=== PATIENT | male | born 1950 | race Caucasian/White ===

== ENCOUNTER 2023-11-13 18:34 | Inpatient (IN) | payer MEDICARE, SELFPAY ==
[2023-11-13] VITALS: BP 121/74; PULSE 81; RESP 18; O2SAT 95
[2023-11-13 18:37] VITALS: BP 137/81; PULSE 75; RESP 18; TEMP 36.8; O2SAT 97; BMI 31.8
--- NOTE | 2023-11-13 18:46 | ECG_ITS ---
APPROVED REPORT Exam: Resting ECG HR:73 bpm ECG Measurements Heart Rate 73 AXES TX 165 P 104 QRSd 106 QRS -47 QT 378 T 102 QTc 404 Conclusion SINUS RHYTHM INCOMPLETE RIGHT BUNDLE BRANCH BLOCK [90+ ms QRS DURATION, TERMINAL R IN V1/V2, 40+ ms S IN I/aVL/V4/V5/V6] LEFT ANTERIOR FASCICULAR BLOCK [QRS AXIS <= -45, QR IN I, RS IN II] NONSPECIFIC T-WAVE ABNORMALITY ABNORMAL ECG UNCONFIRMED REPORT Electronically signed by : Cheo Pena MD 11/14/2023 15:25:12
[2023-11-13] MEDS: PHENYLEPHRINE HCL 10 MG in 0.9 % SODIUM CHLORIDE 250 ML 60.24 MG IV (18:47)
--- NOTE | 2023-11-13 18:59 | PC.NURSE ---
spoke with Dr. Lucio regarding pt arriving to our facility. Pt currently c/o band like pain in epigastric area. Dr. Lucio gave verbal order for Heparin drip and Nitroglycerin drip. Dr. Butt notified.
--- NOTE | 2023-11-13 19:00 | PC.NURSE ---
YUMIKO GTT WAS MIXED AND VERIFIED WITH Bjorn MANJARREZ RN
--- NOTE | 2023-11-13 19:21 | PC.NURSE ---
spoke with who spoke with Dr. Lucio and to hold Nitro drip at this time,
[2023-11-13 19:31] LABS: PTT Heparin (inpatient only) 23.9 Seconds (50-75)
[2023-11-13] MEDS: HEPARIN DRIP CONSULT 1 EACH NOTAPPLIC (19:41)
--- NOTE | 2023-11-13 19:43 | XR_ITS ---
PROCEDURE INFORMATION: Exam: XR Chest Exam date and time: 11/13/2023 8:17 PM Age: 73 years old Clinical indication: Dyspnea; Additional info: SOB TECHNIQUE: Imaging protocol: Radiologic exam of the chest. Views: 1 view. COMPARISON: No relevant prior studies available. FINDINGS: Lungs: Opacification of the right lower lung. Left lung is clear. Pleural spaces: No pneumothorax. Heart/Mediastinum: Cardiomediastinal silhouette is normal. Aortic calcifications. Bones/joints: No acute abnormality. Median sternotomy wires. IMPRESSION: Opacification of the right lower lung which may be due to combination of pleural fluid, atelectasis, and/or infectious/inflammatory process. Recommend follow-up evaluation to assess for resolution following treatment.
[2023-11-13 20:00] VITALS: BP 108/60; PULSE 83; PULSE 90; RESP 22; TEMP 36.7; O2SAT 96
[2023-11-13 20:02] LABS: Troponin I 0.02 ng/ml (0.00-0.034)
[2023-11-13] MEDS: HEPARIN SODIUM 5,000 UNIT/ML VIAL 4000 UNIT IV (20:21)
[2023-11-13] MEDS: HEPARIN SODIUM,PORCINE/D5W 500 ML 20 UNIT IV (20:24)
[2023-11-13 20:37] LABS: POC Glucose,Bedside 191 (70-110)
[2023-11-13 21:01] LABS: Albumin Level 4.4 g/dl (3.5-5.0); Chloride 99 mmol/L (98-107); Potassium 4.7 mmoL/L (3.5-5.1)
[2023-11-13 21:03] LABS: Blood Urea Nitrogen 21 mg/dl (9-20); Creatinine Clearance Estimated 51 mL/min (50-200); Estimated Glomerular Filt Rate 42 ml/min (>60); GFR (African American) 51 ML/MIN (>60)
[2023-11-13 21:04] LABS: Alanine Aminotransferase 29 U/L (12-78); Alkaline Phosphatase 94 U/L (38-126); Aspartate Amino Transferase 27 U/L (17-59); Bilirubin,Total 0.7 mg/dl (0.2-1.3); Calcium 9.5 mg/dl (8.4-10.2); Carbon Dioxide 28 mmol/L (22.0-30.0); Glucose 209 mg/dl (74-100)
[2023-11-13 21:13] LABS: NT Pro Brain Natriuretic Pep. 1060 pg/mL (0-125)
[2023-11-13 21:23] LABS: Basophils % 0.2 % (0.1-2.0); Eosinophils % 0.1 % (0.1-12.0); Hematocrit 47.1 % (42.0-52.0); Lymphocytes # 0.9 K/mm3 (0.7-4.5); Lymphocytes % 4.4 % (10-50); Mean Corpuscular HGB Conc 31.9 g/dL (31.8-35.4); Mean Platelet Volume 6.8 fl (7.4-10.4); Monocytes % 5.2 % (1.7-9.3); Neutrophils # 17.6 K/mm3 (1.8-7.8); Platelet Count 243 K/mm3 (142-424); Red Blood Count 5.01 M/mm3 (4.60-6.20); Red Cell Distribution Width 13.6 % (11.5-17.5); White Blood Count 19.5 K/mm3 (4.8-10.8)
[2023-11-13 21:25] LABS: MANUAL DIFFERENTIAL MANUAL DIFFERENTIAL (MANUAL DIFF)
[2023-11-13 21:56] LABS: Anion Gap 13.7 mEq/L (5-15); Sodium 136 mmol/L (136-145)
[2023-11-13 21:57] LABS: Albumin/Globulin Ratio 1.5 (1.1-1.8); Total Protein,Serum 7.4 g/dl (6.3-8.2)
[2023-11-13 22:00] VITALS: BP 124/71; PULSE 76; RESP 20; O2SAT 93
[2023-11-13 22:01] LABS: Lymphocytes % 7 % (10-50); Monocytes % 7 % (2-9); Neutrophils % 86 % (42-76); Platelet Estimate Normal; RBC Morphology Normal; Total Cells Counted 100
--- NOTE | 2023-11-13 22:57 | EXP.HP ---
History of Present Illness *Admission Date: 11/13/23 *Reason for visit:: abdominal pain *History of present illness: Patient is a 73-year-old male with past medical history of diabetes mellitus CAD hypertension who presents to the hospital as a transfer from [facility]. According to patient he presented there because he had abdominal pain on the right side, he mention he thought it was like kidney pain, he also had epigastric pain. Per patient his abdominal pain was sharp, 10/10 intensity that made him go to the hospital. Patient denies any active abdominal pain at time of my evaluation. Denies nausea vomiting diarrhea constipation dysuria denies shortness of breath. Denies active chest pain fevers chills. [facility] Disclaimer: The information contained in this section may have been updated after the patient was seen, as this information can be updated by other users. Social History Smoking Status: Unknown if ever smoked alcohol intake: former current occupational status: previously employed Travel in the last 8 weeks: Inside the [place] Other Medical History Have you received the Flu Vaccine for this season: No Have you received the Pneumonia Vaccine: No Review of Systems Review of Systems Review of systems:: pertinent systems reviewed and negative unless documented below Meds Home Medications and Allergies Home Medications ?Medication ?Instructions ?Recorded ?Confirmed ?Type amlodipine 10 mg tablet 10 mg PO DAILY 11/13/23 11/13/23 History clopidogrel 75 mg tablet 75 mg PO DAILY 11/13/23 11/13/23 History furosemide 40 mg tablet 40 mg PO DAILY 11/13/23 11/13/23 History glyburide 5 mg tablet 5 mg PO BID 11/13/23 11/13/23 History ipratropium 0.5 mg-albuterol 3 mg 3 ml inhalation QID PRN SOA 11/13/23 11/13/23 History (2.5 mg base)/3 mL nebulization soln metformin 500 mg tablet 500 mg PO BID 11/13/23 11/13/23 History metoprolol tartrate 100 mg tablet 100 mg PO BID 11/13/23 11/13/23 History New Prescriptions to Start Prescriptions: Allergies Allergy/AdvReac Type Severity Reaction Status Date / Time lisinopril Allergy Headache Verified 11/13/23 18:59 Exam Data for Last 24 hours Vital signs and Labs for Last 24 Hours: Temp Pulse Resp BP Pulse Ox O2 Del Method O2 Flow Rate 98.2 F 90 18 137/81 97 Nasal Cannula 2 11/13/23 18:37 11/13/23 20:00 11/13/23 18:37 11/13/23 18:37 11/13/23 18:37 11/13/23 21:00 11/13/23 21:00 Laboratory Results - last 24 hr 11/13/23 19:05: APTT 23.9 L, Troponin I 0.02 11/13/23 20:28: POC Glucose 191 H 11/13/23 20:47: WBC 19.5 H, RBC 5.01, Hgb 15.0, Hct 47.1, MCV 94.0, MCH 30.0, MCHC 31.9, RDW 13.6, Plt Count 243, MPV 6.8 L, Neut % (Auto) 90.0 H, Lymph % (Auto) 4.4 L, [place] % (Auto) 5.2, Eos % (Auto) 0.1, Baso % (Auto) 0.2, Neut # (Auto) 17.6 H, Lymph # (Auto) 0.9, [place] # (Auto) 1.0, Eos # (Auto) 0.0, Baso # (Auto) 0.0, Total Counted 100, Neutrophils % (Manual) 86 H, Lymphocytes % (Manual) 7 L, Monocytes % (Manual) 7, Platelet Estimate Normal, RBC Morphology Normal, Sodium 136, Potassium 4.7, Chloride 99, Carbon Dioxide 28, Anion Gap 13.7, BUN 21 H, Creatinine 1.60 H, Estimated Creat Clear 51, Estimated GFR 42 L, Est GFR ( Amer) 51 L, Glucose 209 H, Calcium 9.5, Total Bilirubin 0.7, AST 27, ALT 29, Alkaline Phosphatase 94, NT-Pro-B Natriuret Pep 1060 H, Total Protein 7.4, Albumin 4.4, Globulin 3.0, Albumin/Globulin Ratio 1.5 I & O for Last 24 hours: Intake & Output 11/10/23 11/11/23 11/12/23 11/13/23 23:59 23:59 23:59 23:59 Intake Total 16.064 / 16.064 Balance 16.064 / 16.064 Weight 89.358 kg Constitutional Constitutional: no acute distress *Routine HEENT Exam Head: Present normocephalic Eye: Present EOMI and PERRL ENT: Present mucous membranes moist *Routine Neck Exam Neck: Present supple; Absent lymphadenopathy *Routine Respiratory Exam Respiratory: Present CTA bilaterally *Routine Cardiovascular Exam Cardiovascular: Present RRR *Routine Abdominal Exam Abdominal: Present soft and normoactive bowel sounds; Absent tenderness *Routine Rectal Exam Rectal:: deferred *Routine Genitalia Exam Genitalia:: deferred *Routine Extremities Exam Extremities: Absent cyanosis, clubbing or edema *Routine Skin Exam Skin: Present warm; Absent rash *Routine Neurological Exam Neurological: Present alert and oriented X3 Assessment and Plan *Assessment and plan (1) Elevated troponin: Status: Acute Category: Medical Code(s): R79.89 - Other specified abnormal findings of blood chemistry (2) Abdominal pain: Status: Acute Category: Medical Code(s): R10.9 - Unspecified abdominal pain (3) Diabetes mellitus: Status: Acute Category: Medical Code(s): E11.9 - Type 2 diabetes mellitus without complications (4) CAD (coronary artery disease): Status: Acute Category: Medical Code(s): I25.10 - Atherosclerotic heart disease of [place] coronary artery without angina pectoris (5) Hx of CABG: Status: Acute Category: Surgical Code(s): Z95.1 - Presence of aortocoronary bypass graft Plan Patient is a 73-year-old male with past medical history of diabetes mellitus CAD hypertension who presents to the hospital as a transfer from [facility]. According to patient he presented there because he had abdominal pain on the right side, he mention he thought it was like kidney pain, he also had epigastric pain. Per patient his abdominal pain was sharp, 10/10 intensity that made him go to the hospital. Patient denies any active abdominal pain at time of my evaluation. Denies nausea vomiting diarrhea constipation dysuria denies shortness of breath. Denies active chest pain fevers chills. Assessment and plan Elevated troponin, epigastric pain concern for NSTEMI Patient started on IV heparin Consult cardiology Monitor on cardiac resident surgeon troponin Order echocardiogram Abdominal pain, negative etiology Order CT abdomen pelvis without contrast Leukocytosis likely reactive -Monitor check blood cultures Elevated creatinine, unknown baseline Suspect BELEM on CKD Monitor Gentle IV fluids with normal saline Diabetes mellitus Insulin sliding scale DVT prophylaxis-on IV heparin
[2023-11-13 23:47] LABS: Troponin I 0.02 ng/ml (0.00-0.034)
[2023-11-14] VITALS (26 sets, daily range): BP systolic 112–150; BP diastolic 61–89; PULSE 74–104; RESP 16–24; TEMP 36.7–38.1; O2SAT 91–98; BMI 32.1
--- NOTE | 2023-11-14 02:05 | PC.NURSE ---
Patient used call light and requested nurse to bedside. Patient requested home dose of breathing treatment at this time. TRN auscultated lungs and noted inspiratory and expiratory wheezes and patient slightly tachypneic at 27 bpm. Assessed increased work of breathing, with accessory muscle use but patient is also sitting on the side of the bed using urinal independently at this time. Dr. Harry called for restarting patient home medication of duoneb. new orders. see APR. Respiratory notified and reports that they are headed to patient bedside.
[2023-11-14] MEDS: IPRATROPIUM/ALBUTEROL 3 ML NEB IH ×2 (02:14→09:29)
[2023-11-14 02:20] LABS: PTT Heparin (inpatient only) 36.5 Seconds (50-75)
[2023-11-14 02:28] LABS: Troponin I 0.01 ng/ml (0.00-0.034)
[2023-11-14] MEDS: HEPARIN SODIUM 5,000 UNIT/ML VIAL 4000 UNIT IV (02:44)
[2023-11-14] MEDS: HEPARIN SODIUM,PORCINE/D5W 500 ML 27 UNIT IV (02:45)
--- NOTE | 2023-11-14 05:19 | CT_ITS ---
PROCEDURE INFORMATION: Exam: CT Chest Without Contrast; Diagnostic Exam date and time: 11/14/2023 5:48 AM Age: 73 years old Clinical indication: Abdominal pain; Acute TECHNIQUE: Imaging protocol: Diagnostic computed tomography of the chest without contrast. Radiation optimization: All CT scans at this facility use at least one of these dose optimization techniques: automated exposure control; mA and/or kV adjustment per patient size (includes targeted exams where dose is matched to clinical indication); or iterative reconstruction. COMPARISON: CR XR CHEST PORTABLE 11/13/2023 8:17 PM FINDINGS: Lungs: Volume loss in the right hemithorax. No acute infiltrate or other process is noted. Pleural spaces: Some pleural and parenchymal scarring is present bilaterally. Heart: Unremarkable. No cardiomegaly. No pericardial effusion. Coronary arteries: Coronary atherosclerosis. Lymph nodes: Unremarkable. No enlarged lymph nodes. Vasculature: Unremarkable. No aortic aneurysm. Bones/joints: Status post median sternotomy and CABG. Soft tissues: Unremarkable. IMPRESSION: 1. No acute intrathoracic process identified. 2. Coronary atherosclerosis, status post CABG. PROCEDURE INFORMATION: Exam: CT Abdomen And Pelvis Without Contrast Exam date and time: 11/14/2023 5:48 AM Age: 73 years old Clinical indication: Abdominal pain; Acute TECHNIQUE: Imaging protocol: Computed tomography of the abdomen and pelvis without contrast. Radiation optimization: All CT scans at this facility use at least one of these dose optimization techniques: automated exposure control; mA and/or kV adjustment per patient size (includes targeted exams where dose is matched to clinical indication); or iterative reconstruction. COMPARISON: CR XR CHEST PORTABLE 11/13/2023 8:17 PM FINDINGS: Liver: Normal. No mass. Gallbladder and biliary ducts: Mildly hydropic. No calcified stones. No ductal dilation. Pancreas: Normal. No ductal dilation. Spleen: Normal. No splenomegaly. Adrenal glands: Normal. No mass. Kidneys and ureters: Normal. No hydronephrosis. Stomach and bowel: Unremarkable. No obstruction. No mucosal thickening. Appendix: No evidence of appendicitis. Intraperitoneal space: Increased opacity to the mesenteric fat is also seen. Vasculature: Unremarkable. No abdominal aortic aneurysm. Lymph nodes: There is mesenteric lymphadenopathy present. Urinary bladder: Unremarkable as visualized. Reproductive: Unremarkable as visualized. Bones/joints: Unremarkable. No acute fracture. Soft tissues: Unremarkable. IMPRESSION: 1. No acute findings. 2. Prominent mesenteric lymph nodes and increased opacity to the mesenteric fat consistent with mesenteric panniculitis. 3. Hydropic gallbladder but no wall thickening or stones are identified and no biliary obstruction is present.
--- NOTE | 2023-11-14 05:37 | CA_ITS ---
APPROVED REPORT EXAM: Comprehensive 2D, Doppler, and color-flow Echocardiogram Credit Report Checker: Magy Schulz RDCS Ht: 5 ft 6 in Wt: 199lbs BSA: 2.00 BP: 137/81 mmHg Indications: NSTEMI,CAD,H/O CABG TDS PSAX M-Mode Dimensions RVDd 1.83 cm (0.9-2.6) LA Diam 4.85 cm (1.9-4.0) LVDd 6.21 cm (3.5-5.7) LVDs 5.32 cm (3.5-5.7) IVSd 1.02 cm (0.6-1.1) PWd 0.94 cm (0.6-1.1) EF (Teich) 29.90% FS 14.30% EDV (Teich) 194.70 mL TAPSE 2.98 (<1.7) ESV (Teich) 136.50 mL LV Diastology E Decel Time 307 (160-240 msec) E/A Ratio 1.1 Mitral Valve MV E Max Stone. 74.0 (40-130 cm/s) MV A Velocity 69.0 (40-130 cm/s) E/A Ratio 1.07 MV PHT 90.0 ms Left Ventricle The left ventricle is normal size. The left ventricular systolic function is mildly reduced. There is increased LV wall thickness. The septum is asynchronous. The left ventricular diastolic function is normal. LVEF is 45%. Right Ventricle Right ventricle is moderately dilated. Right ventricle is mildly hypokinetic. Atria The left atrium size is normal. The right atrium size is normal. There is no Doppler evidence of interatrial shunt. Aortic Valve The aortic valve is mildly thickened. There is no aortic valvular stenosis. No aortic regurgitation. Mitral Valve The mitral valve is normal in structure. No evidence of mitral valve stenosis. Trace mitral regurgitation. Tricuspid Valve Tricuspid valve is grossly normal in structure and function. Trace tricuspid regurgitation. There is insufficient TR jet to estimate RVSP. Pulmonic Valve The pulmonary valve is normal in structure. Trace pulmonic regurgitation. Great Vessels The aortic root is normal in size. The ascending aorta is not well visualized. IVC is normal in size and collapses >50% with inspiration. Pericardium There is no pericardial effusion. Conclusion Mildly reduced LV systolic function (LVEF 45%). Asynchronous septum. Moderate RV dilation with mild reduction in RV function. No significant valvular stenosis or regurgitation. Electronically signed by : More Ring MD 11/14/2023 17:09:09
--- NOTE | 2023-11-14 05:42 | PC.NURSE ---
Patient left floor with Radiology at 05:40.
--- NOTE | 2023-11-14 06:00 | PC.NURSE ---
Patient back from Radiology at 06:00.
[2023-11-14 06:20] LABS: Basophils % 0.2 % (0.1-2.0); Eosinophils % 0.1 % (0.1-12.0); Hematocrit 40.8 % (42.0-52.0); Hemoglobin 13.5 g/dL (14.1-18.0); Lymphocytes # 0.6 K/mm3 (0.7-4.5); Lymphocytes % 5.3 % (10-50); Mean Corpuscular Hemoglobin 30.8 pg (27.0-31.2); Mean Corpuscular Volume 93.3 fl (80-94); Mean Platelet Volume 6.9 fl (7.4-10.4); Monocytes # 0.7 K/mm3 (0.1-1.0); Monocytes % 5.7 % (1.7-9.3); Neutrophils # 10.2 K/mm3 (1.8-7.8); Neutrophils % 88.7 % (37.0-80.0); Platelet Count 195 K/mm3 (142-424); Red Blood Count 4.37 M/mm3 (4.60-6.20); Red Cell Distribution Width 13.6 % (11.5-17.5); White Blood Count 11.5 K/mm3 (4.8-10.8)
[2023-11-14 06:23] LABS: Chloride 99 mmol/L (98-107); Potassium 4.3 mmoL/L (3.5-5.1); Sodium 134 mmol/L (136-145)
[2023-11-14 06:26] LABS: Anion Gap 13.3 mEq/L (5-15); Blood Urea Nitrogen 26 mg/dl (9-20); Calcium 9.4 mg/dl (8.4-10.2); Carbon Dioxide 26 mmol/L (22.0-30.0); Creatinine Clearance Estimated 64 mL/min (50-200); Estimated Glomerular Filt Rate 54 ml/min (>60); GFR (African American) 65 ML/MIN (>60); Glucose 191 mg/dl (74-100)
[2023-11-14 06:38] LABS: MANUAL DIFFERENTIAL MANUAL DIFFERENTIAL (MANUAL DIFF)
[2023-11-14] MEDS: 0.9 % SODIUM CHLORIDE 1000ML 1,000 ML 75 ML IV (07:05)
[2023-11-14 07:13] LABS: POC Glucose,Bedside 168 (70-110)
--- NOTE | 2023-11-14 07:39 | HMH.PHAHEP ---
[facility] Pharm[facility] Heparin Dosing Demographic Data Admission date:: 11/13/23 Date: 11/14/23 Time: 07:40 Allergies Allergy/AdvReac Type Severity Reaction Status Date / Time lisinopril Allergy Headache Verified 11/13/23 18:59 Height: 1.68 m Weight: 90.492 kg Indication Medication therapy:: Heparin Current Indications:: ACUTE CORONARY SYNDROME/NSTEMI - LOW DOSE PROTOCOL Current Active Problems (Updated 11/14/23 @ 09:23 by ALLIE Skinner) NSTEMI (non-ST elevated myocardial infarction) (Acute) Hx of CABG (Acute) CAD (coronary artery disease) (Acute) Diabetes mellitus (Acute) Abdominal pain (Acute) Elevated troponin (Acute) CVA?: No Bleeding problem?: No Kidney disease?: No [place]?: Yes Additional History:: CABG, CORONARY ARTERY DISEASE, DIABETES Desired PTT range:: 50-75 seconds Comments:: BASELINE PTT: 23.9 SECONDS Labs Anticoagulation Lab Results:: 11/13/23 11/14/23 20:47 05:57 Hgb 15.0 13.5 L Hct 47.1 40.8 L Plt Count 243 195 Monitoring Dose Monitor 1: Date: 11/13/23 Time: 19:00 PTT Result:: 23.9 SECONDS (BASELINE) Infusion Rate:: RECOMMEND BOLUSING 4000 UNITS HEPARIN IV ONCE, THEN START HEPARIN DRIP AT 1000 UNITS/HOUR = 20 ML/HOUR. Comment:: PLATELET COUNT: 243,000 Dose Monitor 2: Date: 11/14/23 Time: 02:00 PTT Result:: 36.5 SECONDS Infusion Rate:: RECOMMEND BOLUSING 4000 UNITS HEPARIN IV ONCE, THEN INCREASE HEPARIN DRIP TO 1350 UNITS/HOUR = 27 ML/HOUR. Dose Monitor 3: Date: 11/14/23 Time: 08:00 PTT Result:: 43.8 SECONDS Infusion Rate:: RECOMMENDED 3000 UNIT HEPARIN IV BOLUS ONCE, AND INCREASE HEPARIN DRIP TO 1,550 UNITS/HOUR = 31 ML/HOUR. Comment:: PLATELET COUNT: 195,000 Core Measures Is INR > or = 2 at discharge?: No Most Recent Labs:: Laboratory Results - last 24 hr 11/13/23 19:05: APTT 23.9 L, Troponin I 0.02 11/13/23 20:28: POC Glucose 191 H 11/13/23 20:47: WBC 19.5 H, RBC 5.01, Hgb 15.0, Hct 47.1, MCV 94.0, MCH 30.0, MCHC 31.9, RDW 13.6, Plt Count 243, MPV 6.8 L, Neut % (Auto) 90.0 H, Lymph % (Auto) 4.4 L, [place] % (Auto) 5.2, Eos % (Auto) 0.1, Baso % (Auto) 0.2, Neut # (Auto) 17.6 H, Lymph # (Auto) 0.9, [place] # (Auto) 1.0, Eos # (Auto) 0.0, Baso # (Auto) 0.0, Total Counted 100, Neutrophils % (Manual) 86 H, Lymphocytes % (Manual) 7 L, Monocytes % (Manual) 7, Platelet Estimate Normal, RBC Morphology Normal, Sodium 136, Potassium 4.7, Chloride 99, Carbon Dioxide 28, Anion Gap 13.7, BUN 21 H, Creatinine 1.60 H, Estimated Creat Clear 51, Estimated GFR 42 L, Est GFR ( Amer) 51 L, Glucose 209 H, Calcium 9.5, Total Bilirubin 0.7, AST 27, ALT 29, Alkaline Phosphatase 94, NT-Pro-B Natriuret Pep 1060 H, Total Protein 7.4, Albumin 4.4, Globulin 3.0, Albumin/Globulin Ratio 1.5 11/13/23 23:00: Troponin I 0.02 11/14/23 01:50: APTT 36.5 L, Troponin I 0.01 11/14/23 05:57: WBC 11.5 H D, RBC 4.37 L, Hgb 13.5 L, Hct 40.8 L, MCV 93.3, MCH 30.8, MCHC 33.0, RDW 13.6, Plt Count 195, MPV 6.9 L, Neut % (Auto) 88.7 H, Lymph % (Auto) 5.3 L, [place] % (Auto) 5.7, Eos % (Auto) 0.1, Baso % (Auto) 0.2, Neut # (Auto) 10.2 H, Lymph # (Auto) 0.6 L, [place] # (Auto) 0.7, Eos # (Auto) 0.0, Baso # (Auto) 0.0, Sodium 134 L, Potassium 4.3, Chloride 99, Carbon Dioxide 26, Anion Gap 13.3, BUN 26 H, Creatinine 1.30 H, Estimated Creat Clear 64, Estimated GFR 54 L, Est GFR ( Amer) 65 D, Glucose 191 H, Calcium 9.4 11/14/23 07:03: POC Glucose 168 H If INR was < than 2.0 why was therapy stopped?: PATIENT TAKEN TO [employer]AGES PROFESSOR Were Heparin and Warfarin started on the same day?: No If not, why?: PATIENT TAKEN TO BIB[employer] LANGUAGES PROFESSOR
--- NOTE | 2023-11-14 08:08 | HMH.PHAINT1 ---
Pharmacy Intervention Comments: HOME MEDICATION LIST VERIFIED USING LIST FROM OUTPATIENT PHARMACY
[2023-11-14 08:25] LABS: Lymphocytes % 8 % (10-50); Monocytes % 4 % (2-9); Neutrophils % 88 % (42-76); Platelet Estimate Normal; RBC Morphology Normal; Total Cells Counted 100
[2023-11-14 09:16] LABS: PTT Heparin (inpatient only) 43.8 Seconds (50-75)
[2023-11-14] MEDS: ONDANSETRON 4MG/2ML VIAL 4 MG IV (09:19)
[2023-11-14] MEDS: METOPROLOL TARTRATE 50MG TABLET 100 MG PO ×2 (09:19→20:25)
--- NOTE | 2023-11-14 09:19 | IR_ITS ---
APPROVED REPORT Patient Location: Inpatient Education Administrative Assistant: MARIANNE Galindo RT (R) PROCEDURES Left heart catheterization Left ventriculogram Selective coronary angiogram Selective engagement of left internal mammary artery to the first diagonal artery and LAD Selective engagement of the saphenous vein graft to the circumflex artery Drug-eluting stent deployment to the second obtuse marginal artery Drug-eluting stent deployment to the first obtuse marginal artery Drug-eluting stent deployment to the left main artery extending the proximal circumflex artery Drug-eluting stent deployment to the proximal mid dominant right coronary INDICATION Acute non-ST elevation myocardial infarction, Coronary artery disease, History of coronary bypass surgery Informed consent was obtained prior to the procedure. COMPLICATIONS None Estimated Blood Loss: Less than 10 mls TECHNIQUE One percent lidocaine used to anesthetize the right groin. The right femoral artery was accessed via the Seldinger technique and a 5 Russian sheath was placed in the right femoral artery. A JL 4, JR4 catheter were used to perform left heart catheterization, left ventriculogram selective coronary angiography as well as selective engagement of the 1 saphenous vein graft and the left internal mammary artery. At the end of the diagnostic angiogram the 5 Russian sheath was exchanged for a 6 Russian sheath and therapeutic Was administered. An EBU 3.75 guide catheter was placed in the left main artery followed by Choice PT extra-support wire placed down the second obtuse marginal artery. Predilatation with a 2.5 mm millimeter balloon was made in the ostial circumflex artery extending into the second obtuse marginal artery. A 2.5 x 38 mm Dickinson frontier stent was placed in the distal left main artery extending into the circumflex artery and into the second obtuse marginal artery and deployed at 20 willis. An additional 2.5 x 18 mm Sebastián frontier stent was placed distal to the for stent yet still overlapping the for stent and deployed at 16 willis. The balloon was brought back and deployed at 24 willis throughout the mid and proximal portion of the stent. This jailed the first obtuse marginal artery and the obtuse marginal artery shutdown. There was a skip graft going from the second obtuse marginal artery retrograde to the first obtuse marginal artery. After unable to penetrate the first obtuse marginal artery in an antegrade manner from the true circumflex artery the wire in the second obtuse marginal artery was used to traverse the skip graft going back into the first obtuse marginal artery and the wire was then passed in a retrograde manner back of the first obtuse marginal artery and then the wire was able to be pushed back into the circumflex artery and left main artery. With this a 2 mm x 12 mm compliant balloon was then advanced and felt balloon was passed down the second obtuse marginal artery through the skip graft in a retrograde manner and then retrograde up the first obtuse marginal artery and back into the proximal circumflex artery and left main artery. This was balloon to 20 willis to open the struts jailing the first obtuse marginal artery. A wire was then passed in an antegrade manner into the first obtuse marginal artery and predilatation with a 2 mm balloon was then used. Following this a 2.25 x 38 mm Dickinson frontier stent was placed in the circumflex artery extending into the proximal and mid first obtuse marginal artery and deployed at 20 willis. An additional 2.5 x 27 mm balloon was then advanced into the left main artery going into the circumflex and then the proximal and mid first obtuse marginal artery and then deployed at 20 willis. A 3 mm x 12 mm noncompliant balloon was then deployed into the second obtuse marginal artery extending back into the circumflex artery which crossed the first obtuse marginal artery and then deployed at 20 willis. A 3.5 x 15 mm Sebastián frontier stent was placed in the left main artery extending into the proximal circumflex artery and deployed at 20 willis. This balloon was then advanced and deployed at 10 willis. An additional 3 mm x 12 mm noncompliant balloon was deployed in the proximal circumflex artery crossing the first obtuse marginal artery extending to the proximal second obtuse marginal artery and then deployed at 24 willis. An additional wire was placed back into the first obtuse marginal artery and a 2.5 x 12 mm balloon was deployed at 24 willis to open the struts going into the first obtuse marginal artery. Excellent angiographic results were obtained with ADRIANA-3 flow being present down the left main artery first obtuse marginal artery second obtuse marginal artery and circumflex artery before and after the procedure. Following this the apparatus was removed and placed into the right coronary artery where a wire was then used to traverse the right coronary artery. A 3.5 x 26 mm Sebastián frontier stent was deployed at 20 willis in the proximal to mid right coronary artery. There was a residual calcified stenosis proximally therefore a 4 mm x 12 mm Dickinson frontier stent was deployed proximal to the for stent yet still overlapping it at 20 willis. The balloon was advanced and deployed at 20 willis in the proximal portion of the 3.5 mm stent in order to mesh the 2 stents and further post dilate the proximal portion. ADRIANA-3 flow was present before and after the procedure. After achieving excellent angiograph results the apparatus was removed the groin is reprepped closure change sheath was removed and hemostasis was achieved using Perclose device patient was transferred to the postop putting in stable condition ANGIOGRAPHIC RESULTS The left main artery Has a distal 30% stenosis The left anterior descending artery Is proximally patent with 50% calcified stenoses followed by mid vessel 80% stenoses. There is competitive flow into the first diagonal artery and LAD from the ALCARAZ skip graft. The circumflex artery Is a large codominant system giving rise to 2 large obtuse marginal arteries. The ostium of the circumflex artery has a 90% stenosis with a 90% calcified concentric stenosis extending into the first obtuse marginal artery as well as into the second obtuse marginal artery. There is additional 60 and 70% stenoses in the second obtuse marginal artery. There is angiographic evidence of a skip graft from the first and second obtuse marginal artery however there is no filling from the aorta into the first obtuse marginal artery in an antegrade manner The right coronary artery Is a dominant vessel and has proximal to mid vessel concentric calcified 70% stenosis The NIETO ventriculogram reveals Reduced at 45% The left ventricular end-diastolic pressure 20 mmHg ALCARAZ to diagonal 1 and then LAD is patent Saphenous vein graft to first and second obtuse marginal artery is ostially thrombosed and occluded IMPRESSION Coronary disease as described above Successful stenting of the distal left main artery extending into the proximal circumflex artery moderate and then severe disease reduced to 0% with 1 drug-eluting stent Successful stenting of a critically diseased first obtuse marginal artery high-grade calcified stenoses reduced to 0% with 1 drug-eluting stent Successful stenting of a critically diseased large second obtuse marginal artery high-grade calcified stenosis reduced to 0% with 2 contiguous drug-eluting stents Successful stenting of the proximal and mid dominant right coronary artery moderate to severe disease distally 0% with 2 drug-eluting stents PLAN 1. Plavix and aspirin 2. Standard therapy for ischemic heart disease 3. LDL less than 55 achieved high intensity statin 4. Avoidance of tobacco products 5. Risk factor modification 6. Cardiac rehabilitation Electronically signed by : Hector Lucio MD 11/14/2023 14:57:12
--- NOTE | 2023-11-14 09:19 | EXP.CARD.CON ---
History of Present Illness History of Present Illness Consult date: 11/14/23 Requesting physician: Sue Harry Consult reason: chest pain Chief complaint: Abdominal pain History of present illness: 73-year-old white male with history of CAD status post CABG approximately 2005. States he had stenting a few years after that but has not followed up with cardiology since that time. He does however state that he is remained on DAPT and statin at home. States he had worsening dyspnea on exertion for several months yesterday developed severe epigastric discomfort which radiated to his chest described as a sharp discomfort associated with shortness of breath and weakness. He presented to the emergency room. The details there are not completely clear but apparently had very low blood pressure was diaphoretic and had rapid response called. He was temporarily on neosynephrine. First troponin there was elevated, high-sensitivity troponin 354. Subsequent troponin had trended down. EKG was sinus rhythm with nonspecific T wave abnormalities anterolateral leads. He was transferred to this facility on heparin drip. He no longer requires felton and is sitting upright in bed this morning with no complaints. Serial troponins here are normal. proBNP is 1060. Of note he does have white blood cell count of 19,000 and low-grade temp of 100.5. Patient denies nausea vomiting diarrhea and any prior GI conditions. His abdomen is soft and nontender with normal bowel movements, amylase is normal. [facility] Disclaimer: The information contained in this section may have been updated after the patient was seen, as this information can be updated by other users. Social History Smoking Status: Unknown if ever smoked alcohol intake: former current occupational status: previously employed Travel in the last 8 weeks: Inside the [place] Review of Systems Constitutional Constitutional: Denies fatigue and Reports weakness Comments: Diaphoresis Eyes Eyes: Denies loss of vision ENT Ears, Nose, Mouth, and Throat: Denies hearing loss and Denies vertigo *Cardiovascular Cardiovascular: Reports chest pain, Reports dyspnea and Denies syncope *Respiratory Respiratory: Denies cough and Reports dyspnea *Gastrointestinal Gastrointestinal: Reports abdominal pain, Denies change in stool character, Denies nausea and Denies vomiting *Genitourinary Genitourinary: Denies difficulty urinating *Musculoskeletal Musculoskeletal: Denies muscle weakness Integumentary/Breasts Skin/Breast: Denies changing lesions *Neurologic Neurologic: Denies loss of vision, Denies syncope, Denies vertigo and Reports weakness Endocrine Endocrine: Denies fatigue Exam Data for Last 24 hours Vital signs and Labs for Last 24 Hours: Temp Pulse Resp BP Pulse Ox O2 Del Method O2 Flow Rate 100.5 F H 83 22 120/68 96 Nasal Cannula 2 11/14/23 07:54 11/14/23 07:54 11/14/23 07:54 11/14/23 07:54 11/14/23 07:54 11/14/23 07:56 11/14/23 07:56 FiO2 2 11/13/23 00:00 Laboratory Results - last 24 hr 11/13/23 19:05: APTT 23.9 L, Troponin I 0.02 11/13/23 20:28: POC Glucose 191 H 11/13/23 20:47: WBC 19.5 H, RBC 5.01, Hgb 15.0, Hct 47.1, MCV 94.0, MCH 30.0, MCHC 31.9, RDW 13.6, Plt Count 243, MPV 6.8 L, Neut % (Auto) 90.0 H, Lymph % (Auto) 4.4 L, [place] % (Auto) 5.2, Eos % (Auto) 0.1, Baso % (Auto) 0.2, Neut # (Auto) 17.6 H, Lymph # (Auto) 0.9, [place] # (Auto) 1.0, Eos # (Auto) 0.0, Baso # (Auto) 0.0, Total Counted 100, Neutrophils % (Manual) 86 H, Lymphocytes % (Manual) 7 L, Monocytes % (Manual) 7, Platelet Estimate Normal, RBC Morphology Normal, Sodium 136, Potassium 4.7, Chloride 99, Carbon Dioxide 28, Anion Gap 13.7, BUN 21 H, Creatinine 1.60 H, Estimated Creat Clear 51, Estimated GFR 42 L, Est GFR ( Amer) 51 L, Glucose 209 H, Calcium 9.5, Total Bilirubin 0.7, AST 27, ALT 29, Alkaline Phosphatase 94, NT-Pro-B Natriuret Pep 1060 H, Total Protein 7.4, Albumin 4.4, Globulin 3.0, Albumin/Globulin Ratio 1.5 11/13/23 23:00: Troponin I 0.02 11/14/23 01:50: APTT 36.5 L, Troponin I 0.01 11/14/23 05:57: WBC 11.5 H D, RBC 4.37 L, Hgb 13.5 L, Hct 40.8 L, MCV 93.3, MCH 30.8, MCHC 33.0, RDW 13.6, Plt Count 195, MPV 6.9 L, Neut % (Auto) 88.7 H, Lymph % (Auto) 5.3 L, [place] % (Auto) 5.7, Eos % (Auto) 0.1, Baso % (Auto) 0.2, Neut # (Auto) 10.2 H, Lymph # (Auto) 0.6 L, [place] # (Auto) 0.7, Eos # (Auto) 0.0, Baso # (Auto) 0.0, Total Counted 100, Neutrophils % (Manual) 88 H, Lymphocytes % (Manual) 8 L, Monocytes % (Manual) 4, Platelet Estimate Normal, RBC Morphology Normal, Sodium 134 L, Potassium 4.3, Chloride 99, Carbon Dioxide 26, Anion Gap 13.3, BUN 26 H, Creatinine 1.30 H, Estimated Creat Clear 64, Estimated GFR 54 L, Est GFR ( Amer) 65 D, Glucose 191 H, Calcium 9.4 11/14/23 07:03: POC Glucose 168 H 11/14/23 08:48: APTT 43.8 L I & O for Last 24 hours: Intake & Output 11/11/23 11/12/23 11/13/23 11/14/23 23:59 23:59 23:59 23:59 Intake Total 16.064 / 105.064 89 / 89 Output Total 200 / 200 Balance 16.064 / 105.064 -111 / -111 Weight 197 lb 199 lb 8.011 oz Constitutional Constitutional: no acute distress and cooperative *Routine HEENT Exam Eye: Present PERRL *Routine Respiratory Exam Respiratory: Present CTA bilaterally; Absent accessory muscle use, wheezes or crackles *Routine Cardiovascular Exam Cardiovascular: Present RRR, Normal S1 and Normal S2; Absent murmur, gallop or rubs *Routine Abdominal Exam Abdominal: Present soft; Absent tenderness *Routine Extremities Exam Extremities: Present pulses intact; Absent cyanosis or edema *Routine Skin Exam Skin: Present intact; Absent erythema or wounds *Routine Neurological Exam Neurological: Present alert and oriented X3 Routine Psychiatric Exam Psychiatric: Present cooperative Meds Home Medications and Allergies Home Medications ?Medication ?Instructions ?Recorded ?Confirmed ?Type amlodipine 10 mg tablet 10 mg PO DAILY 11/13/23 11/13/23 History clopidogrel 75 mg tablet 75 mg PO DAILY 11/13/23 11/13/23 History furosemide 40 mg tablet 40 mg PO DAILY 11/13/23 11/13/23 History glyburide 5 mg tablet 5 mg PO BID 11/13/23 11/13/23 History ipratropium 0.5 mg-albuterol 3 mg 3 ml inhalation QIDP PRN Shortness 11/13/23 11/14/23 History (2.5 mg base)/3 mL nebulization Of Breath soln metformin 500 mg tablet 1,000 mg PO BID 11/13/23 11/14/23 History metoprolol tartrate 100 mg tablet 100 mg PO BID 11/13/23 11/13/23 History New Prescriptions to Start Prescriptions: Allergies Allergy/AdvReac Type Severity Reaction Status Date / Time lisinopril Allergy Headache Verified 11/13/23 18:59 Assessment and Plan *Assessment and plan (1) NSTEMI (non-ST elevated myocardial infarction): Status: Acute Category: Medical Code(s): I21.4 - Non-ST elevation (NSTEMI) myocardial infarction (2) Hx of CABG: Status: Acute Category: Surgical Code(s): Z95.1 - Presence of aortocoronary bypass graft (3) CAD (coronary artery disease): Status: Acute Category: Medical Code(s): I25.10 - Atherosclerotic heart disease of [place] coronary artery without angina pectoris (4) Abdominal pain: Status: Acute Category: Medical Code(s): R10.9 - Unspecified abdominal pain Plan NSTEMI 11/12 -Known CAD status post CABG approximately 2005, subsequent stenting several years later per patient -Patient presented with severe epigastric and substernal chest pain with elevated troponin diaphoresis and shortness of breath worsening x2 months -Continue DAPT, heparin drip, statin, beta-[place] -Echo is pending -Patient agreeable to left heart cath today Hypotension -Acute hypotension on arrival to outside facility, questionable vasovagal? -Was temporarily on felton-, normotensive here -Continue to monitor closely Fever with leukocytosis -WBC 19K, temp 100.5 -Defer workup to hospitalist, no obvious signs of infection COPD, former smoker -Lungs are clear here -Resume home inhalers
[2023-11-14] MEDS: AMLODIPINE 10MG TABLET 10 MG PO (09:20)
--- NOTE | 2023-11-14 09:23 | ECG_ITS ---
APPROVED REPORT Exam: Resting ECG HR:84 bpm ECG Measurements Heart Rate 84 AXES FL 156 P 114 QRSd 114 QRS -32 QT 369 T 211 QTc 410 Conclusion SINUS RHYTHM WITH OCCASIONAL VENTRICULAR PREMATURE COMPLEXES LEFT AXIS DEVIATION [QRS AXIS < -30] MODERATE INTRAVENTRICULAR CONDUCTION DELAY [110+ ms QRS DURATION] NONSPECIFIC T-WAVE ABNORMALITY ABNORMAL ECG UNCONFIRMED REPORT Electronically signed by : Cheo Pena MD 11/14/2023 15:25:00
[2023-11-14] MEDS: ASPIRIN EC 81MG TABLET 81 MG PO (09:49)
[2023-11-14] MEDS: CLOPIDOGREL 75MG TAB 75 MG PO (09:49)
[2023-11-14] MEDS: HEPARIN SODIUM 5,000 UNIT/ML VIAL 3000 UNIT IV (09:50)
[2023-11-14] MEDS: HEPARIN 1,000 UNITS/ML 10ML VIAL (CATH LAB) 10000 UNIT IV ×2 (12:00→12:10)
[2023-11-14] MEDS: LIDOCAINE 1% 10ML MDV 20 ML IJ (12:00)
[2023-11-14] MEDS: HEPARIN 1,000 UNITS/500ML NS (CATH LAB) 3000 UNIT IV (12:01)
[2023-11-14] MEDS: 0.9 % SODIUM CHLORIDE 500 ML 25 ML IV (12:01)
[2023-11-14] MEDS: diphenhydrAMINE 50MG/ML VIAL 50 MG IV (12:01)
[2023-11-14] MEDS: MIDAZOLAM 2MG/2ML VIAL 1 MG IV (12:06)
[2023-11-14] MEDS: FENTANYL 100MCG/2ML VIAL 50 MCG IV (12:06)
[2023-11-14] MEDS: MIDAZOLAM HCL 1MG/1ML 5ML VIAL 1 MG IV (12:24)
[2023-11-14] MEDS: PROPOFOL 10MG/ML 20ML VIAL 40 MG IV ×3 (12:37→13:04)
--- NOTE | 2023-11-14 14:52 | PC.NURSE ---
notified of pt c/o discomfort to upper abdomen. Pt states it feels like it's burning. He is post cath. VSS. New orders received. Family at bedside. Call light within reach.
[2023-11-14] MEDS: FAMOTIDINE 20MG TABLET 40 MG PO (15:03)
[2023-11-14] MEDS: BELLADONNA ALKALOIDS 60 ML ML PO (15:03)
[2023-11-14] MEDS: IOPAMIDOL-370 (76%);100ML BOTTLE 180 ML IV (15:20)
[2023-11-14 15:23] LABS: CATHL Activated Clotting Time 244 SEC (74-125)
[2023-11-14 15:24] LABS: CATHL Activated Clotting Time 213 SEC (74-125)
--- NOTE | 2023-11-14 17:43 | P.PN_ITS ---
Subjective *Date: 11/14/23 *Time: 18:52 Interval history: Patient states he feels well today, but continues to have intermittent burning upper abdominal pain. Exam Data for Last 24 hours Vital signs and Labs for Last 24 Hours: Temp Pulse Resp BP Pulse Ox O2 Del Method O2 Flow Rate 98.3 F 90 20 114/68 98 Nasal Cannula 2.5 11/14/23 16:00 11/14/23 17:25 11/14/23 17:25 11/14/23 17:25 11/14/23 17:25 11/14/23 17:25 11/14/23 17:25 FiO2 2 11/13/23 00:00 Laboratory Results - last 24 hr 11/13/23 19:05: APTT 23.9 L, Troponin I 0.02 11/13/23 20:28: POC Glucose 191 H 11/13/23 20:47: WBC 19.5 H, RBC 5.01, Hgb 15.0, Hct 47.1, MCV 94.0, MCH 30.0, MCHC 31.9, RDW 13.6, Plt Count 243, MPV 6.8 L, Neut % (Auto) 90.0 H, Lymph % (Auto) 4.4 L, [place] % (Auto) 5.2, Eos % (Auto) 0.1, Baso % (Auto) 0.2, Neut # (Auto) 17.6 H, Lymph # (Auto) 0.9, [place] # (Auto) 1.0, Eos # (Auto) 0.0, Baso # (Auto) 0.0, Total Counted 100, Neutrophils % (Manual) 86 H, Lymphocytes % (Manual) 7 L, Monocytes % (Manual) 7, Platelet Estimate Normal, RBC Morphology Normal, Sodium 136, Potassium 4.7, Chloride 99, Carbon Dioxide 28, Anion Gap 13.7, BUN 21 H, Creatinine 1.60 H, Estimated Creat Clear 51, Estimated GFR 42 L, Est GFR ( Amer) 51 L, Glucose 209 H, Calcium 9.5, Total Bilirubin 0.7, AST 27, ALT 29, Alkaline Phosphatase 94, NT-Pro-B Natriuret Pep 1060 H, Total Protein 7.4, Albumin 4.4, Globulin 3.0, Albumin/Globulin Ratio 1.5 11/13/23 23:00: Troponin I 0.02 11/14/23 01:50: APTT 36.5 L, Troponin I 0.01 11/14/23 05:57: WBC 11.5 H D, RBC 4.37 L, Hgb 13.5 L, Hct 40.8 L, MCV 93.3, MCH 30.8, MCHC 33.0, RDW 13.6, Plt Count 195, MPV 6.9 L, Neut % (Auto) 88.7 H, Lymph % (Auto) 5.3 L, [place] % (Auto) 5.7, Eos % (Auto) 0.1, Baso % (Auto) 0.2, Neut # (Auto) 10.2 H, Lymph # (Auto) 0.6 L, [place] # (Auto) 0.7, Eos # (Auto) 0.0, Baso # (Auto) 0.0, Total Counted 100, Neutrophils % (Manual) 88 H, Lymphocytes % (Manual) 8 L, Monocytes % (Manual) 4, Platelet Estimate Normal, RBC Morphology Normal, Sodium 134 L, Potassium 4.3, Chloride 99, Carbon Dioxide 26, Anion Gap 13.3, BUN 26 H, Creatinine 1.30 H, Estimated Creat Clear 64, Estimated GFR 54 L, Est GFR ( Amer) 65 D, Glucose 191 H, Calcium 9.4 11/14/23 07:03: POC Glucose 168 H 11/14/23 08:48: APTT 43.8 L 11/14/23 12:38: Activated Clotting Time 213 H* 11/14/23 12:47: Activated Clotting Time 244 H* I & O for Last 24 hours: Intake & Output 11/11/23 11/12/23 11/13/23 11/14/23 23:59 23:59 23:59 23:59 Intake Total 16.064 / 105.064 89 / 89 Output Total 750 / 750 Balance 16.064 / 105.064 -661 / -661 Weight 89.358 kg 90.5 kg Constitutional Constitutional: no acute distress *Routine HEENT Exam Head: Present normocephalic Eye: Present EOMI and PERRL ENT: Present mucous membranes moist *Routine Neck Exam Neck: Present supple; Absent lymphadenopathy *Routine Respiratory Exam Respiratory: Present CTA bilaterally *Routine Cardiovascular Exam Cardiovascular: Present RRR *Routine Abdominal Exam Abdominal: Present soft and normoactive bowel sounds; Absent tenderness *Routine Extremities Exam Extremities: Absent cyanosis, clubbing or edema *Routine Skin Exam Skin: Present warm; Absent rash *Routine Neurological Exam Neurological: Present alert and oriented X3 Assessment and Plan *Assessment and plan (1) Elevated troponin: Status: Acute Category: Medical Code(s): R79.89 - Other specified abnormal findings of blood chemistry (2) Abdominal pain: Status: Acute Category: Medical Code(s): R10.9 - Unspecified abdominal pain (3) Diabetes mellitus: Status: Acute Category: Medical Code(s): E11.9 - Type 2 diabetes mellitus without complications (4) CAD (coronary artery disease): Status: Acute Category: Medical Code(s): I25.10 - Atherosclerotic heart disease of [place] coronary artery without angina pectoris (5) Hx of CABG: Status: Acute Category: Surgical Code(s): Z95.1 - Presence of aortocoronary bypass graft Plan Patient is a 73-year-old male with past medical history of diabetes mellitus CAD hypertension who presents to the hospital as a transfer from [facility]. According to patient he presented there because he had abdominal pain on the right side, he mention he thought it was like kidney pain, he also had epigastric pain. Per patient his abdominal pain was sharp, 10/10 intensity that made him go to the hospital. Patient denies any active abdominal pain at time of my evaluation. Denies nausea vomiting diarrhea constipation dysuria denies shortness of breath. Denies active chest pain fevers chills. Assessment and plan #NSTEMI #CAD s/p 6 stents 11/14/2023 ? Transferred from [facility] for NSTEMI. Had troponinemia there. ? Endorsed upper abdominal burning pain on arrival, but tropes negative. EKG unremarkable for acute findings. ? S/p [facility] PCI 07/20. ? Aspirin 81 mg, Plavix 75 mg. ? Follow-up ECHO ? Cardiology following, appreciate recommendations. Abdominal pain, negative etiology CT abdomen/pelvis unremarkable for acute findings ? Suspect GERD. Protonix, GI cocktail. Leukocytosis likely reactive -Improving without antibiotic. Monitor check blood cultures BELEM Creatinine improved to 1.3 from 1.6 today. Monitor Encouraging p.o. intake Diabetes mellitus Insulin sliding scale DVT prophylaxis-on IV heparin
[2023-11-14 18:27] LABS: POC Glucose,Bedside 216 (70-110)
[2023-11-14] MEDS: humaLOG 100 UNITS/ML 10ML VIAL (SSI) SQ (18:30)
[2023-11-14] MEDS: NITROGLYCERIN 0.4MG SL TABLET 0.4 MG SL (20:05)
[2023-11-14] MEDS: MORPHINE 4MG/ML SYRINGE 4 MG IV (20:09)
[2023-11-14] MEDS: ATORVASTATIN 40MG TABLET 40 MG PO (20:11)
[2023-11-14] MEDS: PANTOPRAZOLE 40MG TABLET 40 MG PO (20:12)
[2023-11-14 20:29] LABS: POC Glucose,Bedside 150 (70-110)
--- NOTE | 2023-11-14 23:58 | PC.NURSE ---
Patient requesting breathing treatment at this time due to chest feeling tight . Auscultating lungs patient has expiratory wheeze, and increased work of breathing. Respiratory notified and at bedside promptly. PRN breathing treatment administered. 0015 Breathing treatment complete and patient resting in bed at this time, denies further complaints. Respirations even and unlabored.
[2023-11-15] VITALS (14 sets, daily range): BP systolic 125–162; BP diastolic 72–90; PULSE 72–100; RESP 16–24; TEMP 36.9–37.2; O2SAT 90–98; BMI 25.1
[2023-11-15] MEDS: IPRATROPIUM/ALBUTEROL 3 ML NEB IH ×3 (00:10→18:20)
[2023-11-15] MEDS: 0.9 % SODIUM CHLORIDE 1000ML 1,000 ML 75 ML IV (01:02)
[2023-11-15] MEDS: NITROGLYCERIN 0.4MG SL TABLET 0.4 MG SL ×2 (04:25→04:30)
[2023-11-15] MEDS: MORPHINE 2MG/ML SYRINGE 2 MG IV (04:47)
[2023-11-15 07:06] LABS: Basophils % 0.3 % (0.1-2.0); Eosinophils % 0.5 % (0.1-12.0); Hematocrit 40.8 % (42.0-52.0); Hemoglobin 13.6 g/dL (14.1-18.0); Lymphocytes # 0.9 K/mm3 (0.7-4.5); Lymphocytes % 10.8 % (10-50); Mean Corpuscular HGB Conc 33.3 g/dL (31.8-35.4); Mean Corpuscular Hemoglobin 30.4 pg (27.0-31.2); Mean Corpuscular Volume 91.4 fl (80-94); Monocytes # 0.7 K/mm3 (0.1-1.0); Monocytes % 8.2 % (1.7-9.3); Neutrophils # 6.9 K/mm3 (1.8-7.8); Neutrophils % 80.2 % (37.0-80.0); Platelet Count 172 K/mm3 (142-424); Red Blood Count 4.46 M/mm3 (4.60-6.20); Red Cell Distribution Width 13.6 % (11.5-17.5); White Blood Count 8.6 K/mm3 (4.8-10.8)
[2023-11-15 07:10] LABS: Chloride 98 mmol/L (98-107)
[2023-11-15 07:11] LABS: Potassium 4.1 mmoL/L (3.5-5.1); Sodium 134 mmol/L (136-145)
[2023-11-15 07:13] LABS: Blood Urea Nitrogen 21 mg/dl (9-20); Creatinine Clearance Estimated 65 mL/min (50-200); Estimated Glomerular Filt Rate 73 ml/min (>60); GFR (African American) 88 ML/MIN (>60)
[2023-11-15 07:14] LABS: Anion Gap 10.1 mEq/L (5-15); Carbon Dioxide 30 mmol/L (22.0-30.0); Glucose 163 mg/dl (74-100)
[2023-11-15 08:10] LABS: POC Glucose,Bedside 151 (70-110)
[2023-11-15] MEDS: CEFTRIAXONE 1 GM 1 GM in 0.9 % SODIUM CHLORIDE 50 ML IV (08:45)
[2023-11-15] MEDS: ASPIRIN EC 81MG TABLET 81 MG PO (08:47)
[2023-11-15] MEDS: METOPROLOL TARTRATE 50MG TABLET 100 MG PO (08:47)
[2023-11-15] MEDS: CLOPIDOGREL 75MG TAB 75 MG PO (08:47)
[2023-11-15] MEDS: AMLODIPINE 10MG TABLET 10 MG PO (08:47)
[2023-11-15] MEDS: AZITHROMYCIN 500 MG in 0.9 % SODIUM CHLORIDE 250 ML 250 MG IV (09:40)
[2023-11-15] MEDS: humaLOG 100 UNITS/ML 10ML VIAL (SSI) SQ ×2 (11:00→16:50)
[2023-11-15 11:11] LABS: POC Glucose,Bedside 161 (70-110)
--- NOTE | 2023-11-15 15:39 | EXP.PN ---
Subjective *Date: 11/15/23 *Time: 15:39 Interval history: Patient is doing well today, but is having intermittent chest pains responsive to nitro. However, this afternoon he is doing well without chest pains. Exam Data for Last 24 hours Vital signs and Labs for Last 24 Hours: Temp Pulse Resp BP Pulse Ox O2 Del Method O2 Flow Rate 98.4 F 82 24 129/76 97 Nasal Cannula 2 11/15/23 11:27 11/15/23 12:00 11/15/23 12:00 11/15/23 12:00 11/15/23 12:00 11/15/23 15:00 11/15/23 15:00 FiO2 2 11/15/23 04:00 Laboratory Results - last 24 hr 11/14/23 18:20: POC Glucose 216 H 11/14/23 20:15: POC Glucose 150 H 11/15/23 06:14: WBC 8.6 D, RBC 4.46 L, Hgb 13.6 L, Hct 40.8 L, MCV 91.4, MCH 30.4, MCHC 33.3, RDW 13.6, Plt Count 172, MPV 7.0 L, Neut % (Auto) 80.2 H, Lymph % (Auto) 10.8, [place] % (Auto) 8.2, Eos % (Auto) 0.5, Baso % (Auto) 0.3, Neut # (Auto) 6.9, Lymph # (Auto) 0.9, [place] # (Auto) 0.7, Eos # (Auto) 0.0, Baso # (Auto) 0.0, Sodium 134 L, Potassium 4.1, Chloride 98, Carbon Dioxide 30, Anion Gap 10.1, BUN 21 H, Creatinine 1.00 D, Estimated Creat Clear 65, Estimated GFR 73, Est GFR ( Amer) 88 D, Glucose 163 H, Calcium 9.0 11/15/23 07:51: POC Glucose 151 H 11/15/23 10:57: POC Glucose 161 H I & O for Last 24 hours: Intake & Output 11/12/23 11/13/23 11/14/23 11/15/23 23:59 23:59 23:59 23:59 Intake Total 16.064 / 105.064 469 / 985 1006 / 1006 Output Total 850 / 850 1100 / 1100 Balance 16.064 / 105.064 -381 / 135 -94 / -94 Weight 89.358 kg 90.5 kg 70.874 kg Constitutional Constitutional: no acute distress *Routine HEENT Exam Head: Present normocephalic Eye: Present EOMI and PERRL ENT: Present mucous membranes moist *Routine Neck Exam Neck: Present supple; Absent lymphadenopathy *Routine Respiratory Exam Respiratory: Present CTA bilaterally *Routine Cardiovascular Exam Cardiovascular: Present RRR *Routine Abdominal Exam Abdominal: Present soft and normoactive bowel sounds; Absent tenderness *Routine Extremities Exam Extremities: Absent cyanosis, clubbing or edema *Routine Skin Exam Skin: Present warm; Absent rash *Routine Neurological Exam Neurological: Present alert and oriented X3 Assessment and Plan *Assessment and plan (1) Elevated troponin: Status: Acute Category: Medical Code(s): R79.89 - Other specified abnormal findings of blood chemistry (2) Abdominal pain: Status: Acute Category: Medical Code(s): R10.9 - Unspecified abdominal pain (3) Diabetes mellitus: Status: Acute Category: Medical Code(s): E11.9 - Type 2 diabetes mellitus without complications (4) CAD (coronary artery disease): Status: Acute Category: Medical Code(s): I25.10 - Atherosclerotic heart disease of [place] coronary artery without angina pectoris (5) Hx of CABG: Status: Acute Category: Surgical Code(s): Z95.1 - Presence of aortocoronary bypass graft Plan Patient is a 73-year-old male with past medical history of diabetes mellitus CAD hypertension who presents to the hospital as a transfer from [facility]. According to patient he presented there because he had abdominal pain on the right side, he mention he thought it was like kidney pain, he also had epigastric pain. Per patient his abdominal pain was sharp, 10/10 intensity that made him go to the hospital. Patient denies any active abdominal pain at time of my evaluation. Denies nausea vomiting diarrhea constipation dysuria denies shortness of breath. Denies active chest pain fevers chills. Assessment and plan #NSTEMI #CAD s/p 6 stents 11/14/2023 ? Transferred from [facility] for NSTEMI. Had troponinemia there. ? Endorsed upper abdominal burning pain on arrival, but tropes negative. EKG unremarkable for acute findings. ? S/p LHC PCI with 6 stents on 11/14/2023. ? Doing well today, he is having intermittent chest pains improving with sublingual nitro. Currently stable and better. ? Consider ranolazine tomorrow if patient continues to have chest pains. ? Aspirin 81 mg, Plavix 75 mg. ? Cardiology following, appreciate efforts and recommendations. HFmrEF ? ECHO 11/14/2023 reveals LVEF 45%, moderate RV dilation and mild reduction in RV function. ? Started Jardiance 10 mg, Entresto 24/26 mg, metoprolol succinate 50 mg. Discontinued metoprolol tartrate. ? Currently euvolemic. #Community-acquired pneumonia ? CXR suggestive of right lower lobe consolidation, with leukocytosis and fevers. ? Started ceftriaxone, azithromycin for total of 5 days. Abdominal pain, negative etiology CT abdomen/pelvis unremarkable for acute findings ? Suspect GERD. Protonix, GI cocktail. BELEM Resolved, creatinine 1.0. Diabetes mellitus Insulin sliding scale DVT prophylaxis-on IV heparin
[2023-11-15] MEDS: EMPAGLIFLOZIN 10MG TABLET 10 MG PO (16:39)
[2023-11-15] MEDS: METOPROLOL SUCCINATE XL 25MG TABLET 50 MG PO (16:39)
[2023-11-15 17:11] LABS: POC Glucose,Bedside 174 (70-110)
[2023-11-15] MEDS: SACUBITRIL/VALSARTAN 24-26MG TABLET 1 EACH PO (20:11)
[2023-11-15] MEDS: ATORVASTATIN 40MG TABLET 40 MG PO (20:11)
[2023-11-15] MEDS: PANTOPRAZOLE 40MG TABLET 40 MG PO (20:11)
[2023-11-15 20:12] LABS: POC Glucose,Bedside 139 (70-110)
[2023-11-16] VITALS: BP 144/83; PULSE 84; PULSE 90; RESP 20; TEMP 37.2; O2SAT 95
[2023-11-16 04:00] VITALS: BP 150/86; PULSE 80; PULSE 88; RESP 16; TEMP 37; O2SAT 97; BMI 31.8
--- NOTE | 2023-11-16 04:11 | EXP.DC.SUM ---
General Admission date:: 11/13/23 Discharge date: 11/16/23 HPI HPI HPI: Patient is a 73-year-old male with past medical history of diabetes mellitus CAD hypertension who presents to the hospital as a transfer from [facility]. According to patient he presented there because he had abdominal pain on the right side, he mention he thought it was like kidney pain, he also had epigastric pain. Per patient his abdominal pain was sharp, 10/10 intensity that made him go to the hospital. Patient denies any active abdominal pain at time of my evaluation. Denies nausea vomiting diarrhea constipation dysuria denies shortness of breath. Denies active chest pain fevers chills. Hospital Course Hospital Course Hospital Course: Patient is a 73-year-old male with past medical history of diabetes mellitus CAD hypertension who presents to the hospital as a transfer from [facility]. According to patient he presented there because he had abdominal pain on the right side, he mention he thought it was like kidney pain, he also had epigastric pain. Per patient his abdominal pain was sharp, 10/10 intensity that made him go to the hospital. Patient denies any active abdominal pain at time of my evaluation. Denies nausea vomiting diarrhea constipation dysuria denies shortness of breath. Denies active chest pain fevers chills. Presented with NSTEMI. Status post left heart cath with placement of 6 stents. Asymptomatic since procedure. Overall doing well. Adjustments made to medication regimen. Stable discharge home with continued goal-directed therapy. Problems addressed as follows: #NSTEMI #CAD s/p 6 stents 11/14/2023 ? Transferred from [facility] for NSTEMI. Had troponinemia there. Endorsed upper abdominal burning pain on arrival, but tropes negative. EKG unremarkable for acute findings. Cardiology was consulted, taken for left heart cath on 11/13. 6 stents placed. See cath report for full details. Has done well since procedure. Some minimal intermittent chest pain that improved with sublingual nitro. Chest pain-free for over 24 hours prior to discharge home. Continue aspirin 81 mg daily, Plavix 75 mg daily. Follow-up with cardiology as an outpatient. HFmrEF ? ECHO 11/14/2023 reveals LVEF 45%, moderate RV dilation and mild reduction in RV function. Started Jardiance 10 mg, Entresto 24/26 mg, metoprolol succinate 50 mg. Discontinued metoprolol tartrate. #Community-acquired pneumonia ? CXR suggestive of right lower lobe consolidation, with leukocytosis and fevers. Started on ceftriaxone and azithromycin. Will transition to oral cefdinir and azithromycin to complete 5-day course total. Patient on his baseline oxygen. 2 L at night Abdominal pain, negative etiology CT abdomen/pelvis unremarkable for acute findings. Suspect GERD. Protonix and GI cocktail during admission with improvement. No discomfort on day of discharge. BELEM: resolved, creatinine 1.0. Diabetes mellitus: On sliding scale insulin during admission. Resume glyburide and metformin at discharge. Total time spent on discharge 32 minutes in counseling, documentation, chart review, and direct care with patient. Exam Data for Last 24 hours Vital signs and Labs for Last 24 Hours: Temp Pulse Resp BP Pulse Ox O2 Del Method O2 Flow Rate 99.0 F 84 20 144/83 H 95 Nasal Cannula 2 11/16/23 00:00 11/16/23 00:00 11/16/23 00:00 11/16/23 00:00 11/16/23 00:00 11/16/23 03:00 11/16/23 03:00 FiO2 2 11/15/23 04:00 Laboratory Results - last 24 hr 11/15/23 06:14: WBC 8.6 D, RBC 4.46 L, Hgb 13.6 L, Hct 40.8 L, MCV 91.4, MCH 30.4, MCHC 33.3, RDW 13.6, Plt Count 172, MPV 7.0 L, Neut % (Auto) 80.2 H, Lymph % (Auto) 10.8, [place] % (Auto) 8.2, Eos % (Auto) 0.5, Baso % (Auto) 0.3, Neut # (Auto) 6.9, Lymph # (Auto) 0.9, [place] # (Auto) 0.7, Eos # (Auto) 0.0, Baso # (Auto) 0.0, Sodium 134 L, Potassium 4.1, Chloride 98, Carbon Dioxide 30, Anion Gap 10.1, BUN 21 H, Creatinine 1.00 D, Estimated Creat Clear 65, Estimated GFR 73, Est GFR ( Amer) 88 D, Glucose 163 H, Calcium 9.0 11/15/23 07:51: POC Glucose 151 H 11/15/23 10:57: POC Glucose 161 H 11/15/23 16:43: POC Glucose 174 H 11/15/23 20:05: POC Glucose 139 H I & O for Last 24 hours: Intake & Output 11/13/23 11/14/23 11/15/23 11/16/23 23:59 23:59 23:59 23:59 Intake Total 16.064 / 105.064 469 / 985 1296 / 1296 Output Total 850 / 850 3000 / 3750 750 / 750 Balance 16.064 / 105.064 -381 / 135 -1704 / -2454 -750 / -750 Weight 89.358 kg 90.5 kg 70.874 kg Constitutional Constitutional: no acute distress, obese, chronically ill appearing and cooperative *Routine HEENT Exam Head: Present normocephalic Eye: Present EOMI and PERRL ENT: Present mucous membranes moist *Routine Neck Exam Neck: Present supple; Absent lymphadenopathy *Routine Respiratory Exam Respiratory: Present CTA bilaterally; Absent respiratory distress, rhonchi, wheezes or crackles *Routine Cardiovascular Exam Cardiovascular: Present RRR *Routine Abdominal Exam Abdominal: Present soft and normoactive bowel sounds; Absent tenderness *Routine Rectal Exam Patient deferred: visual exam *Routine Exam Patient deferred: penile exam *Routine Extremities Exam Extremities: Absent cyanosis, clubbing or edema *Routine Skin Exam Skin: Present intact and warm; Absent rash *Routine Neurological Exam Neurological: Present alert, oriented X3 and moving all extremities; Absent altered mental status Results Data Completed and Pending Labs on day of discharge: Labs from last 24 hours 11/15/23 11/15/23 11/15/23 20:05 16:43 10:57 WBC RBC Hgb Hct MCV MCH MCHC RDW Plt Count MPV Neut % (Auto) Lymph % (Auto) [place] % (Auto) Eos % (Auto) Baso % (Auto) Neut # (Auto) Lymph # (Auto) [place] # (Auto) Eos # (Auto) Baso # (Auto) Sodium Potassium Chloride Carbon Dioxide Anion Gap BUN Creatinine Estimated Creat Clear Estimated GFR Est GFR ( Amer) Glucose POC Glucose 139 H 174 H 161 H Calcium 11/15/23 11/15/23 07:51 06:14 WBC 8.6 D RBC 4.46 L Hgb 13.6 L Hct 40.8 L MCV 91.4 MCH 30.4 MCHC 33.3 RDW 13.6 Plt Count 172 MPV 7.0 L Neut % (Auto) 80.2 H Lymph % (Auto) 10.8 [place] % (Auto) 8.2 Eos % (Auto) 0.5 Baso % (Auto) 0.3 Neut # (Auto) 6.9 Lymph # (Auto) 0.9 [place] # (Auto) 0.7 Eos # (Auto) 0.0 Baso # (Auto) 0.0 Sodium 134 L Potassium 4.1 Chloride 98 Carbon Dioxide 30 Anion Gap 10.1 BUN 21 H Creatinine 1.00 D Estimated Creat Clear 65 Estimated GFR 73 Est GFR ( Amer) 88 D Glucose 163 H POC Glucose 151 H Calcium 9.0 DS: Diagnosis Discharge Diagnosis (1) Elevated troponin: Status: Acute Code(s): R79.89 - Other specified abnormal findings of blood chemistry (2) Abdominal pain: Status: Acute Code(s): R10.9 - Unspecified abdominal pain (3) Diabetes mellitus: Status: Acute Code(s): E11.9 - Type 2 diabetes mellitus without complications (4) CAD (coronary artery disease): Status: Acute Code(s): I25.10 - Atherosclerotic heart disease of [place] coronary artery without angina pectoris (5) Hx of CABG: Status: Acute Code(s): Z95.1 - Presence of aortocoronary bypass graft Meds Home Medications and Allergies Home Medications ?Medication ?Instructions ?Recorded ?Confirmed ?Type amlodipine 10 mg tablet 10 mg PO DAILY 11/13/23 11/13/23 History clopidogrel 75 mg tablet 75 mg PO DAILY 11/13/23 11/13/23 History furosemide 40 mg tablet 40 mg PO DAILY 11/13/23 11/13/23 History glyburide 5 mg tablet 5 mg PO BID 11/13/23 11/13/23 History ipratropium 0.5 mg-albuterol 3 mg 3 ml inhalation QIDP PRN Shortness 11/13/23 11/14/23 History (2.5 mg base)/3 mL nebulization Of Breath soln metformin 500 mg tablet 1,000 mg PO BID 11/13/23 11/14/23 History aspirin 81 mg tablet,delayed 81 mg PO DAILY 30 days #30 tabs 11/16/23 Rx release atorvastatin 40 mg tablet 40 mg PO HS 30 days #30 tabs 11/16/23 Rx azithromycin 500 mg tablet 500 mg PO DAILY 3 days #3 tabs 11/16/23 Rx cefdinir 300 mg capsule 300 mg PO BID 3 days #6 caps 11/16/23 Rx empagliflozin 10 mg tablet 10 mg PO DAILY 30 days #30 tabs 11/16/23 Rx (Jardiance) metoprolol succinate 50 mg 50 mg PO DAILY 30 days #30 tabs 11/16/23 Rx tablet,extended release 24 hr (Toprol XL) pantoprazole 40 mg tablet,delayed 40 mg PO HS 30 days #30 tabs 11/16/23 Rx release sacubitril 24 mg-valsartan 26 mg 1 tab PO BID 30 days #60 tabs 11/16/23 Rx tablet (Entresto) New Prescriptions to Start Prescriptions: fanny Milan,Declan atorvastatin Bjorn,Declan azithromycin Bjorn,Declan cefdinir Bjorn,Declan empagliflozin [Jardiance] Bjorn,Declan metoprolol succinate [Toprol XL] Bjorn,Declan pantoprazole Bjorn,Declan sacubitril-valsartan [Entresto] Declan Milan Allergies Allergy/AdvReac Type Severity Reaction Status Date / Time lisinopril Allergy Headache Verified 11/13/23 18:59 Discharge Plan Disposition Patient Disposition: Home, Self-Care Condition: Fair Discharge Order Discharge Orders: Discharge Order (Routine); Ordered 11/16/23 Ordered By: Declan Milan Follow up Plan Follow up with: Dominga Felipe APRN [Primary Care Provider] - Enter time for follow up Hector Lucio MD [Staff Physician] - 11/24/23 8:45 am Prescriptions/Medication Reconciliation: New atorvastatin 40 mg Tablet 40 mg PO HS 30 Days Qty: 30 0RF aspirin 81 mg Tablet,Delayed Release (Dr/Ec) 81 mg PO DAILY 30 Days Qty: 30 0RF cefdinir 300 mg Capsule 300 mg PO BID 3 Days Qty: 6 0RF Jardiance 10 mg Tablet 10 mg PO DAILY 30 Days Qty: 30 0RF Entresto 24-26 mg Tablet 1 tab PO BID 30 Days Qty: 60 0RF metoprolol succinate [Toprol XL] 50 mg Tablet Extended Release 24 Hr 50 mg PO DAILY 30 Days Qty: 30 0RF pantoprazole 40 mg Tablet,Delayed Release (Dr/Ec) 40 mg PO HS 30 Days Qty: 30 0RF azithromycin 500 mg tablet 500 mg PO DAILY 3 Days Qty: 3 0RF Continued furosemide 40 mg tablet 40 mg PO DAILY metformin 500 mg tablet 1,000 mg PO BID ipratropium-albuterol 0.5 mg-3 mg(2.5 mg base)/3 mL solution for nebulization 3 ml INHALATION QIDP PRN (Reason: Shortness Of Breath) glyburide 5 mg tablet 5 mg PO BID clopidogrel 75 mg tablet 75 mg PO DAILY amlodipine 10 mg tablet 10 mg PO DAILY Discontinued metoprolol tartrate 100 mg tablet 100 mg PO BID Problem Reconciliation Problems Reviewed?: Yes Patient Discharge Instructions ACTIVITY: Continue current activity DIET: continue same diet Patient Instructions: Getting to the Heart of a Healthful Diet, The DASH Diet Print Language: Sinhala Providers Primary Care Provider: Dominga Felipe Admit Provider: Sean Butt Attending Provider: Sean Butt
--- NOTE | 2023-11-16 05:21 | PC.NURSE ---
Patient has had a good night tonight. Has slept on and off. has used the urinal through the night and been independent with that. remained on his home 2L NC no other issues
[2023-11-16 05:36] LABS: POC Glucose,Bedside 108 (70-110)
[2023-11-16] MEDS: IPRATROPIUM/ALBUTEROL 3 ML NEB IH (06:17)
[2023-11-16 06:18] VITALS: PULSE 84; PULSE 87; O2SAT 92
[2023-11-16] MEDS: CEFTRIAXONE 1 GM 1 GM in 0.9 % SODIUM CHLORIDE 50 ML IV (06:20)
[2023-11-16] MEDS: AZITHROMYCIN 500 MG in 0.9 % SODIUM CHLORIDE 250 ML 250 MG IV (07:00)
[2023-11-16 07:43] LABS: Basophils # 0.1 K/mm3 (0-0.2); Basophils % 0.5 % (0.1-2.0); Eosinophils # 0.1 K/mm3 (0.0-0.4); Eosinophils % 0.9 % (0.1-12.0); Hematocrit 43.9 % (42.0-52.0); Lymphocytes # 1.6 K/mm3 (0.7-4.5); Lymphocytes % 16.8 % (10-50); Mean Corpuscular HGB Conc 34.1 g/dL (31.8-35.4); Mean Platelet Volume 7.2 fl (7.4-10.4); Monocytes # 0.7 K/mm3 (0.1-1.0); Monocytes % 7.5 % (1.7-9.3); Neutrophils # 7.2 K/mm3 (1.8-7.8); Neutrophils % 74.3 % (37.0-80.0); Platelet Count 202 K/mm3 (142-424); Red Blood Count 4.99 M/mm3 (4.60-6.20); Red Cell Distribution Width 13.5 % (11.5-17.5); White Blood Count 9.6 K/mm3 (4.8-10.8)
[2023-11-16 08:00] VITALS: BP 120/68; PULSE 100; PULSE 96; RESP 18; TEMP 36.9; O2SAT 94
[2023-11-16 08:10] LABS: Chloride 100 mmol/L (98-107); Sodium 139 mmol/L (136-145)
[2023-11-16 08:13] LABS: Carbon Dioxide 28 mmol/L (22.0-30.0)
[2023-11-16 08:14] LABS: Calcium 9.5 mg/dl (8.4-10.2); Glucose 107 mg/dl (74-100)
[2023-11-16 08:19] LABS: Blood Urea Nitrogen 15 mg/dl (9-20); Creatinine Clearance Estimated 82 mL/min (50-200); Estimated Glomerular Filt Rate 94 ml/min (>60); GFR (African American) 114 ML/MIN (>60)
--- NOTE | 2023-11-16 08:45 | PC.NURSE ---
was contacted this morning about IV going bad. ABX switched to PO.
[2023-11-16] MEDS: AMLODIPINE 5MG TABLET 5 MG PO (08:47)
[2023-11-16] MEDS: AZITHROMYCIN 250MG TABLET 500 MG PO (08:47)
[2023-11-16] MEDS: CEFDINIR 300MG CAPSULE 300 MG PO (08:48)
[2023-11-16] MEDS: ASPIRIN EC 81MG TABLET 81 MG PO (08:48)
[2023-11-16] MEDS: CLOPIDOGREL 75MG TAB 75 MG PO (08:48)
[2023-11-16] MEDS: METOPROLOL SUCCINATE XL 50MG TABLET 50 MG PO (08:49)
[2023-11-16] MEDS: SACUBITRIL/VALSARTAN 24-26MG TABLET 1 EACH PO (10:03)
[2023-11-16] MEDS: EMPAGLIFLOZIN 10MG TABLET 10 MG PO (10:03)
--- NOTE | 2023-11-18 14:25 | CARE MANAGER ---
Contacted patient related to hospital discharge. He is aware of medication changes and has new medications. He is aware of follow up appointments. Denies any questions or concerns. BELINDA Geronimo
== END 2023-11-16 10:53 | disposition home or self-care (01) | DRG 321 ==
PROVIDERS: Internal Medicine; Admitting Provider Student in an Organized Health Care Education/Training Program; PCP Nurse Practitioner; Visit Provider Student in an Organized Health Care Education/Training Program
PROC: 027337Z Dilation of Coronary Artery, Four or More Arteries with Four or More Drug-eluting Intraluminal Devices, Percutaneous Approach (ICD-10-PCS; principal; 2023-11-14 13:30)
DX: J18.9 Pneumonia, unspecified organism; I50.22 Chronic systolic (congestive) heart failure; Z87.891 Personal history of nicotine dependence; I21.4 Non-ST elevation (NSTEMI) myocardial infarction; Z95.1 Presence of aortocoronary bypass graft; Z79.84 Long term (current) use of oral hypoglycemic drugs; N17.9 Acute kidney failure, unspecified; E11.9 Type 2 diabetes mellitus without complications; I11.0 Hypertensive heart disease with heart failure; I25.10 Atherosclerotic heart disease of native coronary artery without angina pectoris; Z79.899 Other long term (current) drug therapy
CPT/HCPCS: 36415; 71045; 74176; 80048; 80053; 82962; 83880; 84484; 85007; 85025; 85027; 85347; 85730; 92928; 92929; 93005; 93306; 93459; 94640; 94761; 99152; 99153; C1725; C1760; C1769; C1874; C1894; C9600; C9601; J0456; J0696; J1200; J1644; J2250; J2270; J2405; J3010; J7030; J7050; J7620; Q9967

== ENCOUNTER 2023-11-26 12:42 | Outpatient (CLI) | payer MEDICARE, SELFPAY ==
[2023-11-26 12:57] LABS: MANUAL DIFFERENTIAL MANUAL DIFFERENTIAL (MANUAL DIFF)
[2023-11-26 13:18] LABS: Basophils % 0.4 % (0.1-2.0); Eosinophils # 0.1 K/mm3 (0.0-0.4); Eosinophils % 0.9 % (0.1-12.0); Hemoglobin 14.8 g/dL (14.1-18.0); Lymphocytes # 1.8 K/mm3 (0.7-4.5); Lymphocytes % 21.2 % (10-50); Mean Corpuscular HGB Conc 32.1 g/dL (31.8-35.4); Mean Corpuscular Volume 93.3 fl (80-94); Mean Platelet Volume 6.4 fl (7.4-10.4); Monocytes # 0.5 K/mm3 (0.1-1.0); Monocytes % 5.3 % (1.7-9.3); Neutrophils # 6.1 K/mm3 (1.8-7.8); Neutrophils % 72.2 % (37.0-80.0); Platelet Count 300 K/mm3 (142-424); Red Blood Count 4.92 M/mm3 (4.60-6.20); Red Cell Distribution Width 13.6 % (11.5-17.5); White Blood Count 8.5 K/mm3 (4.8-10.8)
[2023-11-26 14:19] LABS: Blood Urea Nitrogen 11 mg/dl (9-20); Calcium 9.5 mg/dl (8.4-10.2); Carbon Dioxide 29 mmol/L (22.0-30.0); Chloride 105 mmol/L (98-107); Estimated Glomerular Filt Rate 94 ml/min (>60); GFR (African American) 114 ML/MIN (>60); Glucose 187 mg/dl (74-100); Sodium 136 mmol/L (136-145)
[2023-11-26 14:52] LABS: Lymphocytes % 24 % (10-50); Monocytes % 3 % (2-9); Neutrophils % 72 % (42-76); Platelet Estimate Normal; RBC Morphology Normal; Total Cells Counted 100
== END 2023-11-26 23:59 | disposition home or self-care (01) ==
LOC: LAB 12:45
PROVIDERS: PCP Nurse Practitioner; Visit Provider Internal Medicine
DX: I21.4 Non-ST elevation (NSTEMI) myocardial infarction (principal); J44.9 Chronic obstructive pulmonary disease, unspecified; I25.10 Atherosclerotic heart disease of native coronary artery without angina pectoris; E11.9 Type 2 diabetes mellitus without complications
CPT/HCPCS: 80048; 85007; 85014; 85018; 85048; 85049

== ENCOUNTER 2024-09-29 16:46 | Emergency (ER) | payer MEDICARE, SELFPAY ==
[2024-09-29] VITALS (11 sets, daily range): BP systolic 140–160; BP diastolic 69–117; PULSE 55–76; RESP 10–23; TEMP 36.7–37.2; O2SAT 93–97; BMI 31.9
--- NOTE | 2024-09-29 16:47 | ECG_ITS ---
APPROVED REPORT Exam: Resting ECG HR:77 bpm ECG Measurements Heart Rate 77 AXES DE 174 P 98 QRSd 126 QRS 267 QT 404 T -3 QTc 435 Conclusion Normal sinus rhythm 77 bpm right bundle milka block new from prior EKG on November [address] or T wave changes concerning for ischemia Electronically signed by : Sheila Ardon, 09/30/2024 00:15:00
--- NOTE | 2024-09-29 16:49 | XR_ITS ---
PROCEDURE INFORMATION: Exam: XR Chest Exam date and time: 09/29/2024 5:05 PM Age: 74 years old Clinical indication: Shortness of breath; Additional info: SOA and cp TECHNIQUE: Imaging protocol: Radiologic exam of the chest. Views: 1 view. COMPARISON: CT ABDOMEN PELVIS WO CON 11/14/2023 5:48 AM FINDINGS: Tubes, catheters and devices: None. Lungs: Right lung volume appears decreased. Pleural and lung parenchymal linear scarring identified within the right lower chest. Linear density identified within bilateral lungs. Pleural spaces: See Lungs finding. Heart/Mediastinum: The cardiac silhouette appears borderline prominent. Coronary arterial calcifications are demonstrated. Vasculature: Severe atherosclerotic calcification and plaque demonstrated within the aorta. Diaphragm: Elevation of the right hemidiaphragm is demonstrated. Bones/joints: Sternotomy wires, hardware is demonstrated. Diffusely decreased bone density. Moderate to severe generalized bony degenerative changes. IMPRESSION: 1. Borderline prominence of the cardiac silhouette. 2. Linear bilateral chest pulmonary atelectasis, or scarring. Pleuroparenchymal scarring within right lower chest. Right lung volume loss. 3. Degenerative and postsurgical changes are demonstrated, as described above.
--- NOTE | 2024-09-29 16:50 | HMH.EDGENADL ---
Discharge Plan Prescriptions Prescriptions: No Action furosemide 40 mg tablet 40 mg PO DAILY metformin 500 mg tablet 1,000 mg PO BID ipratropium-albuterol 0.5 mg-3 mg(2.5 mg base)/3 mL solution for nebulization 3 ml INHALATION QIDP PRN (Reason: Shortness Of Breath) glyburide 5 mg tablet 5 mg PO BID clopidogrel 75 mg tablet 75 mg PO DAILY amlodipine 10 mg tablet 10 mg PO DAILY atorvastatin 40 mg Tablet 40 mg PO HS 30 Days Qty: 30 0RF aspirin 81 mg Tablet,Delayed Release (Dr/Ec) 81 mg PO DAILY 30 Days Qty: 30 0RF Jardiance 10 mg Tablet 10 mg PO DAILY 30 Days Qty: 30 0RF Entresto 24-26 mg Tablet 1 tab PO BID 30 Days Qty: 60 0RF metoprolol succinate [Toprol XL] 50 mg Tablet Extended Release 24 Hr 50 mg PO DAILY 30 Days Qty: 30 0RF pantoprazole 40 mg Tablet,Delayed Release (Dr/Ec) 40 mg PO HS 30 Days Qty: 30 0RF Print Language Print Language: Hebrew Discharge ED Provider: Sheila Ardon Adult [facility] General Stated complaint: Chest Pain Time Seen by Provider: 09/29/24 16:48 Related Data Home Medications ?Medication ?Instructions ?Recorded ?Confirmed amlodipine 10 mg tablet 10 mg PO DAILY 11/13/23 11/13/23 clopidogrel 75 mg tablet 75 mg PO DAILY 11/13/23 11/13/23 furosemide 40 mg tablet 40 mg PO DAILY 11/13/23 11/13/23 glyburide 5 mg tablet 5 mg PO BID 11/13/23 11/13/23 ipratropium 0.5 mg-albuterol 3 mg 3 ml inhalation QIDP PRN Shortness 11/13/23 11/14/23 (2.5 mg base)/3 mL nebulization Of Breath soln metformin 500 mg tablet 1,000 mg PO BID 11/13/23 11/14/23 Previous Rx's ?Medication ?Instructions ?Recorded aspirin 81 mg tablet,delayed 81 mg PO DAILY 30 days #30 tabs 11/16/23 release atorvastatin 40 mg tablet 40 mg PO HS 30 days #30 tabs 11/16/23 empagliflozin 10 mg tablet 10 mg PO DAILY 30 days #30 tabs 11/16/23 (Jardiance) metoprolol succinate 50 mg 50 mg PO DAILY 30 days #30 tabs 11/16/23 tablet,extended release 24 hr (Toprol XL) pantoprazole 40 mg tablet,delayed 40 mg PO HS 30 days #30 tabs 11/16/23 release sacubitril 24 mg-valsartan 26 mg 1 tab PO BID 30 days #60 tabs 11/16/23 tablet (Entresto) Allergies Allergy/AdvReac Type Severity Reaction Status Date / Time lisinopril Allergy Headache Verified 11/26/23 13:34 [facility] Disclaimer: The information contained in this section may have been updated after the patient was seen, as this information can be updated by other users. Surgical History (Updated 11/20/23 @ 00:00 by Rama Turcios) Hx of CABG Social History Smoking Status: Unknown if ever smoked alcohol intake: former current occupational status: previously employed Travel in the last 8 weeks?: Inside the [place] Other Medical History Have you received the Flu Vaccine for this season: No Have you received the Pneumonia Vaccine: No Medical Decision Making Medical Records Medical records reviewed: Yes I reviewed the patient's medical records. Screening: Per USPSTF and CDC recommendations, given the prevalence of disease in our region, it is our hospital?s policy to screen for HIV and viral Hepatitis for all patients aged 18 and over and those with ongoing risk factors. Orders (Tests/Meds): ORDERS Category Date Time Status XR chest portable Stat Exams 09/29/24 16:49 Ordered Complete Blood Count Auto Diff Stat Lab 09/29/24 16:49 Ordered Comprehensive Metabolic Panel Stat Lab 09/29/24 16:49 Ordered D-Dimer Stat Lab 09/29/24 16:49 Ordered Magnesium Stat Lab 09/29/24 16:49 Ordered NT Pro Brain Natriuretic Pep. Stat Lab 09/29/24 16:49 Ordered PT INR [Prothrombin Time INR] Stat Lab 09/29/24 16:49 Ordered Troponin I Q3H Lab 09/29/24 20:00 Ordered Troponin I Q3H Lab 09/29/24 23:00 Ordered Troponin I Stat Lab 09/29/24 16:49 Ordered Medical Decision Narrative: Will obtain basic laboratory studies, troponin, proBNP, EKG, CXR, coags, proBNP, D-dimer.
--- OUTSIDE RECORDS SUMMARY | 2024-09-29 17:00 | XMS_ITS | Encounter Summary ---
[facility] Organization [facility] Address [address] [place] [address] Care Team Providers Care Chick Sexer Name Role Phone Dominga Felipe BUS ASSISTANT Primary Care Provider [phone] Reason for Visit * Reason Onset Date Comments Med Refill 09/20/2024 Encounter Details Date Type Department Care Team (Late st Contact Info) Description 09/20/2024 Refill [facility] [address] [place] [phone] Dominga Felipe, BUS ASSISTANT [address] [place] [address] Social History Tobacco Use Types Packs/Day Years Used Date Smoking Tobacco: Former Cigarettes 1 40 0 03/22/1965 - 03/22/2005 Smokeless Tobacco: Never Alcohol Use Standard Drinks/Week Comments No 0 (1 standard drink = 0.6 oz pur e alcohol) OASIS D0700: Social Isolation Answer Da te Recorded Frequency of experiencing loneliness or isolatio n Never 03/28/2022 OASIS A1250: Transportation Answer Date Recorded Lack of Transportation (Medical) No 03/28/2022 Lack of Transportation (Non-Medical) No 03/28/2022 Patient Unable or Declines to Respond No 03/28/2022 OASIS B1300: Health Literacy Answer Naeem e Recorded Frequency of needing help to read materials from doctor or pharmacy Never 03/28/2022 AUDIT-C Answer Date Recorded Q1: How often do you have a drink containing alcohol? Never 05/18/2022 Q2: How many drinks containi ng alcohol do you have on a typical day when you are drinking? Patient does not drink Q3: How often do you have si x or more drinks on one occasion? Never 05/18/2022 Overall Financial Resource Strain (CARDIA) Answe r Date Recorded How hard is it for you to pa y for the very basics like food, housing, medical care, and heating? Somewhat hard 03/11/2022 PHQ-2 Answer Date Recorded Retired PHQ-9: Brief Depression Severity Measure Score 0 11/18/2022 Exercise Vital Sign Answer Date Recorde d On average, how many days pe r week do you engage in moderate to strenuous exercise (like a brisk walk)? 0 days 03/11/2022 On average, how many minutes do you engage in exercise at this level? 0 min 03/11/2022 Hunger Vital Sign Answer Date Recorded Within the past 12 months, y ou worried that your food would run out before you got the money to buy more. Sometimes true Within the past 12 months, t he food you bought just didn't last and you didn't have money to get more. Sometimes true PRAPARE - Transportation Answer Date Re corded In the past 12 months, has l ack of transportation kept you from medical appointments or from getting medications? No 02/12 In the past 12 months, has l ack of transportation kept you from meetings, work, or from getting things needed for daily living? No 03/11/2022 Abuse Screen Answer Date Recorded Feels Unsafe at Home or Work/School no 02/05/2023 Feels Threatened by Someone no 01/11 Does Anyone Try to Keep You From Having Contact with Others or Doing Things Outside Your Home? no 02/05/2023 Physical Signs of Abuse Present no 02/05/2023 Housing Stability Answer Date Recorded Current Living Arrangements home 05/11 Potentially Unsafe Housing Conditions Not on nguyen e 05/20/2022 Family and Community Support Answer Naeem e Recorded If for any reason you need h elp with day-to-day activities such as bathing, preparing meals, shopping, managing finances, etc., do you get the help you need? I don't need any help 03/11/2022 How often do you feel lonely or isolated from those around you? Rarely 03/11/2022 Employment Answer Date Recorded Do you want help finding or keeping work or a job? I do not need or want help 03/11/2022 Disabilities Answer Date Recorded Difficulty Concentrating, Remembering or Making Decisions no 05/18/2022 Difficulty Managing Errands Independently no 05/18/2022 Education Answer Date Recorded Help with school or training? Not on file Preferred Language Ugandan 05/20/2022 PHQ-2 Answer Date Recorded Patient Health Questionnaire-2 Score 0 03/19/2024 Sex and Gender Information Value Date Recorded Sex Assigned at Not on file Legal Sex Male 1:07 PM EDT Gender Identity Not on file Sexual Orientation Not on file documented as of this encounter Miscellaneous Notes * Telephone Encounter - Claudia Coronado MA - 09/20/2024 3:33 PM EDT 2 samples of trelegy 200 given to pt. Per Dominga thomas to give 200 as he was on 100 before. documented in this encounter Plan of Treatment Not on file documented as of this encounter Visit Diagnoses Not on filedocumented in this encounter Additional Health Concerns Infection Onset Date Last Indicated Resolved Time MRSA 03/13/2022 05/18/2022 documented as of this encounter Care Teams Chick Sexer Relationship Specialty Start Date End Date Dominga Felipe, BUS ASSISTANT [address] [place], [place] [id number] PCP - General Family Medicine 02/26/22 documented as of this encounter
--- OUTSIDE RECORDS SUMMARY | 2024-09-29 17:00 | XMS_ITS | Clinical Summary ---
Author Organization [employer] ([place], [place], [place], [place]) Address [address] [place] [address] Care Team Providers Care It Solutions Architect Name Role Phone Unavailable Primary Care Provider Unavailabl e Social History Tobacco Use Types Packs/Day Years Used Date Smoking Tobacco: Never Assessed Sex and Gender Information Value Date Recorded Sex Assigned at Not on file Legal Sex Male 4:24 PM CDT Gender Identity Not on file Sexual Orientation Not on file Plan of Treatment Not on file
--- OUTSIDE RECORDS SUMMARY | 2024-09-29 17:00 | XMS_ITS | Referral Summary ---
Author Organization [employer] ([place], [place], [place], [place]) Address [address] [place] [address] Care Team Providers Care National Accounts Sales Name Role Phone Unavailable Primary Care Provider [...]
--- OUTSIDE RECORDS SUMMARY | 2024-09-29 17:00 | XMS_ITS | Encounter Summary ---
Author Organization [facility] Address [address] [place] [address] Care Team Providers Care Lithoplate Maker Name Role Phone Dominga Felipe AIRPORT OPERATIONS DUTY MANAGER Primary Care Provider Encounter Details Date Type Department Care Team (Late st Contact Info) Description 08/16/[address] [facility] [address] [place] [phone] Dominga Felipe, AIRPORT OPERATIONS DUTY MANAGER [address] [place] [address] Social History Tobacco Use Types [...] or training? Not on file Preferred Language Togolese 05/20/2022 PHQ-2 Answer Date Recorded Patient Health Questionnaire-2 Score 0 03/19/2024 Sex and Gender Information Value Date Recorded Sex Assigned at Not on file Legal Sex Male 1:07 PM EDT Gender Identity Not on file Sexual Orientation Not on file documented as of this encounter Miscellaneous Notes * Telephone Encounter - Michelle Oconnor MA - 08/16/2024 12:08 PM EDT Refill medicine sample given documented in this encounter Plan of Treatment Not on file documented as of this encounter Visit Diagnoses Not on filedocumented in this encounter Additional Health Concerns Infection Onset Date Last Indicated Resolved Time MRSA 03/13/2022 05/18/2022 documented as of this encounter Care Teams Lithoplate Maker Relationship Specialty Start Date End Date Dominga Felipe APRN [address] [place], [place] [phone] PCP - General Family Medicine 02/26/22 documented as of this encounter
--- OUTSIDE RECORDS SUMMARY | 2024-09-29 17:00 | XMS_ITS | Encounter Summary ---
Author Organization [facility] Address [address] [place] [address] Care Team Providers Care Special Warfare Combatant Crewman Name Role Phone Dominga Felipe MONOGRAM AND LETTER PASTER Primary Care Provider [phone] Reason for Visit * Reason Comments Med Refill Encounter Details Date Type Department Care Team (Late st Contact Info) Description 08/09/2024 Refill [facility] [address] [place] [phone] Dominga Felipe, MONOGRAM AND LETTER PASTER [address] [place], [place] [id number] Social History Tobacco Use Types Packs/Day Years [...] or training? Not on file Preferred Language Djiboutian 05/20/2022 PHQ-2 Answer Date Recorded Patient Health Questionnaire-2 Score 0 03/19/2024 Sex and Gender Information Value Date Recorded Sex Assigned at Not on file Legal Sex Male 1:07 PM EDT Gender Identity Not on file Sexual Orientation Not on file documented as of this encounter Plan of Treatment Not on file documented as of this encounter Visit Diagnoses Not on filedocumented in this encounter Additional Health Concerns Infection Onset Date Last Indicated Resolved Time MRSA 03/13/2022 05/18/2022 documented as of this encounter Care Teams Special Warfare Combatant Crewman Relationship Specialty Start Date End Date Dominga Felipe, MONOGRAM AND LETTER PASTER [address] [place] [phone] PCP - General Family Medicine 02/26/22 documented as of this encounter
--- OUTSIDE RECORDS SUMMARY | 2024-09-29 17:00 | XMS_ITS | Clinical Summary ---
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 90 tablet 3 08/25/19 21 Active albuterol sulfate HFA 108 (90 Base) MCG/ACT inhalerIndicatio ns:Asthma Inhale 2 puffs Every 4 (Four) Hours As Needed for Wheezing or Shortness of Air. 12/27/19 22 Active O2 (OXYGEN)Indicati ons:RG Inhale 2 L/min Every Night. via CPAP Indications: RG 03/14/19 23 Active EPINEPHrine (EPIPEN) 0.3 MG/0.3ML solution auto-injector injection 03/14/19 23 Active rosuvastatin (CRESTOR) 40 MG tablet Take 1 tablet by mouth Daily. 90 tablet 3 03/19/19 25 Active amLODIPine (NORVASC) 10 MG tabletIndication s:Primary hypertension Take 1 tablet by mouth Daily. 90 tablet 3 03/19/19 25 Active glyburide (DIAbeta) 5 MG tabletIndication s:Type 2 diabetes mellitus with hyperglycemia, without long-term current use of insulin Take 1 tablet by mouth 2 (Two) Times a Day With Meals for 90 days. 180 tablet 3 03/19/19 25 Active metFORMIN (GLUCOPHAGE) 500 MG tabletIndication s:Type 2 diabetes mellitus with hyperglycemia, without long-term current use of insulin Take 2 tablets by mouth 2 (Two) Times a Day for 90 days. 360 tablet 3 03/19/19 25 Active metoprolol tartrate (LOPRESSOR) 100 MG tabletIndication s:Hypertension Take 1 tablet by mouth 2 (Two) Times a Day for 90 days. Indications: High Blood Pressure 180 tablet 3 03/19/19 25 Active furosemide (LASIX) 40 MG tablet Take 1 tablet by mouth Daily for 90 days. 90 tablet 3 03/19/19 25 Active montelukast (Singulair) 10 MG tabletIndication s:Chronic obstructive pulmonary disease, unspecified COPD type Take 1 tablet by mouth Every Night. 90 tablet 3 03/19/19 25 Active loratadine (Claritin) 10 MG tabletIndication s:Chronic obstructive pulmonary disease, unspecified COPD type Take 1 tablet by mouth Daily. 30 tablet 2 03/19/19 25 Active traMADol (ULTRAM) 50 MG tabletIndication s:Lumbar spondylosis Take 1 tablet by mouth Every 6 (Six) Hours As Needed for Moderate Pain. 15 tablet 06/15/19 25 Active Fluticasone-Umec lidin-Vilant (Trelegy Ellipta) 100-62.5-25 MCG/ACT inhaler Inhale 1 puff Daily. 28 each 3 08/17/19 25 Active Fluticasone-Umec lidin-Vilant (Trelegy Ellipta) 100-62.5-25 MCG/ACT inhaler Inhale 1 puff Daily. 14 each 08/17/19 25 Active ipratropium-albu terol (DUO-NEB) 0.5-2.5 mg/3 ml nebulizer INHALE CONTENTS OF 1 VIAL VIA NEBULIZER FOUR TIMES DAILY 360 mL 09/21/19 25 Active Fluticasone-Umec lidin-Vilant (TRELEGY ELLIPTA) 200-62.5-25 MCG/ACT inhaler Inhale 1 puff Daily. 2 each 09/21/19 25 Active ipratropium-albu terol (DUO-NEB) 0.5-2.5 mg/3 ml nebulizer INHALE CONTENTS OF 1 VIAL VIA NEBULIZER FOUR TIMES DAILY 360 mL 08/10/19 25 025 Discontinued Active Problems Problem Noted Date Diagnosed Date Cellulitis of left lower extremity 06/14/2024 Assessment & Plan (06/14/2024 1:36 PM EDT): On presentation today patient also noted to have a wound on his left berg. States this happened approximately 1 month ago while working on the engine of a car. He has been keeping the area clean and dry as well as providing antibiotic ointment. Patient has frequent bouts of cellulitis, while the area is red and mildly swollen today he states it is much improved from onset. denies any fever or purulent drainage. Advised to continue cleaning site with warm water and antibacterial soap as well as applying topical antibiotic ointment. Also treat with oral cephalexin as directed. Overweight (BMI 25.0-29.9) 02/17/2023 Assessment & Plan (12/20/2023 9:03 AM EST): Patient's (Body mass index is 31.48 kg/m .) indicates that they are overweight with health conditions that include obstructive sleep apnea, hypertension, coronary heart disease, diabetes mellitus, dyslipidemias, and osteoarthritis . Weight is unchanged. BMI is above average; BMI management plan is completed. We discussed portion control and increasing exercise. Assessment & Plan (02/18/2023 4:55 PM EST): Patient's (Body mass index is 29.44 kg/m .) indicates that they are overweight with health conditions that include hypertension, coronary heart disease, diabetes mellitus, and dyslipidemias . Weight is worsening. BMI is is above average; BMI management plan is completed. We discussed portion control and increasing exercise. Cervical lymphadenopathy 02/17/2023 Assessment & Plan (02/18/2023 4:53 PM EST): presents today for concerns in regard to a knot he has felt on the left side of his neck. Patient reports he first noticed the spot 2 days ago. He states it has gotten smaller since first feeling it. He does note he has had a tooth abscess on the same side before, has upcoming dental work for tooth decay and broken teeth on the same side. Confirmed enlarged submental tubular lymph nodes on physical exam. Patient has been fully evaluated for mediastinal adenopathy with benign origins as well. He has had recent antibiotic course for pneumonia. -Obtain ultrasound of neck Lumbar spondylosis 02/17/2023 Assessment & Plan (06/14/2024 1:35 PM EDT): Patient has longstanding issues with low back pain. He has had xray imaging that showed multilevel degenerative changes as well as levocurvature, retrolisthesis of L2-L3 and L3-L4, mild L5-S1 disc space narrowing, significant facet arthropathy, predominantly at the lower lumbar levels. Patient has failed multiple conservative measures for his pain, putting off pain management referral due to caring for his with advanced Alzheimer's. Today presents stating that his pain is now preventing him from sleeping at night. Does have numbness of the right lower extremity at baseline due to an accident many years ago in which he suffered a severed nerve. - Agreeable to pain management referral, placed to Dr. Romero -Given patient's pain is now so unbearable he is unable to sleep will give short course of tramadol to do him until he is seen by pain management, patient somewhat skeptical as he does not want to form any type of addiction. Jose report reviewed and satisfactory. Assessment & Plan (03/25/2024 5:32 PM EST): He has longstanding issues with low back pain. Images showed multilevel degenerative changes. There was levocurvature noted. There was retrolisthesis of L2 on L3 and L3 on L4. There was mild L5-S1 disc space narrowing noted. There was significant facet arthropathy, predominantly at the lower lumbar levels. MRI was suggested if pain persisted. Patient has declined pursuing further measures at this time Assessment & Plan (12/20/2023 9:02 AM EST): He has longstanding issues with low back pain. Images showed multilevel degenerative changes. There was levocurvature noted. There was retrolisthesis of L2 on L3 and L3 on L4. There was mild L5-S1 disc space narrowing noted. There was significant facet arthropathy, predominantly at the lower lumbar levels. MRI was suggested if pain persisted. Patient has declined pursuing further measures at this time Assessment & Plan (02/18/2023 3:51 PM EST): He has longstanding issues with low back pain. Images showed multilevel degenerative changes. There was levocurvature noted. There was retrolisthesis of L2 on L3 and L3 on L4. There was mild L5-S1 disc space narrowing noted. There was significant facet arthropathy, predominantly at the lower lumbar levels. MRI was suggested if pain persisted. Patient declined pursuing further measures at that time, but states his pain is gone so significant it is beginning to cause issues in his daily activities. He has utilized prednisone therapy as well as other anti-inflammatories without significant benefit. -Provided referral to orthopedics for further evaluation Medicare annual wellness visit, subsequent 11/18 Assessment & Plan (11/19/2022 8:39 AM EDT): Patient presents today for annual Medicare wellness visit. He is up-to-date on colonoscopy for another 2 years. No lower urinary tract symptoms or concerns for prostate issues at this time. He declines prostate exam today. PSA has always been within normal limits. We discussed need for updated eye exam, diabetic foot exam performed and satisfactory today. His current issue is compliance with medication and diet in regards to both antihypertensive agents and glycemic agents. He also needs follow-up with cardiology and neurology. He has had multiple hospitalizations this year for bilateral lower extremity cellulitis, now on daily antibiotic prophylaxis through infectious disease. Chronic fatigue 11/18/2022 Assessment & Plan (11/19/2022 8:36 AM EDT): Patient reports issues with increased fatigue, he also notes he has lost the hair on his legs and is inquiring about issues with testosterone perhaps. -Checking testosterone and thyroid panels today Cellulitis of right leg 05/17/2022 RG (obstructive sleep apnea) 03/11/2022 Assessment & Plan (06/14/2024 1:34 PM EDT): Patient endorses excellent compliance with nightly PAP Assessment & Plan (03/25/2024 5:33 PM EST): Patient reports good compliance with nightly PAP use Assessment & Plan (12/20/2023 9:02 AM EST): Patient reports good compliance with CPAP utilization Assessment & Plan (11/19/2022 8:32 AM EDT): Patient reports good compliance with CPAP utilization Assessment & Plan (03/18/2022 11:16 AM EST): Reports good complaints with CPAP wear Right foot drop 03/11/2022 Assessment & Plan (11/19/2022 8:32 AM EDT): Patient wearing brace daily Sepsis due to cellulitis 01/15/2022 COPD (chronic obstructive pulmonary disease) 06/2021 Assessment & Plan (06/14/2024 1:40 PM EDT): Patient has longstanding pattern of COPD. He does have issues with shortness of breath and wheezing, not cardiac related. He has been prescribed Advair in the past which was beneficial, however he states he has unable to obtain the medication due to financial burden. He has had benefit from Trelegy samples which she was given during his last visit we will attempt to get prescription Assessment & Plan (03/25/2024 5:31 PM EST): Patient has longstanding pattern of COPD. He does have issues with shortness of breath and wheezing, not cardiac related. He has been prescribed Advair in the past which was beneficial, however he states he has unable to obtain the medication due to financial burden. He has had benefit from Trelegy samples which she was given during his last visit we will attempt to get prescription Assessment & Plan (12/20/2023 9:10 AM EST): Patient has longstanding pattern of COPD. He does have issues with shortness of breath and wheezing, not cardiac related. He has been prescribed Advair in the past which was beneficial, however he states he has unable to obtain the medication due to financial burden. Will give sample of Trelegy to be trialed today. If provides relief in his symptoms we will send prescription Assessment & Plan (11/19/2022 8:35 AM EDT): Patient with longstanding diagnosis of COPD, no recent exacerbations. Currently only using as needed albuterol inhaler and nebulizer. He notes he has experienced some increased shortness of breath daily and with activities. In the past he had utilized prophylactic medication Advair but has not utilize that medication quite some time. In discussion he feels he did get benefits from the medication. -Restart Advair daily COPD with acute exacerbation 12/25/2021 Assessment & Plan (02/18/2023 4:55 PM EST): Patient treated at [facility] emergency department on February 05 for viral syndrome, followed by evaluation at [facility] where he was diagnosed with COPD exacerbation. Currently utilizing regimen of azithromycin Z-Thaddeus, Ceftin and prednisone. Also continues to take daily medications Advair and DuoNeb. Patient states he continues to wear his oxygen at night but has not yet required chronic O2 during the day. On arrival oxygen saturation noted to be 88% but quickly rebounded after resting momentarily. We discussed med adjustments for maintenance which he is declining at this time. Type 2 diabetes mellitus, [facility] long-term current use of insulin 12/03/2021 Assessment & Plan (06/14/2024 1:34 PM EDT): Patient has not been checking his glucose at home, last A1c checked 2 months ago was 7.8%. At that time he had actually been out of his metformin for 1 month. He endorses current compliance with metformin 1000 mg twice daily and glyburide 5 mg twice daily. Assessment & Plan (03/25/2024 5:33 PM EST): He has not been checking his glucose at home. A1c in office today is 7.8%. Patient has been out of his metformin for over one month. -Continue metformin 1000mg BID -Continue glyburide 5mg BID -Had long discussion with patient in regards to the need for tight glucose control with A1C less than 7% particularly with pre-existing CAD. This will require compliance with home glucose monitoring, diet compliance and medication compliance. -Follow up in three months Assessment & Plan (12/20/2023 9:06 AM EST): He has not been checking his glucose at home. A1c in office today is 7.8%. Patient has been out of his metformin for over one month. -Continue metformin 1000mg BID -Continue glyburide 5mg BID -Had long discussion with patient in regards to the need for tight glucose control with A1C less than 7% particularly with pre-existing CAD. This will require compliance with home glucose monitoring, diet compliance and medication compliance. -Follow up in three months Assessment & Plan (02/18/2023 4:57 PM EST): She continues to report noncompliance with diabetic diet and medication regimen. He is unsure how frequently he is taking his glyburide or metformin as directed. Not sticking to a low carb diet, less viscous injection. We discussed importance of maintaining glucose management to decrease risk of stroke, heart attack and kidney disease. Again reports requested he maintain home glucose log for review, checking twice daily most days of the week.. Assessment & Plan (11/19/2022 8:32 AM EDT): Patient presents for about noncompliance with diet, medication regimen or checking glucose at home. He endorses not taking glyburide or metformin as directed. Not sticking to low carb intake, loves biscuits and jam. Diabetic foot exam performed and satisfactory today. He is in need of updated diabetic eye exam. We discussed the importance of maintaining tight glucose control in order to decrease risk of coronary artery disease, stroke and kidney disease. Reviewed goal A1c is less than 7. He verbalizes understanding and states he will try to do better -Continue metformin 1000 mg twice daily -Continue glyburide 5 mg twice daily Assessment & Plan (03/18/2022 11:14 AM EST): Highest fasting 120 prior to being in the hospital. Required insulin during hospital stay Assessment & Plan (12/03/2021 5:23 PM EDT): Poorly controlled. A1C today 10.8%. last A1C on record was 6.3% three years ago. He reports he has not been eating healthy as he knows he should. He has been out of glyburide for just a couple of days as well. 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 November 12 at which time he suffered an TN, requiring cardiac cath and subsequent stenting of 4 of his vessels with 6 stents total. He is now being followed by Dr. Lucio. He states he presented to the ER after experiencing significant epigastric pain and shortness of breath. In retrospect he had not been taking his statin therapy for quite some time but never realized it. He denies any recurrence of chest pain or shortness of breath since his admission . Continues to utilize daily Plavix and aspirin. Assessment & Plan (12/20/2023 9:11 AM EST): admitted at [facility] November 12 at which time he suffered an TN, requiring cardiac cath and subsequent stenting of 4 of his vessels with 6 stents total. He is now being followed by Dr. Lucio. He states he presented to the ER after experiencing significant epigastric pain and shortness of breath. In retrospect he had not been taking his statin therapy for quite some time but never realized it. He denies any recurrence of chest pain or shortness of breath since his admission -Patient now utilizing daily Plavix and aspirin -Requesting notes from admission at [facility] as well as Dr. Lucio's notes. Assessment & Plan (11/19/2022 8:36 AM EDT): Patient due for cardiology follow-up Chronic dyspnea 12/03/2021 Assessment & Plan (12/03/2021 5:26 PM EDT): COPD followed by pulmonology. Associated with previous cigarette abuse (discontinued 2004). Plan: 1. DuoNeb up to 4 times a day when necessary 2. Symbicort 160/4.5, 2 puffs twice a day regularly. 3. Low-dose lung CT scanning due on 05/15/2023 4. Montelukast 10 mg daily HLD (hyperlipidemia) 12/03/2021 Assessment & Plan (03/25/2024 5:32 PM EST): Patient has been prescribed rosuvastatin 40 mg daily for quite some time, however he has been noncompliant for what he guesses over 1 year. He is going to return fasting for recheck on lipid panel. He is advised to resume his statin therapy immediately. Assessment & Plan (12/20/2023 9:09 AM EST): Patient has been prescribed rosuvastatin 40 mg daily for quite some time, however he has been noncompliant for what he guesses over 1 year. He is going to return fasting for recheck on lipid panel. He is advised to resume his statin therapy immediately. Assessment & Plan (11/19/2022 8:34 AM EDT): Continue nightly rosuvastatin 40 mg. Rechecking lipid panel today. Assessment & Plan (12/03/2021 5:26 PM EDT): Continue rosuvastatin. He is to return in three months for annual physical, will recheck lipid panel at that time HTN (hypertension) 12/03/2021 Assessment & Plan (06/14/2024 1:36 PM EDT): Pressure borderline in office today, 138/84. He has not been checking his blood pressure at home. He will forget his medications at times. Prescribed metoprolol 100 mg twice daily as well as amlodipine 10 mg daily. Patient encouraged to check blood pressure regularly with goal less than 130/80. Assessment & Plan (03/25/2024 5:32 PM EST): His blood pressure is elevated in office today, 162/88, patient states he has been out of his medication. Refill sent for metoprolol 100 mg twice daily as well as amlodipine 10 mg daily. Patient advised to check his blood pressure several times weekly with goal of less than 140/80. Assessment & Plan (12/20/2023 9:08 AM EST): BP within acceptable range in office today, 136/74 -Continue metoprolol 100mg BID -Continue amlodipine 10mg daily Assessment & Plan (02/18/2023 4:55 PM EST): Blood pressure well-controlled on current medications, 110/68 in office today. Assessment & Plan (11/19/2022 8:34 AM EDT): Blood pressure extremely elevated in office today, 176/90. Patient denies any chest pain, shortness of breath, headache or dizziness. He reports he has not taken his blood pressure medications, lacking compliance regularly. We discussed elevated blood pressures increasing risk of stroke and heart attack which he verbalizes understanding. -Continue metoprolol 100 mg twice daily -Continue amlodipine 10 mg once daily Assessment & Plan (12/03/2021 5:27 PM EDT): Well controlled on current meds Losartan 50mg daily Metoprolol 100mg BID Amlodipine 10mg daily Late effects of CVA (cerebrovascular accident) 0 08/10/2019 Overview (08/10/2019): Ataxia chronic, unchanged Assessment & Plan (12/20/2023 9:07 AM EST): Patient has been lost to neurology follow-up, Amberly Hill APRN. He has ongoing issues with ataxia Assessment & Plan (11/19/2022 8:33 AM EDT): Patient with ongoing issues with ataxia, he feels that it has progressively worsened over the last several months. He is due for follow-up with neurology, Amberly Hill APRN. 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 Concluded to have a definite component of vertebral basilar insufficiency. He continues to take daily aspirin 81 mg, Plavix 75 mg. Neurosurgery has felt there is not indication for surgical intervention at this time Assessment & Plan (12/03/2021 5:24 PM EDT): Evaluated by neurology, neurosurgery, and cardiology. Concluded to have a definite component of vertebrobasilar insufficiency. He is to continue on aspirin 81 mg, Plavix [address] Rivers, neurosurgeon, at the time of evaluation felt there was not an indication for surgical intervention. Resolved Problems Problem Noted Date Diagnosed Date Resolved Date Cellulitis of right lower extremity 03/11/2022 03/14/2022 Cellulitis 12/25/2021 03/14/2022 Sepsis 12/22/2021 03/14/2022 Epigastric pain 12/22/2021 12/25/2021 Encounters Date Type Department Care Team Description 09/20/2024 Refill [facility] [address] [place] [address] DR MARQUZE, ARLETTE [phone] Dominga Felipe, ASSEMBLER CONVERTIBLE TOP 09/20/2024 Refill [facility] [address] [place] [address] [place] TYLER [phone] Dominga Felipe, ASSEMBLER [employer] TOP 08/16/2024 Telephone [facility] [address] [place] [address] [place] [id number] Dominga Felipe, ASSEMBLER CONVERTIBLE TOP 08/09/2024 Refill [facility] [address] [place] [address] DR MARQUEZ, ARLETTE [phone] Dominga Felipe, ASSEMBLER CONVERT[employer] TOP from Last 3 Months Immunizations Immunization Administration Dates Next Due COVID-19 (MODERNA) 1st,2nd,3 rd Dose Monovalent 06/23/2020,05/24/2020,05/12/2020,04/11 Fluzone High-Dose 65+YRS 10/24/2016 Influenza, Unspecified 10/30/2018 Pneumococcal Conjugate 13-Va lent (PCV13) 10/24/2016 Pneumococcal Polysaccharide (PPSV23) 10/30/2018 Family History Medical History Relation Name Comments Cancer Brother Colon cancer Heart disease Brother Diabetes Father Heart disease Father Cancer Sister Colon Cancer Relation Name Status Comments Brother Father Mother Sister Social History Tobacco Use Types Packs/Day Years Used Date Smoking Tobacco: Former Cigarettes 1 40 0 03/22/1965 - 03/22/2005 Smokeless Tobacco: Never Tobacco Cessation:Counseling Given: Not Answered Alcohol Use Standard Drinks/Week Comments No 0 [...] or training? Not on file Preferred Language Samoan 05/20/2022 PHQ-2 Answer Date Recorded Patient Health Questionnaire-2 Score 0 03/19/2024 Sex and Gender Information Value Date Recorded Sex Assigned at Not on file Legal Sex Male 1:07 PM EDT Gender Identity Not on file Sexual Orientation Not on file Last Filed Vital Signs Vital Sign Reading Time Taken Comments Blood Pressure 138/84 06/14/2024 1:07 PM EDT Pulse 76 06/14/2024 1:07 PM EDT Temperature 37 C (98.6 F) 06/14/2024 1:07 PM EDT Respiratory Rate 18 06/14/2024 1:07 PM EDT Oxygen Saturation 98% 06/14/2024 1:07 PM EDT Inhaled Oxygen Concentration - - Weight 93.4 kg (206 lb) 06/14/2024 1:07 PM EDT Height 170.2 cm (5' 7 ) 06/14/2024 1:07 PM EDT Body Mass Index 32.26 06/14/2024 1:07 PM EDT Plan of Treatment Health Maintenance Due Date Last Done Comments URINE MICROALBUMIN-CREATININ E RATIO (uACR) 07/31/1959 TDAP/TD VACCINES (1 - Tdap) 1968 COLOGUARD 1994 COLON CANCER SCREENING 5 YEA R SIGMOIDOSCOPY 1994 CT COLONOGRAPHY 1994 FECAL OCCULT BLOOD TEST 1994 FIT Testing (1 year) 1994 ZOSTER VACCINE (1 of 2) 07/31/1999 DIABETIC EYE EXAM 09/26/2023 09/25/2022 COVID-19 Vaccine (5 - 2023-2 5 season) 2023 06/23/2020, 05/24/2020, 05/12/2020, Additional history exists ANNUAL WELLNESS VISIT 11/19/2023 11/18/2022, 023 DIABETIC FOOT EXAM 11/19/2023 11/18/2022, 1 , 11/18/2022, Additional history exists LIPID PANEL 11/20/2023 11/19/2022, 11/11, 11/11/2017, Additional history exists COLONOSCOPY 04/27/2024 04/27/2014 COLORECTAL CANCER SCREENING 04/27/2024 RSV Vaccine - Adults (1 - 1- dose 75+ series) 2024 HEMOGLOBIN A1C 09/16/2024 03/19/2024, 11/0 08/2023, 11/18/2022, Additional history exists INFLUENZA VACCINE 11/10/2024 10/30/2018, 10/24/2016 Pneumococcal Vaccine 50+ Completed 10/30/2018, 10/11 HEPATITIS C SCREENING Completed 12/04/2018 AAA SCREEN ONCE Completed 12/22/2021 Procedures Procedure Name Priority Date/Time Associated Diagnosis Comments SCANNED - IMAGING 08/24/2024 POCT GLYCOSYLATED HEMOGLOBIN (HGB A1C) Routine 03/19/2024 3:07 PM EST Type 2 diabetes mellitus with hyperglycemia, without long-term current use of insulin LIPID PANEL Routine 11/19/2022 9:29 AM EDT Mixed hyperlipidemia CT ABDOMEN PELVIS WO CONTRAST STAT 12/22/2021 5:35 PM EST HEPATITIS PANEL, ACUTE Routine 12/04/2018 11:31 AM EDT ASHD (arteriosclerotic heart disease) Fatigue, unspecified type Neuropathy COLONOSCOPY Routine 04/27/2014 from Last 3 Months or Most Recently Relevant to Health Maintenance Results * IMAGING SCANNED (08/24/2024) Anatomical Region Laterality Modality Radiographic Almaz ging us Dominga Felipe APRN IMG DIAGNOSTIC IMAGING ORDE RABLES Final Result * (ABNORMAL) POC Glycosylated Hemoglobin (Hb A1C) (03/19/2024 3:07 PM EST) Hemoglobin A1C 7.8(A) 4.5 - 5.7 % [facility] Lot Number [id number] [facility] Expiration Date [facility] Blood 03/19/2024 3:07 PM EST Dominga Felipe APRN POINT OF CARE TEST ORDERABL ES Final Result [facility]
[address] [place] [address], * Lipid Panel (11/19/2022 9:29 AM EDT) Total Cholesterol 159 100 - 199 mg/dL [facility] Triglycerides 96 0 - 149 mg/dL [facility] HDL Cholesterol 53 >39 mg/dL [facility] VLDL Cholesterol Seferino 18 5 - 40 mg/dL [facility] LDL Chol Calc (NIH) 88 0 - 99 mg/dL [facility] Blood Structure of left upper limb / Unknown 11/19/2022 9:29 AM EDT 11/19/2022 Comment:Blood Release to pat i Narrative [facility] - 11/20/2022 8:09 AM EDT Performed at: 01 - [facility] [address] [place], [place] [id number] Plating Technician: Joao Vergara PhD, Phone: [phone] us Dominga Felipe ASSEMBLER CONVERTIBLE TOP LAB BLOOD ORDERABLES Final Result [facility] (AMBULATORY) [address] [place] [address], [facility] [address] [place] [address], * CT Abdomen Pelvis Without Contrast (12/22/2021 5:35 PM EST) Anatomical Region Laterality Modality Abdomen, Pelvis N/A Computed Tomogra phy 12/22/2021 5:53 PM EST Impressions 12/22/2021 6:01 PM EST 1. No acute abnormality in the chest, abdomen, and pelvis 2. Mesenteric adenopathy with hazy infiltration of the mesentery. Possibilities include mesenteric panniculitis and malignancy such as lymphoma, although there is no adenopathy demonstrated elsewhere in the chest, abdomen, and pelvis This report was finalized on 12/22/2021 6:01 PM by Cheo Demarco. Narrative 12/22/2021 6:01 PM EST DATE OF EXAM: 12/22/2021 5:33 PM PROCEDURE: CT CHEST WO CONTRAST DIAGNOSTIC-, CT ABDOMEN PELVIS WO CONTRAST- INDICATIONS: Fever unknown source, cough COMPARISON: No comparisons available. TECHNIQUE: Routine transaxial slices were obtained through the chest without the administration of intravenous contrast. Reconstructed coronal and sagittal images were also obtained. Automated exposure control and iterative construction methods were used. The radiation dose reduction device was turned on for each scan per the ALARA (As Low as Reasonably Achievable) protocol. FINDINGS: Chest- Breonna/mediastinum: Thoracic aorta normal in caliber. Coronary calcification, status post coronary bypass. No pericardial effusion. No adenopathy Lungs/pleura: Status post right upper lobectomy. No acute pulmonary abnormality. Calcific pleural thickening on the right with subpleural atelectasis. Bones/soft tissues: No acute bony abnormality. No axillary adenopathy Abdomen/pelvis- Liver, spleen, pancreas, kidneys, adrenals have an unremarkable noncontrast appearance. No hydronephrosis. Normal sized gallbladder with no pericholecystic stranding GI tract: No gastrointestinal abnormality demonstrated. Normal appendix. Hazy infiltration of the mesentery with enlarged mesenteric lymph nodes up to 3.2 cm Pelvis: No adenopathy or abnormal fluid collection. Urinary bladder grossly unremarkable. Enlarged prostate Peritoneum/retroperitoneum: No retroperitoneal adenopathy. No ascites. Normal caliber atherosclerotic aorta Bones/soft tissues: No acute bony abnormality. No groin adenopathy Procedure Note Cheo Demarco MD - 12/22/2021 DATE OF EXAM: 12/22/2021 5:33 PM PROCEDURE: CT CHEST WO CONTRAST DIAGNOSTIC-, CT ABDOMEN PELVIS WO CONTRAST- INDICATIONS: Fever unknown source, cough COMPARISON: No comparisons available. TECHNIQUE: Routine transaxial slices were obtained through the chest without the administration of intravenous contrast. Reconstructed coronal and sagittal images were also obtained. Automated exposure control and iterative construction methods were used. The radiation dose reduction device was turned on for each scan per the ALARA (As Low as Reasonably Achievable) protocol. FINDINGS: Chest- Breonna/mediastinum: Thoracic aorta normal in caliber. Coronary calcification, status post coronary bypass. No pericardial effusion. No adenopathy Lungs/pleura: Status post right upper lobectomy. No acute pulmonary abnormality. Calcific pleural thickening on the right with subpleural atelectasis. Bones/soft tissues: No acute bony abnormality. No axillary adenopathy Abdomen/pelvis- Liver, spleen, pancreas, kidneys, adrenals have an unremarkable noncontrast appearance. No hydronephrosis. Normal sized gallbladder with no pericholecystic stranding GI tract: No gastrointestinal abnormality demonstrated. Normal appendix. Hazy infiltration of the mesentery with enlarged mesenteric lymph nodes up to 3.2 cm Pelvis: No adenopathy or abnormal fluid collection. Urinary bladder grossly unremarkable. Enlarged prostate Peritoneum/retroperitoneum: No retroperitoneal adenopathy. No ascites. Normal caliber atherosclerotic aorta Bones/soft tissues: No acute bony abnormality. No groin adenopathy IMPRESSION: 1. No acute abnormality in the chest, abdomen, and pelvis 2. Mesenteric adenopathy with hazy infiltration of the mesentery. Possibilities include mesenteric panniculitis and malignancy such as lymphoma, although there is no adenopathy demonstrated elsewhere in the chest, abdomen, and pelvis This report was finalized on 12/22/2021 6:01 PM by Cheo Demarco. Omer Oh MD IMG CT ORDERABLES Final Result * Hepatitis Panel, Acute (12/04/2018 11:31 AM EDT) Hepatitis B Surface Ag Non-Reacti ve Non-Reacti ve 12/05/2018 2:40 AM EDT [facility] Hep A IgM Non-Reacti ve Non-Reacti ve 12/05/2018 2:40 AM EDT [facility] Hep B C IgM Non-Reacti ve Non-Reacti ve 12/05/2018 2:40 AM EDT [facility] Hepatitis C Ab Non-Reacti ve Non-Reacti ve 12/05/2018 2:40 AM EDT [facility] Blood Venipuncture / Unknown 12/04/2018 11:31 AM EDT 12/04/2018 11:31 AM EDT Bernardino Ron MD LAB BLOOD ORDERABLES Final Res ult [facility]
[address] [place] [address], * Colonoscopy (04/27/2014) [facility] SURGICAL HISTORY PROCEDURES F inal Result from Last 3 Months or Most Recently Relevant to Health Maintenance Additional Health Concerns Infection Onset Date Last Indicated MRSA 03/13/2022 05/18/2022 Insurance [facility] MEDICARE ADVANTAGE HMO Advance Directives * CPR (Attempt to Resuscitate) (Latest Code Status on File) Date Activated Date Inactivated Comments 05/18/2022 12:37 AM 05/22/2022 2:41 PM Question Answer Comments Code Status (Patient has no pulse and is not breathing): CPR (Attempt to Resuscitate) Medical Interventions (Patie nt has pulse or is breathing): Full Support Level Of Support Discussed With: Patient * CPR (Attempt to Resuscitate) Date Activated Date Inactivated Comments 05/17/2022 11:10 PM 05/18/2022 12:37 AM Question Answer Comments Code Status (Patient has no pulse and is not breathing): CPR (Attempt to Resuscitate) Medical Interventions (Patie nt has pulse or is breathing): Full Support * CPR (Attempt to Resuscitate) Date Activated Date Inactivated Comments 03/15/2022 6:35 PM 05/17/2022 9:24 PM No physician s ignature needed for this code status. Omer as Signed. * CPR (Attempt to Resuscitate) Date Activated Date Inactivated Comments 03/11/2022 9:20 PM 03/14/2022 8:19 PM Question Answer Comments Code Status (Patient has no pulse and is not breathing): CPR (Attempt to Resuscitate) Medical Interventions (Patie nt has pulse or is breathing): Full Support * CPR (Attempt to Resuscitate) Date Activated Date Inactivated Comments 01/14/2022 1:06 PM 01/19/2022 8:21 PM Question Answer Comments Code Status (Patient has no pulse and is not breathing): CPR (Attempt to Resuscitate) Medical Interventions (Patie nt has pulse or is breathing): Full Support Care Teams Frame Gate Mortiser Operator Relationship Specialty Start Date End Date Dominga Felipe APRN [address] [place], [place] [id number] PCP - General Family Medicine 02/26/22
--- OUTSIDE RECORDS SUMMARY | 2024-09-29 17:00 | XMS_ITS | Clinical Summary ---
Author Organization [facility] Address [address] [place] [address] Phone Care Team Providers Care Personnel Research Psychologist Name Role Phone Ally LÓPEZ, Omer Serrano [ ] Conditions or Problems Problem Name Problem Code Onset Date Status Entry Date Provider Comment Standard Description Annotate Long-term (current) use of antiplatelet /antithrombo tic (Plavix) 281655955 (SNOMED CT) 05/22 Active 05/22 Aamda Caldera Long-term drug therapy Hx of DVT 659936820 (SNOMED CT) 05/22 Active 05/22 Amada Werner History of deep vein thrombosis Acute exacerbation of COPD 725138951 (SNOMED CT) 05/22 Active 05/22 Amada Sagarelen Acute exacerbation of chronic obstructive pulmonary disease 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 621) L97.512 (ICD-10-CM ) 03/24 Resolved 03/24 Nilam Wing Non-pressure chronic ulcer of other part of right foot with fat layer exposed DM non-pressure chronic ulcer of right hallux limited to breakdown of skin (E11.621) L97.511 (ICD-10-CM ) 03/24 Resolved 03/24 Nilam Wing Non-pressure chronic ulcer of other part of right foot limited to breakdown of skin Cellulitis, toe, right 06277751 (SNOMED CT) 03/24 Resolved 03/24 Nilam Wing Cellulitis of toe DM non-pressure chronic ulcer of right hallux limited to breakdown of skin (E11.621) L97.511 (ICD-10-CM ) 03/24 Removed 03/24 Nilam Wing Non-pressure chronic ulcer of other part of right foot limited to breakdown of skin 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 (ICD-10-CM ) 03/24 Active 03/24 Nilam Wing Leukemoid reaction Lymphedema, chronic I89.0 (ICD-10-CM ) 03/24 Active 03/24 Nilam Wing Lymphedema, not elsewhere classified Coronary artery disease, S/P CABG 108297626 (SNOMED CT) 06/20 Active 06/20 Nilam Wing 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 Right leg ischemia 569156141 (SNOMED CT) 06/21 Resolved 06/21 Nilam Wing Lower limb ischemia Thigh pain, right 01773271 (SNOMED CT) 07/05 Resolved 07/05 Nilam Wing Thigh pain Thigh pain, right 89314075 (SNOMED CT) 07/05 Removed 07/05 Jennifer Ugarte MD Thigh pain Other obesity due to excess calories 140773564 (SNOMED CT) 07/04 Active 07/04 Renan Wright Simple obesity Right leg ischemia 805677241 (SNOMED CT) 06/21 Removed 06/21 Jennifer Ugarte MD Lower limb ischemia Cellulitis of RLE 071018702 (SNOMED CT) 06/20 Active 06/20 Nilam Dimas Cellulitis of lower limb COPD 44303204 (SNOMED CT) 06/20 Active 06/20 Nilam Dimas Chronic obstructive pulmonary disease Coronary artery disease (CAD) 15377374 (SNOMED CT) 06/20 Inactive 06/20 Nilam Dimas 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 464064096 (SNOMED CT) 06/20 Active 06/20 Nilam Dimas Peripheral vascular disease Benign Essential Hypertension 6239779 (SNOMED CT) 06/20 Active 06/20 Nilam Dimas Benign essential hypertension Medications Medication Instructions Start Date Stop Date Generic Name NDC Provider PENICILLIN V POTASSIUM 500 MG TABS Take 1 tablet by mouth twice a day penicillin v potassium 46646919217 Omer Canales MD ceftriaxone recon soln 2gm IV Q 24hrs INPAT ceftriaxone recon soln Charmaine Apodaca RN AMOXICILLIN 875 MG TABS Take 1 tablet by mouth twice a day amoxicillin 28606202220 Omer Canales MD ceftriaxone recon soln 2gm IV Q 24hrs INPAT ceftriaxone recon soln Phuong Sahu RN HYDROCODONE-ACET AMINOPHEN 5-325 MG TABS 1 tablet, Oral, Every 6 Hours PRN hydrocodone-acet aminophen 04754472140 Hortencia Farmer OMEPRAZOLE 20 MG CPDR 40 mg, Oral, Daily omeprazole 95583204626 Hortencia Farmer ALBUTEROL SULFATE HFA 108 (90 Base) MCG/ACT AERS 2 puffs every 4 hrs as needed for wheezing albuterol sulfate 22828300855 Hortencia Farmer EPINEPHRINE 0.3 MG/0.3ML SOAJ epinephrine 64454884623 Hortencia Farmer CEFTRIAXONE SODIUM 1 GM SOLR 2gm q 24hrs BHI/BHHH ceftriaxone 24733368511 [facility] CEPHALEXIN 500 MG CAPS Take 1 capsule by mouth twice a day Start on 03/28 after you have finished the ceftriaxone cephalexin 99981722910 Jennifer Ugarte MD GLYBURIDE 5 MG TABS Take tablet by mouth twice a day glyburide 88200711355 Lyly Cunha CRESTOR 40 MG TABS 40 mg, Oral, Daily rosuvastatin 34591364619 Lyly Cunha Proventil HFA 90 mcg/actuation HFA aerosol inhaler 2 puffs, Inhalation, Every 4 Hours PRN albuterol sulfate 61442628844 Lyly Cunha HYDROCODONE-ACET AMINOPHEN 5-325 MG TABS 1 tablet, Oral, Every 6 Hours PRN hydrocodone-acet aminophen 41425078877 Lyly Cunha FOLIC ACID 1 MG TABS 1 mg, Oral, Daily folic acid 48202076265 Lyly Cunha GLYBURIDE 5 MG TABS 5 mg, Oral, 2 Times Daily With Meals glyburide 28382269167 Lyly Cunha IPRATROPIUM-ALBU TEROL 0.5-2.5 (3) MG/3ML SOLN 3 mL, Nebulization, 4 Times Daily - RT ipratropium-albu terol 33917273992 Lyly Cunha Lactobacillus acidophilus unspecified unspecified 1 capsule, Oral, Daily lactobacillus acidophilus Lyly Cunha OMEPRAZOLE 20 MG CPDR 40 mg, Oral, Daily omeprazole 17119316789 Lyly Cunha CEFTRIAXONE SODIUM 1 GM SOLR 2gm q 24hrs BHI/BHHH ceftriaxone 52931541328 [facility] CEPHALEXIN 500 MG CAPS Take 2 capsule by mouth twice a day cephalexin 92790178310 Jennifer Ugarte MD ALBUTEROL SULFATE HFA 108 (90 Base) MCG/ACT AERS 2 puff every four hours as needed albuterol sulfate 57838663068 Akosua Kwan FOLIC ACID 1 MG TABS Take 1 by mouth once a day folic acid 22766038748 Akosua Kwan IPRATROPIUM-ALBU TEROL 0.5-2.5 (3) MG/3ML SOLN 3 ml using nebulizer four times a day ipratropium-albu terol 40602354085 Akosua Kwan ROSUVASTATIN CALCIUM 40 MG TABS Take 1 by mouth once a day rosuvastatin 93501533312 Akosua Kwan CEFTRIAXONE SODIUM 2 GM SOLR rocephin 2GM IV QD/INPAT ceftriaxone 29224473980 Keisha Mcmillan RN Cubicin unspecified unspecified cubicin 250mg IV QD/ INPAT daptomycin 51197437293 Keisha Mcmillan RN AMOXICILLIN 500 MG CAPS 1 three times a day amoxicillin 20546942136 [facility] FUROSEMIDE 40 MG TABS Take 1 by mouth once a day furosemide 42485932113 [facility] Adult Aspirin Regimen 81 mg tablet,delayed release (DR/EC) Take 1 by mouth once a day aspirin 41154021411 [facility] CLOPIDOGREL BISULFATE 75 MG TABS Take 1 by mouth once a day clopidogrel 72326740776 [facility] FOLIC ACID 1 MG TABS Take 1 by mouth once a day folic acid 86436123292 [facility] LOSARTAN POTASSIUM 50 MG TABS Take 1 by mouth once a day losartan 65650963589 [facility] METOPROLOL TARTRATE 100 MG TABS Take tablet by mouth twice a day metoprolol tartrate 36128500500 [facility] GLYBURIDE 5 MG TABS Take tablet by mouth twice a day glyburide 55846066319 Morenita Chairez AMOXICILLIN 500 MG TABS Take 1 tablet by mouth three times a day amoxicillin 50782133102 Morenita Chairez ROSUVASTATIN CALCIUM 40 MG TABS Take 1 by mouth once a day rosuvastatin 62582947822 Morenita Chairez AMLODIPINE BESYLATE 10 MG TABS Take 1 by mouth once a day amlodipine 12218780980 Morenita Chairez METFORMIN HCL 1000 MG TABS Take tablet by mouth twice a day metformin 26298571770 Morenita Chairez ATROPINE SULFATE 0.01 % SOLN 1 drop into left eye four times a day atropine 35229010302 Morenita Chairez ALBUTEROL SULFATE HFA 108 (90 Base) MCG/ACT AERS 2 puff every four hours as needed albuterol sulfate 35804425193 Morenita Chairez IPRATROPIUM-ALBU TEROL 0.5-2.5 (3) MG/3ML SOLN 3 ml using nebulizer four times a day ipratropium-albu terol 58526362025 Morenita Chairez JARDIANCE 10 MG TABS 1 tab daily empagliflozin 73283243437 Morenita Middleton vi AMOXICILLIN 500 MG CAPS 1 tid AMOXICILLIN 03914626883 Jennifer Ugarte MD ROSUVASTATIN CALCIUM 40 MG TABS Take one by mouth daily ROSUVASTATIN CALCIUM 40719997810 Rahel Anglinx CLOPIDOGREL BISULFATE 75 MG TABS Take one by mouth daily CLOPIDOGREL BISULFATE 77670180285 Rahel Murillodox METOPROLOL TARTRATE 100 MG TABS Take by mouth twice a day METOPROLOL TARTRATE 41486216197 Rahel Murillodox METFORMIN HCL 1000 MG TABS Take by mouth twice a day METFORMIN HCL 59881639070 Rahel Anglinx LOSARTAN POTASSIUM 50 MG TABS Take one by mouth daily LOSARTAN POTASSIUM 19537122899 Rahel Vila GLYBURIDE 5 MG TABS Take by mouth twice a day GLYBURIDE 43567177069 Rahel Vila FUROSEMIDE 40 MG TABS Take one by mouth daily FUROSEMIDE 73609419923 Rahel Vila FOLIC ACID 1 MG TABS Take one by mouth daily FOLIC ACID 94038610632 Rahel Vila ATROPINE SULFATE 0.01 % SOLN 1 Drop, Eye Left, QID ATROPINE SULFATE 81358724384 Rahel Vila ADULT ASPIRIN REGIMEN 81 MG ORAL TABLET DELAYED RELEASE Take one by mouth daily ASPIRIN 89246580092 Rahel Vila AMOXICILLIN 500 MG TABS Take one by mouth 3 times daily, morning, afternoon and evening. AMOXICILLIN 38273132547 Rahel Vila AMLODIPINE BESYLATE 10 MG TABS Take one by mouth daily AMLODIPINE BESYLATE 98480217037 Rahel Vila Medications Administered No information available. Allergies, Adverse Reactions, Alerts Allergy Name Reaction Description Start Date Severity Statu s Provider ISOSORBIDE DINITRATE headache Moderate Active Krima Contreras CHRISTOS INHIBITORS cough Moderate Active Krim a Contreras Results Date Name Value Unit Range Flag Description Clinical Lists Update: HGBA1C 6.70 % Hemoglobin A1c/Hemoglobin, total in Blood - % Office Visit: room 11 U DIET PUBLIC TRANSPORTATION INSPECTOR Yes - Overweight Dietary management education, guidance, and counseling (procedure) Clinical Lists Update: VAPE_USE Never Tobacco smok ing status Chart Maintenance: Updated H H labs 03/26/22 CRP <0.2 mg/dL C reactive pr otein [Mass/volume] in Serum or Plasma CPK 134 U/L Creatine charlene se [Enzymatic activity/volume] in Serum or Plasma BILI TOTAL 0.30 mg/dL Bilirubin. total [Mass/volume] in Serum or Plasma ALK PHOS 100 U/L Alkaline sami sphatase [Enzymatic activity/volume] in Blood SGPT (ALT) 19 U/L Alanine aminotransferase [Enzymatic activity/volume] in Serum or Plasma SGOT (AST) 19 U/L Aspartate aminotransferase [Enzymatic activity/volume] in Serum or Plasma CALCIUM 9.3 mg/dL Calcium [Mole s/volume] in Serum or Plasma POTASSIUM 4.8 mmol/L Potassium [Moles/volume] in Serum or Plasma SODIUM 142 mmol/L Sodium [Moles /volume] in Serum or Plasma CREATININE 1.3 mg/dL Creatinine [Mass/volume] in Serum or Plasma BUN 13 mg/dL Urea nitrogen [Mass/volume] in Serum or Plasma GLUCOSE SER 137 mg/dL Glucose [ Mass/volume] in Serum or Plasma LYMPHS % 18.6 % Lymphocytes/ 100 leukocytes in Blood by Automated count PMN % 73.0 % Neutrophils/1 00 leukocytes in Blood by Automated count PLATELETS 323 10*3/mm3 Platelets [#/volume] in Blood by Automated count HCT 43.7 % Hematocrit [V olume Fraction] of Blood by Automated count HGB 13.6 g/dL Hemoglobin [Mass/volume] in Blood RBC 5.0 10*6/mm3 Erythrocytes [#/volume] in Blood by Automated count WBC 9.0 10*3/mm3 Leukocytes [ #/volume] in Blood by Automated count Lab Report: ECG 12-LEAD [id number] 05/17/22 2307 ZoomSafer e only - for LinkLogic import when terms are not otherwise specified Office Visit: 4 MEDS REVIEW Done Documenta tion of current medications (procedure) ORALTOBACUSE Never Tobacco smoking status SMOK STATUS Former smoker Tob acco smoking status Plan of Care Type Date Detail Referral US Venous Dopple r Lower Ext PT / INR FAX # Pending order STAT Labs Pending order STAT Labs Pending order Weekly labs Pending order New IV antibioti c Pending order PICC Removal Pending order Ceftriaxone Pending order Daptomycin Patient education WEIGHT%20MANAG EMENT Procedures Code Procedure Name Date Entry Date CPT-PICREM PICC Removal CPT-J0696 Ceftriaxone CPT-J0878 Daptomycin CPT-91204 US Venous Doppler Lower Ext Vital Signs Date Name Value Unit Description BMI (Body Mass Index) 28.82 kg/m2 Bod y Mass Index (Ratio) Body Temperature 97.8 [degF] temperat ure E&M BP Diastolic 60 mm[Hg] blood pressu re, diastolic BP Systolic 115 mm[Hg] blood pressur e, systolic Heart Rate 60 /min pulse rate Respiratory Rate 16 /min respirat ory rate E&M Weight Measured 184 [lb_av] weight E& M Weight Measured 184 [lb_av] weight E& M Height 67 [in_us] height E&M Immunizations No information available. Advance Directives Directive Description Start Date NO DIRECTIVES AT THIS TIME
--- OUTSIDE RECORDS SUMMARY | 2024-09-29 17:00 | XMS_ITS | Encounter Summary ---
Author Organization [facility] Address [address] [place] [address] Care Team Providers Care Outdoor Recreation Specialist Name Role Phone Dominga Felipe DIRECTOR SALES AND MARKETING Primary Care Provider [phone] Reason for Visit * Reason Comments Med Refill Encounter Details Date Type Department Care Team (Late st Contact Info) Description 09/20/2024 Refill [facility] [address] [place] [phone] Dominga Felipe, DIRECTOR SALES AND MARKETING [address] [place], [place] [id number] Social History Tobacco Use Types Packs/Day Years [...] or training? Not on file Preferred Language [place] 05/20/2022 PHQ-2 Answer Date Recorded Patient Health [...] documented as of this encounter Care Teams Outdoor Recreation Specialist Relationship Specialty Start Date End Date Dominga Felipe, DIRECTOR SALES AND MARKETING [address] [place] [id number] PCP - General Family Medicine 02/26/22 documented as of this encounter
--- NOTE | 2024-09-29 17:05 | [facility].EDCP ---
Discharge Plan Disposition Patient Disposition: Home, Self-Care Condition: Good Prescriptions Prescriptions: New famotidine [Pepcid] 20 mg tablet 20 mg PO DAILY Qty: 30 0RF No Action furosemide 40 mg tablet 40 mg PO DAILY metformin 500 mg tablet 1,000 mg PO BID ipratropium-albuterol 0.5 mg-3 mg(2.5 mg base)/3 mL solution for nebulization 3 ml INHALATION QIDP PRN (Reason: Shortness Of Breath) glyburide 5 mg tablet 5 mg PO BID clopidogrel 75 mg tablet 75 mg PO DAILY amlodipine 10 mg tablet 10 mg PO DAILY atorvastatin 40 mg Tablet 40 mg PO HS 30 Days Qty: 30 0RF aspirin 81 mg Tablet,Delayed Release (Dr/Ec) 81 mg PO DAILY 30 Days Qty: 30 0RF Jardiance 10 mg Tablet 10 mg PO DAILY 30 Days Qty: 30 0RF Entresto 24-26 mg Tablet 1 tab PO BID 30 Days Qty: 60 0RF metoprolol succinate [Toprol XL] 50 mg Tablet Extended Release 24 Hr 50 mg PO DAILY 30 Days Qty: 30 0RF pantoprazole 40 mg Tablet,Delayed Release (Dr/Ec) 40 mg PO HS 30 Days Qty: 30 0RF Referrals Follow up/Referrals: Hector Lucio MD [Staff Physician, Cardiology] - See instructions Provider,MD Alisson [Primary Care Provider, Medical] - See instructions Activity Restrictions/Add. Instructions Additional Instructions/Restrictions: Return to the ER for acute or worsening symptoms. Call Dr. Lucio tomorrow to get a clinic appointment. Take your plavix and ASA as prescribed. You can take the pepcid as needed for reflux. Clinical Impressions Clinical Impression: Chest pain Print Language Print Language: Irish Discharge ED Provider: Sheila Ardon HPI General Chief Complaint: Chest Pain Stated Complaint: Chest Pain Time Seen by Provider: 09/29/24 16:48 Mode of Arrival: Ambulatory Source of Information: Patient Description of Symptoms (Recalled from ER Triage Doc. by RN): Patient complaining of tightness in left side of chest and heartburn that started yesterday, has gotten worse today. History of Present Illness HPI narrative: Patient is a 74-year-old gentleman with a past medical history of coronary artery disease with 6 stents, previous right sided lobectomy who presented to the emergency department with chest tightness and shortness of breath. Patient states that over the last couple days he had what felt like GERD type symptoms but last night he started having chest pressure and tightness on the left side of his chest that is nonradiating. Patient states that his symptoms persisted today which is what brought him here to the emergency department. Patient has a chronic cough at baseline this has been unchanged, patient has not had a productive cough. Patient has not had any recent fevers. Patient has not had any leg swelling. Patient has not had any abdominal pain nausea vomiting or diarrhea. Patient denies any other upper respiratory symptoms. Patient denies any surgeries in the last 6 weeks. Patient denies any history of blood clots. Patient takes daily Plavix, is supposed to take daily aspirin but has not been. Patient does not take any other daily medications. Related Data Home Medications ?Medication ?Instructions ?Recorded ?Confirmed amlodipine 10 mg tablet 10 mg PO DAILY 11/13/23 11/13/23 clopidogrel 75 mg tablet 75 mg PO DAILY 11/13/23 11/13/23 furosemide 40 mg tablet 40 mg PO DAILY 11/13/23 11/13/23 glyburide 5 mg tablet 5 mg PO BID 11/13/23 11/13/23 ipratropium 0.5 mg-albuterol 3 mg 3 ml inhalation QIDP PRN Shortness 11/13/23 11/14/23 (2.5 mg base)/3 mL nebulization Of Breath soln metformin 500 mg tablet 1,000 mg PO BID 11/13/23 11/14/23 Previous Rx's ?Medication ?Instructions ?Recorded aspirin 81 mg tablet,delayed 81 mg PO DAILY 30 days #30 tabs 11/16/23 release atorvastatin 40 mg tablet 40 mg PO HS 30 days #30 tabs 11/16/23 empagliflozin 10 mg tablet 10 mg PO DAILY 30 days #30 tabs 11/16/23 (Jardiance) metoprolol succinate 50 mg 50 mg PO DAILY 30 days #30 tabs 11/16/23 tablet,extended release 24 hr (Toprol XL) pantoprazole 40 mg tablet,delayed 40 mg PO HS 30 days #30 tabs 11/16/23 release sacubitril 24 mg-valsartan 26 mg 1 tab PO BID 30 days #60 tabs 11/16/23 tablet (Entresto) famotidine 20 mg tablet (Pepcid) 20 mg PO DAILY #30 tabs 09/29/24 Allergies Allergy/AdvReac Type Severity Reaction Status Date / Time lisinopril Allergy Headache Verified 09/29/24 16:55 [facility] Disclaimer: The information contained in this section may have been updated after the patient was seen, as this information can be updated by other users. Surgical History (Updated 11/20/23 @ 00:00 by Rama Turcios) Hx of CABG Social History Smoking Status: Former smoker alcohol intake: former current occupational status: previously employed Travel in the last 8 weeks?: Inside the [place] Have you lived/traveled outside US in past 30 days?: No Contact w/someone who lives/traveled outside US past 30 days?: No Exposure to someone with infectious disease in past 14 days?: No Do you have a fever (greater than 100.4 F or 38 C)?: No Have you tested positive for COVID-19?: No Exposed to someone with COVID-19 in past 14 days?: No Do you have a sore throat?: No Do you have a cough?: No Do you have any weakness?: No Do you have any diarrhea?: No Are you experiencing any unusual bleeding?: No Do you have any muscle aches/pain?: No Do you have any abdominal pain?: No Are you experiencing loss of taste or smell?: No Other Medical History Have you received the Flu Vaccine for this season: No Have you received the Pneumonia Vaccine: No ROS Obtained: Yes All systems reviewed & no additional complaints except as documented and Yes Systems reviewed as appropriate & no additional complaints except as documented Physical Exam General General appearance: alert and in no apparent distress Head Head exam: atraumatic and normocephalic Eye Eye exam: Present normal appearance, PERRL and EOMI ENT ENT exam: Present normal exam and normal external ear exam Neck Neck exam: Present normal inspection and full ROM Chest Chest inspection: Present normal inspection and symmetric chest wall rise Respiratory Respiratory exam: Present normal lung sounds bilaterally; Absent respiratory distress Cardiovascular Cardiovascular exam: Present regular rate, normal rhythm and normal heart sounds Abdominal Exam Abdominal exam: Present soft and distention; Absent tenderness, guarding or rebound Extremities Exam Extremities exam: Present normal inspection and full ROM; Absent tenderness Back Exam Back exam: Present normal inspection and full ROM Neurological Exam Neurological exam: Present alert and oriented X3 Psychiatric Psychiatric exam: Present normal affect and normal mood Skin Skin exam: Present warm, dry and intact HEART Score HEART Score HEART Score assessment performed?: Yes History (anamnesis): Moderately suspicious ECG: Non-specific disturbance Age: >65 years Risk factors: 1-2 risk factors Troponin: </= normal limit HEART Score: 5 Critical Care Critical Care Time Critical Care Time: No Medical Decision Making Medical Records Medical records reviewed: Yes I reviewed the patient's medical records. Jose Inquiry Pt receiving controlled substance: No Vital Signs Vital Signs: 09/29/24 16:49 09/29/24 17:38 09/29/24 17:45 Temperature 98.1 F Temperature Source Oral Pulse Rate 64 67 Pulse Rate [Left Brachial] 76 Respiratory Rate 17 23 13 Blood Pressure 146/69 H Blood Pressure [Left Arm] 157/89 H Blood Pressure Mean Blood Pressure Mean [Left Arm] 111 Blood Pressure Source [Left Arm] Automatic Cuff Blood Pressure Position 02 Sat by Pulse Oximetry 97 93 L 96 Oxygen Delivery Method Room Air 09/29/24 18:00 09/29/24 18:00 09/29/24 18:15 Temperature Temperature Source Pulse Rate 60 55 L Pulse Rate [Left Brachial] Respiratory Rate 16 18 Blood Pressure 140/81 Blood Pressure [Left Arm] Blood Pressure Mean 99 Blood Pressure Mean [Left Arm] Blood Pressure Source [Left Arm] Blood Pressure Position 02 Sat by Pulse Oximetry 95 96 Oxygen Delivery Method 09/29/24 18:30 09/29/24 18:30 09/29/24 19:01 Temperature Temperature Source Pulse Rate 60 64 Pulse Rate [Left Brachial] Respiratory Rate 12 Blood Pressure 143/82 H 160/117 H Blood Pressure [Left Arm] Blood Pressure Mean 93 Blood Pressure Mean [Left Arm] Blood Pressure Source [Left Arm] Blood Pressure Position 02 Sat by Pulse Oximetry 94 L 96 Oxygen Delivery Method 09/29/24 19:31 09/29/24 20:01 09/29/24 20:30 Temperature Temperature Source Pulse Rate 58 L 69 66 Pulse Rate [Left Brachial] Respiratory Rate 22 10 L 13 Blood Pressure 149/80 H 152/102 H 145/93 H Blood Pressure [Left Arm] Blood Pressure Mean Blood Pressure Mean [Left Arm] Blood Pressure Source [Left Arm] Blood Pressure Position 02 Sat by Pulse Oximetry 97 94 L 95 Oxygen Delivery Method 09/29/24 21:41 Temperature 98.9 F Temperature Source Oral Pulse Rate 60 Pulse Rate [Left Brachial] Respiratory Rate 16 Blood Pressure 143/82 H Blood Pressure [Left Arm] Blood Pressure Mean Blood Pressure Mean [Left Arm] Blood Pressure Source [Left Arm] Blood Pressure Position Sitting 02 Sat by Pulse Oximetry Oxygen Delivery Method Room Air Lab Data Lab results reviewed: Yes I reviewed the patient's lab results. Labs: Lab Results 09/29/24 16:50: WBC 10.9 H, RBC 5.22, Hgb 15.3, Hct 45.8, MCV 87.7, MCH 29.3, MCHC 33.4, RDW 12.9, Plt Count 252, MPV 9.4, Neut % (Auto) 73.8, Lymph % (Auto) 17.6, [place] % (Auto) 6.6, Eos % (Auto) 1.1, Baso % (Auto) 0.5, Neut # (Auto) 8.0 H, Lymph # (Auto) 1.9, [place] # (Auto) 0.7, Eos # (Auto) 0.1, Baso # (Auto) 0.1, PT 10.7, INR 0.96, D-Dimer 0.84 H, Sodium 143, Potassium 4.6, Chloride 104, Carbon Dioxide 29, Anion Gap 14.6, BUN 16, Creatinine 1.00, Estimated Creat Clear 81, Estimated GFR 73, Est GFR ( Amer) 88, Glucose 197 H, Calcium 10.1, Magnesium 2.0, Total Bilirubin 0.7, AST 46, ALT 46, Alkaline Phosphatase 91, Troponin I 0.02, NT-Pro-B Natriuret Pep 326, Total Protein 8.7 H, Albumin 5.0, Globulin 3.7 H, Albumin/Globulin Ratio 1.4 09/29/24 19:50: Troponin I 0.01 09/29/24 16:50 09/29/24 16:50 Response Orders (Tests/Meds): ED MEDICATIONS Discontinued Medications Generic Name Dose Route Start Last Admin Trade Name Freq PRN Reason Stop Dose Admin Aspirin 325 mg 09/29/24 17:05 09/29/24 17:22 Aspirin 325mg Tablet PO 09/29/24 17:06 325 mg ONCE ONE Administration ORDERS Category Date Time Status XR chest portable Stat Exams 09/29/24 16:49 Completed Complete Blood Count Auto Diff Stat Lab 09/29/24 16:50 Completed Comprehensive Metabolic Panel Stat Lab 09/29/24 16:50 Completed D-Dimer Stat Lab 09/29/24 16:50 Completed Magnesium Stat Lab 09/29/24 16:50 Completed NT Pro Brain Natriuretic Pep. Stat Lab 09/29/24 16:50 Completed PT INR [Prothrombin Time INR] Stat Lab 09/29/24 16:50 Completed Troponin I Q3H Lab 09/29/24 19:50 Completed Troponin I Stat Lab 09/29/24 16:50 Completed MDM Narrative Medical Decision Narrative: Patient is a 74-year-old gentleman with a past medical history of coronary artery disease with 6 stents and previous lobectomy who presented to the ED with chest tightness and shortness of breath. On arrival, patient was hemodynamically stable. Patient was afebrile, not hypoxic, not tachycardic. Vital signs were otherwise unremarkable. Differential includes but not limited to: ACS/IN, pneumonia, pneumothorax, pulmonary embolism, amongst others. Patient's EKG was reviewed and interpreted by myself and showed new right bundle branch block in comparison to previous EKG on 12/03. Patient has similar T wave inversions in [address]VF. No acute ST or T wave changes concerning for ischemia. Patient's labs were reviewed and interpreted by myself: CBC showed no leukocytosis, hemoglobin was stable. INR 0.96. D-dimer elevated at 0.84. CMP unremarkable. Initial troponin 0.02, second trop 0.01. BNP 326. Chest x-ray was reviewed and interpreted by myself and showed no focal consolidation, pneumothorax, pleural effusion or other acute cardiopulmonary process. Patient was given aspirin in the emergency department and while in the emergency department, patient's pain resolved. Although patient's D-dimer elevated at 0.84, low concern for pulmonary embolism by years criteria. Patient's cardiac workup was otherwise negative given resolution of his chest pain I felt that patient was appropriate for discharge given moderate heart score of 5. Patient does follow with Dr. Lucio I recommended the patient call him in the morning to schedule an appointment in clinic. Patient was recommended to continue taking his aspirin and Plavix as prescribed. Patient was otherwise discharged home in stable condition. Return precautions were discussed
[2024-09-29 17:12] LABS: Albumin Level 5.0 g/dl (3.5-5.0); Sodium 143 mmol/L (136-145)
[2024-09-29 17:13] LABS: Hematocrit 45.8 % (42.0-52.0); Hemoglobin 15.3 g/dL (14.1-18.0); Immature Granulocytes % 0.4 %; Mean Corpuscular HGB Conc 33.4 g/dL (31.8-35.4); Mean Corpuscular Hemoglobin 29.3 pg (27.0-31.2); Mean Corpuscular Volume 87.7 fl (80-94); Nucleated Red Blood Cells % 0 %; Platelet Count 252 K/mm3 (142-424); Potassium 4.6 mmoL/L (3.5-5.1); Red Blood Count 5.22 M/mm3 (4.60-6.20); Red Cell Distribution Width-SD 41.1 fL; White Blood Count 10.9 K/mm3 (4.8-10.8)
[2024-09-29 17:15] LABS: Albumin/Globulin Ratio 1.4 (1.1-1.8); Blood Urea Nitrogen 16 mg/dl (9-20); Carbon Dioxide 29 mmol/L (22.0-30.0); Creatinine Clearance Estimated 81 mL/min (50-200); Creatinine,Serum 1.00 mg/dl (0.66-1.25); Estimated Glomerular Filt Rate 73 ml/min (>60); GFR (African American) 88 ML/MIN (>60); Globulin 3.7 g/dL (1.3-3.2); Total Protein,Serum 8.7 g/dl (6.3-8.2)
[2024-09-29 17:16] LABS: Calcium 10.1 mg/dl (8.4-10.2); Glucose 197 mg/dl (74-100); Magnesium 2.0 mg/dl (1.6-2.3)
[2024-09-29 17:21] LABS: INR 0.96 (0.9-1.1); Prothrombin Time 10.7 seconds (10.1-12.5)
[2024-09-29] MEDS: ASPIRIN 325MG TABLET 325 MG PO (17:22)
[2024-09-29 17:25] LABS: NT Pro Brain Natriuretic Pep. 326 pg/mL (0-450)
[2024-09-29 17:27] LABS: Troponin I 0.02 ng/ml (0.00-0.034)
[2024-09-29 17:40] LABS: Anion Gap 14.6 mEq/L (5-15); Chloride 104 mmol/L (98-107)
[2024-09-29 17:42] LABS: Alanine Aminotransferase 46 U/L (12-78); Aspartate Amino Transferase 46 U/L (17-59)
[2024-09-29 17:43] LABS: Alkaline Phosphatase 91 U/L (38-126); Bilirubin,Total 0.7 mg/dl (0.2-1.3)
[2024-09-29 17:44] LABS: D-Dimer 0.84 ug/mL (0.0-0.5)
--- OUTSIDE RECORDS SUMMARY | 2024-09-29 18:00 | XMS_ITS | CCD ---
Author Organization Unknown Care Team Providers Care Assistant Grocery Name Role Phone Non Engaged, [facility] Primary Care Provider Unav ailable Unavailable Chronic Care Management Unavaila ble Summary Purpose DataExchange Insurance Providers Payer name Policy type / Coverage type Covered green party ID Effective Begin Date Effective End Date [facility] [id number] Unknown Unknown Family History Family History data not found Medication Administered No Medication Administered data Reason For Visit No Reason For Visit data Medical Equipment No Medical Equipment data Advance Directives No Advance Directive data
--- NOTE | 2024-09-29 19:46 | PC.NURSE ---
Repeat trop collected and sent to the lab at this time.
--- NOTE | 2024-09-29 19:51 | PC.NURSE ---
repeat trop collected and sent to the lab at this time.
[2024-09-29 20:54] LABS: Troponin I 0.01 ng/ml (0.00-0.034)
== END 2024-09-29 21:42 | disposition home or self-care (01) ==
PROVIDERS: Physician Assistant; Emergency Provider Student in an Organized Health Care Education/Training Program
DX: R07.9 Chest pain, unspecified (principal); I45.10 Unspecified right bundle-branch block; R06.02 Shortness of breath; Z87.891 Personal history of nicotine dependence; Z86.79 Personal history of other diseases of the circulatory system; Z95.1 Presence of aortocoronary bypass graft
CPT/HCPCS: 71045; 80053; 83735; 83880; 84484; 85025; 85378; 85610; 93005; 99285

== ENCOUNTER 2024-11-05 21:06 | Observation (INO) | payer MEDICARE, SELFPAY ==
[2024-11-05 21:45] VITALS: BP 128/65; PULSE 111; RESP 20; TEMP 39.3; O2SAT 85; BMI 32.3
--- OUTSIDE RECORDS SUMMARY | 2024-11-05 21:47 | XMS_ITS | Encounter Summary ---
Author Organization [facility] Address [address] [place] [address] Care Team Providers Care Director Business Intelligence Name Role Phone Dominga Felipe LOG PEELER Primary Care Provider [phone] Reason for Visit * Reason Onset Date Comments MED CONCERN 10/18/2024 Encounter Details Date Type Department Care Team (Late st Contact Info) Description 10/18/2024 Telephone [facility] [address] [place] [phone] Dominga Felipe, LOG PEELER [address] [place] [address] MED CONCERN Social History Tobacco Use Types Packs/Day Years [...] or training? Not on file Preferred Language American 05/20/2022 PHQ-2 Answer Date Recorded Patient Health Questionnaire-2 Score 0 03/19/2024 Sex and Gender Information Value Date Recorded Sex Assigned at Not on file Legal Sex Male 1:07 PM EDT Gender Identity Not on file Sexual Orientation Not on file documented as of this encounter Miscellaneous Notes * Telephone Encounter - Michelle Oconnor MA - 10/18/2024 11:56 AM EDT Called and spoke with Marisa and she is sending form over. * Telephone Encounter - Carlos Aponte RegSched Rep - 10/18/2024 11:30 AM EDT Caller: MARISA WITH [employer]TH[employer] Best call back number: [phone] What is your medical concern? 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
--- OUTSIDE RECORDS SUMMARY | 2024-11-05 21:47 | XMS_ITS | Continuity of Care Document ---
Author Organization [facility] [place] New Address [address] [place] [address] Care Team Providers Care Agronomy Specialist Name Role Phone ASHLEIGH SAMSON Referring Provider Assessment Encounter Date Assessment Date Assessment LastModified by Organization Details LastModified Time 10/21/2024 10/21/2024 The patient is a 74 year old male self-referral for chronic pain management. The patient has a history (1982) of fall on a pocket knife with resultant lesion of the right sciatic nerve, which was subsequently repaired (attempted), but unfortunately sensory and motor symptoms of the RLE persisted. The patient has a PMH of DM, CAD S/P AMI (01/2024) with subsequent cardiac stent placement (takes Plavix), pressure ulcer(s) of the right foot, and lobectomy of the lung. The patient presents to the clinic today to follow up on pain. [email or web address] Not available 10/21/2024 10:48:17 Plan of Treatment Reminders Order Date Submit Date Provider Last Modified By Organization Details Last Modified Time Details Appointments SURGERY 30 2024 12:30P M EMG/NRV Not available Not available Not available OV EST 15 2024 01:00P M JAMES SARABIA PA-C Not available Not available Not available Lab None recorded. Referral None recorded. Procedures nerve conductio n study/EMG , lower extremity (PROC) - RLE 2024 025 [email or web address] Pancho Ngo, [address] [place], [address], 11/03/2024 08:16:26 nerve block, lumbar sympathet ic (PROC) - Right lumbar sympathet ic block. [address]80[address]. 2024 025 JENNA Pancho Ngo, [address], [place], [address], 10/28/2024 04:21:59 Surgeries None recorded. Imaging unlisted imaging order - hand lt 3V 2024 025 [facility] (Radiology), [address], [address], 10/28/2024 04:21:58 Medication Orders None recorded. Patient TargetsNo targets recorded. Patient Instructions Encounter Date Encounter Id Patient Instructions Last Modified By Organization Details Last Modified Time 10/21/2024 [id number] I counseled the patient extensively and informed of the respective risks/benefits of the procedure(s). The pertinent risks/benefits will be elaborated on and fully outlined in the informed consent. I have discussed in great detail our potential treatment options which would include a rehabilitative approach to care. This program would include medication management, Physical Therapy, consideration for interventional procedures as appropriate, and lifestyle modification (diet, weight loss, exercise, smoking/tobacco cessation, holistic approach including meditation and yoga). The patient understands and agrees prior to proceeding with this plan. _ __ __ __ __ __ __ __ __ __ __ __ __ __ __ __ __ __ __ __ __ __ __ __ __ __ __ __ _ RECORDS REVIEW: As per clinic policy, we will have the patient sign a release to obtain previous imaging and clinical notes. _ __ __ __ __ __ __ __ __ __ __ __ __ __ __ __ __ __ __ __ __ __ __ __ __ __ __ __ _ PSYCH: Pain affecting Neuro-psych behavior was discussed. Discussed about pain psychological counseling as a part of the multimodal approach to pain treatment. _ __ __ __ __ __ __ __ __ __ __ __ __ __ __ __ __ __ __ __ __ __ __ __ __ __ __ __ _ REHABILITATION: Discussed with the patient the importance of diet, daily physical activity and PT. Discussed with the patient the need to be scheduled for physical therapy since physical therapy will prolong the benefits of the procedure and interventions. _ __ __ __ __ __ __ __ __ __ __ __ __ __ __ __ __ __ __ __ __ __ __ __ __ __ __ __ _ I have reviewed patient's LEILANI report prior to prescribing Schedule II, III, and IV medications that require review by law. [email or web address] Not available 10/21/2024 10:41:34 Reason for Referral None Reported. 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 Procedures Surgical History Date Name Laterality Status Provider Name and Address Organization Details Recorded Time lobectomy of lung completed Aydeedaquan Belle [facility] & [place] 06/21/2024 10:33:51 coronary artery bypass graft completed Aydee Brown [facility] & [place] 06/21/2024 10:34:19 Imaging Results None recorded. Procedure Notes None recorded. Medical Equipment None Reported. Allergies No known drug allergies Medications Name Sig Start Date Stop Date Status Note LastModified by Organization Details LastModified Time metformin 500 mg tablet TAKE 2 TABLETS BY MOUTH TWICE DAILY active Not Available Not Available No t Available glyburide 5 mg tablet TAKE 1 TABLET BY MOUTH TWICE DAILY WITH MEALS active Not Available Not Available No t Available clopidogrel 75 mg tablet TAKE 1 TABLET BY MOUTH ONCE DAILY active Not Available Not Available No t Available amlodipine 10 mg tablet TAKE 1 TABLET BY MOUTH ONCE DAILY active Not Available Not Available No t Available cefdinir 300 mg capsule TAKE 1 CAPSULE BY MOUTH TWICE DAILY FOR 3 DAYS active Not Available Not Available No t Available Vitals Date Recorded Body weight Oxygen saturation Oxygen saturation in Arterial blood by Pulse oximetry Heart rate Systolic And Diastolic Provider Name and Address Organization Details Last Updated DateTime 5 42967.2 9 g 94 % 94 % 72 /min 158/80 mm[Hg] Palomo Mckenzie [facility] & [place] 5 10:27:01 Social History None recorded. Functional Status None recorded. Mental Status None recorded. Family History Nothing Reported. Medical History Condition Response Diabetes Y Heart Attack ([place]) Y Hypertension Y Past Encounters Encounter ID Performer Location Encounter Start Date Encounter Closed Date Diagnosis/Indication Diagnosis SNOMED-CT Code Diagnosis ICD10 Code Diagnosis IMO Codes Diagnosis Note [id number] JAMES SARABIA PA-C [facility] [address] [place] [address] 10/21/2024 10:19:34 10/21/2024 11:38:35 Pain of left hand 4987394588 35665 M79.642 434760 - The patient complains of left hand/wrist pain with onset a few days ago.- I will order imaging to assess the bony architectu re for signs of an acute fracture. Myofascial pain 11950017 9 M79.18 597229 Stenosis o f spinal canal due to intervertebral disc 014757938 M99.53 7081245 Complex re gional pain syndrome type II of right lower limb 7181750426 69590 G57.71 75282422 - The patient complains of RLE pain with sensation changes.- It seems the patient has developed CRPS of the RLE following nerve injury. The patient meets the [facility] Criteria for CRPS: pain is disproport ionate to any inciting event; sensory changes present (allodynia ); vasomotor changes present (temperatu re and/or color); sudomotor changes present (edema); motor changes present (decreased ROM and/or motor dysfunctio n); no other diagnosis better explains pain or symptoms.- The patient has attempted to make lifestyle modificati ons, but pain continues to impede performing ADLs, thereby negatively affecting quality of life. I think the patient is a good candidate for interventi onal treatment, as their pain has been refractory to conservati ve (PT and/or physician- directed at-home exercises/ stretches) and pharmacolo gic approaches .- After a detailed discussion of treatment modalities and the respective risks/bene fits, I will proceed with scheduling a right lumbar sympatheti c block. I would like to measure the response to treatment prior to pursuing neuromodul ation. Pain in [facility] sacroiliac joint 8527630188 5265673 M53.3 98157258 - The patient is S/P (07/20/24) diagnostic /therapeut ic right SI joint injection, which was successful in decreasing right-side d low back and upper buttock pain by nearly 100%. It seems the procedure effectivel y targeted pain being generated in the right SI joint itself. [facility] 314259770 M79.604 88196610 - The patient is awaiting an EMG/NCS of the RLE. I hope to gain insight into etiology/p athology, as it's unclear if the pain pattern is better explained by a proximal or distal source. The patient needs to reschedule the diagnostic study, as he missed the original appointmen t. Lumbar radiculopathy 128 275696 M54.16 00651 - I think it's possible that a lumbar spine pathology is at least partially contributi ng to pain.- I may perform a TFESI/ana ctive nerve root block and compare efficacy with the right lumbar sympatheti c block. Lumbago with sciatica 20 5419335 M54.40 22243380 - The patient complains of low back, right buttock, and RLE pain with sensation changes.- The patient doesn't exhibit red flag symptoms.- I have reviewed the lumbar x-ray (06/2024), which revealed severe degenerati ve disc disease; multilevel facet hypertroph y.- I have reviewed the lumbar MRI (08/2024), which revealed grade 1 spondyloli sthesis of L4 on L5 (producing mild central canal stenosis and moderate neural foraminal narrowing on the right and mild neural foraminal narrowing on the left).- The patient may be a good candidate for neuromodul ation (SCS therapy versus DRG therapy) or a minimally- invasive spinal surgery ([facility] ), which can be discussed further in the future. Lumbar spondylolisthesis 3760452398 35571 M43.16 [id number] Health Concerns Section Related Observation LastModified by Organization Detai ls LastModified Time None Recorded Concern Status LastModified by Organization Details LastModified Time None Recorded Payers Encounter Date Sequence Insurance Name Policy Number Policy Gay Covered Member ID Gay Member ID Guarantor Name 10/21/2024 1 [place] RICKY FELIX OF [employer] (MEDICARE REPLACEMENT HMO) [id number] Latoya Samayoa [id number] Latoya Viet Danita Notes Date Note Type Note Provider Name and Address Organization Details Recorded Time 10/21/2024 text/html ROS as noted in the HPI The patient is a 74 year old male self-referral for chronic pain management. The patient has a history (1982) of fall on a pocket knife with resultant lesion of the right sciatic nerve, which was subsequently repaired (attempted), but unfortunately sensory and motor symptoms of the RLE persisted. The patient has a PMH of DM, CAD S/P AMI (01/2024) with subsequent cardiac stent placement (takes Plavix), pressure ulcer(s) of the right foot, and lobectomy of the lung. The patient presents to the clinic today to follow up on pain. The patient states that the procedure was denied by insurance. The patient states that he needs to reschedule the EMG/NCS of the RLE. The patient complains of low back, right buttock, and RLE pain with sensation changes. The patient also complains of left hand/wrist pain with onset a few days ago. Today the pain level is a /. JAMES SARABIA PA-C [address] [place] [address], [phone], [facility] & [place] 10/21/2024 10:58:58
--- OUTSIDE RECORDS SUMMARY | 2024-11-05 21:47 | XMS_ITS | Encounter Summary ---
[facility] [address] [place] [address] Care Team Providers Care Maintenance Shop Manager Name Role Phone Dominga Felipe CAB WORKER Primary Care Provider [phone]- [phone] Reason for Visit * Reason Comments Med Refill Encounter Details Date Type Department Care Team (Late st Contact Info) Description 09/20/2024 Refill [facility] [address] [place] [phone] Dominga Felipe, CAB WORKER [address] [place], [place] [id number] Social History Tobacco Use Types Packs/Day Years [...] or training? Not on file Preferred Language Yemeni 05/20/2022 PHQ-2 Answer Date Recorded Patient Health [...] documented as of this encounter Care Teams Maintenance Shop Manager Relationship Specialty Start Date End Date Dominga Felipe, CAB WORKER [address] [place] [id number] PCP - General Family Medicine 02/26/22 documented as of this encounter
--- OUTSIDE RECORDS SUMMARY | 2024-11-05 21:47 | XMS_ITS | Encounter Summary ---
[facility] [address] [place] [address] Care Team Providers Care Senior Accounts Payable Clerk Name Role Phone Dominga Felipe TURNING SANDER OPERATOR Primary Care Provider [phone]- [phone] Reason for Visit * Reason Onset Date Comments Med Refill 09/20/2024 Encounter Details Date Type Department Care Team (Late st Contact Info) Description 09/20/2024 Refill [facility] [address] [place] [phone] Dominga Felipe, TURNING SANDER OPERATOR [address] [place] [address] Social History Tobacco Use Types [...] or training? Not on file Preferred Language Singaporean 05/20/2022 PHQ-2 Answer Date Recorded Patient Health [...] documented as of this encounter Care Teams Senior Accounts Payable Clerk Relationship Specialty Start Date End Date Dominga Felipe, TURNING SANDER OPERATOR [address] [place], [place] [id number] PCP - General Family Medicine 02/26/22 documented as of this encounter
--- OUTSIDE RECORDS SUMMARY | 2024-11-05 21:47 | XMS_ITS | Clinical Summary ---
Author Organization [facility] Address [address] [place] [address] Phone Care Team Providers Care Press Smith Helper Name Role Phone Ally LÓPEZ, Omer Serrano [phone] [ ] Conditions or Problems Problem Name Problem Code Onset Date Status Entry Date Provider Comment Standard Description Annotate Long-term (current) use of antiplatelet /antithrombo tic (Plavix) 428555165 (SNOMED CT) 05/22 Active 05/22 Amada Caldera Long-term drug therapy Hx of DVT 897399989 (SNOMED CT) 05/22 Active 05/22 Amada Werner History of deep vein thrombosis Acute exacerbation of COPD 815319885 (SNOMED CT) 05/22 Active 05/22 Amada Sagarelen Acute exacerbation of chronic obstructive pulmonary disease 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) 05/22 Active 05/22 Amada Edelen Carrier of methicillin resistant Staphylococcus aureus Effusion, pleural 64147298 (SNOMED CT) 05/22 Active 05/22 Amada Edelen Pleural effusion Diabetes mellitus type II 68725760 (SNOMED CT) 05/22 Active 05/22 Amada Edelen Type 2 diabetes mellitus Shortness of breath (SOB) 066750709 (SNOMED CT) 03/18 Active 03/18 Nilam Wing [...] to breakdown of skin Cellulitis, toe, right 28902286 (SNOMED CT) 03/24 Resolved 03/24 Nilam Wing [...] with fat layer exposed Cellulitis, toe, right 04381953 (SNOMED CT) 03/24 Removed 03/24 Nilam Wing Cellulitis of toe 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 (ICD-10-CM ) 03/24 Active 03/24 Nilam Wing Leukemoid reaction Lymphedema, chronic I89.0 (ICD-10-CM ) 03/24 Active 03/24 Nilam Wing Lymphedema, not elsewhere classified Coronary artery disease, S/P CABG 090950516 (SNOMED CT) 06/20 Active 06/20 Nilam Wing 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 Right leg ischemia 859574715 (SNOMED CT) 06/21 Resolved 06/21 Nilam Wing Lower limb ischemia Thigh pain, right 18801814 (SNOMED CT) 07/05 Resolved 07/05 Nilam Wing Thigh pain Thigh pain, right 23812388 (SNOMED CT) 07/05 Removed 07/05 Jennifer Ugarte MD Thigh pain Other obesity due to excess calories 703541922 (SNOMED CT) 07/04 Active 07/04 Renan Wright Simple obesity Right leg ischemia 031221832 (SNOMED CT) 06/21 Removed 06/21 Jennifer Ugarte MD Lower limb ischemia Cellulitis of RLE 883137673 (SNOMED CT) 06/20 Active 06/20 Nilam Dimas Cellulitis of lower limb COPD 83101656 (SNOMED CT) 06/20 Active 06/20 Nilam Dimas Chronic obstructive pulmonary disease Coronary artery disease (CAD) 24962369 (SNOMED CT) 06/20 Inactive 06/20 Nilam Dimas 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 015008281 (SNOMED CT) 06/20 Active 06/20 Nilam Dimas Peripheral vascular disease Benign Essential Hypertension 7683911 (SNOMED CT) 06/20 Active 06/20 Nilam Dimas Benign essential hypertension Medications Medication Instructions Start Date Stop Date Generic Name NDC Provider PENICILLIN V POTASSIUM 500 MG TABS Take 1 tablet by mouth twice a day penicillin v potassium 30312286058 Omer Canales MD ceftriaxone recon soln 2gm IV Q 24hrs INPAT ceftriaxone recon soln Charmaine Apodaca RN AMOXICILLIN 875 MG TABS Take 1 tablet by mouth twice a day amoxicillin 06921528158 Omer Canales MD ceftriaxone recon soln 2gm IV Q 24hrs INPAT ceftriaxone recon soln Phuong Sahu RN HYDROCODONE-ACET AMINOPHEN 5-325 MG TABS 1 tablet, Oral, Every 6 Hours PRN hydrocodone-acet aminophen 95041035648 Hortencia Farmer OMEPRAZOLE 20 MG CPDR 40 mg, Oral, Daily omeprazole 91729497463 Hortencia Farmer ALBUTEROL SULFATE HFA 108 (90 Base) MCG/ACT AERS 2 puffs every 4 hrs as needed for wheezing albuterol sulfate 73556883205 Hortencia Farmer EPINEPHRINE 0.3 MG/0.3ML SOAJ epinephrine 10833591582 Hortencia Farmer CEFTRIAXONE SODIUM 1 GM SOLR 2gm q 24hrs BHI/BHHH ceftriaxone 95965876516 [facility] CEPHALEXIN 500 MG CAPS Take 1 capsule by mouth twice a day Start on 03/28 after you have finished the ceftriaxone cephalexin 77706079104 Jennifer Ugarte MD GLYBURIDE 5 MG TABS Take tablet by mouth twice a day glyburide 73626126110 Lyly Cunha CRESTOR 40 MG TABS 40 mg, Oral, Daily rosuvastatin 15832928039 Lyly Cunha Proventil HFA 90 mcg/actuation HFA aerosol inhaler 2 puffs, Inhalation, Every 4 Hours PRN albuterol sulfate 14321325002 Lyly Cunha HYDROCODONE-ACET AMINOPHEN 5-325 MG TABS 1 tablet, Oral, Every 6 Hours PRN hydrocodone-acet aminophen 11457377148 Lyly Cunha FOLIC ACID 1 MG TABS 1 mg, Oral, Daily folic acid 75481173287 Lyly Cunha GLYBURIDE 5 MG TABS 5 mg, Oral, 2 Times Daily With Meals glyburide 50301671052 Lyly Cunha IPRATROPIUM-ALBU TEROL 0.5-2.5 (3) MG/3ML SOLN 3 mL, Nebulization, 4 Times Daily - RT ipratropium-albu terol 08098644160 Lyly Cunha Lactobacillus acidophilus unspecified unspecified 1 capsule, Oral, Daily lactobacillus acidophilus Lyly Cunha OMEPRAZOLE 20 MG CPDR 40 mg, Oral, Daily omeprazole 77254434944 Lyly Cunha CEFTRIAXONE SODIUM 1 GM SOLR 2gm q 24hrs BHI/BHHH ceftriaxone 87152911941 [facility] CEPHALEXIN 500 MG CAPS Take 2 capsule by mouth twice a day cephalexin 82659298444 Jennifer Ugarte MD ALBUTEROL SULFATE HFA 108 (90 Base) MCG/ACT AERS 2 puff every four hours as needed albuterol sulfate 47319722734 Akosua Kwan FOLIC ACID 1 MG TABS Take 1 by mouth once a day folic acid 97158750411 Akosua Kwan IPRATROPIUM-ALBU TEROL 0.5-2.5 (3) MG/3ML SOLN 3 ml using nebulizer four times a day ipratropium-albu terol 21357875421 Akosua Kwan ROSUVASTATIN CALCIUM 40 MG TABS Take 1 by mouth once a day rosuvastatin 10610150797 Akosua Kwan CEFTRIAXONE SODIUM 2 GM SOLR rocephin 2GM IV QD/INPAT ceftriaxone 98475785794 Keisha Mcmillan RN Cubicin unspecified unspecified cubicin 250mg IV QD/ INPAT daptomycin 24799440208 Keisha Mcmillan RN AMOXICILLIN 500 MG CAPS 1 three times a day amoxicillin 22492370712 [facility] FURO[facility]IDE 40 MG TABS Take 1 by mouth once a day furosemide 50335190275 [facility] Adult Aspirin Regimen 81 mg tablet,delayed release (DR/EC) Take 1 by mouth once a day aspirin 88336964635 [facility] CLOPIDOGREL BISULFATE 75 MG TABS Take 1 by mouth once a day clopidogrel 55598549325 [facility] FOLIC ACID 1 MG TABS Take 1 by mouth once a day folic acid 16754064841 [facility] LOSARTAN POTASSIUM 50 MG TABS Take 1 by mouth once a day losartan 90612126205 [facility] METOPROLOL TARTRATE 100 MG TABS Take tablet by mouth twice a day metoprolol tartrate 79713323720 [facility] GLYBURIDE 5 MG TABS Take tablet by mouth twice a day glyburide 81159316870 Morenita Chairez AMOXICILLIN 500 MG TABS Take 1 tablet by mouth three times a day amoxicillin 91032775259 Morenita Chairez ROSUVASTATIN CALCIUM 40 MG TABS Take 1 by mouth once a day rosuvastatin 52818179478 Morenita Chairez AMLODIPINE BESYLATE 10 MG TABS Take 1 by mouth once a day amlodipine 21646104790 Morenita Chairez METFORMIN HCL 1000 MG TABS Take tablet by mouth twice a day metformin 44044951571 Morenita Chairez ATROPINE SULFATE 0.01 % SOLN 1 drop into left eye four times a day atropine 33301612724 Morenita Chairez ALBUTEROL SULFATE HFA 108 (90 Base) MCG/ACT AERS 2 puff every four hours as needed albuterol sulfate 28145556626 Morenita Chairez IPRATROPIUM-ALBU TEROL 0.5-2.5 (3) MG/3ML SOLN 3 ml using nebulizer four times a day ipratropium-albu terol 23573233544 Morenita Chairez JARDIANCE 10 MG TABS 1 tab daily empagliflozin 84675198342 Morenita Middleton vi AMOXICILLIN 500 MG CAPS 1 tid AMOXICILLIN 30294913667 Jennifer Ugarte MD ROSUVASTATIN CALCIUM 40 MG TABS Take one by mouth daily ROSUVASTATIN CALCIUM 61668776853 Rahel Anglinx CLOPIDOGREL BISULFATE 75 MG TABS Take one by mouth daily CLOPIDOGREL BISULFATE 39050033159 Rahel Murillodox METOPROLOL TARTRATE 100 MG TABS Take by mouth twice a day METOPROLOL TARTRATE 25681514257 Rahel Murillodox METFORMIN HCL 1000 MG TABS Take by mouth twice a day METFORMIN HCL 31140018176 Rahel Anglinx LOSARTAN POTASSIUM 50 MG TABS Take one by mouth daily LOSARTAN POTASSIUM 81091227001 Rahel Vila GLYBURIDE 5 MG TABS Take by mouth twice a day GLYBURIDE 70326593572 Rahel Vila FUROSEMIDE 40 MG TABS Take one by mouth daily FUROSEMIDE 17384792101 Rahel Vila FOLIC ACID 1 MG TABS Take one by mouth daily FOLIC ACID 78988954069 Rahel Vila ATROPINE SULFATE 0.01 % SOLN 1 Drop, Eye Left, QID ATROPINE SULFATE 16565446403 Rahel Vila ADULT ASPIRIN REGIMEN 81 MG ORAL TABLET DELAYED RELEASE Take one by mouth daily ASPIRIN 22301325760 Rahel Vila AMOXICILLIN 500 MG TABS Take one by mouth 3 times daily, morning, afternoon and evening. AMOXICILLIN 78150031212 Rahel Vila AMLODIPINE BESYLATE 10 MG TABS Take one by mouth daily AMLODIPINE BESYLATE 58466917624 Rahel Vila Medications Administered No information available. Allergies, Adverse Reactions, Alerts Allergy Name Reaction Description Start Date Severity Statu s Provider ISOSORBIDE DINITRATE headache Moderate Active Krima Contreras CHRISTOS INHIBITORS cough Moderate Active Krim a Cnotreras Results Date Name Value Unit Range Flag Description Clinical Lists Update: HGBA1C 6.70 % Hemoglobin A1c/Hemoglobin, total in Blood - % Office Visit: room 11 U DIET DROP WIRE STRINGER Yes - Overweight Dietary management education, guidance, [...] Lab Report: ECG 12-LEAD [id number] 05/17/22 2307 [employer] Containment e only - for [employer] import when [...] CPT-PICREM PICC Removal CPT-J0696 Ceftriaxone CPT-J0878 Daptomycin CPT-02390 US Venous Doppler Lower Ext Vital Signs [...]
--- OUTSIDE RECORDS SUMMARY | 2024-11-05 21:47 | XMS_ITS | Encounter Summary ---
[facility] Address [address] [place] [address] Care Team Providers Care Hospice Administrator Name Role Phone Dominga Felipe DIRECTOR OF SEARCH ENGINE OPTIMIZATION Primary Care Provider [phone] Reason for Visit * Reason Comments Med Refill Encounter Details Date Type Department Care Team (Late st Contact Info) Description 10/19/2024 Refill [facility] [address] [place] [phone] Dominga Felipe, DIRECTOR OF SEARCH ENGINE OPTIMIZATION [address] [place], [place] [id number] Social History Tobacco Use Types Packs/Day Years [...] or training? Not on file Preferred Language Scottish 05/20/2022 PHQ-2 Answer Date Recorded Patient Health Questionnaire-2 Score 0 03/19/2024 Sex and Gender Information Value Date Recorded Sex Assigned at Not on file Legal Sex Male 1:07 PM EDT Gender Identity Not on file Sexual Orientation Not on file documented as of this encounter Miscellaneous Notes * Telephone Encounter - Michelle Oconnor MA - 10/19/2024 2:37 PM EDT Rx sent documented in this encounter Plan of Treatment Not on file documented as of this encounter Visit Diagnoses Not on filedocumented in this encounter Additional Health Concerns Infection Onset Date Last Indicated Resolved Time MRSA 03/13/2022 05/18/2022 documented as of this encounter Care Teams Hospice Administrator Relationship Specialty Start Date End Date Dominga Felipe APRN [address] [place], [place] [phone] PCP - General Family Medicine 02/26/22 documented as of this encounter
--- OUTSIDE RECORDS SUMMARY | 2024-11-05 21:47 | XMS_ITS | Data Portability ---
Author Organization [place] - [facility] - [place] [facility] ADMIN Address [address] [place] [phone] Care Team Providers Care Supervisor Slitting And Shipping Name Role Phone ASHLEIGH SAMSON Referring Provider [phone] Assessment Encounter Date Assessment Date Assessment LastModified by Organization Details LastModified Time 06/21/2024 06/21/2024 73 year old male being seen by new patient referral for low back pain. Onset of pain is 1982 after patient fell on a pocket knife . His low back pain has progressed and worsened over he years. Patients past medical history is significant for a myocardial infarction in Jan 2024 with multiple stent placements (6). He is currently on clopidogrel. He completed PT more than 5 years ago and has never followed with another pain clinic. He is a type 2 diabetic and quit smoking tobacco several years ago. He denies illicit drug use. 1. # Chronic Low back Pain//Sacroiliiti s: - Patient with chronic Right sided low back pain which worsens with prolonged sitting or standing, turning, or certain movements like climbing stairs or running. - He is Compression test, Gaenslen's test, Uziel Adele test, Dre finger test positive on PE. - To better assess his pain and to identify other eliciting factors I will obtain an XR lumbar spine. - Based on his history and physical exam findings his pain is likely multifactorial with a portion due to Right Sacroiliitis. - To address his pain I will proceed with a Right SI Dx injection with steroid. Patient would benefit from a steroid based injection to help reduce his SIJ pain and reduce the inflammation in her SIJs. - Follow up 2 weeks post injection at which time I will also discuss imaging. 2. #Myofascial Pain 3. # History of Myocardial Infarction: - Jan 2024 with multiple stent placements (6) - Currently on clopidogrel. [email or web address] Not available 06/21/2024 14:21:14 08/03/2024 08/03/2024 Images reviewed today [email or web address]/13/ 2025: severe DDD, multilevel facet hypertrophy. no acute findings 08/03/2024: Plan Today, I discussed with the patient about my current findings based on their history and/or physical exam. They have multiple pain generators, however I will treat their pain in a stepwise plan as outlined below. 1. 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 He cannot dorsiflex or plantarflex and wears an AFO at all times. He has severe motor atrophy in his calve muscles -Hx of prior pressure ulcers in his right foot, but no issues today. - I discussed obtaining an MRI and an EMG at this time. Patient agrees to this plan. I beleive he would be a future candidate for SCS/DRG. Also think he might be a lumbar sympathetic block candidate as well. - f/u in a month - Total Time spent:37min that includes chart preparation, time spent in the room with the patient reviewing symptoms and discussing treatment options, and reviewing pertinent imaging 2. #right Sacroiliac Joint Pain, Chronic stable -s/p right SIJ Dx injection w/ >95% relief in his pain 3. # History of Myocardial Infarction: - Jan 2024 with multiple stent placements (6) - Currently on clopidogrel. [email or web address] Not available 08/03/2024 12:03:10 09/02/2024 09/02/2024 The patient is a 74 year old [...] to the clinic today to follow up post-imaging. [email or web address] Not available 09/05/2024 12:36:12 10/21/2024 10/21/2024 The patient is a 74 [...] clinic today to follow up on pain. [email or web address] Not available 10/21/2024 10:48:17 Plan of Treatment [...] lower extremity (PROC) - RLE 2024 025 [email or web address] Pancho Ngo, [address], [place], [address], 11/03/2024 08:16:26 nerve block, lumbar sympathet ic (PROC) [place]. [id number]. 2024 025 JENNA Ngo, [address], [place], [address], 10/28/2024 04:21:59 nerve block, lumbar sympathet ic (PROC) [place]. [address]. 2024 025 lucho Ngo, [address], [place], [address], 10/14/2024 14:52:50 nerve conductio n study/EMG (PROC) - right LE EMG chronic sciatic nerve damage >25 years ago 2024 025 [email or web address] Not available 09/08/2024 11:46:07 sacroilia c joint injection (PROC) - Right Dx SI with Steroid. [id number] 2024 JENNA Pancho Ngo, [address] [place], [address], 06/28/2024 04:17:43 Surgeries None recorded. Imaging unlisted imaging order - hand lt 3V 2024 025 [facility] (Radiology), [address] [place], [address], 10/28/2024 04:21:58 MRI, lumbar spine, w/o contrast - please evaluate for central and neural foraminal stenosis, MODIC changes, spondylol isthesis, b/l pars defect and angular stability , DDD, lumbosacr al transitio nal anatomy quit smoking tobacco several years ago 2024 025 [facility] (Scheduling), [address] [place], [address], 08/25/2024 17:05:05 XR, lumbar spine 2024 025 [facility] (Radiology), [address] [place], [address], 07/05/2024 04:07:11 Medication Orders None recorded. Patient TargetsNo targets recorded. Patient InstructionsNo instructions recorded. Reason for Referral None Reported. Results Created Date Observation Date Name Description Value Unit Range Abnormal Flag Note LastModifiedBy Organization Detail LastModifiedTime 08/25/1908/24/2024 MRI, lumba r spine , w/o contr ast [facility] [address] [place] [address] Phone: Fax: Name: LATOYA ANGULO Exam Date: : 950 Age 74 years Gender : M Access ion: [id number] Physic ying: KEANU DIEGO Facili ty: [facility] Fac[place] ty HSV: Outpat ient Exam: MRI SPINE LUMBAR WO MRI lumbar spine withou t contra st. HISTOR Y: Low back pain. FINDIN GS: Axial and sagitt al images were genera sussy. The conus termin ates at the level L1 verteb ral body and is normal in signal and calibe r. Verteb ral bodies normal in height and signal . Benign mukund ioma L2 verteb ral body. Multil evel degene rative disc diseas e. L5-S1: Bulgin g annulu s and hypert rophic change s of facet joints . Neural forami na grossl y patent . L4-5: Subtle grade 1 spondy lolist hesis. Hypert rophic change s of facet joints . Mild spinal stenos is. Mild narrow ing left neural forami na and modera te narrow ing right neural forami na. L3-4: Bulgin g annulu s and hypert rophic change s of facet joints . No spinal or neural forami nal stenos is. L2-3: No spinal or neural forami nal stenos is. IMPRES CARYN: Grade 1 spondy lolist hesis L4-5 level produc ing mild spinal stenos is. Modera te narrow ing right neural forami na and mild narrow ing left neural forami na. Electr onical ly signed by: Lyla santacruz MD 2024 03:54 PM EDT RP Workst ation: [id number] Dictat ed By: LYLA CORDERO Transc ribed By: Transc ribed On: 025 3:31 PM Electr onical ly signed by: LYLA CORDERO 025 Thank you for referr ing LATOYA ANGULO to [facility]. Legall y authen ticate d by RAFA Miller 2024-08-24 15:31: 00 CC'ed Logic: Orderi ng Provid er: JOHNATHON Saunders CC Provid er: CHAPIN Bartholomew Attend ing Provid er: JOHNATHON Saunders Referr ing Provid er: JOHNATHON Saunders Admitt ing Provid er: JOHNATHON COLUNGA Y [email or web address] [facility] (Radiology) [address] [place], [address], 09/20/2024 15:48:32 08/26/19 25 08/24/2024 MRI, lumba r spine , w/o contr ast No observ ation record ed. [email or web address] [facility] (Scheduling) [address] [place], [address], 09/13/2024 11:15:02 Result Notes Documentation Provider Name and Address Organization Details Recorded Time Mri, Lumbar Spine, W/o Contrast : [address] [place] [address] Name: LATOYA FRANCES Exam Date: 08/24/2024 : 1950 Age 74 years Gender: M Physician: SARMAD DIEGO Facility: [facility] Facility HSV: Outpatient Exam: MRI SPINE LUMBAR WO MRI lumbar spine without contrast. HISTORY: Low back pain. FINDINGS: Axial and sagittal images were generated. The conus terminates at the level L1 vertebral body and is normal in signal and caliber. Vertebral bodies normal in height and signal. Benign hemangioma L2 vertebral body. Multilevel degenerative disc disease. L5-S1: Bulging annulus and hypertrophic changes of facet joints. Neural foramina grossly patent. L4-5: Subtle grade 1 spondylolisthesis. Hypertrophic changes of facet joints. Mild spinal stenosis. Mild narrowing left neural foramina and moderate narrowing right neural foramina. L3-4: Bulging annulus and hypertrophic changes of facet joints. No spinal or neural foraminal stenosis. L2-3: No spinal or neural foraminal stenosis. IMPRESSION: Grade 1 spondylolisthesis L4-5 level producing mild spinal stenosis. Moderate narrowing right neural foramina and mild narrowing left neural foramina. Electronically signed by: Cheo Person MD 08/24/2024 03:54 PM EDT Dictated By: CHEO PERSON Transcribed By: Transcribed On: 08/24/2024 3:31 PM Electronically signed by: CHEO PERSON 08/24/2024 Thank you for referring LATOYA FRANCES to [facility]. Legally authenticated by RAZA KIMBALL 2024-08-24 15:31:00 CC'ed Logic: Ordering Provider: JOHNATHON BAÑUELOS CC Provider: CHAPIN SOTELO Attending Provider: JOHNATHON BAÑUELOS Referring Provider: JOHNATHON BAÑUELOS Admitting Provider: JOHNATHON CASTORENA PA-C [address] [place] [address], [phone], [facility] - [facility] - [place] & [place] 09/20/2024 15:48:32 Problems Name Problem SNOMED Code Status Onset Date Resolution Date Notes Provider Name and Address Organization Details Recorded Time Chronic low back pain 869498184 Active 2024 [address], [address] [place] [address], [facility] - [facility] - [place] & [place] 10:51:14 Myofascial pain 072899059 Active 2024 SARMAD DIEGO [address], [address] [place] [address], [facility] - [facility] - [place] & [place] 10:51:23 History of lung lobectomy 5052565739493 9103 Active 2024 SARMAD DIEGO [address], [address] [place] [address], [facility] - [facility] - [place] & [place] 10:51:25 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 Procedures Surgical History Date Name Laterality Status Provider Name and Address Organization Details Recorded Time lobectomy of lung completed Aydee Belle [place] - [facility] - [place] & [place] 06/21/2024 10:33:51 coronary artery bypass graft completed [facility] 06/21/2024 10:34:19 Imaging Results None recorded. Procedure [...] t Available Vitals Date Recorded Body weight Body temperature Oxygen saturation Oxygen saturation in Arterial blood by Pulse oximetry Heart rate Provider Name and Address Organization Details Last Updated DateTime 5 63173.4 4 g 97.9 [degF] 90 % 90 % 87 /min [facility] & [place] 5 10:26:24 Date Recorded Body weight Body temperature Oxygen saturation Oxygen saturation in Arterial blood by Pulse oximetry Heart rate Systolic And Diastolic Provider Name and Address Organization Details Last Updated DateTime 5 25789.4 4 g 97.9 [degF] 95 % 95 % 72 /min 151/75 mm[Hg] [facility] & [place] 5 10:34:49 Date Recorded Body weight Body temperature Oxygen saturation Oxygen saturation in Arterial blood by Pulse oximetry Heart rate Systolic And Diastolic Provider Name and Address Organization Details Last Updated DateTime 5 67714.4 7 g 97.2 [degF] 93 % 93 % 80 /min 139/79 mm[Hg] Palomo [facility] & [place] 5 13:13:53 Date Recorded Body weight Oxygen saturation Oxygen saturation in Arterial blood by Pulse oximetry Heart rate Systolic And Diastolic Provider Name and Address Organization Details Last Updated DateTime 5 07846.2 9 g 94 % 94 % 72 /min 158/80 mm[Hg] Palomo Mckenzie [place] - [facility] - [place] & [place] 10:27:01 Social History None recorded. Functional Status None recorded. Mental Status None recorded. Family History Nothing Reported. Medical History Condition Response Diabetes Y Heart Attack (ND) Y Hypertension Y Past Encounters Encounter ID Performer Location Encounter Start Date Encounter Closed Date Diagnosis/Indication Diagnosis SNOMED-CT Code Diagnosis ICD10 Code Diagnosis IMO Codes Diagnosis Note [id number] UZIEL CASTORENA PA-C [facility] [address] [place] [address] 06/21/2024 09:33:01 06/21/2024 10:44:18 Chronic low back pain 821357144 G89.29 M54.41 01465294 Inflammati on of sacroiliac joint 80259328 M46.1 73847 Myofascial pain 85054168 9 M79.18 678430 History of myocardial infarction 698700194 I25.2 5177560094 History of lung lobectomy 2814425960 5915269 Z90.2 22148726 [id number] SARMAD DIEGO DO [facility]- [address] [place] [address] 08/03/2024 10:22:44 08/03/2024 10:56:07 Myofascial pain 123633866 M79.18 408464 History of myocardial infarction 389612871 I25.2 6102867307 History of lung lobectomy 4377507136 3377238 Z90.2 96499352 Stenosis o f spinal canal due to intervertebral disc 087928340 M99.53 8512301 Complex re gional pain syndrome type II of right lower limb 3477732081 80242 G57.71 48652061 [id number] JAMES SARABIA PA-C [facility]- [address] [place] [address] 09/02/2024 13:07:59 09/02/2024 13:40:17 Myofascial pain 903327491 M79.18 956423 Stenosis o f spinal canal due to intervertebral disc 363580896 M99.53 2373127 Complex re gional pain syndrome type II of right lower limb 9728897119 36591 G57.71 70259604 - It seems the patient has developed CRPS of the RLE following nerve injury. The patient meets the Budapest Criteria for CRPS: pain is disproport ionate [...] response to treatment prior to pursuing neuromodul ation, as a positive response to a sympatheti c block may be suggestive of a favorable result/out come from neuromodul ation. Pain in [facility] sacroiliac joint 0748543742 1399561 M53.3 37453243 - The patient is S/P (07/20/24) diagnostic /therapeut ic right SI joint injection, which was successful in decreasing right-side d low back and upper buttock pain by nearly 100%. It seems the procedure effectivel y targeted pain being generated in the right SI joint itself. Pain in [facility] lower limb 447228910 M79.604 10476459 - The patient is awaiting an EMG/NCS of the RLE. I hope to gain insight into etiology/p athology, as it's unclear if the pain pattern is better explained by a proximal or distal source. Lumbar radiculopathy 128 258007 M54.16 62950 - I think it's possible that a lumbar spine pathology is at least partially contributi ng to pain.- I may perform a TFESI/ana ctive nerve root block and compare efficacy with the right lumbar sympatheti c block. Lumbago with sciatica 20 3552959 M54.40 64212881 - The patient complains of low back, [...] discussed further in the future. Lumbar spondylolisthesis 2107829891 62820 M43.16 8544298 [id number] JAMES SARABIA PA-C [facility]- [address] [place] [address] 10/21/2024 10:19:34 10/21/2024 11:38:35 Pain of left hand 9575698064 40088 M79.642 412678 - The patient complains of left hand/wrist pain with onset a few days ago.- I will order imaging to assess the bony architectu re for signs of an acute fracture. Myofascial pain 62941168 9 M79.18 482589 Stenosis o f spinal canal due to intervertebral disc 991332803 M99.53 3851949 Complex re gional pain syndrome type II of right lower limb 5036009963 91780 G57.71 98506212 - The patient complains of RLE pain with sensation changes.- It seems the patient has developed CRPS of the RLE following nerve injury. The patient meets the Budapest Criteria for CRPS: pain is disproport ionate [...] prior to pursuing neuromodul ation. Pain in ri t sacroiliac joint 4887571401 7844080 M53.3 00268471 - The patient is S/P (07/20/24) diagnostic /therapeut ic right SI joint injection, which was successful in decreasing right-side d low back and upper buttock pain by nearly 100%. It seems the procedure effectivel y targeted pain being generated in the right SI joint itself. [facility] in [facility] lower limb 642525391 M79.604 16496044 - The patient is awaiting an EMG/NCS of the RLE. I hope to gain insight into etiology/p athology, as it's unclear if the pain pattern is better explained by a proximal or distal source. The patient needs to reschedule the diagnostic study, as he missed the original appointmen t. Lumbar radiculopathy 128 727962 M54.16 03619 - I think it's possible that a lumbar spine pathology is at least partially contributi ng to pain.- I may perform a TFESI/ana ctive nerve root block and compare efficacy with the right lumbar sympatheti c block. Lumbago with sciatica 20 1366841 M54.40 86492075 - The patient complains of low back, [...] discussed further in the future. Lumbar spondylolisthesis 6658471786 97841 M43.16 6544786 Health Concerns Section Related Observation LastModified by Organization Detai ls LastModified Time None Recorded Concern Status LastModified by Organization Details LastModified Time None Recorded Advance Directives Directive None Recorded Payers Insurance Date Sequence Insurance Name Policy Number Policy Gay Covered Member ID Gay Member ID Guarantor Name 10/18/2024 1 [place]MEDICARE REPLACEMENT HMO) [id number] Latoya Frances [id number] Latoya Frances Notes Date Note Type Note Provider Name and Address Organization Details Recorded Time 5 text/html ROS as noted in the HPI 73 year old male being seen by new patient referral for low back pain. Onset of pain is 1982 after patient fell on a pocket knife . His low back pain has progressed and worsened over he years. Patients past medical history is significant for a myocardial infarction in Jan 2024 with multiple stent placements (6). He is currently on clopidogrel. He completed PT more than 5 years ago and has never followed with another pain clinic. He is a type 2 diabetic and quit smoking tobacco several years ago. He denies illicit drug use. Patient being seen in clinic as a new referral for chronic low back pain. His back pain is localized to the Right side and intermittently radiates into his buttocks region. His pain worsens with prolonged sitting or standing, turning, or certain movements like climbing stairs or running. He ector having hardware in his body. His pain level today is 5/10. Onset: > 20 years agoContext: worseningCharacter: ache/ dull, sharpLocation: Low backDuration: ConstantIntensity: 5 /10 (higher with activity)Worse: ActivityBetter: Rest Associated symptoms: Denies saddle anaesthesia, denies acute bowel/bladder changes, denies acute power loss. ADLs: The patient's pain interferes with daily chores, exercise, sleep, relationships, and walking. Current Pain Medications: TramadolNSAIDS/OTC: non effectiveNon-interventional Tx: nonePhysical Therapy: completedInterventional Tx: noneImaging/Studies: none recently UZIEL CASTORENA PA-C [address] [place] [address], [phone], [facility] 06/21/2024 14:24:00 5 text/html ROS as noted in the HPI PMH- CAD s/p ND 01/2024 with multiple stents (on Plavix), DM2, quit smoking tobacco several years ago Interval History 08/03/2024: Patient presents today for f/u s/p right Dx SIJ. Patient reported > 75% in their pain relief after the injection. Patient has been able to perform more ADLs, activities, sleep better, and be in a better mood because they have less pain. Today, he mentioned his right LE pain that comes and goes. It started around 1982 after he fell on a pocket knife . 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 He cannot dorsiflex or plantarflex and wears an AFO at all times. He has severe motor atrophy in his calve muscles. There are spots along his leg that have increase pain sensors and feels like a hot iron monique or knife stabbing. Other areas are completely numb. His pain will wax and wane form 04/19 to 11/19. Hx of prior pressure ulcers in his right foot, but no issues today. He is interested in looking into what can be done to help his right LE pain and sx's. Associated symptoms: Denies saddle anaesthesia, denies acute bowel/bladder changes, denies acute power loss. ADLs: The patient's pain interferes with daily chores, exercise, sleep, relationships, and walking. SARMAD DIEGO, [address] [place], [phone] 08/03/2024 12:08:51 5 text/html ROS as noted in the HPI [...] to the clinic today to follow up post-imaging. The patient complains of low back, right buttock, and RLE pain with sensation changes. Today the pain level is a 3/10, but fluctuates higher (6 or more). JAMES SARAIBA PA-C [address] [place] [address], [phone], [facility] - [facility] & [place] 09/05/2024 12:37:33 5 text/html ROS as noted in the HPI [...] ago. Today the pain level is a 6/10. JAMES SARABIA PA-C [address] [place] [address], [place], [phone], [place] - [facility] & [place] 10/21/2024 10:58:58
--- OUTSIDE RECORDS SUMMARY | 2024-11-05 21:47 | XMS_ITS | Clinical Summary ---
Author Organization [facility] Address [address] [place] [address] Care Team Providers Care Geothermal Heat Pump Machinist Name Role Phone Dominga Felipe Paul ZIMMERMAN [...] puff Daily. 14 each 08/17/19 25 Active Fluticasone-Umec lidin-Vilant (TRELEGY ELLIPTA) 200-62.5-25 MCG/ACT inhaler Inhale 1 puff Daily. 2 each 09/21/19 25 Active ipratropium-albu terol (DUO-NEB) 0.5-2.5 mg/3 ml nebulizer INHALE CONTENTS OF 1 VIAL VIA NEBULIZER FOUR TIMES DAILY 360 mL 10/20/19 25 Active ipratropium-albu terol (DUO-NEB) 0.5-2.5 mg/3 ml nebulizer INHALE CONTENTS OF 1 VIAL VIA NEBULIZER FOUR TIMES DAILY 360 mL 09/21/19 25 025 Discontinued Active Problems Problem Noted [...] (02/18/2023 4:55 PM EST): Patient treated at [facility] emergency department on February 05 for viral syndrome, followed by evaluation at [facility] where he was diagnosed with COPD [...] at this time. 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 Lucio's notes. Assessment [...] Encounters Date Type Department Care Team Description 10/19/2024 Refill [facility] [address] [place] [address] [place] TYL[place] [phone] Dominga Felipe, LIMNOLOGIST 10/18/2024 Telephone [facility] [address] [place] [address] [place] T[place] [phone] Dominga Felipe, [facility] 09/20/2024 Refill [facility] [address] [place] [address] [place] TYL[place] [phone] Dominga Felipe, LIMNOLOGIST 09/20/2024 Refill [facility] [place] [phone] Dominga Felipe, LIMNOLOGIST 08/16/2024 Telephone [facility] [place] [phone] Dominga Felipe, LIMNOLOGIST 08/09/2024 Refill [facility] [phone] Dominga Felipe, LIMNOLOGIST from Last 3 Months Immunizations Immunization Administration Dates Next Due COVID-19 (MODERNA) ,2nd,3 rd Dose Monovalent 06/23/2020,05/24/2020,05/12/2020,04/11 Fluzone High-Dose 65+YRS [...] 2) 07/31/1999 DIABETIC EYE EXAM 09/26/2023 09/25/2022 ANNUAL WELLNESS VISIT 11/19/2023 11/18/2022, 023 DIABETIC FOOT EXAM 11/19/2023 11/18/2022, 1 , 11/18/2022, Additional history exists LIPID PANEL 11/20/2023 11/19/2022, 11/11, 11/11/2017, Additional history exists COLONOSCOPY 04/27/2024 04/27/2014 COLORECTAL CANCER SCREENING 04/27/2024 RSV Vaccine - Adults (1 - 1- dose 75+ series) 2024 INFLUENZA VACCINE 09/10/2024 10/30/2018, 10/24/2016 HEMOGLOBIN A1C 09/16/2024 03/19/2024, 11/0 08/2023, 11/18/2022, Additional history exists COVID-19 Vaccine (5 - 2024-2 6 season) 2024 06/23/2020, 05/24/2020, 05/12/2020, Additional history exists Pneumococcal Vaccine 50+ Completed 10/30/2018, 10/11 HEPATITIS [...] Hemoglobin (Hb A1C) (03/19/2024 3:07 PM EST) Pathologist [facility] Hemoglobin A1C 7.8(A) 4.5 - 5.7 % [facility] Lot Number [id number] [facility] Expiration Date [facility] Blood 03/19/2024 3:07 PM EST Dominga Felipe LIMNOLOGIST POINT OF CARE TEST ORDERABL ES Final Result [facility]
[address] [place] [address], [place] [phone] * Lipid Panel (11/19/2022 9:29 AM EDT) [...] 9:29 AM EDT 11/19/2022 Comment:Blood Release to cristina Johnson [facility] (AMBULATORY) - 11/20/2022 8:09 AM EDT Performed at: - [facility] [address] [place], [place] [id number] Mri Assistant: Joao Vergara PhD, Phone: [phone] Dominga Felipe LIMNOLOGIST LAB BLOOD ORDERABLES Final Result [facility] [address] [place] [address], [facility] [address] [place] [address], [place] [phone] * CT Abdomen Pelvis Without Contrast (12/22/2021 [...] ve Non-Reacti ve 12/05/2018 2:40 AM EDT [facility] Hep A IgM Non-Reacti ve Non-Reacti ve 12/05/2018 2:40 AM EDT [facility] Hep B C IgM Non-Reacti ve Non-Reacti ve 12/05/2018 2:40 AM EDT [facility] Hepatitis C Ab Non-Reacti ve Non-Reacti ve 12/05/2018 2:40 AM EDT [facility] Blood Venipuncture / Unknown 12/04/2018 11:31 AM EDT 12/04/2018 11:31 AM EDT Bernardino Ron MD LAB BLOOD ORDERABLES Final Res ult [facility]
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
[2024-11-05 21:48] VITALS: O2SAT 94
--- NOTE | 2024-11-05 22:07 | HMH.EDGENADL ---
Discharge Plan Disposition Chief Complaint: Shortness of Breath/Dyspnea Discharge ED Provider: Sheila Ardon General Adult HPI General Chief complaint: Shortness of Breath/Dyspnea Stated complaint: SOA, cough Time Seen by Provider: 11/05/24 22:07 Mode of Arrival: Wheelchair Source of Information: Patient Description of Symptoms (Recalled from ER Triage Doc. by RN): Pt presents for evaluation of cough, congestion, fever, and body aches that began x1 day ago. Pt reports an extensive pulmonary history. Pt reports associated headache. History of Present Illness HPI narrative: Patient is a 74-year-old male with a past medical history of COPD, previous sciatic nerve injury, congenital absence of part of lung, who presented to the emergency department with cough congestion fever and bodyaches for 1 day. Patient also reports a headache. Patient states that he was feeling more short of breath than usual. Patient states that he has Trelegy and breathing treatments at home which he has been using. Patient reports generalized bodyaches. Patient has a bifrontal headache that is 2 out of 10 not acute onset. Patient denies a nonproductive cough. Patient reports some mild chest pain. Patient denies any abdominal pain nausea vomiting or diarrhea. Related Data Home Medications ?Medication ?Instructions ?Recorded ?Confirmed amlodipine 10 mg tablet 10 mg PO DAILY 11/13/23 11/13/23 clopidogrel 75 mg tablet 75 mg PO DAILY 11/13/23 11/13/23 furosemide 40 mg tablet 40 mg PO DAILY 11/13/23 11/13/23 glyburide 5 mg tablet 5 mg PO BID 11/13/23 11/13/23 ipratropium 0.5 mg-albuterol 3 mg 3 ml inhalation QIDP PRN Shortness 11/13/23 11/14/23 (2.5 mg base)/3 mL nebulization Of Breath soln metformin 500 mg tablet 1,000 mg PO BID 11/13/23 11/14/23 Previous Rx's ?Medication ?Instructions ?Recorded aspirin 81 mg tablet,delayed 81 mg PO DAILY 30 days #30 tabs 11/16/23 release atorvastatin 40 mg tablet 40 mg PO HS 30 days #30 tabs 11/16/23 empagliflozin 10 mg tablet 10 mg PO DAILY 30 days #30 tabs 11/16/23 (Jardiance) metoprolol succinate 50 mg 50 mg PO DAILY 30 days #30 tabs 11/16/23 tablet,extended release 24 hr (Toprol XL) pantoprazole 40 mg tablet,delayed 40 mg PO HS 30 days #30 tabs 11/16/23 release sacubitril 24 mg-valsartan 26 mg 1 tab PO BID 30 days #60 tabs 11/16/23 tablet (Entresto) famotidine 20 mg tablet (Pepcid) 20 mg PO DAILY #30 tabs 09/29/24 Allergies Allergy/AdvReac Type Severity Reaction Status Date / Time lisinopril Allergy Headache Verified 09/29/24 16:55 [facility] Disclaimer: The information contained in this section may have been updated after the patient was seen, as this information can be updated by other users. Surgical History (Updated 11/20/23 @ 00:00 by Rama Turcios) Hx of CABG Social History Smoking Status: Never smoker alcohol intake: former current occupational status: previously employed Travel in the last 8 weeks?: Inside the [place] Have you lived/traveled outside US in past 30 days?: No Contact w/someone who lives/traveled outside US past 30 days?: No Exposure to someone with infectious disease in past 14 days?: No Do you have a fever (greater than 100.4 F or 38 C)?: No Have you tested positive for COVID-19?: No Exposed to someone with COVID-19 in past 14 days?: No Do you have a sore throat?: No Do you have a cough?: Yes Do you have any weakness?: No Do you have any diarrhea?: No Are you experiencing any unusual bleeding?: No Do you have any muscle aches/pain?: No Do you have any abdominal pain?: No Are you experiencing loss of taste or smell?: No Other Medical History Have you received the Flu Vaccine for this season: No Have you received the Pneumonia Vaccine: No ROS Obtained: Yes All systems reviewed & no additional complaints except as documented and Yes Systems reviewed as appropriate & no additional complaints except as documented Physical Exam General General appearance: alert and in no apparent distress Head Head exam: atraumatic, normocephalic and normal inspection Eye Eye exam: Present normal appearance, PERRL and EOMI; Absent scleral icterus ENT ENT exam: Present normal exam and normal external ear exam Neck Neck exam: Present normal inspection and full ROM Chest Chest inspection: Present normal inspection and symmetric chest wall rise Respiratory Respiratory exam: Present normal lung sounds bilaterally and wheezes (mild expiratory wheezing throughout); Absent respiratory distress Cardiovascular Cardiovascular exam: Present regular rate, normal rhythm and normal heart sounds Abdominal Exam Abdominal exam: Present soft and distention; Absent tenderness, guarding or rebound Extremities Exam Extremities exam: Present normal inspection and full ROM Back Exam Back exam: Present normal inspection and full ROM Neurological Exam Neurological exam: Present alert, oriented X3, CN II-XII intact, normal gait and reflexes normal; Absent motor sensory deficit Psychiatric Psychiatric exam: Present normal affect and normal mood Skin Skin exam: Present warm and dry Medical Decision Making Medical Records Medical records reviewed: Yes I reviewed the patient's medical records. Screening: Per USPSTF and CDC recommendations, given the prevalence of disease in our region, it is our hospital?s policy to screen for HIV and viral Hepatitis for all patients aged 18 and over and those with ongoing risk factors. Jose Inquiry Pt receiving controlled substance: No Vital Signs: 11/05/24 21:45 11/05/24 21:48 11/06/24 00:20 Temperature 102.8 F H Temperature Source Oral Pulse Rate [Radial] 111 H Respiratory Rate 20 Blood Pressure [Right Arm] 128/65 Blood Pressure Mean [Right Arm] 86 Blood Pressure Position [Right Arm] Sitting 02 Sat by Pulse Oximetry 85 L 94 L 92 L Oxygen Delivery Method Room Air Nasal Cannula Room Air Oxygen Flow Rate (LPM) 2 11/06/24 00:30 Temperature Temperature Source Pulse Rate [Radial] Respiratory Rate Blood Pressure [Right Arm] Blood Pressure Mean [Right Arm] Blood Pressure Position [Right Arm] 02 Sat by Pulse Oximetry 78 L Oxygen Delivery Method Room Air Oxygen Flow Rate (LPM) Lab Data Lab results reviewed: Yes I reviewed the patient's lab results. Lab Results 11/05/24 22:50: WBC 11.2 H, RBC 4.69, Hgb 14.0 L, Hct 42.1, MCV 89.8, MCH 29.9, MCHC 33.3, RDW 12.8, Plt Count 184, MPV 9.4, Neut % (Auto) 88.5 H, Lymph % (Auto) 3.8 L, Hill % (Auto) 7.1, Eos % (Auto) 0.0 L, Baso % (Auto) 0.2, Neut # (Auto) 9.9 H, Lymph # (Auto) 0.4 L, Hill # (Auto) 0.8, Eos # (Auto) 0.0, Baso # (Auto) 0.0, Total Counted 100, Neutrophils % (Manual) 90 H, Lymphocytes % (Manual) 3 L, Atypical Lymphs % 7, D-Dimer 0.94 H, VBG pH 7.38, VBG pCO2 48.0, VBG pO2 32.5, VBG HCO3 27.6, VBG Total CO2 29.0 H, VBG O2 Saturation 63.7, VBG Base Excess 2.4 H, VBG Lactic Acid 1.6, Sodium 138, Potassium 3.9, Chloride 100, Carbon Dioxide 29, Anion Gap 12.9, BUN 12, Creatinine 0.90, Estimated Creat Clear 82, Estimated GFR 82, Est GFR ( Amer) 100, Glucose 193 H, Calcium 9.4, Magnesium 1.8, Total Bilirubin 0.7, AST 31, ALT 37, Alkaline Phosphatase 84, Troponin I 0.03, NT-Pro-B Natriuret Pep 556 H, Total Protein 7.5, Albumin 4.5, Globulin 3.0, Albumin/Globulin Ratio 1.5, Lipase 47 11/05/24 22:50 11/05/24 22:50 Orders (Tests/Meds): ED MEDICATIONS Generic Name Dose Route Start Last Admin Trade Name Freq PRN Reason Stop Dose Admin Ceftriaxone Sodium 2 gm/ 100 mls @ 200 mls/hr 11/05/24 23:30 11/06/24 00:17 Sodium Chloride IV 11/15/24 23:29 Infused Q24H DAVID Infusion Azithromycin 500 mg/ Sodium 250 mls @ 250 mls/hr 11/05/24 23:30 11/06/24 00:13 Chloride IV 11/15/24 23:29 250 mls/hr Q24H DAVID Administration Magnesium Sulfate 2 gm in 50 mls @ 50 mls/hr 11/06/24 00:26 Magnesium Sulfate 2gm/50ml Premix IV 11/06/24 01:25 ONCE ONE Discontinued Medications Generic Name Dose Route Start Last Admin Trade Name Freq PRN Reason Stop Dose Admin Acetaminophen 1,000 mg 11/05/24 22:30 11/05/24 23:07 Acetaminophen 500mg Tab PO 11/05/24 22:31 1,000 mg ONCE ONE Administration Albuterol/Ipratropium 9 ml 11/06/24 00:26 Ipratropium/Albuterol 3 Ml Neb IH 11/06/24 00:27 ONCE ONE Sodium Chloride 1,000 mls @ 999 mls/hr 11/05/24 22:34 11/06/24 00:17 Sod Chlor 0.9% 1000ml Bag IV 11/05/24 23:34 Infused .Q1H1M ONE Infusion Ketorolac Tromethamine 15 mg 11/05/24 22:31 11/05/24 23:07 Ketorolac 30mg/Ml Vial IV 11/05/24 22:32 15 mg ONCE ONE Administration Methylprednisolone Sodium Succinate 125 mg 11/06/24 00:26 11/06/24 00:56 Methylprednisolone Sod Succ 125mg Vial IV 11/06/24 00:27 125 mg ONCE ONE Administration ORDERS Category Date Time Status CXR 2 view (NOT portable) [XR chest 2V] Stat Exams 11/05/24 22:29 Completed BNP [NT Pro Brain Natriuretic Pep.] Stat Lab 11/05/24 22:50 Completed CBC w/Auto Diff [Complete Blood Count Auto Diff] Stat Lab 11/05/24 22:50 Completed CMP [Comprehensive Metabolic Panel] Stat Lab 11/05/24 22:50 Completed D-Dimer Stat Lab 11/05/24 22:50 Completed Full Resp Panel w/COVID ([facility]) Routine Lab 11/05/24 22:50 Received Lipase Stat Lab 11/05/24 22:50 Completed MAG [Magnesium] Stat Lab 11/05/24 22:50 Completed Trop I [Troponin I] Stat Lab 11/05/24 22:50 Completed Troponin I Q3H Lab 11/06/24 01:30 Ordered Troponin I Q3H Lab 11/06/24 04:30 Ordered Blood Culture Stat Micro 11/05/24 22:50 Received VBG [Venous Blood Gas] Stat RT 11/05/24 22:50 Completed Medical Decision Narrative: Patient is a 74-year-old male with a past medical history of COPD, 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 On arrival, patient was hemodynamically stable but hypoxic on room air to 85%. Patient was normotensive and febrile to 102.8. Differential includes but not limited to: COPD exacerbation, viral syndrome, pneumonia, electrolyte abnormalities, ACS/OR, amongst others. Patient's labs were reviewed and interpreted by myself: CBC showed mild leukocytosis of 11, hemoglobin was stable. CMP was unremarkable. D-dimer was mildly elevated at 0.94. VBG was unremarkable. BNP mildly elevated at 556. Chest x-ray was reviewed and interpreted by myself and showed possible right sided focal consolidation. Patient was given CAP coverage with azithromycin and Rocephin. Patient also had a mild headache patient was given Toradol and Tylenol. Patient had no neurologic deficits on exam. Patient's headache was gradual onset with his other symptoms. Patient's headache resolved after Tylenol and Toradol. Although patient's D-dimer was mildly elevated at 0.94 is negative by years criteria for pulmonary embolism. Patient got up and ambulated and patient became hypoxic to 78%. Patient was given DuoNebs, Solu-Medrol as well as magnesium. At this time given patient's acute hypoxic respiratory failure likely in the setting of pneumonia and COPD exacerbation, hospital medicine was consulted and patient was ultimately admitted to their service for further evaluation and workup. Critical Care Critical Care Time Critical Care Time: No
--- NOTE | 2024-11-05 22:29 | XR_ITS ---
PROCEDURE INFORMATION: Exam: XR Chest Exam date and time: 11/05/2024 10:50 PM Age: 74 years old Clinical indication: Shortness of breath; Prior surgery; Surgery date: 6+ months; Surgery type: Heart stent TECHNIQUE: Imaging protocol: Radiologic exam of the chest. Views: 2 views. COMPARISON: CR XR CHEST PORTABLE 09/29/2024 5:05 PM FINDINGS: Lungs: See Pleural spaces finding. Pleural spaces: Persistent Right basilar opacity, probably combination of pleural effusion and adjacent atelectasis//scarring/consolidation. Heart/Mediastinum: Stable cardiomediastinal silhouette. Bones/joints: Median sternotomy. Fractured inferior suture. IMPRESSION: Persistent Right basilar opacity, probably combination of pleural effusion and adjacent atelectasis//scarring/consolidation. Recommend imaging follow-up until complete resolution.
--- NOTE | 2024-11-05 22:36 | ECG_ITS ---
APPROVED REPORT Exam: Resting ECG HR:98 bpm ECG Measurements Heart Rate 98 AXES WV 153 P 97 QRSd 145 QRS 250 QT 370 T 31 QTc 425 Conclusion SINUS RHYTHM RIGHT AXIS DEVIATION [QRS AXIS > 100] RIGHT BUNDLE BRANCH BLOCK [120+ ms QRS DURATION, UPRIGHT V1, 40+ ms S IN I/aVL/V4/V5/V6] ABNORMAL ECG UNCONFIRMED REPORT Electronically signed by : MIAH ANTHONY, 11/05/2024 23:31:27
--- OUTSIDE RECORDS SUMMARY | 2024-11-05 22:47 | XMS_ITS | CCD ---
Author Organization Unknown Care Team Providers Care Print Designer Name Role Phone Non Engaged, [facility] Primary Care Provider Unav ailable Unavailable Chronic Care Management Unavaila ble Summary Purpose DataExchange Insurance Providers Payer name Policy type / Coverage type Covered democrat ID Effective Begin Date Effective End Date [facility] [id number] Unknown Unknown Family History Family History data not found Medication Administered No Medication Administered data Reason For Visit No Reason For Visit data Medical Equipment No Medical Equipment data Advance Directives No Advance Directive data
[2024-11-05 23:04] LABS: Lactate Venous 1.6 mmol/L (0.4-2.0); VBG HCO3 27.6 mmol/L (23-30); VBG PCO2 48.0 mmol/L (35-51); VBG PH 7.38 mmol/L (7.31-7.41); VBG PO2 32.5 mmol/L (28-40)
[2024-11-05 23:05] LABS: Adenovirus,PCR Not Detected (NotDetected); Chlamydophila Pneumoniae, PCR Not Detected (NotDetected); Coronavirus 19, PCR Not Detected (NotDetected); Coronovirus HKU1,PCR Not Detected (NotDetected); Influenza A, PCR Not Detected (NotDetected); Influenza AH1, 2009 Not Detected (NotDetected); Influenza AH1, PCR Not Detected (NotDetected); Influenza AH3,PCR Not Detected (NotDetected); Influenza B, PCR Not Detected (NotDetected); Mycoplasma Pneumoniae, PCR Not Detected (NotDetected); Parainfluenza 1, PCR Not Detected (NotDetected); Parainfluenza 3, PCR Not Detected (NotDetected); Parainfluenza 4, PCR Not Detected (NotDetected)
[2024-11-05 23:06] LABS: Hematocrit 42.1 % (42.0-52.0); Hemoglobin 14.0 g/dL (14.1-18.0); Immature Granulocytes % 0.4 %; Mean Corpuscular HGB Conc 33.3 g/dL (31.8-35.4); Mean Corpuscular Hemoglobin 29.9 pg (27.0-31.2); Mean Corpuscular Volume 89.8 fl (80-94); Nucleated Red Blood Cells % 0 %; Platelet Count 184 K/mm3 (142-424); Red Blood Count 4.69 M/mm3 (4.60-6.20); Red Cell Distribution Width-SD 42.0 fL; White Blood Count 11.2 K/mm3 (4.8-10.8)
[2024-11-05] MEDS: ACETAMINOPHEN 500MG TAB 1000 MG PO (23:07)
[2024-11-05] MEDS: KETOROLAC 30MG/ML VIAL 15 MG IV (23:07)
[2024-11-05] MEDS: 0.9 % SODIUM CHLORIDE 1000ML 1,000 ML 999 ML IV (23:07)
[2024-11-05 23:15] LABS: Alanine Aminotransferase 37 U/L (12-78); Albumin Level 4.5 g/dl (3.5-5.0); Albumin/Globulin Ratio 1.5 (1.1-1.8); Alkaline Phosphatase 84 U/L (38-126); Anion Gap 12.9 mEq/L (5-15); Aspartate Amino Transferase 31 U/L (17-59); Bilirubin,Total 0.7 mg/dl (0.2-1.3); Blood Urea Nitrogen 12 mg/dl (9-20); Calcium 9.4 mg/dl (8.4-10.2); Carbon Dioxide 29 mmol/L (22.0-30.0); Chloride 100 mmol/L (98-107); Creatinine Clearance Estimated 82 mL/min (50-200); Creatinine,Serum 0.90 mg/dl (0.66-1.25); Estimated Glomerular Filt Rate 82 ml/min (>60); GFR (African American) 100 ML/MIN (>60); Globulin 3.0 g/dL (1.3-3.2); Glucose 193 mg/dl (74-100); Magnesium 1.8 mg/dl (1.6-2.3); Potassium 3.9 mmoL/L (3.5-5.1); Sodium 138 mmol/L (136-145); Total Protein,Serum 7.5 g/dl (6.3-8.2)
[2024-11-05 23:20] LABS: D-Dimer 0.94 ug/mL (0.0-0.5)
[2024-11-05 23:23] LABS: Lipase 47 U/L (23-300)
[2024-11-05 23:24] LABS: NT Pro Brain Natriuretic Pep. 556 pg/mL (0-450)
[2024-11-05 23:27] LABS: Troponin I 0.03 ng/ml (0.00-0.034)
[2024-11-05 23:28] LABS: Total Cells Counted 100
[2024-11-06] VITALS (20 sets, daily range): BP systolic 113–138; BP diastolic 51–78; PULSE 71–106; RESP 16–18; TEMP 36.4–37.1; O2SAT 78–99; BMI 32.5
[2024-11-06] MEDS: AZITHROMYCIN 500 MG in 0.9 % SODIUM CHLORIDE 250 ML 250 MG IV (00:13)
--- NOTE | 2024-11-06 00:38 | PC.NURSE ---
RA test with ambulation performed. Pt dropped down to 78% with little exertion. made aware.
[2024-11-06] MEDS: METHYLPREDNISOLONE SOD SUCC 125MG VIAL 125 MG IV (00:56)
--- NOTE | 2024-11-06 01:08 | PC.NURSE ---
Report given to Esther TREVINO on the floor.
[2024-11-06] MEDS: IPRATROPIUM/ALBUTEROL 3 ML NEB 9 ML IH (01:09)
--- NOTE | 2024-11-06 01:11 | P.HP_ITS ---
<Statement entered by Declan Milan MD - 11/06/24 14:51> Rounded on patient after nurse practitioner. Personally examined and interviewed patient. Agree with exam findings and care plan as documented. 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 Due to patient's symptoms, he presented to the emergency room for evaluation. While in the emergency room, patient had a presenting fever of 102.8, he was hypoxic on room air at 85%, and his heart rate was 111. Chest x- ray obtained revealed persistent right basilar opacity probably combination of pleural effusion and atelectasis. Due to patient's persistent hypoxemia, he has been admitted for further management. During my evaluation of the patient, patient states his symptomology started around and progressively got worse this evening. He reports of productive cough with grayish sputum, congestion, body aches, subjective fever, 2 out of 10 frontal lobe headache, and persistent shortness of air. Patient does have trilogy at home and breathing treatments and despite these interventions, patient symptomology persistent. It is worth mentioning that patient was recently admitted to our facility back in 2023 for due to an NSTEMI where he received 6 cardiac stents. 2D echo obtained during that timeframe revealed an EF of 45%. 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 This led to a pulmonary lobectomy on the right. Patient states he still has his right middle lobe. He is currently denying any chest pain, lightheadedness, PND, orthopnea, dizziness, nausea, vomiting, or diarrhea. Additional pertinent vitals obtained include a white blood cell count 11.2, hemoglobin of 14, neutrophils 88.5%, D-dimer 0.94, blood glucose of 193, and BNP of 556. [facility] Disclaimer: The information contained in this section may have been updated after the patient was seen, as this information can be updated by other users. Surgical History (Updated 11/20/23 @ 00:00 by Rama Turcios) Hx of CABG Social History Smoking Status: Never smoker alcohol intake: former current occupational status: previously employed Travel in the last 8 weeks?: Inside the [place] Have you lived/traveled outside [place] in past 30 days?: No Contact w/someone who lives/traveled outside US past 30 days?: No Exposure to someone with infectious disease in past 14 days?: No Do you have a fever (greater than 100.4 F or 38 C)?: No Have you tested positive for COVID-19?: No Exposed to someone with COVID-19 in past 14 days?: No Do you have a sore throat?: No Do you have a cough?: Yes Do you have any weakness?: No Do you have any diarrhea?: No Are you experiencing any unusual bleeding?: No Do you have any muscle aches/pain?: No Do you have any abdominal pain?: No Are you experiencing loss of taste or smell?: No Other Medical History Have you received the Flu Vaccine for this season: No Have you received the Pneumonia Vaccine: No Review of Systems Review of Systems Review of systems:: pertinent systems reviewed and negative unless documented below Constitutional Constitutional: Reports body ache(s), Reports chills, Reports fever(s) and Reports headache(s) Eyes Eyes: Reports system reviewed and no additional complaints, except as documented ENT Ears, Nose, Mouth, and Throat: Reports headache(s) *Cardiovascular Cardiovascular: Reports system reviewed and no additional complaints, except as documented, Reports dyspnea, Reports dyspnea on exertion and Reports leg edema *Respiratory Respiratory: Reports chest congestion, Reports cough, Reports dyspnea and Reports dyspnea on exertion *Gastrointestinal Gastrointestinal: Reports system reviewed and no additional complaints, except as documented *Genitourinary Genitourinary: Reports system reviewed and no additional complaints, except as documented *Musculoskeletal Musculoskeletal: Reports system reviewed and no additional complaints, except as documented Integumentary/Breasts Skin/Breast: Reports system reviewed and no additional complaints, except as documented *Neurologic Neurologic: Reports system reviewed and no additional complaints, except as documented and Reports headache(s) Psychiatric Psychiatric: Reports system reviewed and no additional complaints, except as documented Endocrine Endocrine: Reports system reviewed and no additional complaints, except as documented Hematologic/Lymphatic Hematologic/Lymphatic: Reports system reviewed and no additional complaints, except as documented Allergic/Immunologic Allergic/Immunologic: Reports system reviewed and no additional complaints, except as documented Meds Home Medications and Allergies Home Medications ?Medication ?Instructions ?Recorded ?Confirmed ?Type amlodipine 10 mg tablet 10 mg PO DAILY 11/13/2310/12 History clopidogrel 75 mg tablet 75 mg PO DAILY 11/13/2310/12 History furosemide 40 mg tablet 40 mg PO DAILY 11/13/2310/12 History glyburide 5 mg tablet 5 mg PO BID 11/13/23 5 History ipratropium 0.5 mg-albuterol 3 mg 3 ml inhalation QIDP PRN Shortness 11/13/23 11/06/24 History (2.5 mg base)/3 mL nebulization Of Breath soln metformin 500 mg tablet 1,000 mg PO BID 11/13/23 History aspirin 81 mg tablet,delayed 81 mg PO DAILY 30 days #3 0 tabs 11/16/23 11/06/24 Rx release atorvastatin 40 mg tablet 40 mg PO HS 30 days #30 tabs 11/16/23 11/06/24 Rx metoprolol succinate 50 mg 50 mg PO DAILY 30 days #30 tabs 11/16/23 11/06/24 Rx tablet,extended release 24 hr (Toprol XL) pantoprazole 40 mg tablet,delayed 40 mg PO HS 30 days #30 tabs 11/16/23 11/06/24 Rx release famotidine 20 mg tablet (Pepcid) 20 mg PO DAILY #30 ta bs 09/29/24 11/06/24 Rx New Prescriptions to Start Prescriptions: Allergies Allergy/AdvReac Type Severity Reaction Status Date / Time lisinopril Allergy Headache Verified 09/29/24 16:55 Exam Data for Last 24 hours Vital signs and Labs for Last 24 Hours: Temp Pulse Resp BP Pulse Ox O2 Del Method O2 Flow Rate 98.8 F 85 16 113/71 78 L Nasal Cannula 2 11/06/24 01:11/06/24 01:09 11/06/24 01:11/06/24 01:11/06/24 00:30 11/06/24 01:11/06/24 01:09 Laboratory Results - last 24 hr 11/05/24 22:50: WBC 11.2 H, RBC 4.69, Hgb 14.0 L, Hct 42.1, MCV 89.8, MCH 29.9, MCHC 33.3, RDW 12.8, Plt Count 184, MPV 9.4, Neut % (Auto) 88.5 H, Lymph % (Auto) 3.8 L, [place] % (Auto) 7.1, Eos % (Auto) 0.0 L, Baso % (Auto) 0.2, Neut # (Auto) 9.9 H, Lymph # (Auto) 0.4 L, [place] # (Auto) 0.8, Eos # (Auto) 0.0, Baso # (Auto) 0.0, Total Counted 100, Neutrophils % (Manual) 90 H, Lymphocytes % (Manual) 3 L, Atypical Lymphs % 7, D-Dimer 0.94 H, VBG pH 7.38, VBG pCO2 48.0, VBG pO2 32.5, VBG HCO3 27.6, VBG Total CO2 29.0 H, VBG O2 Saturation 63.7, VBG Base Excess 2.4 H, VBG Lactic Acid 1.6, Sodium 138, Potassium 3.9, Chloride 100, Carbon Dioxide 29, Anion Gap 12.9, BUN 12, Creatinine 0.90, Estimated Creat Clear 82, Estimated GFR 82, Est GFR ( Amer) 100, Glucose 193 H, Calcium 9.4, Magnesium 1.8, Total Bilirubin 0.7, AST 31, ALT 37, Alkaline Phosphatase 84, Troponin I 0.03, NT-Pro-B Natriuret Pep 556 H, Total Protein 7.5, Albumin 4.5, Globulin 3.0, Albumin/Globulin Ratio 1.5, Lipase 47 I & O for Last 24 hours: Intake & Output 11/03/24 11/04/24 11/05/24 11/06/24 23:59 23:59 23:59 23:59 Intake Total 1100 / 1100 Balance 1100 / 1100 Weight 90.718 kg Constitutional Constitutional: no acute distress, obese and cooperative *Routine HEENT Exam Head: Present normocephalic and atraumatic Eye: Present EOMI and PERRL ENT: Present mucous membranes moist *Routine Neck Exam Neck: Present supple, full ROM and trachea midline *Routine Respiratory Exam Respiratory: Present wheezes, crackles, diminished air movement, normal respiratory effort, able to speak in complete sentences and symmetric chest movement *Routine Cardiovascular Exam Cardiovascular: Present RRR, Normal S1 and Normal S2 Comments: EKG revealed a sinus rhythm, right bundle branch block, right axis shift deviation, QTc was 421, no activity consistent with ST segment elevation or depression-negative STEMI *Routine Abdominal Exam Abdominal: Present soft, normoactive bowel sounds and obese *Routine Rectal Exam Rectal:: deferred *Routine Genitalia Exam Genitalia:: deferred *Routine Extremities Exam Extremities: Present edema, full ROM, pulses intact and normal capillary refill Comments: Patient has 1+ pitting edema to left lower extremity - Patient has 2+ pitting edema noted to right lower extremity Routine Back/Spine/Pelvis Exam Back/Spine: Present full ROM *Routine Skin Exam Skin: Present intact, dry and warm *Routine Neurological Exam Neurological: Present alert, oriented X3, CN II-XII intact and normal speech Routine Psychiatric Exam Psychiatric: Present normal affect, normal thought process, cooperative, good insight and good judgment H&P: Result Impressions 74-year-old male who is normally independent with supplemental oxygen dependence acutely hypoxic, with elevated temperature, elevated heart rate, and pneumonia findings consistent with sepsis with acute organ dysfunction. Patient has known coronary artery disease with prior coronary artery intervention; moreover, patient is status post pulmonary lobectomy in the right upper and right lower lobe Assessment and Plan *Assessment and plan (1) Pneumonia: Status: Acute Qualifiers: Laterality: unspecified laterality Lung location: unspecified part of lung Pneumonia type: due to unspecified organism Qualified Code(s): J18.9 - Pneumonia, unspecified organism Category: Medical Code(s): J18.9 - Pneumonia, unspecified organism (2) Sepsis: Status: Acute Qualifiers: Acute respiratory failure type: with hypoxia Sepsis acute organ dysfunction status: with acute organ dysfunction Sepsis type: sepsis due to unspecified organism Severe sepsis acute organ dysfunction type: acute respiratory failure Severe sepsis shock status: without septic shock Qualified Code(s): A41.9 - Sepsis, unspecified organism; R65.20 - Severe sepsis without septic shock; J96.01 - Acute respiratory failure with hypoxia Category: Medical Code(s): A41.9 - Sepsis, unspecified organism (3) Acute hypoxic respiratory failure: Status: Acute Category: Medical Code(s): J96.01 - Acute respiratory failure with hypoxia (4) Leukocytosis: Status: Acute Qualifiers: Leukocytosis type: unspecified Qualified Code(s): D72.829 - Elevated white blood cell count, unspecified Category: Medical Code(s): D72.829 - Elevated white blood cell count, unspecified (5) Elevated d-dimer: Status: Acute Category: Medical Code(s): R79.89 - Other specified abnormal findings of blood chemistry (6) Diabetes mellitus: Status: Acute Qualifiers: Diabetes mellitus complication status: with hyperglycemia Diabetes mellitus rn long term care insulin use: without rn long term care use Diabetes mellitus type: type 2 Qualified Code(s): E11.65 - Type 2 diabetes mellitus with hyperglycemia Category: Medical Code(s): E11.9 - Type 2 diabetes mellitus without complications (7) Hypervolemia: Status: Acute Qualifiers: Hypervolemia type: unspecified Qualified Code(s): E87.70 - Fluid overload, unspecified Category: Medical Code(s): E87.70 - Fluid overload, unspecified (8) Fever: Status: Acute Qualifiers: Fever type: unspecified Qualified Code(s): R50.9 - Fever, unspecified Category: Medical Code(s): R50.9 - Fever, unspecified Plan Assessment: Sepsis: Patient is meeting sepsis criteria with high heart rate, fever, high respiratory rate, and source of pneumonia Community-acquired pneumonia: Most likely bacterial Acute hypoxic respiratory failure Leukocytosis with left shift Fever: Improved COPD exacerbation -Will continue 1 g Rocephin IV daily - Will continue azithromycin 250 mg p.o. - Patient is meeting sepsis criteria but I will not give patient 30 mL/kg of body weight of IV hydration due to patient having signs of hypervolemia to the lower extremities; additional fluid volume may exacerbate patient's HFrEF - Since patient is hemodynamically stable with stable blood pressure will start Lasix 40 mg p.o. daily-subject to change per attending - Sepsis reperfusion performed - Patient is having acute organ dysfunction in the form of hypoxemia - Supplemental oxygen to maintain oxygen saturation greater than 94% - Will assess the need for oxygen at time of discharge - Patient is nontoxic and appearing most likely he may do well over the next couple of days - 600 mg of Mucinex p.o. twice daily -DuoNebs every 6 hours -0.5 mg of budesonide nebulized treatment twice daily Elevated D-dimer -Patient ruled out for PE when corrected for age -If symptoms persist will consider CTA of the chest -Will empirically cover with 40 mg of Lovenox subcu daily Hypervolemia HFrEF: No overt signs of failure or decompensation -40 mg Lasix p.o. daily -Will consider 2D echo Diabetes -Sliding scale insulin AC and at bedtime with mild scale coverage Plan: Admit patient to the MedSurg unit Activity as tolerated Daily weight Saline lock Vital signs every 4 hours 1800 ADA/cardiac diet CBC/BMP daily 5 mg Lawrence p.o. every 4 hours for moderate pain 40 mg of Solu-Medrol IV twice daily 2 mg morphine IV push every 4 hours as needed severe pain 4 mg Zofran IV push to 8 hours for nausea vomit Blood cultures x 2 Full code I will discussed this case with attending physician Dr. Milan and I look forward to more input
--- NOTE | 2024-11-06 01:29 | EXP.SEPSISRE ---
[facility] Tissue Perfusion Eval Sepsis Re-Evaluation Performed: Yes Date Performed: 11/06/24 Time Performed: 01:29
--- NOTE | 2024-11-06 01:31 | PC.NURSE ---
Patient arrived to floor via wheelchair from ED at 01:30.
--- NOTE | 2024-11-06 01:44 | ECG_ITS ---
APPROVED REPORT Exam: Resting ECG HR:104 bpm ECG Measurements Heart Rate 104 AXES NE 162 P 90 QRSd 137 QRS -86 QT 333 T 53 QTc 393 Conclusion SINUS TACHYCARDIA RIGHT BUNDLE BRANCH BLOCK [120+ ms QRS DURATION, UPRIGHT V1, 40+ ms S IN I/aVL/V4/V5/V6] LEFT ANTERIOR FASCICULAR BLOCK [QRS AXIS <= -45, QR IN I, RS IN II] ABNORMAL ECG UNCONFIRMED REPORT Electronically signed by : Cheo Pena MD 11/06/2024 08:42:39
[2024-11-06] MEDS: FUROSEMIDE 40MG/4ML VIAL 40 MG IV (01:52)
[2024-11-06] MEDS: MAGNESIUM SULFATE IN WATER 2 GM/50 ML PIGGYBACK IV (01:52)
[2024-11-06] MEDS: ASPIRIN EC 325MG TABLET 325 MG PO (01:56)
[2024-11-06 02:03] LABS: Parainfluenza 2, PCR Detected (NotDetected)
[2024-11-06 02:22] LABS: Troponin I 0.04 ng/ml (0.00-0.034)
[2024-11-06] MEDS: humaLOG 100 UNITS/ML 10ML VIAL (SSI) SUBCUT ×5 (05:26→21:08)
[2024-11-06 05:27] LABS: POC Glucose,Bedside 308 gm/dL (70-110)
[2024-11-06] MEDS: BUDESONIDE 0.5MG/2ML NEB 0.5 MG IH ×2 (06:25→18:33)
[2024-11-06] MEDS: IPRATROPIUM/ALBUTEROL 3 ML NEB IH ×4 (06:25→23:51)
[2024-11-06 07:18] LABS: Hematocrit 40.2 % (42.0-52.0); Hemoglobin 13.0 g/dL (14.1-18.0); Immature Granulocytes % 0.6 %; Mean Corpuscular HGB Conc 32.3 g/dL (31.8-35.4); Mean Corpuscular Hemoglobin 29.3 pg (27.0-31.2); Mean Corpuscular Volume 90.7 fl (80-94); Nucleated Red Blood Cells % 0 %; Platelet Count 166 K/mm3 (142-424); Red Blood Count 4.43 M/mm3 (4.60-6.20); Red Cell Distribution Width-SD 42.6 fL; White Blood Count 11.8 K/mm3 (4.8-10.8)
[2024-11-06 07:40] LABS: Anion Gap 12.7 mEq/L (5-15); Blood Urea Nitrogen 14 mg/dl (9-20); Calcium 8.6 mg/dl (8.4-10.2); Carbon Dioxide 26 mmol/L (22.0-30.0); Chloride 102 mmol/L (98-107); Creatinine Clearance Estimated 83 mL/min (50-200); Creatinine,Serum 0.80 mg/dl (0.66-1.25); Estimated Glomerular Filt Rate 94 ml/min (>60); GFR (African American) 114 ML/MIN (>60); Glucose 280 mg/dl (74-100); Potassium 3.7 mmoL/L (3.5-5.1); Sodium 137 mmol/L (136-145)
[2024-11-06 07:48] LABS: Troponin I 0.02 ng/ml (0.00-0.034)
[2024-11-06] MEDS: METOPROLOL SUCCINATE XL 50MG TABLET 50 MG PO (09:41)
[2024-11-06] MEDS: guaiFENesin 600 MG TAB.ER.12H PO ×2 (09:41→20:12)
[2024-11-06] MEDS: METFORMIN 500MG TABLET 1000 MG PO ×2 (09:41→17:00)
[2024-11-06] MEDS: ASPIRIN EC 81MG TABLET 81 MG PO (09:41)
[2024-11-06] MEDS: FUROSEMIDE 40 MG TABLET PO (09:41)
[2024-11-06] MEDS: CLOPIDOGREL 75MG TAB 75 MG PO (09:41)
[2024-11-06 12:21] LABS: POC Glucose,Bedside 262 gm/dL (70-110)
[2024-11-06 12:32] LABS: Troponin I 0.02 ng/ml (0.00-0.034)
--- NOTE | 2024-11-06 18:25 | PC.NURSE ---
pt has done well today. o2 on 1l as needed. ra sats were 90% with a non productive cough. he states he feels better than when he first came in. cb within reach, no needs at this time
[2024-11-06 18:28] LABS: Troponin I 0.02 ng/ml (0.00-0.034)
[2024-11-06 18:50] LABS: POC Glucose,Bedside 171 gm/dL (70-110)
[2024-11-06] MEDS: PANTOPRAZOLE 40MG TABLET 40 MG PO (20:12)
[2024-11-06] MEDS: ATORVASTATIN 40MG TABLET 40 MG PO (20:12)
[2024-11-06] MEDS: AZITHROMYCIN 250MG TABLET 250 MG PO (20:12)
[2024-11-06 20:16] LABS: POC Glucose,Bedside 174 gm/dL (70-110)
[2024-11-07] VITALS: BP 125/71; PULSE 84; PULSE 90; RESP 16; TEMP 36.6; O2SAT 95
--- NOTE | 2024-11-07 03:45 | PC.NURSE ---
Addendum entered by Isabella Mendoza RN 11/07/24 04:45: Droplet/contact precautions ongoing for Parainfluenza 2 (PCR). Original Note: Patient is pleasantly alert and oriented x4. He was observed to be resting upright in bed with eyes closed, respirations even and unlabored on 1.5 L of oxygen via nasal cannula, and no apparent distress for the majority of the night. He has not had any complaints of shortness of breath, chest pain, chills, aches/pain, headaches, etc. this shift. However, he stated that he continues to have a cough (he has not been able to expel any sputum during this shift) and congestion. Upon assessment, he stated that he does feel a little better overall. Remains afebrile. Mild swelling (+1) was noted to his bilateral ankles/feet. Clear but diminished lung sounds heard upon auscultation. On telemetry. Oxygen saturations > 90%. Scheduled medications were administered as appropriately per MAR. Breathing treatments were given by RTs. Urinal is at bedside for voiding needs. Ambulatory. ACHS glucose checks performed. Tolerates a current diet very well. At this time, the patient is resting in bed without any new needs vocalized. Call light is within reach.
[2024-11-07 04:00] VITALS: BP 136/75; PULSE 80; PULSE 91; RESP 16; TEMP 36.6; O2SAT 93; BMI 31.9
[2024-11-07] MEDS: IPRATROPIUM/ALBUTEROL 3 ML NEB IH (05:13)
[2024-11-07] MEDS: BUDESONIDE 0.5MG/2ML NEB 0.5 MG IH (05:13)
[2024-11-07 06:09] LABS: POC Glucose,Bedside 154 gm/dL (70-110)
[2024-11-07 06:24] LABS: Hematocrit 39.8 % (42.0-52.0); Hemoglobin 13.1 g/dL (14.1-18.0); Immature Granulocytes % 0.3 %; Mean Corpuscular HGB Conc 32.9 g/dL (31.8-35.4); Mean Corpuscular Hemoglobin 29.8 pg (27.0-31.2); Mean Corpuscular Volume 90.7 fl (80-94); Nucleated Red Blood Cells % 0 %; Platelet Count 168 K/mm3 (142-424); Red Blood Count 4.39 M/mm3 (4.60-6.20); Red Cell Distribution Width-SD 41.9 fL; White Blood Count 12.8 K/mm3 (4.8-10.8)
[2024-11-07 06:33] LABS: Anion Gap 11.2 mEq/L (5-15); Blood Urea Nitrogen 19 mg/dl (9-20); Calcium 8.6 mg/dl (8.4-10.2); Carbon Dioxide 29 mmol/L (22.0-30.0); Chloride 102 mmol/L (98-107); Creatinine Clearance Estimated 81 mL/min (50-200); Creatinine,Serum 0.80 mg/dl (0.66-1.25); Estimated Glomerular Filt Rate 94 ml/min (>60); GFR (African American) 114 ML/MIN (>60); Glucose 171 mg/dl (74-100); Potassium 4.2 mmoL/L (3.5-5.1); Sodium 138 mmol/L (136-145)
[2024-11-07] MEDS: humaLOG 100 UNITS/ML 10ML VIAL (SSI) SUBCUT (06:39)
--- NOTE | 2024-11-07 07:42 | EXP.DC.SUM ---
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 Due to patient's symptoms, he presented to the emergency room for evaluation. While in the emergency room, patient had a presenting fever of 102.8, he was hypoxic on room air at 85%, and his heart rate was 111. Chest x-ray obtained revealed persistent right basilar opacity probably combination of pleural effusion and atelectasis. Due to patient's persistent hypoxemia, he has been admitted for further management. During my evaluation of the patient, patient states his symptomology started around and progressively got worse this evening. He reports of productive cough with grayish sputum, congestion, body aches, subjective fever, 2 out of 10 frontal lobe headache, and persistent shortness of air. Patient does have trilogy at home and breathing treatments and despite these interventions, patient symptomology persistent. It is worth mentioning that patient was recently admitted to our facility back in 2023 for due to an NSTEMI where he received 6 cardiac stents. 2D echo obtained during that timeframe revealed an EF of 45%. 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 This led to a pulmonary lobectomy on the right. Patient states he still has his right middle lobe. He is currently denying any chest pain, lightheadedness, PND, orthopnea, dizziness, nausea, vomiting, or diarrhea. Additional pertinent vitals obtained include a white blood cell count 11.2, hemoglobin of 14, neutrophils 88.5%, D-dimer 0.94, blood glucose of 193, and BNP of 556. Hospital Course Hospital Course Hospital Course: 74-year-old male who presented with tachycardia, tachypnea, leukocytosis and concern for pneumonia. Responded well to initiation of antibiotics. Found to be positive for parainfluenza. Responded to medical management. Stable on 1-1/2 L oxygen which is his baseline. Given clinical improvement, will discharge home to complete antibiotics and steroids as an outpatient. Problems addressed as follows: Sepsis: Patient is meeting sepsis criteria with high heart rate, fever, high respiratory rate, and source of pneumonia Community-acquired pneumonia: Positive for parainfluenza COPD exacerbation - Initiated on broad-spectrum antibiotics with Rocephin and azithromycin. Initiated nebulizer therapy every 6 hours. Oxygen weaned to patient's baseline 1-1/2 L. White count improved to 12.8 by morning of discharge. Hemodynamics improved. Comprehensive respiratory panel positive for parainfluenza. Blood cultures remain negative at this time. Given his clinical improvement, will transition to cefdinir and azithromycin to complete 5-day course of antibiotics. Continue steroids for 3 more days with prednisone 40 mg daily to complete 5 days for COPD exacerbation component. Overall doing better. Continue baseline oxygen. Follow-up with PCP within the next week to monitor for resolution of symptoms. Counseled on typical time course for viral respiratory illness to improve. Hypervolemia HFrEF: No overt signs of failure or decompensation -40 mg Lasix p.o. daily. Appeared euvolemic on day of discharge Diabetes -Sliding scale insulin AC and at bedtime with mild scale coverage. Glucose 171 on morning of discharge. A1c obtained at 7.9. Resume home regimen. Needs follow-up with PCP to discuss further adjustments to diabetes regimen. Exam Data for Last 24 hours Vital signs and Labs for Last 24 Hours: Temp Pulse Resp BP Pulse Ox O2 Del Method O2 Flow Rate 98 F 91 H 16 136/75 93 L Nasal Cannula 1.5 11/07/24 04:00 11/07/24 04:00 11/07/24 04:00 11/07/24 04:00 11/07/24 04:00 11/07/24 07:00 11/07/24 07:00 FiO2 28 11/06/24 19:05 Laboratory Results - last 24 hr 11/06/24 06:34: Sodium 137, Potassium 3.7, Chloride 102, Carbon Dioxide 26, Anion Gap 12.7, BUN 14, Creatinine 0.80, Estimated Creat Clear 83, Estimated GFR 94, Est GFR ( Amer) 114, Glucose 280 H D, Calcium 8.6, Troponin I 0.02 11/06/24 12:00: Troponin I 0.02 11/06/24 12:09: POC Glucose 262 H 11/06/24 16:59: POC Glucose 171 H 11/06/24 17:55: Troponin I 0.02 11/06/24 20:09: POC Glucose 174 H 11/07/24 06:01: POC Glucose 154 H 11/07/24 06:05: WBC 12.8 H, RBC 4.39 L, Hgb 13.1 L, Hct 39.8 L, MCV 90.7, MCH 29.8, MCHC 32.9, RDW 12.7, Plt Count 168, MPV 9.3, Neut % (Auto) 80.8 H, Lymph % (Auto) 12.3, [place] % (Auto) 6.3, Eos % (Auto) 0.1, Baso % (Auto) 0.2, Neut # (Auto) 10.3 H, Lymph # (Auto) 1.6, [place] # (Auto) 0.8, Eos # (Auto) 0.0, Baso # (Auto) 0.0, Sodium 138, Potassium 4.2, Chloride 102, Carbon Dioxide 29, Anion Gap 11.2, BUN 19 D, Creatinine 0.80, Estimated Creat Clear 81, Estimated GFR 94, Est GFR ( Amer) 114, Glucose 171 H D, Calcium 8.6 I & O for Last 24 hours: Intake & Output 11/04/24 11/05/24 11/06/24 11/07/24 23:59 23:59 23:59 23:59 Intake Total 2350 / 2700 350 / 350 Output Total 1200 / 1200 750 / 750 Balance 1150 / 1500 -400 / -400 Weight 90.718 kg 91.898 kg 90.129 kg Microbiology Reports for the Last 24 Hours: Microbiology 11/05/24 22:50 Blood Blood Culture - Preliminary NO GROWTH AFTER 24 HOURS 11/05/24 22:45 Blood Blood Culture - Preliminary NO GROWTH AFTER 24 HOURS Constitutional Constitutional: no acute distress, obese, chronically ill appearing and cooperative *Routine HEENT Exam Head: Present normocephalic Eye: Present EOMI and PERRL ENT: Present mucous membranes moist *Routine Neck Exam Neck: Present supple; Absent lymphadenopathy *Routine Respiratory Exam Respiratory: Present prolonged expiratory phase and wheezes; Absent respiratory distress, rhonchi or crackles *Routine Cardiovascular Exam Cardiovascular: Present RRR *Routine Abdominal Exam Abdominal: Present soft and normoactive bowel sounds; Absent tenderness *Routine Rectal Exam Patient deferred: visual exam *Routine Exam Patient deferred: penile exam *Routine Extremities Exam Extremities: Absent cyanosis, clubbing or edema *Routine Skin Exam Skin: Present intact and warm; Absent rash *Routine Neurological Exam Neurological: Present alert, oriented X3 and moving all extremities; Absent altered mental status Results Data Completed and Pending Labs on day of discharge: Labs from last 24 hours 11/07/24 11/07/24 11/06/24 06:05 06:01 20:09 WBC 12.8 H RBC 4.39 L Hgb 13.1 L Hct 39.8 L MCV 90.7 MCH 29.8 MCHC 32.9 RDW 12.7 Plt Count 168 MPV 9.3 Neut % (Auto) 80.8 H Lymph % (Auto) 12.3 [place] % (Auto) 6.3 Eos % (Auto) 0.1 Baso % (Auto) 0.2 Neut # (Auto) 10.3 H Lymph # (Auto) 1.6 [place] # (Auto) 0.8 Eos # (Auto) 0.0 Baso # (Auto) 0.0 Sodium 138 Potassium 4.2 Chloride 102 Carbon Dioxide 29 Anion Gap 11.2 BUN 19 D Creatinine 0.80 Estimated Creat Clear 81 Estimated GFR 94 Est GFR ( Amer) 114 Glucose 171 H D POC Glucose 154 H 174 H Calcium 8.6 Troponin I 11/06/24 11/06/24 11/06/24 17:55 16:59 12:09 WBC RBC Hgb Hct MCV MCH MCHC RDW Plt Count MPV Neut % (Auto) Lymph % (Auto) [place] % (Auto) Eos % (Auto) Baso % (Auto) Neut # (Auto) Lymph # (Auto) [place] # (Auto) Eos # (Auto) Baso # (Auto) Sodium Potassium Chloride Carbon Dioxide Anion Gap BUN Creatinine Estimated Creat Clear Estimated GFR Est GFR ( Amer) Glucose POC Glucose 171 H 262 H Calcium Troponin I 0.02 11/06/24 11/06/24 12:00 06:34 WBC RBC Hgb Hct MCV MCH MCHC RDW Plt Count MPV Neut % (Auto) Lymph % (Auto) [place] % (Auto) Eos % (Auto) Baso % (Auto) Neut # (Auto) Lymph # (Auto) [place] # (Auto) Eos # (Auto) Baso # (Auto) Sodium 137 Potassium 3.7 Chloride 102 Carbon Dioxide 26 Anion Gap 12.7 BUN 14 Creatinine 0.80 Estimated Creat Clear 83 Estimated GFR 94 Est GFR ( Amer) 114 Glucose 280 H D POC Glucose Calcium 8.6 Troponin I 0.02 0.02 Preliminary micro results at discharge 11/05/24 22:50 Blood Culture - Preliminary Blood NO GROWTH AFTER 24 HOURS 11/05/24 22:45 Blood Culture - Preliminary Blood NO GROWTH AFTER 24 HOURS DS: Diagnosis Discharge Diagnosis (1) Pneumonia: Status: Acute Code(s): J18.9 - Pneumonia, unspecified organism Qualifiers: Laterality: unspecified laterality Lung location: unspecified part of lung Pneumonia type: due to unspecified organism Qualified Code(s): J18.9 - Pneumonia, unspecified organism (2) Sepsis: Status: Acute Code(s): A41.9 - Sepsis, unspecified organism Qualifiers: Acute respiratory failure type: with hypoxia Sepsis acute organ dysfunction status: with acute organ dysfunction Sepsis type: sepsis due to unspecified organism Severe sepsis acute organ dysfunction type: acute respiratory failure Severe sepsis shock status: without septic shock Qualified Code(s): A41.9 - Sepsis, unspecified organism; R65.20 - Severe sepsis without septic shock; J96.01 - Acute respiratory failure with hypoxia (3) Acute hypoxic respiratory failure: Status: Acute Code(s): J96.01 - Acute respiratory failure with hypoxia (4) Leukocytosis: Status: Acute Code(s): D72.829 - Elevated white blood cell count, unspecified Qualifiers: Leukocytosis type: unspecified Qualified Code(s): D72.829 - Elevated white blood cell count, unspecified (5) Elevated d-dimer: Status: Acute Code(s): R79.89 - Other specified abnormal findings of blood chemistry (6) Diabetes mellitus: Status: Acute Code(s): E11.9 - Type 2 diabetes mellitus without complications Qualifiers: Diabetes mellitus complication status: with hyperglycemia 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 mellitus 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 exterminator helper insulin use: without termite exterminator helper use Diabetes mellitus type: type 2 Qualified Code(s): E11.65 - Type 2 diabetes mellitus with hyperglycemia (7) Hypervolemia: Status: Acute Code(s): E87.70 - Fluid overload, unspecified Qualifiers: Hypervolemia type: unspecified Qualified Code(s): E87.70 - Fluid overload, unspecified (8) Fever: Status: Acute Code(s): R50.9 - Fever, unspecified Qualifiers: Fever type: unspecified Qualified Code(s): R50.9 - Fever, unspecified Meds Home Medications and Allergies Home Medications ?Medication ?Instructions ?Recorded ?Confirmed ?Type amlodipine 10 mg tablet 10 mg PO DAILY 11/13/23 11/06/24 History clopidogrel 75 mg tablet 75 mg PO DAILY 11/13/23 11/06/24 History furosemide 40 mg tablet 40 mg PO DAILY 11/13/23 11/06/24 History glyburide 5 mg tablet 5 mg PO BID 11/13/23 11/06/24 History ipratropium 0.5 mg-albuterol 3 mg 3 ml inhalation QIDP PRN Shortness 11/13/23 11/06/24 History (2.5 mg base)/3 mL nebulization Of Breath soln aspirin 81 mg tablet,delayed 81 mg PO DAILY 30 days #30 tabs 11/16/23 11/06/24 Rx release famotidine 20 mg tablet (Pepcid) 20 mg PO DAILY #30 tabs 09/29/24 11/06/24 Rx metoprolol tartrate 100 mg tablet 100 mg PO BID 11/06/24 11/06/24 History rosuvastatin 40 mg tablet 40 mg PO HS 11/06/24 11/06/24 History azithromycin 250 mg tablet 250 mg PO 2100 3 days #3 tabs 11/07/24 Rx cefdinir 300 mg capsule 300 mg PO BID #6 caps 11/07/24 Rx metformin 1,000 mg tablet 1,000 mg PO BIDWMEAL #60 tabs 11/07/24 Rx prednisone 20 mg tablet 40 mg (2 x 20 mg) PO DAILY 3 days 11/07/24 Rx #6 tabs New Prescriptions to Start Prescriptions: Declan Chang cefdinir Declan Milan metformin Declan Milan prednisone Declan Milan Allergies Allergy/AdvReac Type Severity Reaction Status Date / Time lisinopril Allergy Headache Verified 09/29/24 16:55 Discharge Plan Disposition Patient Disposition: Home, Self-Care Condition: Fair Discharge Order Discharge Orders: Discharge Order (Routine); Ordered 11/07/24 Ordered By: Declan Milan Follow up Plan Follow up with: Provider,Referral, MD [Primary Care Provider, Medical] - Enter time for follow up Prescriptions/Medication Reconciliation: New prednisone 20 mg Tablet 40 mg PO DAILY 3 Days Qty: 6 0RF azithromycin 250 mg Tablet 250 mg PO 2100 3 Days Qty: 3 0RF cefdinir 300 mg capsule 300 mg PO BID Qty: 6 0RF metformin 1,000 mg tablet 1,000 mg PO BIDWMEAL Qty: 60 0RF Continued famotidine [Pepcid] 20 mg tablet 20 mg PO DAILY Qty: 30 0RF furosemide 40 mg tablet 40 mg PO DAILY ipratropium-albuterol 0.5 mg-3 mg(2.5 mg base)/3 mL solution for nebulization 3 ml INHALATION QIDP PRN (Reason: Shortness Of Breath) glyburide 5 mg tablet 5 mg PO BID clopidogrel 75 mg tablet 75 mg PO DAILY amlodipine 10 mg tablet 10 mg PO DAILY aspirin 81 mg Tablet,Delayed Release (Dr/Ec) 81 mg PO DAILY 30 Days Qty: 30 0RF metoprolol tartrate 100 mg tablet 100 mg PO BID rosuvastatin 40 mg tablet 40 mg PO HS Problem Reconciliation Problems Reviewed?: Yes Patient Discharge Instructions ACTIVITY: Continue current activity DIET: continue same diet Patient Instructions: DI for Chronic Obstructive Pulmonary Disease, DI for Pneumonia -- Adult, Stop Light COPD, Stop Light Infection Print Language: Yi Providers Primary Care Provider: Provider,Referral Admit Provider: Declan Milan Attending Provider: Declan Milan
[2024-11-07 08:00] VITALS: BP 141/81; PULSE 88; PULSE 90; RESP 18; TEMP 36.6; O2SAT 95
[2024-11-07] MEDS: guaiFENesin 600 MG TAB.ER.12H PO (08:08)
[2024-11-07] MEDS: METFORMIN 500MG TABLET 1000 MG PO (08:08)
[2024-11-07] MEDS: ASPIRIN EC 81MG TABLET 81 MG PO (08:08)
[2024-11-07] MEDS: CLOPIDOGREL 75MG TAB 75 MG PO (08:08)
[2024-11-07] MEDS: METOPROLOL SUCCINATE XL 50MG TABLET 50 MG PO (08:08)
[2024-11-07] MEDS: FUROSEMIDE 40 MG TABLET PO (08:08)
--- NOTE | 2024-11-07 08:16 | PC.NURSE ---
Addendum entered by Angelika Chaidez RN 11/07/24 08:16: placed pt back on 1.5l with o2 sats 95% Original Note: ra o2 sat 88-89%
[2024-11-07 09:23] LABS: Hemoglobin A1C 7.9 % (4.0-6.0)
--- NOTE | 2024-11-09 10:32 | SW/DCPLANNER ---
Phoned patient x2. Patient's number has calling restrictions and was not able to call or leave message. Marsha Alcala
== END 2024-11-07 10:58 | disposition home or self-care (01) ==
LOC: ER 21:46 → 2ND 11-06 01:00
PROVIDERS: Nurse Practitioner Family; Admitting Provider Internal Medicine Adolescent Medicine; Emergency Provider Student in an Organized Health Care Education/Training Program; Visit Provider Internal Medicine Adolescent Medicine
DX: J44.1 Chronic obstructive pulmonary disease with (acute) exacerbation (principal); J96.01 Acute respiratory failure with hypoxia; J12.2 Parainfluenza virus pneumonia; A41.9 Sepsis, unspecified organism; I11.0 Hypertensive heart disease with heart failure; I50.20 Unspecified systolic (congestive) heart failure; I25.10 Atherosclerotic heart disease of native coronary artery without angina pectoris; R65.20 Severe sepsis without septic shock; E66.9 Obesity, unspecified; E11.65 Type 2 diabetes mellitus with hyperglycemia; K21.9 Gastro-esophageal reflux disease without esophagitis; I25.2 Old myocardial infarction; R79.89 Other specified abnormal findings of blood chemistry; I45.2 Bifascicular block; Z95.5 Presence of coronary angioplasty implant and graft; Z90.2 Acquired absence of lung [part of]; Z88.8 Allergy status to other drugs, medicaments and biological substances; Z95.1 Presence of aortocoronary bypass graft; Z79.84 Long term (current) use of oral hypoglycemic drugs; Z68.31 Body mass index [BMI] 31.0-31.9, adult; Z79.02 Long term (current) use of antithrombotics/antiplatelets; Z79.82 Long term (current) use of aspirin; Z79.51 Long term (current) use of inhaled steroids; Z79.899 Other long term (current) drug therapy
CPT/HCPCS: 0223U; 36415; 71046; 80048; 80053; 82803; 82962; 83036; 83690; 83735; 83880; 84484; 85007; 85025; 85027; 85378; 87040; 93005; 94640; 96361; 96365; 96367; 96372; 96375; 96376; 99285; G0378; J0456; J0696; J1650; J1885; J1938; J2919; J3475; J7030; J7050

== ENCOUNTER 2024-11-24 00:47 | Inpatient (IN) | payer MEDICARE, SELFPAY ==
[2024-11-24] VITALS (21 sets, daily range): BP systolic 100–130; BP diastolic 43–71; PULSE 50–89; RESP 12–20; TEMP 36.1–36.8; O2SAT 90–98; BMI 29.4; BMI 29.2
--- NOTE | 2024-11-24 00:53 | PC.NURSE ---
pt arrived to floor with ems at this time
--- NOTE | 2024-11-24 01:40 | ECG_ITS ---
APPROVED REPORT Exam: Resting ECG HR:70 bpm ECG Measurements Heart Rate 70 AXES MI 161 P 93 QRSd 113 QRS -65 QT 399 T 214 QTc 419 Conclusion SINUS RHYTHM PATTERN CONSISTENT WITH PULMONARY DISEASE RIGHT BUNDLE BRANCH BLOCK [120+ ms QRS DURATION, UPRIGHT V1, 40+ ms S IN I/aVL/V4/V5/V6] LEFT ANTERIOR FASCICULAR BLOCK [QRS AXIS <= -45, QR IN I, RS IN II] ABNORMAL ECG UNCONFIRMED REPORT Electronically signed by : Cheo Pena MD 11/24/2024 07:49:37
[2024-11-24] MEDS: MORPHINE 2MG/ML SYRINGE 2 MG IV (01:53)
[2024-11-24] MEDS: ALUMINUM/MAGNESIUM/SIMETHICONE 30ML UDC 30 ML PO (01:53)
--- NOTE | 2024-11-24 04:03 | PC.NURSE ---
Alert and oriented. Complained of severe epigastric pain this shift, treated per diana, Piero aware. No other complaints since arriving to the floor. No edema noted. Left lung clear, right lung diminished. 2L NC, patient states he uses 2L at night and CPAP. NSR on tele. Call light in reach.
--- NOTE | 2024-11-24 05:03 | EXP.HP ---
History of Present Illness *Admission Date: 11/24/24 *Reason for visit:: NSTEMI *History of present illness: Patient is a 74-year-old male with past medical history of COPD CAD who presents to the hospital as a transfer from outside facility due to complaints of epigastric abdominal pain, chest pain. According to the patient he has been having abdominal discomfort and shortness of breath as well as chest tightness. Patient mentions he has a history of significant COPD mild physical activity makes him short of breath but his abdomen and chest are tight. On further evaluation he was noticed to have elevated troponins, cardiology was consulted from [facility], who recommended transfer to the [facility]. Patient at time of my evaluation denies fever chills diarrhea constipation dysuria, he mentions he has been having regular bowel movements. [facility] Disclaimer: The information contained in this section may have been updated after the patient was seen, as this information can be updated by other users. Medical History (Updated 11/24/24 @ 05:09 by Sue Harry MD) Osteoarthritis History of gastroesophageal reflux (GERD) Diabetes mellitus, type 2 Heart failure Hypertension Asthma COPD (chronic obstructive pulmonary disease) Sciatic nerve injury Surgical History (Updated 11/24/24 @ 01:21 by Rosmery Davis RN) H/O heart artery stent H/O cardiac catheterization H/O hernia repair S/P lobectomy of lung Hx of CABG Social History (Updated 11/24/24 @ 01:21 by Rosmery Davis RN) Smoking Status: Never smoker alcohol intake: never current occupational status: previously employed Travel in the last 8 weeks?: Inside the [place] Have you lived/traveled outside [place] in past 30 days?: No Contact w/someone who lives/traveled outside US past 30 days?: No Exposure to someone with infectious disease in past 14 days?: No Do you have a fever (greater than 100.4 F or 38 C)?: No Have you tested positive for COVID-19?: No Exposed to someone with COVID-19 in past 14 days?: No Do you have a sore throat?: No Do you have a cough?: No Do you have any weakness?: No Are you experiencing any nausea/vomitting?: No Do you have any diarrhea?: No Are you experiencing any unusual bleeding?: No Do you have any muscle aches/pain?: No Do you have any abdominal pain?: No Are you experiencing loss of taste or smell?: No Other Medical History Have you received the Flu Vaccine for this season: No Have you received the Pneumonia Vaccine: No Review of Systems Review of Systems Review of systems:: pertinent systems reviewed and negative unless documented below Meds Home Medications and Allergies Home Medications ?Medication ?Instructions ?Recorded ?Confirmed ?Type amlodipine 10 mg tablet 10 mg PO DAILY 11/13/23 11/24/24 History clopidogrel 75 mg tablet 75 mg PO DAILY 11/13/23 11/24/24 History furosemide 40 mg tablet 40 mg PO DAILY 11/13/23 11/24/24 History glyburide 5 mg tablet 5 mg PO BID 11/13/23 11/24/24 History ipratropium 0.5 mg-albuterol 3 mg 3 ml inhalation QIDP PRN Shortness 11/13/23 11/24/24 History (2.5 mg base)/3 mL nebulization Of Breath soln aspirin 81 mg tablet,delayed 81 mg PO DAILY 30 days #30 tabs 11/16/23 11/24/24 Rx release famotidine 20 mg tablet (Pepcid) 20 mg PO DAILY #30 tabs 09/29/24 11/24/24 Rx metoprolol tartrate 100 mg tablet 100 mg PO BID 11/06/24 11/24/24 History rosuvastatin 40 mg tablet 40 mg PO HS 11/06/24 11/24/24 History metformin 1,000 mg tablet 1,000 mg PO BIDWMEAL #60 tabs 11/07/24 11/24/24 Rx New Prescriptions to Start Prescriptions: Allergies Allergy/AdvReac Type Severity Reaction Status Date / Time lisinopril Allergy Headache Verified 09/29/24 16:55 Exam Data for Last 24 hours Vital signs and Labs for Last 24 Hours: Temp Pulse Resp BP Pulse Ox O2 Del Method O2 Flow Rate 98.3 F 89 20 130/71 94 L Nasal Cannula 2 11/24/24 01:17 11/24/24 01:17 11/24/24 01:17 11/24/24 01:17 11/24/24 01:17 11/24/24 02:48 11/24/24 02:48 I & O for Last 24 hours: Intake & Output 11/21/24 11/22/24 11/23/2425 23:59 23:59 23:59 23:59 Weight 87.861 kg Constitutional Constitutional: no acute distress *Routine HEENT Exam Head: Present normocephalic Eye: Present EOMI and PERRL ENT: Present mucous membranes moist *Routine Neck Exam Neck: Present supple; Absent lymphadenopathy *Routine Respiratory Exam Respiratory: Present CTA bilaterally *Routine Cardiovascular Exam Cardiovascular: Present RRR *Routine Abdominal Exam Abdominal: Present soft and normoactive bowel sounds; Absent tenderness *Routine Rectal Exam Rectal:: deferred *Routine Genitalia Exam Genitalia:: deferred *Routine Extremities Exam Extremities: Absent cyanosis, clubbing or edema *Routine Skin Exam Skin: Present warm; Absent rash *Routine Neurological Exam Neurological: Present alert and oriented X3 Assessment and Plan *Assessment and plan (1) NSTEMI (non-ST elevated myocardial infarction): Status: Acute Category: Medical Code(s): I21.4 - Non-ST elevation (NSTEMI) myocardial infarction (2) CAD (coronary artery disease): Status: Acute Category: Medical Code(s): I25.10 - Atherosclerotic heart disease of [place] coronary artery without angina pectoris (3) Diabetes mellitus: Status: Acute Qualifiers: Diabetes mellitus type: type 2 Diabetes mellitus terminal operator insulin use: without retirement use Diabetes mellitus complication status: with hyperglycemia Qualified Code(s): E11.65 - Type 2 diabetes mellitus with hyperglycemia Category: Medical Code(s): E11.9 - Type 2 diabetes mellitus without complications (4) COPD (chronic obstructive pulmonary disease): Status: Acute Category: Medical Code(s): J44.9 - Chronic obstructive pulmonary disease, unspecified Plan Patient is a 74-year-old male with past medical history of COPD CAD who presents to the hospital as a transfer from outside facility due to complaints of epigastric abdominal pain, chest pain. According to the patient he has been having abdominal discomfort and shortness of breath as well as chest tightness. Patient mentions he has a history of significant COPD mild physical activity makes him short of breath but his abdomen and chest are tight. On further evaluation he was noticed to have elevated troponins, cardiology was consulted from [facility], who recommended transfer to the [facility]. Patient at time of my evaluation denies fever chills diarrhea constipation dysuria, he mentions he has been having regular bowel movements. Assessment and plan Chest pain, chest tightness elevated troponin suspect NSTEMI Monitor on cardiac telemetry Consult cardiology Started on therapeutic Lovenox Order echocardiogram Monitor troponin Resume home aspirin, Plavix, metoprolol, rosuvastatin COPD Ordered DuoNebs as needed DM type 2 order ISS Abdominal discomfort Order x-ray KUB DVT prophylaxis-on therapeutic Lovenox
[2024-11-24 05:04] LABS: Chloride 97 mmol/L (98-107); Potassium 5.2 mmoL/L (3.5-5.1); Sodium 136 mmol/L (136-145)
[2024-11-24 05:07] LABS: Blood Urea Nitrogen 18 mg/dl (9-20); Creatinine Clearance Estimated 66 mL/min (50-200); Creatinine,Serum 1.20 mg/dl (0.66-1.25); Estimated Glomerular Filt Rate 59 ml/min (>60); GFR (African American) 71 ML/MIN (>60)
--- NOTE | 2024-11-24 05:07 | CA_ITS ---
APPROVED REPORT EXAM: Comprehensive 2D, Doppler, and color-flow Echocardiogram Building Cleaning Supervisor: LUZ MARINA Burns, RVS Ht: 5 ft 8 in Wt: 193lbs BSA: 2.01 BP: 130/70 mmHg Indications: CAD, NSTEMI, Abdominal pain, SOB, CABG-stents, Asthma 2D Dimensions Left Atrium 4.84 cm LA Volume 23.80 mL LA Volume Index 11.069419 mL/m2 (M/F) 16-34 M-Mode Dimensions RVDd 3.54 cm (0.9-2.6) LA Diam 5.21 cm (1.9-4.0) LVDd 4.83 cm (3.5-5.7) LVDs 3.46 cm (3.5-5.7) IVSd 1.37 cm (0.6-1.1) PWd 1.09 cm (0.6-1.1) EF (Teich) 54.60% EPSs 0.77 cm FS 28.40% EDV (Teich) 109.10 mL TAPSE 1.27 (<1.7) ESV (Teich) 49.50 mL LV Diastology E Decel Time 267 (160-240 msec) E/A Ratio 1.21 MED A' 5.80 cm/s LAT A' 7.60 cm/s Aortic Valve KAMRON Index 0.85 cm2/m2 AoV Peak Stone. 142.0 (50-130 cm/s) AO Peak GR. 8.10 mmHg AO Mean GR. 4.10 (<5 mmHg) AO VTI 29.5 (18-25 cm) KAMRON (VTI) 1.76 (2.5-4.5 cm2) Mitral Valve MV A Velocity 64.0 (40-130 cm/s) E/A Ratio 1.21 Left Ventricle The left ventricle is normal size. Left ventricular systolic function is normal. The left ventricular ejection fraction is within the normal range. There is increased left ventricular wall thickness. There is normal LV segmental wall motion. The left ventricular diastolic function is normal. LVEF is 55% Right Ventricle The right ventricle is normal size. The right ventricular systolic function is normal. Atria The left atrium size is normal. The right atrium size is normal. There is no color Doppler evidence of interatrial shunt. Aortic Valve The aortic valve opens well. There is no hemodynamically significant aortic valvular stenosis. No aortic regurgitation is present. Mitral Valve The mitral valve is normal in structure. No evidence of mitral valve stenosis. Trace mitral regurgitation is present. Tricuspid Valve The tricuspid valve leaflets are thin and pliable. Trace tricuspid regurgitation. There is insufficient TR jet to estimate RVSP. Pulmonic Valve The pulmonary valve is grossly normal in structure. Trace pulmonic valve regurgitation is present. Great Vessels The aortic root is normal in size. IVC is normal in size and collapses >50% with inspiration. Pericardium There is no pericardial effusion. Other Information Study Quality: Fair Conclusion Normal biventricular systolic function. No significant valvular stenosis or regurgitation. Electronically signed by : More Ring MD 11/24/2024 14:46:34
[2024-11-24 05:08] LABS: Anion Gap 12.2 mEq/L (5-15); Calcium 9.1 mg/dl (8.4-10.2); Carbon Dioxide 32 mmol/L (22.0-30.0); Glucose 197 mg/dl (74-100)
[2024-11-24 05:20] LABS: Troponin I 0.02 ng/ml (0.00-0.034)
[2024-11-24 05:35] LABS: Hematocrit 41.1 % (42.0-52.0); Hemoglobin 14.1 g/dL (14.1-18.0); Immature Granulocytes % 0.4 %; Mean Corpuscular HGB Conc 34.3 g/dL (31.8-35.4); Mean Corpuscular Hemoglobin 30.4 pg (27.0-31.2); Mean Corpuscular Volume 88.6 fl (80-94); Nucleated Red Blood Cells % 0 %; Platelet Count 241 K/mm3 (142-424); Red Blood Count 4.64 M/mm3 (4.60-6.20); Red Cell Distribution Width-SD 41.1 fL; White Blood Count 11.4 K/mm3 (4.8-10.8)
[2024-11-24] MEDS: humaLOG 100 UNITS/ML 10ML VIAL (SSI) SUBCUT (05:38)
[2024-11-24] MEDS: FUROSEMIDE 40 MG TABLET PO (08:51)
[2024-11-24] MEDS: FAMOTIDINE 20MG TABLET 20 MG PO (08:51)
[2024-11-24] MEDS: CLOPIDOGREL 75MG TAB 75 MG PO (08:51)
[2024-11-24] MEDS: ASPIRIN EC 81MG TABLET 81 MG PO (08:51)
--- NOTE | 2024-11-24 08:56 | XR_ITS ---
FINAL REPORT TECHNIQUE: Single view chest CLINICAL HISTORY: chest pain COMPARISON: No prior exams submitted for comparison. FINDINGS: A single view of the chest was obtained. The heart and mediastinum are within normal limits. There is a right base opacity with small right pleural effusion. Pneumonia not excluded. There is no pneumothorax. IMPRESSION: Right base opacity with small right pleural effusion. Pneumonia not excluded. Reviewed, Interpreted and Dictated by Shayy Narayanan MD Transcribed by Lauren Bryson Authenticated and . [facility]
[2024-11-24 09:25] LABS: NT Pro Brain Natriuretic Pep. 249 pg/mL (0-450)
--- NOTE | 2024-11-24 09:30 | HMH.PHAINT1 ---
Pharmacy Intervention Comments: MEDICATION RECONCILIATION COMPLETED ON PATIENT USING EXTERNAL FILL HISTORY FROM PHARMACY AND DISCHARGE SUMMARY FROM PREVIOUS ADMISSION. -LEANA HU, ALONSOD
[2024-11-24 09:45] LABS: Troponin I 0.01 ng/ml (0.00-0.034)
--- NOTE | 2024-11-24 10:14 | IR_ITS ---
APPROVED REPORT Patient Location: Inpatient PROCEDURES Left heart catheterization Left ventriculogram Selective coronary angiogram Selective engagement of the left internal mammary artery to the diagonal artery Selective engagement of the saphenous vein graft to the circumflex artery Drug-eluting stent deployment to the proximal circumflex artery extending into the large proximal first obtuse marginal artery INDICATION Coronary artery disease, Acute non-ST elevation myocardial infarction, History of coronary bypass surgery Informed consent was obtained prior to the procedure. COMPLICATIONS none Estimated Blood Loss: less than 10ml TECHNIQUE One percent lidocaine used to anesthetize the right groin. The right femoral artery was accessed via the Seldinger technique and a 5 Singaporean sheath was placed in the right femoral artery. A JL 4, JR4 catheter were used to perform left heart catheterization, left ventriculogram selective coronary angiography as well as selective engagement of the solitary vein graft and the left internal mammary artery. At the end the diagnostic angiogram therapeutic heparin was administered giving a therapeutic ACT and the 5 Singaporean sheath was exchanged for a 6 Singaporean sheath. A JL 3.5 guide catheter was placed in left main artery followed by Choice PT extra-support wire placed into the first obtuse marginal artery. A guide liner was advanced and a 2.75 x 12 mm noncompliant balloon was deployed in the ostial segment of the first obtuse marginal artery at 20 willis to predilate. Following this a 2.5 x 26 mm Sebastián frontier stent was placed in the proximal circumflex artery extending into the obtuse marginal artery and deployed at 20 willis reducing the critical stenosis. ADRIANA-3 flow was present before and after the procedure. At the end the procedure the apparatus was removed the groin is reprepped closure change sheath was removed and hemostasis was achieved using Perclose device patient transferred to the postop boarding in stable condition ANGIOGRAPHIC RESULTS The left main artery Has a stent in the ostial segment which extends into the LAD and circumflex artery. The entire stent is widely patent The left anterior descending artery Has an ostial 40% stenosis followed by mid vessel 40 and 50% stenoses. The circumflex artery Large dominant vessel and has a stent in the proximal segment. The first obtuse marginal artery has a proximal concentric greater than 90% in-stent restenotic lesion. The remaining circumflex artery is widely patent The right coronary artery Is large and co-dominant with stents in the proximal to mid segment which are widely patent free of in-stent restenosis. Distal to the stent is a 30 to 40% stenosis The NIETO ventriculogram reveals Preserved 55% The left ventricular end-diastolic pressure 15 mmHg ALCARAZ to first diagonal artery is widely patent Saphenous to circumflex artery ostially occluded IMPRESSION Coronary artery disease as described above Successful stenting of the proximal circumflex artery extending into the large proximal first obtuse marginal artery severe to critical disease reduced to 0% with 1 drug-eluting stent Preserved ejection fraction Patent ALCARAZ to first diagonal artery Occluded saphenous vein graft Normal LVEDP PLAN 1. Dual antiplatelet therapy 2. Cardiac rehabilitation 3. Avoidance of tobacco products 4. LDL less than 55 to be achieved with high intensity statin 5. Medical management for coronary disease Electronically signed by : Hector Lucio MD 11/24/2024 14:16:58
[2024-11-24] MEDS: BELLADONNA ALKALOIDS 60 ML ML PO (10:21)
--- NOTE | 2024-11-24 10:21 | EXP.CARD.CON ---
History of Present Illness History of Present Illness Consult date: 11/24/24 Requesting physician: Declan Milan Consult reason: chest pain Chief complaint: chest pain History of present illness: This is a 74-year-old white gentleman presented to the emergency department at [facility] with complaints of chest pain and was subsequently transferred here to [facility] due to an elevated high-sensitivity troponin. The patient states that he started having chest pain around lunchtime yesterday. He describes this as a burning, epigastric pain that was also associated with chest tightness and sharp pain in the left side of his chest. He states that the symptoms got severe and because he could not get the burning to resolve he decided to come into the emergency department. He states that some of the pain did radiate into his abdomen as well. He states the symptoms are similar to his previous symptoms when he had an NE. At [facility] he was found to have an elevated high-sensitivity troponin and was transferred here. Here the patient's troponin is negative. He reports that he still has some mild burning in the epigastric region this morning and some sharp pains in the left side of his chest still. He states that it is much improved but still has not resolved. He states that his chest pain is associated with shortness of breath. Worse with exertion and improves with rest but does not resolve. He denies any lower extremity edema. He denies any fever, chills, nausea, vomiting, diarrhea, PND, or orthopnea [facility] Disclaimer: The information contained in this section may have been updated after the patient was seen, as this information can be updated by other users. Medical History (Updated 11/24/24 @ 10:25 by Amberly Crews APRN) Hyperlipidemia Elevated troponin Unstable angina Osteoarthritis History of gastroesophageal reflux (GERD) Diabetes mellitus, type 2 Heart failure Hypertension Asthma COPD (chronic obstructive pulmonary disease) Sciatic nerve injury Surgical History (Updated 11/24/24 @ 10:25 by Amberly Crews APRN) Hx of CABG H/O heart artery stent H/O cardiac catheterization H/O hernia repair S/P lobectomy of lung Social History (Updated 11/24/24 @ 01:21 by Rosmery Davis RN) Smoking Status: Never smoker alcohol intake: never current occupational status: previously employed Travel in the last 8 weeks?: Inside the [place] Have you lived/traveled outside US in past 30 days?: No Contact w/someone who lives/traveled outside US past 30 days?: No Exposure to someone with infectious disease in past 14 days?: No Do you have a fever (greater than 100.4 F or 38 C)?: No Have you tested positive for COVID-19?: No Exposed to someone with COVID-19 in past 14 days?: No Do you have a sore throat?: No Do you have a cough?: No Do you have any weakness?: No Are you experiencing any nausea/vomitting?: No Do you have any diarrhea?: No Are you experiencing any unusual bleeding?: No Do you have any muscle aches/pain?: No Do you have any abdominal pain?: No Are you experiencing loss of taste or smell?: No Review of Systems Review of Systems Review of systems:: pertinent systems reviewed and negative unless documented below Constitutional Constitutional: Reports system reviewed and no additional complaints, except as documented Eyes Eyes: Reports system reviewed and no additional complaints, except as documented ENT Ears, Nose, Mouth, and Throat: Reports system reviewed and no additional complaints, except as documented *Cardiovascular Cardiovascular: Reports system reviewed and no additional complaints, except as documented, Reports chest pain, Reports chest pain with activity, Reports dyspnea and Reports dyspnea on exertion *Respiratory Respiratory: Reports system reviewed and no additional complaints, except as documented, Reports dyspnea and Reports dyspnea on exertion *Gastrointestinal Gastrointestinal: Reports system reviewed and no additional complaints, except as documented, Reports abdominal pain and Reports heartburn *Genitourinary Genitourinary: Reports system reviewed and no additional complaints, except as documented *Musculoskeletal Musculoskeletal: Reports system reviewed and no additional complaints, except as documented Integumentary/Breasts Skin/Breast: Reports system reviewed and no additional complaints, except as documented *Neurologic Neurologic: Reports system reviewed and no additional complaints, except as documented Psychiatric Psychiatric: Reports system reviewed and no additional complaints, except as documented Endocrine Endocrine: Reports system reviewed and no additional complaints, except as documented Hematologic/Lymphatic Hematologic/Lymphatic: Reports system reviewed and no additional complaints, except as documented Allergic/Immunologic Allergic/Immunologic: Reports system reviewed and no additional complaints, except as documented Exam Data for Last 24 hours Vital signs and Labs for Last 24 Hours: Temp Pulse Resp BP Pulse Ox O2 Del Method O2 Flow Rate 97.9 F 56 L 18 104/43 L 96 Nasal Cannula 2 11/24/24 07:53 11/24/24 09:01 11/24/24 07:53 11/24/24 09:01 11/24/24 07:53 11/24/24 09:00 11/24/24 09:00 Laboratory Results - last 24 hr 11/24/24 04:47: WBC 11.4 H, RBC 4.64, Hgb 14.1, Hct 41.1 L, MCV 88.6, MCH 30.4, MCHC 34.3, RDW 12.6, Plt Count 241, MPV 9.5, Neut % (Auto) 77.7, Lymph % (Auto) 13.6, [place] % (Auto) 7.4, Eos % (Auto) 0.5, Baso % (Auto) 0.4, Neut # (Auto) 8.8 H, Lymph # (Auto) 1.6, [place] # (Auto) 0.8, Eos # (Auto) 0.1, Baso # (Auto) 0.1, Sodium 136, Potassium 5.2 H, Chloride 97 L, Carbon Dioxide 32 H, Anion Gap 12.2, BUN 18, Creatinine 1.20, Estimated Creat Clear 66, Estimated GFR 59, Est GFR ( Amer) 71, Glucose 197 H, Calcium 9.1, Troponin I 0.02 11/24/24 08:49: Troponin I 0.01, NT-Pro-B Natriuret Pep 249 I & O for Last 24 hours: Intake & Output 11/21/24 11/22/24 11/23/24 11/24/24 23:59 23:59 23:59 23:59 Weight 193 lb 6 oz Constitutional Constitutional: no acute distress and average body habitus *Routine HEENT Exam Head: Present normocephalic and atraumatic ENT: Present mucous membranes moist *Routine Neck Exam Neck: Present supple, full ROM and normal carotid upstroke; Absent JVD, carotid bruit or lymphadenopathy *Routine Respiratory Exam Respiratory: Present CTA bilaterally, normal respiratory effort, able to speak in complete sentences and symmetric chest movement *Routine Cardiovascular Exam Cardiovascular: Present RRR, Normal S1 and Normal S2; Absent murmur or gallop *Routine Abdominal Exam Abdominal: Present soft and normoactive bowel sounds; Absent tenderness, distended or organomegaly *Routine Extremities Exam Extremities: Present full ROM, pulses intact and normal capillary refill; Absent cyanosis, clubbing or edema *Routine Skin Exam Skin: Present intact and warm; Absent erythema *Routine Neurological Exam Neurological: Present alert, oriented X3 and CN II-XII intact; Absent sensory deficit or motor deficit Routine Psychiatric Exam Psychiatric: Present normal affect Meds Home Medications and Allergies Home Medications ?Medication ?Instructions ?Recorded ?Confirmed ?Type amlodipine 10 mg tablet 10 mg PO DAILY 11/13/23 11/24/24 History clopidogrel 75 mg tablet 75 mg PO DAILY 11/13/23 11/24/24 History furosemide 40 mg tablet 40 mg PO DAILY 11/13/23 11/24/24 History glyburide 5 mg tablet 5 mg PO BID 11/13/23 11/24/24 History ipratropium 0.5 mg-albuterol 3 mg 3 ml inhalation QIDP PRN Shortness 11/13/23 11/24/24 History (2.5 mg base)/3 mL nebulization Of Breath soln aspirin 81 mg tablet,delayed 81 mg PO DAILY 30 days #30 tabs 11/16/23 11/24/24 Rx release famotidine 20 mg tablet (Pepcid) 20 mg PO DAILY #30 tabs 09/29/24 11/24/24 Rx metoprolol tartrate 100 mg tablet 100 mg PO BID 11/06/24 11/24/24 History rosuvastatin 40 mg tablet 40 mg PO HS 11/06/24 11/24/24 History metformin 1,000 mg tablet 1,000 mg PO BIDWMEAL #60 tabs 11/07/24 11/24/24 Rx New Prescriptions to Start Prescriptions: Allergies Allergy/AdvReac Type Severity Reaction Status Date / Time lisinopril Allergy Headache Verified 09/29/24 16:55 Assessment and Plan *Assessment and plan (1) Unstable angina: Status: Acute Category: Medical Code(s): I20.0 - Unstable angina (2) Elevated troponin: Status: Resolved Category: Medical Code(s): R79.89 - Other specified abnormal findings of blood chemistry (3) CAD (coronary artery disease): Status: Acute Qualifiers: Associated angina: with unstable angina Coronary Disease-Associated Artery/Lesion type: [place] artery [place] vs. 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 Diabetes mellitus type: type 2 Qualified Code(s): E11.65 - Type 2 diabetes mellitus with hyperglycemia Category: Medical Code(s): E11.9 - Type 2 diabetes mellitus without complications (5) COPD (chronic obstructive pulmonary disease): Status: Acute Qualifiers: COPD type: unspecified COPD Qualified Code(s): J44.9 - Chronic obstructive pulmonary disease, unspecified Category: Medical Code(s): J44.9 - Chronic obstructive pulmonary disease, unspecified (6) Hypertension: Status: Acute Qualifiers: Hypertension type: primary hypertension Qualified Code(s): I10 - Essential (primary) hypertension Category: Medical Code(s): I10 - Essential (primary) hypertension (7) Hyperlipidemia: Status: Acute Qualifiers: Hyperlipidemia type: mixed hyperlipidemia Qualified Code(s): E78.2 - Mixed hyperlipidemia Category: Medical Code(s): E78.5 - Hyperlipidemia, unspecified (8) Hx of CABG: Status: Acute Category: Surgical Code(s): Z95.1 - Presence of aortocoronary bypass graft Plan Plan: 1. The patient was mated to the hospital from [facility] due to elevated high sensitivity troponin. His troponin here was negative. The patient is having symptoms of unstable angina. Will plan to proceed with left cardiac catheterization to evaluate his coronary artery disease due to his unstable angina, known coronary artery disease, history of CABG and elevated troponin at [facility]. 2. The patient has been educated on the risks and benefits of proceeding with left cardiac catheterization. The patient verbalized understanding and is agreeable in proceeding with the procedure. 3. The patient will be n.p.o. in preparation for left cardiac catheterization. 4. CAD is present. Continue aspirin and Plavix. 5. His blood pressure is well-controlled. Continue amlodipine and metoprolol. 6. His LDL goal is less than 55. He is on a statin. Will get a liver and lipid panel. 7. The patient is diabetic. He needs aggressive control of his diabetes. Will defer to the hospitalist. 8. Will obtain an echocardiogram to evaluate LV function due to unstable angina, shortness of breath and history of cardiomyopathy. 9. Further recommendations will be made pending the patient's response to treatment and the results of his echocardiogram and left cardiac catheterization today. Thank you for the opportunity to help participate in the care of this patient. All recommendations and orders are per Dr. Ring.
[2024-11-24] MEDS: IPRATROPIUM/ALBUTEROL 3 ML NEB IH (11:04)
[2024-11-24] MEDS: BUDESONIDE 0.5MG/2ML NEB 0.5 MG IH (11:04)
[2024-11-24] MEDS: HEPARIN 1,000 UNITS/500ML NS (CATH LAB) 3000 UNIT IV (11:38)
[2024-11-24] MEDS: LIDOCAINE 1% 10ML MDV 10 ML IJ (11:38)
[2024-11-24] MEDS: 0.9 % SODIUM CHLORIDE 500 ML 999 ML IV (11:39)
[2024-11-24] MEDS: HEPARIN 1,000 UNITS/ML 10ML VIAL (CATH LAB) 5000 UNIT IV (12:24)
[2024-11-24] MEDS: FENTANYL 100MCG/2ML VIAL 50 MCG IV (12:24)
[2024-11-24] MEDS: MIDAZOLAM HCL 1MG/ML 5ML VIAL 1 MG IV (12:24)
[2024-11-24 12:57] LABS: Alanine Aminotransferase 31 U/L (12-78); Albumin Level 3.8 g/dl (3.5-5.0); Alkaline Phosphatase 104 U/L (38-126); Aspartate Amino Transferase 24 U/L (17-59); Bilirubin,Direct 0.2 mg/dl (0.0-0.4); Bilirubin,Indirect 0.5 mg/dL (0.0-0.9); Bilirubin,Total 0.7 mg/dl (0.2-1.3); Bilirubin,Unconjugated 0.5 mg/dL (0.0-1.1); Cholesterol 110 mg/dl (140-200); HDL Cholesterol 40 mg/dl (40-60); Total Protein,Serum 6.1 g/dl (6.3-8.2); Triglycerides 132 mg/dl (30-150)
--- NOTE | 2024-11-24 14:19 | P.DS_ITS ---
<Statement entered by Declan Milan MD - 11/24/24 20:13> Rounded on patient after nurse practitioner. Personally examined and interviewed patient. Agree with exam findings and care plan as documented. General Admission date:: 11/24/24 Discharge date: 11/24/24 HPI HPI HPI: Patient is a 74-year-old male with past medical history of COPD CAD who presents to the hospital as a transfer from outside facility due to complaints of epigastric abdominal pain, chest pain. According to the patient he has been having abdominal discomfort and shortness of breath as well as chest tightness. Patient mentions he has a history of significant COPD mild physical activity makes him short of breath but his abdomen and chest are tight. On further evaluation he was noticed to have elevated troponins, cardiology was consulted from [facility], who recommended transfer to the [facility]. Patient at time of my evaluation denies fever chills diarrhea constipation dysuria, he mentions he has been having regular bowel movements. Hospital Course Hospital Course Hospital Course: Mr. Samayoa is a 74-year-old male who has a primary medical history of COPD, CAD with CABG, hypertension, hyperlipidemia, NSTEMI, LHC with intervention, type 2 diabetes, and right lower lobe lobectomy. He presented to [facility] where he was found to have a elevated troponin, patient receives his cardiac care at our facility. Patient was transferred to our facility as a direct admission due to elevated troponin and chest discomfort. On arrival patient complained of chest tightness/epigastric pain. He also complained of shortness of breath, patient wears 2 L nasal cannula as needed and at night. Patient denies cough, congestion, fever, chills, diarrhea, constipation, dysuria. Workup was done at our facility which showed a very slightly elevated troponin of 0.02, patient has remained hemodynamically stable. Cardiology was consulted and recommended a left heart cath due to extensive coronary artery disease and previous interventions needed. Patient was agr eeable and underwent LHC, patient received stenting to the proximal circumflex artery extending into the large proximal first obtuse marginal artery. Patient was noted to have normal LVEDP and normal ejection fraction. Recommendations for dual antiplatelet therapy, cardiac rehab, avoidance of tobacco products, LDL below 55. #Unstable angina #NSTEMI, type I ? Patient assessment reveals he is resting post cath. Right groin cath site clean dry and intact. Patient received 1 stent during heart cath. Continues to remain hemodynamically stable. Patient currently on Plavix 75 mg daily and aspi rin 81 mg daily, continue at discharge. Continue amlodipine 10 mg daily, furosemide 40 mg daily, metoprolol 100 mg twice daily, and rosuvastatin 80 mg daily at discharge. ?Patient should follow-up with cardiology in 1 week for lab work and assessment. #COPD #Chronic hypoxic respiratory failure ? Patient should continue to wear 2 L nasal cannula as needed and at nighttime on discharge. Continue DuoNebs 4 times daily as needed for shortness of breath. #Type 2 diabetes ? Continue metformin 1000 mg twice daily. Patient A1c 10/2024 was 7.9%. #GERD ? Patient initially complained of epigastric pain/discomfort on admission. Patient was given GI cocktail which relieved symptoms. Patient should continue Pepcid 20 mg daily. Total time spent on discharge 32 minutes in counseling, documentation, chart review, and direct care with patient. Exam Data for Last 24 hours Vital signs and Labs for Last 24 Hours: Temp Pulse Resp BP Pulse Ox O2 Del Method O2 Flow Rate 98.1 F 59 L 12 111/65 96 Nasal Cannula 2 11/24/24 13:55 11/24/24 13:55 11/24/24 13:55 11/24/24 13:55 11/24/24 13:55 11/24/24 13:55 11/24/24 13:55 Laboratory Results - last 24 hr 11/24/24 04:47: WBC 11.4 H, RBC 4.64, Hgb 14.1, Hct 41.1 L, MCV 88.6, MCH 30.4, MCHC 34.3, RDW 12.6, Plt Count 241, MPV 9.5, Neut % (Auto) 77.7, Lymph % (Auto) 13.6, Jackson % (Auto) 7.4, Eos % (Auto) 0.5, Baso % (Auto) 0.4, Neut # (Auto) 8.8 H, Lymph # (Auto) 1.6, Jackson # (Auto) 0.8, Eos # (Auto) 0.1, Baso # (Auto) 0.1, Sodium 136, Potassium 5.2 H, Chloride 97 L, Carbon Dioxide 32 H, Anion Gap 12.2, BUN 18, Creatinine 1.20, Estimated Creat Clear 66, Estimated GFR 59, Est GFR ( Amer) 71, Glucose 197 H, Calcium 9.1, Total Bilirubin 0.7, Direct Bilirubin 0.2, Conjugated Bilirubin 0.0, Indirect Bilirubin 0.5, Unconjugated Bilirubin 0.5, AST 24, ALT 31, Alkaline Phosphatase 104, Troponin I 0.02, Total Protein 6.1 L, Albumin 3.8, Triglycerides 132, Cholesterol 110 L, LDL Cholesterol Direct 45.93 L, VLDL Cholesterol 26, HDL Cholesterol 40, Cholesterol/HDL Ratio 2.8 11/24/24 08:49: Troponin I 0.01, NT-Pro-B Natriuret Pep 249 Temp Pulse Resp BP Pulse Ox O2 Del Method O2 Flow Rate 97.9 F 56 L 18 104/43 L 96 Nasal Cannula 2 11/24/24 07:53 11/24/24 09:01 11/24/24 07:53 11/24/24 09:01 11/24/24 07:53 11/24/24 09:00 11/24/24 09:00 Laboratory Results - last 24 hr 11/24/24 04:47: WBC 11.4 H, RBC 4.64, Hgb 14.1, Hct 41.1 L, MCV 88.6, MCH 30.4, MCHC 34.3, RDW 12.6, Plt Count 241, MPV 9.5, Neut % (Auto) 77.7, Lymph % (Auto) 13.6, Jackson % (Auto) 7.4, Eos % (Auto) 0.5, Baso % (Auto) 0.4, Neut # (Auto) 8.8 H, Lymph # (Auto) 1.6, Jackson # (Auto) 0.8, Eos # (Auto) 0.1, Baso # (Auto) 0.1, Sodium 136, Potassium 5.2 H, Chloride 97 L, Carbon Dioxide 32 H, Anion Gap 12.2, BUN 18, Creatinine 1.20, Estimated Creat Clear 66, Estimated GFR 59, Est GFR ( Amer) 71, Glucose 197 H, Calcium 9.1, Troponin I 0.02 11/24/24 08:49: Troponin I 0.01, NT-Pro-B Natriuret Pep 249 I & O for Last 24 hours: Intake & Output 11/21/24 11/22/24 11/23/2411/24/25 23:59 23:59 23:59 23:59 Intake Total 1000 / 1000 Balance 1000 / 1000 Weight 87.713 kg Intake & Output 11/21/24 11/22/24 11/23/24 11/24/24 23:59 23:59 23:59 23:59 Weight 193 lb 6 oz Constitutional Constitutional: no acute distress, average body habitus, chronically ill appearing and cooperative *Routine HEENT Exam Head: Present normocephalic and atraumatic ENT: Present mucous membranes moist *Routine Neck Exam Neck: Present supple and full ROM; Absent JVD *Routine Respiratory Exam Respiratory: Present wheezes, normal respiratory effort, able to speak in complete sentences and symmetric chest movement; Absent crackles *Routine Cardiovascular Exam Cardiovascular: Present RRR, Normal S1 and Normal S2; Absent murmur or gallop *Routine Abdominal Exam Abdominal: Present soft, normoactive bowel sounds and obese; Absent tenderness or distended *Routine Rectal Exam Patient deferred: visual exam *Routine Exam Patient deferred: penile exam *Routine Extremities Exam Extremities: Present full ROM, pulses intact and normal capillary refill; Absent cyanosis, clubbing or edema *Routine Skin Exam Skin: Present intact, dry and warm; Absent erythema or rash Comments: Right groin cath site with dressing clean dry and intact *Routine Neurological Exam Neurological: Present alert, oriented X3, CN II-XII intact and normal speech; Absent sensory deficit or motor deficit Routine Psychiatric Exam Psychiatric: Present normal affect Results Data Completed and Pending Labs on day of discharge: Labs from last 24 hours 11/24/24 11/24/24 08:49 04:47 WBC 11.4 H RBC 4.64 Hgb 14.1 Hct 41.1 L MCV 88.6 MCH 30.4 MCHC 34.3 RDW 12.6 Plt Count 241 MPV 9.5 Neut % (Auto) 77.7 Lymph % (Auto) 13.6 Jackson % (Auto) 7.4 Eos % (Auto) 0.5 Baso % (Auto) 0.4 Neut # (Auto) 8.8 H Lymph # (Auto) 1.6 Jackson # (Auto) 0.8 Eos # (Auto) 0.1 Baso # (Auto) 0.1 Sodium 136 Potassium 5.2 H Chloride 97 L Carbon Dioxide 32 H Anion Gap 12.2 BUN 18 Creatinine 1.20 Estimated Creat Clear 66 Estimated GFR 59 Est GFR ( Amer) 71 Glucose 197 H Calcium 9.1 Total Bilirubin 0.7 Direct Bilirubin 0.2 Conjugated Bilirubin 0.0 Indirect Bilirubin 0.5 Unconjugated Bilirubin 0.5 AST 24 ALT 31 Alkaline Phosphatase 104 Troponin I 0.01 0.02 NT-Pro-B Natriuret Pep 249 Total Protein 6.1 L Albumin 3.8 Triglycerides 132 Cholesterol 110 L LDL Cholesterol Direct 45.93 L VLDL Cholesterol 26 HDL Cholesterol 40 Cholesterol/HDL Ratio 2.8 DS: Diagnosis Discharge Diagnosis (1) Unstable angina: Status: Acute Code(s): I20.0 - Unstable angina (2) Elevated troponin: Status: Resolved Code(s): R79.89 - Other specified abnormal findings of blood chemistry (3) CAD (coronary artery disease): Status: Acute Code(s): I25.10 - Atherosclerotic heart disease of [place] coronary artery without angina pectoris Qualifiers: Associated angina: with unstable angina Coronary Disease-Associated Artery/Lesion type: [place] artery [place] vs. transplanted heart: [place] heart Qualified Code(s): I25.110 - Atherosclerotic heart disease of [place] coronary artery with unstable angina pectoris (4) Diabetes mellitus: Status: Acute Code(s): E11.9 - Type 2 diabetes mellitus without complications Qualifiers: Diabetes mellitus complication status: with hyperglycemia Diabetes mellitus change control specialist insulin use: without group home use Diabetes mellitus type: type 2 Qualified Code(s): E11.65 - Type 2 diabetes mellitus with hyperglycemia (5) COPD (chronic obstructive pulmonary disease): Status: Acute Code(s): J44.9 - Chronic obstructive pulmonary disease, unspecified Qualifiers: COPD type: unspecified COPD Qualified Code(s): J44.9 - Chronic obstructive pulmonary disease, unspecified (6) Hypertension: Status: Acute Code(s): I10 - Essential (primary) hypertension Qualifiers: Hypertension type: primary hypertension Qualified Code(s): I10 - Essential (primary) hypertension (7) Hyperlipidemia: Status: Acute Code(s): E78.5 - Hyperlipidemia, unspecified Qualifiers: Hyperlipidemia type: mixed hyperlipidemia Qualified Code(s): E78.2 - Mixed hyperlipidemia (8) Hx of CABG: Status: Acute Code(s): Z95.1 - Presence of aortocoronary bypass graft (9) Chronic hypoxic respiratory failure: Status: Acute Code(s): J96.11 - Chronic respiratory failure with hypoxia (10) NSTEMI (non-ST elevated myocardial infarction): Status: Acute Code(s): I21.4 - Non-ST elevation (NSTEMI) myocardial infarction Meds Home Medications and Allergies Home Medications ?Medication ?Instructions ?Recorded ?Confirmed ?Type amlodipine 10 mg tablet 10 mg PO DAILY 11/13/2311/10 History clopidogrel 75 mg tablet 75 mg PO DAILY 11/13/2311/10 History furosemide 40 mg tablet 40 mg PO DAILY 11/13/2311/10 History glyburide 5 mg tablet 5 mg PO BID 11/13/23 5 History ipratropium 0.5 mg-albuterol 3 mg 3 ml inhalation QIDP PRN Shortness 11/13/23 11/24/24 History (2.5 mg base)/3 mL nebulization Of Breath soln aspirin 81 mg tablet,delayed 81 mg PO DAILY 30 days #3 0 tabs 11/16/23 11/24/24 Rx release famotidine 20 mg tablet (Pepcid) 20 mg PO DAILY #30 ta bs 09/29/24 11/24/24 Rx metoprolol tartrate 100 mg tablet 100 mg PO BID 11/24/24 History metformin 1,000 mg tablet 1,000 mg PO BIDWMEAL #60 tab s 11/07/24 11/24/24 Rx rosuvastatin 40 mg tablet 80 mg (2 x 40 mg) PO HS #30 tabs 11/24/24 11/24/24 Rx New Prescriptions to Start Prescriptions: Allergies Allergy/AdvReac Type Severity Reaction Status Date / Time lisinopril Allergy Headache Verified 09/29/24 16:55 Discharge Plan Disposition Patient Disposition: Home, Self-Care Condition: Fair Follow up Plan Follow up with: Amberly Crews APRN [Nurse Practitioner, Cardiology] - 12/01/24 10:00 am Dominga Felipe APRN [Primary Care Provider, Medical] - Enter time for follow up Prescriptions/Medication Reconciliation: Continued famotidine [Pepcid] 20 mg tablet 20 mg PO DAILY Qty: 30 0RF furosemide 40 mg tablet 40 mg PO DAILY ipratropium-albuterol 0.5 mg-3 mg(2.5 mg base)/3 mL solution for nebulization 3 ml INHALATION QIDP PRN (Reason: Shortness Of Breath) glyburide 5 mg tablet 5 mg PO BID clopidogrel 75 mg tablet 75 mg PO DAILY amlodipine 10 mg tablet 10 mg PO DAILY aspirin 81 mg Tablet,Delayed Release (Dr/Ec) 81 mg PO DAILY 30 Days Qty: 30 0RF metoprolol tartrate 100 mg tablet 100 mg PO BID metformin 1,000 mg tablet 1,000 mg PO BIDWMEAL Qty: 60 0RF Changed rosuvastatin 40 mg tablet 80 mg PO HS Qty: 30 0RF Problem Reconciliation Problems Reviewed?: Yes Patient Discharge Instructions ACTIVITY: Continue current activity DIET: continue same diet Print Language: Swedish Providers Primary Care Provider: Dominga Felipe Admit Provider: Declan Milan Attending Provider: Declan Milan
[2024-11-24] MEDS: IOPAMIDOL-370 (76%);100ML BOTTLE 90 ML IV (14:45)
[2024-11-24 14:48] LABS: CATHL Activated Clotting Time 298 SEC (74-125)
--- NOTE | 2024-11-26 10:11 | SW/DCPLANNER ---
Phoned patient x2. Patient's phone keeps saying the subscriber is not in service. Marsha Alcala
[2024-11-26 12:30] LABS: POC Glucose,Bedside 189 gm/dL (70-110)
--- NOTE | 2024-12-07 10:28 | PC.NURSE ---
CARDIAC REHAB NOTE: CARDIAC REHAB ORDER WAS FAXED TO [facility] C[facility]AC [facility]HAB ON 12/06/2024; PT PREFERS REHAB IN [place]
--- OUTSIDE RECORDS SUMMARY | 2025-04-06 13:41 | XMS_ITS | CCD ---
Author Organization Unknown Care Team Providers Care Emergency Generator Mechanic Name Role Phone Non Engaged, [facility] Primary Care Provider Unav ailable Unavailable Chronic Care Management Unavaila ble Summary Purpose DataExchange Insurance Providers Payer name Policy type / Coverage type Covered green party ID Effective Begin Date Effective End Date [facility] [id number] Unknown Unknown Family History Family History data not found Medication Administered No Medication Administered data Reason For Visit No Reason For Visit data Medical Equipment No Medical Equipment data Advance Directives No Advance Directive data
--- OUTSIDE RECORDS SUMMARY | 2025-04-06 13:41 | XMS_ITS | Encounter Summary ---
Author Organization [facility] Address [address] [place] [address] Care Team Providers Care Apartment Coordinator Name Role Phone Dominga Felipe SATELLITE TELEVISION INSTALLER Primary Care Provider [phone] Reason for Visit * Reason Comments Med Refill Encounter Details Date Type Department Care Team (Late st Contact Info) Description 02/24/2025 Refill [facility] [address] [place] [phone] Dominga Felipe, SATELLITE TELEVISION INSTALLER [address] [place], [place] [id number] Social History Tobacco Use Types Packs/Day Years [...] or training? Not on file Preferred Language Guamanian 05/20/2022 PHQ-2 Answer Date Recorded Patient Health Questionnaire-2 Score 0 03/19/2024 Sex and Gender Information Value Date Recorded Sex Assigned at Not on file Legal Sex Male 1:07 PM EDT Gender Identity Not on file Sexual Orientation Not on file documented as of this encounter Miscellaneous Notes * Telephone Encounter - Michelle Oconnor MA - 02/24/2025 12:01 PM EST Rx sent documented in this encounter Plan of Treatment Not on file documented as of this encounter Visit Diagnoses Not on filedocumented in this encounter Additional Health Concerns Infection Onset Date Last Indicated Resolved Time MRSA 03/13/2022 05/18/2022 documented as of this encounter Care Teams Apartment Coordinator Relationship Specialty Start Date End Date Dominga Felipe APRN [address] [place], [place] [id number] PCP - General Family Medicine 02/26/22 documented as of this encounter
--- OUTSIDE RECORDS SUMMARY | 2025-04-06 13:41 | XMS_ITS | Clinical Summary ---
Author Organization [facility] Address [address] [place] [address] Care Team Providers Care Television Engineer Name Role Phone Dominga Felipe Paul ZIMMERMAN Primary Care Provider [phone] Allergies Active Allergy Reactions Criticality Noted Date Comments Usama Inhibitors Cough 11/06/2021 Isosorbide Headache 11/06/2021 Lisinopril Other (See Comments) 11/13/2023 Medications folic acid (FOLVITE) 1 MG tabletIndications :Folate Deficiency Anemia Take 1 tablet by mouth Daily. 90 tablet 3 1 Active albuterol sulfate HFA 108 (90 Base) MCG/ACT inhalerIndication s:Asthma Inhale 2 puffs Every 4 (Four) Hours As Needed for Wheezing or Shortness of Air. 2 Active O2 (OXYGEN)Indicatio ns:RG Inhale 2 L/min Every Night. via CPAP Indications: RG 3 Active EPINEPHrine (EPIPEN) 0.3 MG/0.3ML solution auto-injector injection 3 Active rosuvastatin (CRESTOR) 40 MG tablet Take 1 tablet by mouth Daily. 90 tablet 3 5 Active amLODIPine (NORVASC) 10 MG tabletIndications :Primary hypertension Take 1 tablet by mouth Daily. 90 tablet 3 5 Active glyburide (DIAbeta) 5 MG tabletIndications :Type 2 diabetes mellitus with hyperglycemia, without long-term current use of insulin Take 1 tablet by mouth 2 (Two) Times a Day With Meals for 90 days. 180 tablet 3 5 Active metFORMIN (GLUCOPHAGE) 500 MG tabletIndications :Type 2 diabetes mellitus with hyperglycemia, without long-term current use of insulin Take 2 tablets by mouth 2 (Two) Times a Day for 90 days. 360 tablet 3 5 Active metoprolol tartrate (LOPRESSOR) 100 MG tabletIndications :Hypertension Take 1 tablet by mouth 2 (Two) Times a Day for 90 days. Indications: High Blood Pressure 180 tablet 3 5 Active furosemide (LASIX) 40 MG tablet Take 1 tablet by mouth Daily for 90 days. 90 tablet 3 5 Active montelukast (Singulair) 10 MG tabletIndications :Chronic obstructive pulmonary disease, unspecified COPD type Take 1 tablet by mouth Every Night. 90 tablet 3 5 Active loratadine (Claritin) 10 MG tabletIndications :Chronic obstructive pulmonary disease, unspecified COPD type Take 1 tablet by mouth Daily. 30 tablet 2 5 Active traMADol (ULTRAM) 50 MG tabletIndications :Lumbar spondylosis Take 1 tablet by mouth Every 6 (Six) Hours As Needed for Moderate Pain. 15 tablet 5 Active Fluticasone-Umecl idin-Vilant (Trelegy Ellipta) 100-62.5-25 MCG/ACT inhaler Inhale 1 puff Daily. 14 each 5 Active Fluticasone-Umecl idin-Vilant (TRELEGY ELLIPTA) 200-62.5-25 MCG/ACT inhaler Inhale 1 puff Daily. 2 each 5 Active Fluticasone-Umecl idin-Vilant (Trelegy Ellipta) 100-62.5-25 MCG/ACT inhaler Inhale 1 puff Daily. 28 each 3 5 Active ipratropium-albut delilah (DUO-NEB) 0.5-2.5 mg/3 ml nebulizer INHALE CONTENTS OF 1 VIAL VIA NEBULIZER FOUR TIMES DAILY 360 mL 6 Active Active Problems Problem Noted Date Diagnosed Date [...] (02/18/2023 4:55 PM EST): Patient treated at [facility] emergency department on February 05 for viral syndrome, followed by [facility] where he was diagnosed with COPD exacerbation. [...] at this time. Type 2 diabetes mellitus, [facility] long-term current use of insulin 12/03/2021 Assessment [...] function today -RTC 3 months Atherosclerosis of [place] co ronary artery of [place] heart without angina pectoris 12/03/2021 Assessment & Plan (03/25/2024 5:30 PM EST): admitted at [facility] November 12 at which time he suffered an NE, requiring cardiac cath and subsequent stenting of [...] Plan (12/20/2023 9:11 AM EST): admitted at [facility] November 12 at which time he suffered an NE, requiring cardiac cath and subsequent stenting of [...] and aspirin -Requesting notes from admission at [place] as well as Dr. Lucio's notes. Assessment [...] Patient has been lost to neurology follow-up, Amberyl Hill APRN. He has ongoing issues with [...] Encounters Date Type Department Care Team Description 02/24/2025 Refill [facility] [address] [place] [address] [place] [address] Dominga Felipe, SENIOR RELIABILITY ENGINEER 01/26/2025 Telephone [facility] [address] [place] [address] Dominga Felipe, SENIOR RELIABILITY ENGINEER 01/04/2025 Telephone [facility] [address] [place] [address] [place] [address] Dominga Felipe, SENIOR RELIABILITY ENGINEER from Last 3 Months Immunizations Immunization Administration [...] or training? Not on file Preferred Language Marshallese 05/20/2022 PHQ-2 Answer Date Recorded Patient Health [...] 12/01/2024 1:37 PM EDT Plan of Treatment Health Maintenance [...] - 1-dose 75+ series) 2024 COVID-19 Vaccine (2024- season) 2024 06/23/2020, 05/24/2020, 05/12/2020, Additional history [...] 8.3(A) 4.5 - 5.7 % [facility] Lot Number [id number] [facility] Expiration Date [facility] Blood 12/01/2024 1:57 PM EDT us Dominga Felipe APRN POINT OF CARE TEST ORDERABL ES Final Result [facility]
[address] [place] [address], [place] [phone] * Lipid Panel (11/19/2022 9:29 AM EDT) Pathologist [facility] Total Cholesterol 159 100 - 199 mg/dL [facility] Triglycerides 96 0 - 149 mg/dL [facility] HDL Cholesterol 53 >39 mg/dL [facility] VLDL Cholesterol Seferino 18 5 - 40 mg/dL [facility] LDL Chol Calc (NIH) 88 0 - 99 mg/dL [facility] Blood Structure of left upper limb / Unknown 11/19/2022 9:29 AM EDT 11/19/2022 Comment:Blood Release to [facility] Narrative [facility]) - 11/20/2022 8:09 AM EDT Performed at: 01 - [facility] [address] [id number] Manager Wind: Joao Vergara PhD, Phone: [phone] us Dominga Felipe APRN LAB BLOOD ORDERABLES Final Result Performing Organization Address City/[facility]/ZIP Co de Phone Number [facility] ([facility]ULATORY) [address] [place] [address], [place] [phone] [facility] [address] [place] [address], [place] [phone] * CT Abdomen Pelvis Without Contrast (12/22/2021 [...] on 12/22/2021 6:01 PM by Cheo Demarco. us Omer Oh MD IMG CT ORDERABLES Final Result * Hepatitis Panel, Acute (12/04/2018 11:31 AM EDT) Hepatitis B Surface Ag Non-Reacti ve Non-Reacti ve 12/05/2018 2:40 AM EDT [facility] Hep A IgM Non-Reacti ve Non-Reacti ve 12/05/2018 2:40 AM EDT [facility] Hep B C IgM Non-Reacti ve Non-Reacti ve 12/05/2018 2:40 AM EDT [facility] Hepatitis C Ab Non-Reacti ve Non-Reacti ve 12/05/2018 2:40 AM EDT [facility] Blood Venipuncture / Unknown 12/04/2018 11:31 AM EDT 12/04/2018 11:31 AM EDT Bernardino Ron MD LAB BLOOD ORDERABLES Final Res ult [facility]
[address] [place] [address], * Colonoscopy (04/27/2014) [facility] Onbase SURGICAL HISTORY PROCEDURES F inal Result from Last 3 Months or Most Recently Relevant to Health Maintenance Additional Health Concerns Infection Onset Date Last Indicated MRSA 03/13/2022 05/18/2022 Insurance [employer] MEDICARE ADVANTAGE HMO Advance Directives * CPR [...] or is breathing): Full Support Care Teams Television Engineer Relationship Specialty Start Date End Date Dominga Felipe APRN [address] [place] [address] PCP - General Family Medicine 02/26/22
--- OUTSIDE RECORDS SUMMARY | 2025-04-06 13:41 | XMS_ITS | Clinical Summary ---
Author Organization [facility] Address [address] [place] [address] Phone Care Team Providers Care Oxygen Therapist Name Role Phone Ally LÓPEZ, Omer Serrano [phone] [ ] Conditions or Problems Problem Name Problem Code Onset Date Status Entry Date Provider Comment Standard Description Annotate Long-term (current) use of antiplatelet /antithrombo tic (Plavix) 352985723 (SNOMED CT) 05/22 Active 05/22 Amada Caldera Long-term drug therapy Hx of DVT 879638669 (SNOMED CT) 05/22 Active 05/22 Amada Werner History of deep vein thrombosis Acute exacerbation of COPD 404879907 (SNOMED CT) 05/22 Active 05/22 Amada Werner Acute exacerbation of chronic obstructive pulmonary disease 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 (SNOMED CT) 05/22 Active 05/22 Amada Edelen Carrier of methicillin resistant Staphylococcus aureus Effusion, pleural 28469958 (SNOMED CT) 05/22 Active 05/22 Amada Edelen Pleural effusion Diabetes mellitus type II 70986312 (SNOMED CT) 05/22 Active 05/22 Amada Edelen Type 2 diabetes mellitus Shortness of breath (SOB) 743118790 (SNOMED CT) 03/18 Active 03/18 Nilam Wing [...] to breakdown of skin Cellulitis, toe, right 47944052 (SNOMED CT) 03/24 Resolved 03/24 Nilam Wing [...] with fat layer exposed Cellulitis, toe, right 58666324 (SNOMED CT) 03/24 Removed 03/24 Nilam Wing Cellulitis of toe 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 (ICD-10-CM ) 03/24 Active 03/24 Nilam Wing Leukemoid reaction Lymphedema, chronic I89.0 (ICD-10-CM ) 03/24 Active 03/24 Nilam Wing Lymphedema, not elsewhere classified Coronary artery disease, S/P CABG 240453252 (SNOMED CT) 06/20 Active 06/20 Nilam Wing 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 Right leg ischemia 224375914 (SNOMED CT) 06/21 Resolved 06/21 Nilam Wing Lower limb ischemia Thigh pain, right 19519760 (SNOMED CT) 07/05 Resolved 07/05 Nilam Wing Thigh pain Thigh pain, right 93154544 (SNOMED CT) 07/05 Removed 07/05 Jennifer Ugarte MD Thigh pain Other obesity due to excess calories 135269886 (SNOMED CT) 07/04 Active 07/04 Renan Wright Simple obesity Right leg ischemia 594723929 (SNOMED CT) 06/21 Removed 06/21 Jennifer Ugarte MD Lower limb ischemia Cellulitis of RLE 869203660 (SNOMED CT) 06/20 Active 06/20 Nilam Dimas Cellulitis of lower limb COPD 29843805 (SNOMED CT) 06/20 Active 06/20 Nilam Dimas Chronic obstructive pulmonary disease Coronary artery disease (CAD) 03014556 (SNOMED CT) 06/20 Inactive 06/20 Nilam Dimas 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 898664032 (SNOMED CT) 06/20 Active 06/20 Nilam Dimas Peripheral vascular disease Benign Essential Hypertension 3831963 (SNOMED CT) 06/20 Active 06/20 Nilam Dimas Benign essential hypertension Medications Medication Instructions Start Date Stop Date Generic Name NDC Provider PENICILLIN V POTASSIUM 500 MG TABS Take 1 tablet by mouth twice a day penicillin v potassium [id number] Omer Canales MD ceftriaxone recon soln 2gm IV Q 24hrs INPAT ceftriaxone recon soln Charmaine Apodaca RN AMOXICILLIN 875 MG TABS Take 1 tablet by mouth twice a day amoxicillin 34260653296 Omer Canales MD ceftriaxone recon soln 2gm IV Q 24hrs INPAT ceftriaxone recon soln Phuong Sahu RN HYDROCODONE-ACET AMINOPHEN 5-325 MG TABS 1 tablet, Oral, Every 6 Hours PRN hydrocodone-acet aminophen 97354235045 Hortencia Farmer OMEPRAZOLE 20 MG CPDR 40 mg, Oral, Daily omeprazole 55649103322 Hortencia Farmer ALBUTEROL SULFATE HFA 108 (90 Base) MCG/ACT AERS 2 puffs every 4 hrs as needed for wheezing albuterol sulfate 29355813261 Hortencia Farmer EPINEPHRINE 0.3 MG/0.3ML SOAJ epinephrine 62143756990 Hortencia Farmer CEFTRIAXONE SODIUM 1 GM SOLR 2gm q 24hrs BHI/BHHH ceftriaxone 07990810488 [facility] CEPHALEXIN 500 MG CAPS Take 1 capsule by mouth twice a day Start on 03/28 after you have finished the ceftriaxone cephalexin 38560424585 Jennifer Ugarte MD GLYBURIDE 5 MG TABS Take tablet by mouth twice a day glyburide 76744247818 Lyly Cunha CRESTOR 40 MG TABS 40 mg, Oral, Daily rosuvastatin 42928672256 Lyly Cunha Proventil HFA 90 mcg/actuation HFA aerosol inhaler 2 puffs, Inhalation, Every 4 Hours PRN albuterol sulfate 94108512092 Lyly Cunha HYDROCODONE-ACET AMINOPHEN 5-325 MG TABS 1 tablet, Oral, Every 6 Hours PRN hydrocodone-acet aminophen 41898881211 Lyly Cunha FOLIC ACID 1 MG TABS 1 mg, Oral, Daily folic acid 35037362287 Lyly Cunha GLYBURIDE 5 MG TABS 5 mg, Oral, 2 Times Daily With Meals glyburide 72603802296 Lyly Cunha IPRATROPIUM-ALBU TEROL 0.5-2.5 (3) MG/3ML SOLN 3 mL, Nebulization, 4 Times Daily - RT ipratropium-albu terol 31969255444 Lyly Cunha Lactobacillus acidophilus unspecified unspecified 1 capsule, Oral, Daily lactobacillus acidophilus Lyly Cunha OMEPRAZOLE 20 MG CPDR 40 mg, Oral, Daily omeprazole 78704294984 Lyly Cunha CEFTRIAXONE SODIUM 1 GM SOLR 2gm q 24hrs BHI/BHHH ceftriaxone 46020054148 [facility] CEPHALEXIN 500 MG CAPS Take 2 capsule by mouth twice a day cephalexin 00571953659 Jennifer Ugarte MD ALBUTEROL SULFATE HFA 108 (90 Base) MCG/ACT AERS 2 puff every four hours as needed albuterol sulfate 80746132772 Akosua Kwan FOLIC ACID 1 MG TABS Take 1 by mouth once a day folic acid 77966726907 Akosua Kwan IPRATROPIUM-ALBU TEROL 0.5-2.5 (3) MG/3ML SOLN 3 ml using nebulizer four times a day ipratropium-albu terol 08822179601 Akosua Kwan ROSUVASTATIN CALCIUM 40 MG TABS Take 1 by mouth once a day rosuvastatin 19480247196 Akosua Kwan CEFTRIAXONE SODIUM 2 GM SOLR rocephin 2GM IV QD/INPAT ceftriaxone 42056838635 Keisha Mcmillan RN Cubicin unspecified unspecified cubicin 250mg IV QD/ INPAT daptomycin 14039589511 Keisha Mcmillan RN AMOXICILLIN 500 MG CAPS 1 three times a day [facility] 44802416301 [facility] FURO[facility] 40 MG TABS Take 1 by mouth once a day furosemide 97192009609 [facility] Adult Aspirin Regimen 81 mg tablet,delayed release (DR/EC) Take 1 by mouth once a day aspirin 00019492499 [facility] CLOPIDOGREL BISULFATE 75 MG TABS Take 1 by mouth once a day clopidogrel 96682893291 [facility] FOLIC ACID 1 MG TABS Take 1 by mouth once a day folic acid 62173186216 [facility] LOSARTAN POTASSIUM 50 MG TABS Take 1 by mouth once a day losartan 69248183445 [facility] METOPROLOL TARTRATE 100 MG TABS Take tablet by mouth twice a day metoprolol tartrate 66861978713 [facility] GLYBURIDE 5 MG TABS Take tablet by mouth twice a day glyburide 87059737475 Morenita Chairez AMOXICILLIN 500 MG TABS Take 1 tablet by mouth three times a day amoxicillin 02175964683 Morenita Chairez ROSUVASTATIN CALCIUM 40 MG TABS Take 1 by mouth once a day rosuvastatin 68220072257 Morenita Chairez AMLODIPINE BESYLATE 10 MG TABS Take 1 by mouth once a day amlodipine 05147648001 Morenita Chairez METFORMIN HCL 1000 MG TABS Take tablet by mouth twice a day metformin 31048404733 Morenita Chairez ATROPINE SULFATE 0.01 % SOLN 1 drop into left eye four times a day atropine 25710374368 Morenita Chairez ALBUTEROL SULFATE HFA 108 (90 Base) MCG/ACT AERS 2 puff every four hours as needed albuterol sulfate 29484637537 Morenita Chairez IPRATROPIUM-ALBU TEROL 0.5-2.5 (3) MG/3ML SOLN 3 ml using nebulizer four times a day ipratropium-albu terol 17356231257 Morenita Chairez JARDIANCE 10 MG TABS 1 tab daily empagliflozin 34375348498 Morenita Middleton vi AMOXICILLIN 500 MG CAPS 1 tid AMOXICILLIN 17748926837 Jennifer Ugarte MD ROSUVASTATIN CALCIUM 40 MG TABS Take one by mouth daily ROSUVASTATIN CALCIUM 27272488896 Rahel Anglinx CLOPIDOGREL BISULFATE 75 MG TABS Take one by mouth daily CLOPIDOGREL BISULFATE 15929530215 Rahel Murillodox METOPROLOL TARTRATE 100 MG TABS Take by mouth twice a day METOPROLOL TARTRATE 16461688557 Rahel Murillodox METFORMIN HCL 1000 MG TABS Take by mouth twice a day METFORMIN HCL 74260603210 Rahel Anglinx LOSARTAN POTASSIUM 50 MG TABS Take one by mouth daily LOSARTAN POTASSIUM 49866582293 Rahel Vila GLYBURIDE 5 MG TABS Take by mouth twice a day GLYBURIDE 67561383125 Rahel Vila FUROSEMIDE 40 MG TABS Take one by mouth daily FUROSEMIDE 60064062870 Rahel Vila FOLIC ACID 1 MG TABS Take one by mouth daily FOLIC ACID 06186326247 Rahel Vila ATROPINE SULFATE 0.01 % SOLN 1 Drop, Eye Left, QID ATROPINE SULFATE 22062725474 Rahel Vila ADULT ASPIRIN REGIMEN 81 MG ORAL TABLET DELAYED RELEASE Take one by mouth daily ASPIRIN 98332626542 Rahel Vila AMOXICILLIN 500 MG TABS Take one by mouth 3 times daily, morning, afternoon and evening. AMOXICILLIN 77381349843 Rahel Vila AMLODIPINE BESYLATE 10 MG TABS Take one by mouth daily AMLODIPINE BESYLATE 43305806359 Rahel Vila Medications Administered No information available. Allergies, Adverse Reactions, Alerts Allergy Name Reaction Description Start Date Severity Statu s Provider ISOSORBIDE DINITRATE headache Moderate Active Krima Contreras CHRISTOS INHIBITORS cough Moderate Active Krim a Contreras Results Date Name Value Unit Range Flag Description Clinical Lists Update: HGBA1C 6.70 % Hemoglobin A1c/Hemoglobin, total in Blood - % Office Visit: room 11 U DIET S[employer]IOR [employer]ER Yes - Overweight Dietary management education, guidance, [...] Lab Report: ECG 12-LEAD [id number] 05/17/22 2307 Boke e only - for [employer] import when [...] CPT-PICREM PICC Removal CPT-J0696 Ceftriaxone CPT-J0878 Daptomycin CPT-96897 US Venous Doppler Lower Ext Vital Signs [...]
== END 2024-11-24 16:50 | disposition home or self-care (01) | DRG 322 ==
PROVIDERS: Internal Medicine; Nurse Practitioner Family; Admitting Provider Internal Medicine Adolescent Medicine; PCP Nurse Practitioner; Visit Provider Internal Medicine Adolescent Medicine
PROC: 4A023N7 Measurement of Cardiac Sampling and Pressure, Left Heart, Percutaneous Approach (ICD-10-PCS; CPT 93452; principal; 2024-11-24 13:00)
DX: I21.4 Non-ST elevation (NSTEMI) myocardial infarction (principal); I45.2 Bifascicular block; J96.11 Chronic respiratory failure with hypoxia; I25.810 Atherosclerosis of coronary artery bypass graft(s) without angina pectoris; E11.65 Type 2 diabetes mellitus with hyperglycemia; K21.9 Gastro-esophageal reflux disease without esophagitis; J44.89 Other specified chronic obstructive pulmonary disease; R79.89 Other specified abnormal findings of blood chemistry; I25.10 Atherosclerotic heart disease of native coronary artery without angina pectoris; E78.2 Mixed hyperlipidemia; I11.0 Hypertensive heart disease with heart failure; I50.9 Heart failure, unspecified; Z95.1 Presence of aortocoronary bypass graft; Z79.82 Long term (current) use of aspirin; Z79.84 Long term (current) use of oral hypoglycemic drugs; Z79.899 Other long term (current) drug therapy; Z88.8 Allergy status to other drugs, medicaments and biological substances; Z90.2 Acquired absence of lung [part of]; Z79.02 Long term (current) use of antithrombotics/antiplatelets; Z87.891 Personal history of nicotine dependence; Z95.5 Presence of coronary angioplasty implant and graft
CPT/HCPCS: 36415; 71045; 80048; 80061; 80076; 82962; 83880; 84484; 85025; 85347; 92941; 93005; 93306; 93458; 93459; 94640; 94761; 99152; 99153; C1725; C1760; C1769; C1874; C1894; C9606; G0378; J1200; J1644; J1650; J2003; J2250; J2270; J3010; J7040; Q9967

== ENCOUNTER 2024-12-07 18:51 | Observation (INO) | payer MEDICARE, SELFPAY ==
--- OUTSIDE RECORDS SUMMARY | 2024-12-01 13:30 | XMS_ITS | Encounter Summary ---
Author Organization [facility] Address [address] [place] [address] Care Team Providers Care Mathematics Faculty Member Name Role Phone Dominga Felipe DISASTER OR DAMAGE CONTROL SPECIALIST Primary Care Provider [phone] Reason for Visit * Reason Comments Hospital Follow Up Visit Encounter Details Date Type Department Care Team (Late st Contact Info) Description 12/01/2024 1:30 PM EDT Office Visit [facility] [address] [place] [id number] Dominga Felipe, DISASTER OR DAMAGE CONTROL SPECIALIST [address] [place] [address] Type 2 diabetes mellitus with hyperglycemia, without long-term current use of insulin (Primary Dx); Atherosclerosis of [place] coronary artery of [place] heart without angina pectoris; Lumbar spondylosis; Primary hypertension; Mixed hyperlipidemia; Chronic obstructive pulmonary disease, unspecified COPD type Social History Tobacco Use Types Packs/Day Years [...] or training? Not on file Preferred Language Dominican 05/20/2022 PHQ-2 Answer Date Recorded Patient Health Questionnaire-2 Score 0 03/19/2024 Sex and Gender Information Value Date Recorded Sex Assigned at Not on file Legal Sex Male 1:07 PM EDT Gender Identity Not on file Sexual Orientation Not on file documented as of this encounter Last Filed Vital Signs Vital Sign Reading Time Taken Comments Blood Pressure 138/84 12/01/2024 1:37 PM EDT Pulse 94 12/01/2024 1:37 PM EDT Temperature 36.6 C (97.9 F) 12/01/2024 1:37 PM EDT Respiratory Rate 16 12/01/2024 1:37 PM EDT Oxygen Saturation 98% 12/01/2024 1:37 PM EDT Inhaled Oxygen Concentration - - Weight 88.5 kg (195 lb) 12/01/2024 1:37 PM EDT Height 170.2 cm (5' 7 ) 12/01/2024 1:37 PM EDT Body Mass Index 30.54 12/01/2024 1:37 PM EDT documented in this encounter Progress Notes * Dominga Felipe, DISASTER OR DAMAGE CONTROL SPECIALIST - 12/01/2024 1:30 PM EDT Transitional Care Follow Up Visit Subjective Latoya Bee is a 74 y.o. male who presents for a transitional care management visit. Within 48 business hours after discharge our office contacted him via telephone to coordinate his care and needs. I reviewed and discussed the details of that call along with the discharge summary, hospital problems, inpatient lab results, inpatient diagnostic studies, and consultation reports with Latoya. Current outpatient and discharge medications have been reconciled for the patient. Reviewed by: Dominga Felipe, ELSIE 11/24/2024 3:47 PM Date of TCM Phone Call [facility] Date of Discharge 11/24/2024 Risk for Readmission (LACE) No data recorded History of Present Illness Course During Hospital Stay: Patient here today for transitional care management after hospitalization in [facility] November 23 through November 24. Patient was at home when he began to feel as though he had indigestion and epigastric type symptoms, however they were unrelieved by [id number] medications. With his past cardiac history he found it prudent to present to the hospital where he was in fact found to be having a heart attack. Subsequently underwent heart catheterization with Dr. Lucio with placement of 1 stent. Patient does state he had not taken his aspirin in over 1 month prior to the event. Patient has also not been monitoring his diet. History of Present Illness The patient is a male who presents for evaluation of diabetes, heartburn, and nerve pain. A few weeks ago, he experienced a flu-like illness, which led to an emergency room visit where he was diagnosed with influenza and prescribed antibiotics and prednisone. On 11/23/2024, he began experiencing worsening heartburn with significant pressure. Later that day he was hospitalized overnight following a heart attack on 11/23/2024, during which he underwent a heart catheterization and stent placement. He was discharged the following afternoon. Prior to the heart attack, in addition to indigestion, he experienced mild shortness of breath, which he did not find alarming as he is accustomedto it. However, he now believes it may have been slightly worse than usual. Patient suffers from lumbar spondylosis, now being followed by pain management. He is scheduled fora nerve study on 12/06/2024. The pain, described as an electric shock, immobilizes his right leg, particularly when he steps down or turns a certain way. This pain occurs daily and is exacerbated when he kneels. He is uncertain if the pain is due to nerve issues or problems with his hip joint. He has been compliant with his diabetes medication but acknowledges that his diet has been less than ideal. He has a penchant for sweets and bread, which he believes may be contributing to his elevated blood sugar levels. His A1C in office today is 8.4%. He does not check his glucose at home He expresses concern about his cholesterol intake and its potential impact on his stents. PAST MEDICAL HISTORY: - Diabetes - Influenza - Pinched nerves in the back - Heart attack (11/23/2024) MEDICATIONS CURRENT MEDS: Baby Aspirin Compliance: Patient mentioned forgetting to take it. Metformin Statin The following portions of the patient's history were reviewed and updated as appropriate: allergies, current medications, past family history, past medical history, past social history, past surgicalhistory, and problem list. Objective BP 138/84 (BP Location: Left arm, Patient Position: Sitting, Cuff Size: Adult) Pulse 94 Temp 97.9 ??F (36.6 ??C) (Temporal) Resp 16 Ht 170.2 cm (67 ) Wt 88.5 kg (195 lb) SpO2 98% BMI 30.54 kg/m?? Physical Exam Vitals reviewed. Constitutional: Appearance: Normal appearance. HENT: Head: Normocephalic and atraumatic. Right Ear: Tympanic membrane, ear canal and external ear normal. Left Ear: Tympanic membrane, ear canal and external ear normal. Nose: Nose normal. Mouth/Throat: Mouth: Mucous membranes are moist. Pharynx: Oropharynx is clear. Eyes: Conjunctiva/sclera: Conjunctivae normal. Pupils: Pupils are equal, round, and reactive to light. Cardiovascular: Rate and Rhythm: Regular rhythm. Pulses: Normal pulses. Heart sounds: Normal heart sounds. Pulmonary: Effort: Pulmonary effort is normal. Breath sounds: Normal breath sounds. Abdominal: General: Bowel sounds are normal. Palpations: Abdomen is soft. Musculoskeletal: Cervical back: Neck supple. Skin: Comments: Bruising of right groin noted as well as small hematoma Neurological: Mental Status: He is alert and oriented to person, place, and time. Psychiatric: Mood and Affect: Mood normal. Behavior: Behavior normal. Assessment & Plan Diagnoses and all orders for this visit: 1. Type 2 diabetes mellitus with hyperglycemia, without long-term current use of insulin (Primary) - POC Albumin/Creatinine Ratio Urine - POC Glycosylated Hemoglobin (Hb A1C) 2. Atherosclerosis of [place] coronary artery of [place] heart without angina pectoris 3. Lumbar spondylosis 4. Primary hypertension 5. Mixed hyperlipidemia 6. Chronic obstructive pulmonary disease, unspecified COPD type Assessment & Plan 1. Diabetes Mellitus. His A1c level is currently at 8.4, indicating suboptimal glycemic control. He has been advised to modify his diet, specifically reducing intake of sweets, carbohydrates such as potatoes, bread, and pasta, to help lower his blood sugar levels. He will continue his current medication regimen, including metformin and statins. Glyburide 5 mg twice daily, metformin 1000 mg twice daily 2. Hematoma. He has a small hematoma in the left groin status post cardiac cath The hematoma is causing discomfort but is not associated with any swelling of the scrotum. He was advised to monitor the area for any changes or signs of infection. He has follow-up with cardiology in the next couple of days. 3. Lumbar spondylosis Patient suffers from lumbar spondylosis, now being followed by pain management. He is scheduled fora nerve study on 12/06/2024. The pain, described as an electric shock, immobilizes his right leg, particularly when he steps down or turns a certain way. This pain occurs daily and is exacerbated when he kneels. He is uncertain if the pain is due to nerve issues or problems with his hip joint. 4. Hypertension Blood pressure well-controlled on current medications, 138/84 in office today. Continue current regimen of metoprolol 100 mg twice daily 5. COPD Patient symptoms currently well-managed on daily regimen of Trelegy. Follow-up The patient will follow up in 3 months for a well visit and A1c check. Patient or patient outside sales account representative verbalized consent for the use of Ambient Listening during the visit with Dominga Felipe APRN for chart documentation. 12/02/2024 14:22 EDT Dominga Felipe APRN documented in this encounter Plan of Treatment Upcoming Encounters Date Type Department Care Team (Late st Contact Info) Description 03/03/2025 1:30 PM EST Office Visit [facility] [address] [place] [address] [place] [phone] Dominga Felipe APRN [address] [place] [address] documented as of this encounter Procedures Procedure Name Priority Date/Time Associated Diagnosis Comments POCT GLYCOSYLATED HEMOGLOBIN (HGB A1C) Routine 12/01/2024 1:57 PM EDT Type 2 diabetes mellitus with hyperglycemia, without long-term current use of insulin documented in this encounter Results * (ABNORMAL) POC Glycosylated Hemoglobin (Hb A1C) (12/01/2024 1:57 PM EDT) Hemoglobin A1C 8.3(A) 4.5 - 5.7 % [facility] Lot Number [id number] [facility] Expiration Date [facility] Blood 12/01/2024 1:57 PM EDT Dominga Felipe APRN POINT OF CARE TEST ORDERABL ES Final Result [facility]
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
[2024-12-07] VITALS (23 sets, daily range): BP systolic 113–140; BP diastolic 65–79; PULSE 65–86; RESP 12–22; TEMP 36.7; O2SAT 85–97; BMI 31.1; BMI 30.8
--- NOTE | 2024-12-07 18:58 | ECG_ITS ---
APPROVED REPORT Exam: Resting ECG HR:86 bpm ECG Measurements Heart Rate 86 AXES [place] 162 P 100 QRSd 132 QRS 267 QT 414 T 51 QTc 457 Conclusion SINUS RHYTHM RIGHT AXIS DEVIATION [QRS AXIS > 100] RIGHT BUNDLE BRANCH BLOCK [120+ ms QRS DURATION, UPRIGHT V1, 40+ ms S IN I/aVL/V4/V5/V6] ABNORMAL ECG UNCONFIRMED REPORT Electronically signed by : Declan Adamson, 12/11/2024 15:24:32
--- OUTSIDE RECORDS SUMMARY | 2024-12-07 19:02 | XMS_ITS | Clinical Summary ---
Author Organization [facility] Address [address] [place] [address] Phone Care Team Providers Care Lead Front Desk Agent Name Role Phone Ally LÓPEZ, Omer Serrano [ ] Conditions or Problems Problem Name Problem Code Onset Date Status Entry Date Provider Comment Standard Description Annotate Long-term (current) use of antiplatelet /antithrombo tic (Plavix) 209053731 (SNOMED CT) 05/22 Active 05/22 Amada Caldera Long-term drug therapy Hx of DVT 240064015 (SNOMED CT) 05/22 Active 05/22 Amada Werner History of deep vein thrombosis Acute exacerbation of COPD 326558029 (SNOMED CT) 05/22 Active 05/22 Amada Sagarelen Acute exacerbation of chronic obstructive pulmonary disease 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 (SNOMED CT) 05/22 Active 05/22 Amada Edelen Carrier of methicillin resistant Staphylococcus aureus Effusion, pleural 36794392 (SNOMED CT) 05/22 Active 05/22 Amada Edelen Pleural effusion Diabetes mellitus type II 97476018 (SNOMED CT) 05/22 Active 05/22 Amada Edelen Type 2 diabetes mellitus Shortness of breath (SOB) 249026802 (SNOMED CT) 03/18 Active 03/18 Nilam Wing [...] to breakdown of skin Cellulitis, toe, right 23868078 (SNOMED CT) 03/24 Resolved 03/24 Nilam Wing [...] with fat layer exposed Cellulitis, toe, right 71258337 (SNOMED CT) 03/24 Removed 03/24 Nilam Wing Cellulitis of toe 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 (ICD-10-CM ) 03/24 Active 03/24 Nilam Wing Leukemoid reaction Lymphedema, chronic I89.0 (ICD-10-CM ) 03/24 Active 03/24 Nilam Wing Lymphedema, not elsewhere classified Coronary artery disease, S/P CABG 701809197 (SNOMED CT) 06/20 Active 06/20 Nilam Wing 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 Right leg ischemia 491443582 (SNOMED CT) 06/21 Resolved 06/21 Nilam Wing Lower limb ischemia Thigh pain, right 38148007 (SNOMED CT) 07/05 Resolved 07/05 Nilam Wing Thigh pain Thigh pain, right 30507486 (SNOMED CT) 07/05 Removed 07/05 Jennifer Ugarte MD Thigh pain Other obesity due to excess calories 351308974 (SNOMED CT) 07/04 Active 07/04 Renan Wright Simple obesity Right leg ischemia 586475232 (SNOMED CT) 06/21 Removed 06/21 Jennifer Ugarte MD Lower limb ischemia Cellulitis of RLE 669640834 (SNOMED CT) 06/20 Active 06/20 Nilam Dimas Cellulitis of lower limb COPD 98718971 (SNOMED CT) 06/20 Active 06/20 Nilam Dimas Chronic obstructive pulmonary disease Coronary artery disease (CAD) 84461335 (SNOMED CT) 06/20 Inactive 06/20 Nilam Dimas 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 675643751 (SNOMED CT) 06/20 Active 06/20 Nilam Dimas Peripheral vascular disease Benign Essential Hypertension 4367417 (SNOMED CT) 06/20 Active 06/20 Nilam Dimas Benign essential hypertension Medications Medication Instructions Start Date Stop Date Generic Name NDC Provider PENICILLIN V POTASSIUM 500 MG TABS Take 1 tablet by mouth twice a day penicillin v potassium 86065032259 Omer Canales MD ceftriaxone recon soln 2gm IV Q 24hrs INPAT ceftriaxone recon soln Charmaine Apodaca RN AMOXICILLIN 875 MG TABS Take 1 tablet by mouth twice a day amoxicillin 49295299892 Omer Canales MD ceftriaxone recon soln 2gm IV Q 24hrs INPAT ceftriaxone recon soln Phuong Sahu RN HYDROCODONE-ACET AMINOPHEN 5-325 MG TABS 1 tablet, Oral, Every 6 Hours PRN hydrocodone-acet aminophen 97134440805 Hortencia Farmer OMEPRAZOLE 20 MG CPDR 40 mg, Oral, Daily omeprazole 78323869715 Hortencia Farmer ALBUTEROL SULFATE HFA 108 (90 Base) MCG/ACT AERS 2 puffs every 4 hrs as needed for wheezing albuterol sulfate 62058621720 Hortencia Farmer EPINEPHRINE 0.3 MG/0.3ML SOAJ epinephrine 32444626644 Hortencia Farmer CEFTRIAXONE SODIUM 1 GM SOLR 2gm q 24hrs BHI/BHHH ceftriaxone 40878628285 [facility] CEPHALEXIN 500 MG CAPS Take 1 capsule by mouth twice a day Start on 03/28 after you have finished the ceftriaxone cephalexin 84797288989 Jennifer Ugarte MD GLYBURIDE 5 MG TABS Take tablet by mouth twice a day glyburide 69628244324 Lyly Cunha CRESTOR 40 MG TABS 40 mg, Oral, Daily rosuvastatin 20530489366 Lyly Cunha Proventil HFA 90 mcg/actuation HFA aerosol inhaler 2 puffs, Inhalation, Every 4 Hours PRN albuterol sulfate 13657614219 Lyly Cunha HYDROCODONE-ACET AMINOPHEN 5-325 MG TABS 1 tablet, Oral, Every 6 Hours PRN hydrocodone-acet aminophen 34189375009 Lyly Cunha FOLIC ACID 1 MG TABS 1 mg, Oral, Daily folic acid 70061216850 Lyly Cunha GLYBURIDE 5 MG TABS 5 mg, Oral, 2 Times Daily With Meals glyburide 90952598151 Lyly Cunha IPRATROPIUM-ALBU TEROL 0.5-2.5 (3) MG/3ML SOLN 3 mL, Nebulization, 4 Times Daily - RT ipratropium-albu terol 67208823924 Lyly Cunha Lactobacillus acidophilus unspecified unspecified 1 capsule, Oral, Daily lactobacillus acidophilus Lyly Cunha OMEPRAZOLE 20 MG CPDR 40 mg, Oral, Daily omeprazole 85862859169 Lyly Cunha CEFTRIAXONE SODIUM 1 GM SOLR 2gm q 24hrs BHI/BHHH ceftriaxone 54749904931 [facility] CEPHALEXIN 500 MG CAPS Take 2 capsule by mouth twice a day cephalexin 46600307152 Jennifer Ugarte MD ALBUTEROL SULFATE HFA 108 (90 Base) MCG/ACT AERS 2 puff every four hours as needed albuterol sulfate 80835229964 Akosua Kwan FOLIC ACID 1 MG TABS Take 1 by mouth once a day folic acid 66615326668 Akosua Kwan IPRATROPIUM-ALBU TEROL 0.5-2.5 (3) MG/3ML SOLN 3 ml using nebulizer four times a day ipratropium-albu terol 90411432060 Akosua Kwan ROSUVASTATIN CALCIUM 40 MG TABS Take 1 by mouth once a day rosuvastatin 42474506468 Akosua Kwan CEFTRIAXONE SODIUM 2 GM SOLR rocephin 2GM IV QD/INPAT ceftriaxone 57863631276 Kesiha Mcmillan RN Cubicin unspecified unspecified cubicin 250mg IV QD/ INPAT daptomycin 13168110121 Keisha Mcmillan RN AMOXICILLIN 500 MG CAPS 1 three times a day amox[facility] 82477678310 [facility] FUROSEMIDE 40 MG TABS Take 1 by mouth once a day furosemide 80612188523 [facility] Adult Aspirin Regimen 81 mg tablet,delayed release (DR/EC) Take 1 by mouth once a day aspirin 17192330885 [facility] CLOPIDOGREL BISULFATE 75 MG TABS Take 1 by mouth once a day clopidogrel 51236863434 [facility] FOLIC ACID 1 MG TABS Take 1 by mouth once a day folic acid 26601874193 [facility] LOSARTAN POTASSIUM 50 MG TABS Take 1 by mouth once a day losartan 82576191127 [facility] METOPROLOL TARTRATE 100 MG TABS Take tablet by mouth twice a day metoprolol tartrate 94305859263 [facility] GLYBURIDE 5 MG TABS Take tablet by mouth twice a day glyburide 81891721934 Morenita Chairez AMOXICILLIN 500 MG TABS Take 1 tablet by mouth three times a day amoxicillin 59707337074 Morenita Chairez ROSUVASTATIN CALCIUM 40 MG TABS Take 1 by mouth once a day rosuvastatin 48146402113 Morenita Chairez AMLODIPINE BESYLATE 10 MG TABS Take 1 by mouth once a day amlodipine 60363915414 Morenita Chairez METFORMIN HCL 1000 MG TABS Take tablet by mouth twice a day metformin 56600792545 Morenita Chairez ATROPINE SULFATE 0.01 % SOLN 1 drop into left eye four times a day atropine 25120797694 Morenita Chairez ALBUTEROL SULFATE HFA 108 (90 Base) MCG/ACT AERS 2 puff every four hours as needed albuterol sulfate 19098566232 Morenita Chairez IPRATROPIUM-ALBU TEROL 0.5-2.5 (3) MG/3ML SOLN 3 ml using nebulizer four times a day ipratropium-albu terol 43069646298 Morenita Chairez JARDIANCE 10 MG TABS 1 tab daily empagliflozin 56590498224 Morenita Middleton vi AMOXICILLIN 500 MG CAPS 1 tid AMOXICILLIN 17595613782 Jennifer Ugarte MD ROSUVASTATIN CALCIUM 40 MG TABS Take one by mouth daily ROSUVASTATIN CALCIUM 55652798744 Rahel Anglinx CLOPIDOGREL BISULFATE 75 MG TABS Take one by mouth daily CLOPIDOGREL BISULFATE 01026619468 Rahel Murillodox METOPROLOL TARTRATE 100 MG TABS Take by mouth twice a day METOPROLOL TARTRATE 00954149912 Rahel Murillodox METFORMIN HCL 1000 MG TABS Take by mouth twice a day METFORMIN HCL 58757812478 Rahel Anglinx LOSARTAN POTASSIUM 50 MG TABS Take one by mouth daily LOSARTAN POTASSIUM 34707373225 Rahel Vila GLYBURIDE 5 MG TABS Take by mouth twice a day GLYBURIDE 55173581631 Rahel Vila FUROSEMIDE 40 MG TABS Take one by mouth daily FUROSEMIDE 55088177501 Rahel Vila FOLIC ACID 1 MG TABS Take one by mouth daily FOLIC ACID 96200548639 Rahel Vila ATROPINE SULFATE 0.01 % SOLN 1 Drop, Eye Left, QID ATROPINE SULFATE 21528356033 Rahel Vila ADULT ASPIRIN REGIMEN 81 MG ORAL TABLET DELAYED RELEASE Take one by mouth daily ASPIRIN 18397144693 Rahel Vila AMOXICILLIN 500 MG TABS Take one by mouth 3 times daily, morning, afternoon and evening. AMOXICILLIN 33165552805 Rahel Vila AMLODIPINE BESYLATE 10 MG TABS Take one by mouth daily AMLODIPINE BESYLATE 35115523349 Rahel Vila Medications Administered No information available. Allergies, Adverse Reactions, Alerts Allergy Name Reaction Description Start Date Severity Statu s Provider ISOSORBIDE DINITRATE headache Moderate Active Krima Contreras CHRISTOS INHIBITORS cough Moderate Active Krim a Contreras Results Date Name Value Unit Range Flag Description Clinical Lists Update: HGBA1C 6.70 % Hemoglobin A1c/Hemoglobin, total in Blood - % Office Visit: room 11 U DIET PHYSICIAN RECRUITER Yes - Overweight Dietary management education, guidance, [...] Lab Report: ECG 12-LEAD [id number] 05/17/22 2307 [employer] e only - for [employer] import when [...] CPT-PICREM PICC Removal CPT-J0696 Ceftriaxone CPT-J0878 Daptomycin CPT-96177 US Venous Doppler Lower Ext Vital Signs [...]
--- OUTSIDE RECORDS SUMMARY | 2024-12-07 19:03 | XMS_ITS | Continuity of Care Document ---
Author Organization [place] - [facility] - [place] & [facility] [place] Address [address] [place] [address] Care Team Providers Care Business Systems Administrator Name Role Phone ASHLEIGH SAMSON Referring Provider ASHLEIGH SAMSON Primary Care Provider Assessment Encounter Date Assessment Date Assessment [...] clinic today to follow up on pain. [email or web address] Not available 10/21/2024 10:48:17 Plan of Treatment Reminders Order Date Submit Date Provider Last Modified By Organization Details Last Modified Time Details Appointments SURGERY 30 2024 11:30A M EMG/NRV Not available Not available Not available Lab None recorded. Referral None recorded. Procedures nerve conductio n study/EMG , lower extremity (PROC) - RLE 2024 025 [email or web address] Pancho Ngo, [address], [place], [address], 11/19/2024 10:04:55 nerve block, lumbar sympathet ic (PROC) - [place]. [address]. 2024 025 JENNA Ngo, [address] [place], [address], 10/28/2024 04:21:59 Surgeries None recorded. Imaging unlisted imaging order - hand lt 3V 2024 025 [facility] (Radiology), [address] [place], [address], 10/28/2024 04:21:58 Medication Orders None recorded. Patient TargetsNo targets recorded. Patient Instructions Encounter Date Encounter Id Patient Instructions Last Modified By Organization Details Last Modified Time 10/21/2024 [id number] I counseled the patient extensively and informed [...] IV medications that require review by law. Not available 10/21/2024 10:41:34 Reason for Referral None Reported. Problems Name Problem SNOMED Code Status Onset Date Resolution Date Notes Provider Name and Address Organization Details Recorded Time Chronic low back pain 617404908 Active 2024 SARMAD DIEGO [address], [address] [place] [address] 1, [place] - [facility] - [place] & [place] 5 10:51:14 Myofascial pain 898923081 Active 2024 SARMAD DIEGO [address], [address], [place] - [facility] & [place] 5 10:51:23 History of lung lobectomy 6333204130478 9103 Active 2024 SARMAD DIEGO [address], [address] [place] [address] 1, [place] - [facility] & [place] 5 10:51:25 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 Procedures Surgical History Date Name Laterality Status Provider Name and Address Organization Details Recorded Time lobectomy of lung completed [facility] & [place] 06/21/2024 10:33:51 coronary artery bypass graft completed [facility] & [place] 06/21/2024 10:34:19 Imaging Results None recorded. Procedure Notes None recorded. Medical Equipment None Reported. Allergies No known drug allergies Medications Name Sig Start Date Stop Date Status Note LastModified by Organization Details LastModified Time metformin 500 mg tablet TAKE 2 TABLETS BY MOUTH TWICE DAILY active Not Available Not Available No t Available azithromycin 250 mg tablet TAKE 1 TABLET BY MOUTH ONCE DAILY active Not Available Not Available No t Available glyburide 5 mg tablet TAKE 1 TABLET BY MOUTH TWICE DAILY WITH MEALS active Not Available Not Available No t Available prednisone 20 mg tablet TAKE 2 TABLETS BY MOUTH DAILY FOR 3 DAYS active Not Available Not Available No t Available clopidogrel 75 mg tablet TAKE 1 TABLET BY MOUTH ONCE DAILY active Not Available Not Available No t Available amlodipine 10 mg tablet TAKE 1 TABLET BY MOUTH ONCE DAILY active Not Available Not Available No t Available metformin 1,000 mg tablet TAKE 1 TABLET BY MOUTH TWICE DAILY WITH MEALS active Not Available Not Available No t Available cefdinir 300 mg capsule TAKE 1 CAPSULE BY MOUTH TWICE DAILY active Not Available Not Available No t Available Vitals Date Recorded Body weight Oxygen saturation Oxygen saturation in Arterial blood by Pulse oximetry Heart rate Systolic And Diastolic Provider Name and Address Organization Details Last Updated DateTime 5 46126.2 9 g 94 % 94 % 72 /min 158/80 mm[Hg] Palomo Mck[facility] & [place] 5 10:27:01 Social History None recorded. Functional Status None recorded. Mental Status None recorded. Family History Nothing Reported. Medical History Condition Response Diabetes Y Heart Attack ([place]) Y Hypertension Y Past Encounters Encounter ID Performer Location Encounter Start Date Encounter Closed Date Diagnosis/Indication Diagnosis SNOMED-CT Code Diagnosis ICD10 Code Diagnosis IMO Codes Diagnosis Note [id number] JAMES SARABIA PA-C [facility] [address] [place] [address] 10/21/2024 10:19:34 10/21/2024 11:38:35 Pain of left hand 5819111692 67355 M79.642 869996 - The patient complains of left hand/wrist pain with onset a few days ago.- I will order imaging to assess the bony architectu re for signs of an acute fracture. 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 [facility]: pain is disproport ionate [...] prior to pursuing neuromodul ation. [facility] sacroiliac joint 3188767451 5501607 M53.3 86238230 - The patient is S/P (07/20/24) diagnostic /therapeut ic right SI joint injection, which was successful in decreasing right-side d low back and upper buttock pain by nearly 100%. It seems the procedure effectivel y targeted pain being generated in the right SI joint itself. [facility] lower limb 330117983 M79.604 74561313 - The patient is awaiting an EMG/NCS of the RLE. I hope to gain insight into etiology/p athology, as it's unclear if the pain pattern is better explained by a proximal or distal source. The patient needs to reschedule the diagnostic study, as he missed the original appointmen t. Lumbar radiculopathy 128 083993 M54.16 42267 - I think it's possible that a lumbar spine pathology is at least partially contributi ng to pain.- I may perform a TFESI/ana ctive nerve root block and compare efficacy with the right lumbar sympatheti c block. Lumbago with sciatica 20 6381924 M54.40 96038069 - The patient complains of low back, [...] discussed further in the future. Lumbar spondylolisthesis 8119792481 37188 M43.16 4813630 Health Concerns Section Related Observation LastModified by Organization Detai ls LastModified Time None Recorded Concern Status LastModified by Organization Details LastModified Time None Recorded Payers Encounter Date Sequence Insurance Name Policy Number Policy Gay Covered Member ID Gay Member ID Guarantor Name 10/21/2024 1 [place] RICKY [employer] OF [facility] (MEDICARE REPLACEMENT HMO) [id number] Latoya Samayoa [id number] Latoya Samayoa Notes Date Note Type Note Provider Name [...] level is a 6/10. JAMES SARABIA PA-C [address] [place] [address], [phone], [facility] - [facility] & [place] 10/21/2024 10:58:58
--- OUTSIDE RECORDS SUMMARY | 2024-12-07 19:03 | XMS_ITS | Encounter Summary ---
[facility] Address [address] [place] [address] Care Team Providers Care Transmission Rebuilder Name Role Phone Dmoinga Felipe Paul ZIMMERMAN Primary Care Provider [phone] Encounter Details Date Type Department Care Team (Late st Contact Info) Description 11/24/2024 Readmission Management [facility] [address] [place] [phone] Edith Gamboa, RN Social History Tobacco Use Types Packs/Day Years [...] or training? Not on file Preferred Language Maldivian 05/20/2022 PHQ-2 Answer Date Recorded Patient Health Questionnaire-2 Score 0 03/19/2024 Sex and Gender Information Value Date Recorded Sex Assigned at Not on file Legal Sex Male 1:07 PM EDT Gender Identity Not on file Sexual Orientation Not on file documented as of this encounter Miscellaneous Notes * Outreach Note - Edith Gamboa RN - 11/24/2024 3:47 PM EDT Prep Survey Flowsheet Row Responses [facility] patient discharged from? Non-BH Is LACE score less than 10 ? Non-BH Discharge Eligibility [facility] Date of Discharge 11/24/24 Discharge diagnosis HEART CATH Does the patient have one of the following disease processes/diagnoses(primary or secondary)? Cardiothoracic surgery Comments regarding appointments pcp appt 12/01 Prep survey completed? Yes Edith Longo - Registered Nurse documented in this encounter Plan of Treatment Upcoming Encounters Date Type Department Care Team (Late st Contact Info) Description 03/03/2025 1:30 PM EST Office Visit [facility] [address] [place] [phone] Dominga Felipe APRN [address] [place] [address] documented as of this encounter Visit Diagnoses Not on filedocumented in this encounter Additional Health Concerns Infection Onset Date Last Indicated Resolved Time MRSA 03/13/2022 05/18/2022 documented as of this encounter Care Teams Transmission Rebuilder Relationship Specialty Start Date End Date Dominga Felipe APRN [address] [place] [address] PCP - General Family Medicine 02/26/22 documented as of this encounter
--- OUTSIDE RECORDS SUMMARY | 2024-12-07 19:03 | XMS_ITS | Clinical Summary ---
Author Organization [employer] ([place], [place], [place], [place]) Address [address] [place] [address] Care Team Providers Care Rig Supervisor Name Role Phone Unavailable Primary Care Provider [...]
--- OUTSIDE RECORDS SUMMARY | 2024-12-07 19:03 | XMS_ITS | Data Portability ---
Author Organization [place] - [facility] - [place] [facility] [place] [facility] Address [address] [place] [address] Care Team Providers Care Music Video Producer Name Role Phone ASHLEIGH SAMSON Referring Provider [...] 06/21/2024 14:21:14 08/03/2024 08/03/2024 Images reviewed today [email or web address]/13/ 2025: severe DDD, multilevel facet hypertrophy. no [...] stent placements (6) - Currently on clopidogrel. [email or web address] Not available 08/03/2024 12:03:10 09/02/2024 09/02/2024 The [...] the clinic today to follow up post-imaging. Not available 09/05/2024 12:36:12 10/21/2024 10/21/2024 The [...] clinic today to follow up on pain. [email or web address] Not available 10/21/2024 10:48:17 Plan of Treatment Reminders Order Date Submit Date Provider Last Modified By Organization Details Last Modified Time Details Appointments SURGERY 30 2024 11:30A M EMG/NRV Not available Not available Not available Lab None recorded. Referral None recorded. Procedures nerve conductio n study/EMG , lower extremity (PROC) - RLE 2024 025 [email or web address] Pancho Ngo, [address], [place], [address], 11/19/2024 10:04:55 nerve block, lumbar sympathet ic (PROC) - [place]. [id number]. [address], [place], [address], 10/28/2024 04:21:59 nerve block, lumbar sympathet ic (PROC) [place]. [id number]. [email or web address], [place], [address], 10/14/2024 14:52:50 nerve conductio n study/EMG (PROC) - right LE EMG chronic sciatic nerve damage >25 years ago 2024 025 [email or web address] Not available 11/19/2024 10:42:22 sacroilia c joint injection (PROC) - Right Dx SI with Steroid. [id number] 2024 025 [place] Pancho Ngo, [address] [place], [address], 06/28/2024 04:17:43 Surgeries None recorded. Imaging unlisted imaging order - hand lt 3V 2024 025 [facility] (Radiology), [address] [place], [address], 10/28/2024 04:21:58 MRI, lumbar spine, w/o contrast - please evaluate for central and neural foraminal stenosis, MODIC changes, spondylol isthesis, b/l pars defect and angular stability , DDD, lumbosacr al transitio nal anatomy quit smoking tobacco several years ago 2024 025 [facility] (Scheduling), [address] [place], [address], 08/25/2024 17:05:05 XR, lumbar spine 2024 025 [facility] (Radiology), [address] [place], [address], 07/05/2024 04:07:11 Medication Orders None recorded. Patient TargetsNo targets recorded. Patient InstructionsNo instructions recorded. Reason for Referral None Reported. Results Created Date Observation Date Name Description Value Unit Range Abnormal Flag Note LastModifiedBy Organization Detail LastModifiedTime 08/25/1908/24/2024 MRI, lumba r spine , w/o contr ast [facility] [address] [place] [address] Phone: Fax: Name: LATOYA ANGULO Exam Date: : 950 Age 74 years Gender : M Access ion: [id number] Physic ying: KEANU DIEGO Facili ty: [...] you for referr ing LATOYA ANGULO to [facility]. Legall y authen ticate d by RAFA Miller 2024-0 08-24 15:31: 00 CC'ed Logic: Orderi ng Provid er: JOHNATHON Saunders CC Provid er: CHAPIN Bartholomew Attend ing Provid er: JOHNATHON Saunders Referr ing Provid er: JOHNATHON Saunders Admitt ing Provid er: JOHNATHON Saunders [email or web address] [facility] (Radiology) [address] [place], [address], 09/20/2024 15:48:32 08/26/19 25 08/24/2024 MRI, lumba r spine , w/o contr ast No observ ation record ed. [email or web address] [facility] (Scheduling) [address] [place], [address], 09/13/2024 11:15:02 Result Notes Documentation Provider Name and Address Organization Details Recorded Time Mri, Lumbar Spine, W/o Contrast : [address] [place] [address] Name: LATOYA FRANCES Exam Date: 08/24/2024 : 1950 Age 74 years Gender: M Physician: SARMAD DIEGO Facility: [facility] Facility HSV: Outpatient Exam: MRI SPINE LUMBAR [...] Thank you for referring LATOYA FRANCES to [facility]. Legally authenticated by RAZA KIMBALL 2024-08-24 15:31:00 CC'ed Logic: Ordering Provider: JOHNATHON BAÑUELOS CC Provider: CHAPIN SOTELO Attending Provider: JOHNATHON BAÑUELOS Referring Provider: JOHNATHON BAÑUELOS Admitting Provider: JOHNATHON CASTORENA PA-C [address] [place] [address], [address] [place] [address], [facility] - [facility] [place] [facility] [place] 09/20/2024 15:48:32 Problems Name Problem SNOMED Code Status Onset Date Resolution Date Notes Provider Name and Address Organization Details Recorded Time Chronic low back pain 128087289 Active 2024 SARMAD DIEGO [place] [address], [facility] - [facility] & [place] 10:51:14 Myofascial pain 241496775 Active 2024 SARMAD DIEGO [place] [address], [facility] - [facility] - [place] [facility] [place] 10:51:23 History of lung lobectomy 9299751427979 9103 Active 2024 SARMAD DIEGO [address], [address] [place] [address], [facility] - [facility] & [place] 10:51:25 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 Procedures Surgical History Date Name Laterality Status Provider Name and Address Organization Details Recorded Time lobectomy of lung completed Aydee Belle [facility] - [facility] & [place] 06/21/2024 10:33:51 coronary artery bypass graft completed Aydee Brown [facility] & [place] 06/21/2024 10:34:19 Imaging Results None recorded. Procedure [...] Address Organization Details Last Updated DateTime 5 99171.4 4 g 97.9 [degF] 90 % 90 % 87 /min Aydee Brown [facility] & [place] 5 10:26:24 Date Recorded Body weight Body temperature Oxygen saturation Oxygen saturation in Arterial blood by Pulse oximetry Heart rate Systolic And Diastolic Provider Name and Address Organization Details Last Updated DateTime 5 22105.4 4 g 97.9 [degF] 95 % 95 % 72 /min 151/75 mm[Hg] Aydeedaquan Belle [facility] & [place] 5 10:34:49 Date Recorded Body weight Body temperature Oxygen saturation Oxygen saturation in Arterial blood by Pulse oximetry Heart rate Systolic And Diastolic Provider Name and Address Organization Details Last Updated DateTime 5 30594.4 7 g 97.2 [degF] 93 % 93 % 80 /min 139/79 mm[Hg] Palomo Mckenzie [facility] & [place] 13:13:53 Date Recorded Body weight Oxygen saturation Oxygen saturation in Arterial blood by Pulse oximetry Heart rate Systolic And Diastolic Provider Name and Address Organization Details Last Updated DateTime 5 18424.2 9 g 94 % 94 % 72 /min 158/80 mm[Hg] Palomo CHONG - [facility] & [place] 10:27:01 Date Recorded Body weight Body temperature Oxygen saturation Oxygen saturation in Arterial blood by Pulse oximetry Systolic And Diastolic Provider Name and Address Organization Details Last Updated DateTime 5 13693.2 9 g 98.8 [degF] 96 % 96 % 142/86 mm[Hg] Palomoernesto CHONG - [facility] & [place] 13:41:41 Social History None recorded. Functional Status None recorded. Mental Status None recorded. Family History Nothing Reported. Medical History Condition Response Diabetes Y Heart Attack ([place]) Y Hypertension Y Past Encounters Encounter ID Performer Location Encounter Start Date Encounter Closed Date Diagnosis/Indication Diagnosis SNOMED-CT Code Diagnosis ICD10 Code Diagnosis IMO Codes Diagnosis Note [id number] UZIEL CASTORENA PA-C [facility] [address] [place] [address] 06/21/2024 09:33:01 06/21/2024 10:44:18 Chronic low back pain 417122031 G89.29 M54.41 68519482 Inflammati on of sacroiliac joint 29999683 M46.1 27845 Myofascial pain 63244090 9 M79.18 757417 History of myocardial infarction 177800933 I25.2 4529428582 History of lung lobectomy 2804172363 0146746 Z90.2 87668632 [id number] SARMAD DIEGO DO [facility]- [address] [place] [address] 08/03/2024 10:22:44 08/03/2024 10:56:07 Myofascial pain 766388534 M79.18 662894 History of myocardial infarction 262100787 I25.2 6399573457 History of lung lobectomy 4203621783 5456166 Z90.2 69579329 Stenosis o f spinal canal due to intervertebral disc 216378307 M99.53 5924883 Complex re gional pain syndrome type II of right lower limb 4192133075 19805 G57.71 11160794 [id number] JAMES SARABIA PA-C [facility]- [address] [place] [address] 09/02/2024 13:07:59 09/02/2024 13:40:17 Myofascial pain 947595091 M79.18 848759 Stenosis o f spinal canal due to intervertebral disc 952554793 M99.53 2632724 Complex re gional pain syndrome type II of right lower limb 9024559677 08845 G57.71 14798935 - It seems the patient has developed [...] result/out come from neuromodul ation. Pain in ri ght sacroiliac joint 3930521363 3074811 M53.3 82876733 - The patient is S/P (07/20/24) diagnostic /therapeut ic right SI joint injection, which was successful in decreasing right-side d low back and upper buttock pain by nearly 100%. It seems the procedure effectivel y targeted pain being generated in the right SI joint itself. Pain in ri ght lower limb 450975233 M79.604 61308782 - The patient is awaiting an EMG/NCS of the RLE. I hope to gain insight into etiology/p athology, as it's unclear if the pain pattern is better explained by a proximal or distal source. Lumbar radiculopathy 128 121370 M54.16 97941 - I think it's possible that a lumbar spine pathology is at least partially contributi ng to pain.- I may perform a TFESI/ana ctive nerve root block and compare efficacy with the right lumbar sympatheti c block. Lumbago with sciatica 20 8928663 M54.40 76584254 - The patient complains of low back, [...] discussed further in the future. Lumbar spondylolisthesis 6479947380 56991 M43.16 6643984 [id number] JAMES SARABIA PA-C [facility]- [address] [place] [address] 10/21/2024 10:19:34 10/21/2024 11:38:35 Pain of left hand 0653061808 39317 M79.642 595004 - The patient complains of left hand/wrist pain with onset a few days ago.- I will order imaging to assess the bony architectu re for signs of an acute fracture. Myofascial pain 79902444 9 M79.18 820609 Stenosis o f spinal canal due to intervertebral disc 049216222 M99.53 6893327 Complex re gional pain syndrome type II of right lower limb 9063130158 13566 G57.71 94627747 - The patient complains of RLE pain [...] ation. Pain in ri t sacroiliac joint 0872693084 4567536 M53.3 69255505 - The patient is S/P (07/20/24) diagnostic /therapeut ic right SI joint injection, which was successful in decreasing right-side d low back and upper buttock pain by nearly 100%. It seems the procedure effectivel y targeted pain being generated in the right SI joint itself. Pain in ri t lower limb 028546252 M79.604 96716902 - The patient is awaiting an EMG/NCS of the RLE. I hope to gain insight into etiology/p athology, as it's unclear if the pain pattern is better explained by a proximal or distal source. The patient needs to reschedule the diagnostic study, as he missed the original appointmen t. Lumbar radiculopathy 128 125420 M54.16 21855 - I think it's possible that a lumbar spine pathology is at least partially contributi ng to pain.- I may perform a TFESI/ana ctive nerve root block and compare efficacy with the right lumbar sympatheti c block. Lumbago with sciatica 20 2282737 M54.40 77812916 - The patient complains of low back, [...] discussed further in the future. Lumbar spondylolisthesis 0028431216 55259 M43.16 3113797 [id number] UZIEL CASTORENA PA-C [facility]- [address] [place] [address] 12/06/2024 12:53:05 12/06/2024 13:13:40 Health Concerns Section Related Observation LastModified by Organization Detai ls LastModified Time None Recorded Concern Status LastModified by Organization Details LastModified Time None Recorded Advance Directives Directive None Recorded Payers Insurance Date Sequence Insurance Name Policy Number Policy Gay Covered Member ID Gay Member ID Guarantor Name 12/03/2024 1 ELVIRA-ARLETTE: RICKY FELIX OF [place] - [employer] (MEDICARE REPLACEMENT HMO) [id number] Latoya Frances [id number] Latoya Frances Notes Date Note Type [...] Tx: noneImaging/Studies: none recently UZIEL CASTORENA PA-C [address] [place] [address], [phone] 06/21/2024 14:24:00 5 text/html ROS as noted in the HPI PMH- CAD s/p [place] 01/2024 with multiple stents (on Plavix), DM2, [...] His pain will wax and wane form 3/10 to 10/10. Hx of prior pressure ulcers in his right foot, but no issues today. He is interested in looking into what can be done to help his right LE pain and sx's. Associated symptoms: Denies saddle anaesthesia, denies acute bowel/bladder changes, denies acute power loss. ADLs: The patient's pain interferes with daily chores, exercise, sleep, relationships, and walking. SARMAD DIEGO DO [address] [place], [address], [facility] 08/03/2024 12:08:51 5 text/html ROS as noted [...] but fluctuates higher (6 or more). JAMES SARABIA PA-C [address] [place], [address], [facility] & [place] 09/05/2024 12:37:33 5 text/html ROS as noted [...] ago. Today the pain level is a 07/20. JAMES SARABIA PA-C [address] [place] [address], [phone], [facility] [place] [facility] [place] 10/21/2024 10:58:58
--- OUTSIDE RECORDS SUMMARY | 2024-12-07 19:03 | XMS_ITS | Encounter Summary ---
[facility] Address [address] [place] [address] Care Team Providers Care Felt Cementer Name Role Phone Dominga Felipe CASH REGISTER OPERATOR Primary Care Provider [phone]- [phone] Reason for Visit * Reason Comments Med Refill Encounter Details Date Type Department Care Team (Late st Contact Info) Description 10/19/2024 Refill [facility] [address] [place] [phone] Dominga Felipe, CASH REGISTER OPERATOR [address] [place], [place] [id number] Social History Tobacco Use Types Packs/Day Years [...] Description 03/03/2025 1:30 PM EST Office Visit [facility] [address] [place] [phone] Dominga Felipe APRN [address] [place] [address] documented as of this encounter Visit Diagnoses Not on filedocumented in this encounter Additional Health Concerns Infection Onset Date Last Indicated Resolved Time MRSA 03/13/2022 05/18/2022 documented as of this encounter Care Teams Felt Cementer Relationship Specialty Start Date End Date Dominga Felipe APRN [address] [place] [address] PCP - General Family Medicine 02/26/22 documented as of this encounter
--- OUTSIDE RECORDS SUMMARY | 2024-12-07 19:03 | XMS_ITS | Encounter Summary ---
Author Organization [facility] Address [address] [place] [address] Care Team Providers Care Bulb Assembler Name Role Phone Dominga Felipe Paul ZIMMERMAN Primary Care Provider Encounter Details Date Type Department Care Team (Latest Contact Info) Description 12/01/2024 Travel Social History Tobacco Use Types Packs/Day Years [...] or training? Not on file Preferred Language Croatian 05/20/2022 PHQ-2 Answer Date Recorded Patient Health Questionnaire-2 Score 0 03/19/2024 Sex and Gender Information Value Date Recorded Sex Assigned at Not on file Legal Sex Male 1:07 PM EDT Gender Identity Not on file Sexual Orientation Not on file documented as of this encounter Plan of Treatment Upcoming Encounters Date Type Department Care Team (Late st Contact Info) Description 03/03/2025 1:30 PM EST Office Visit [facility] [address] [place] [phone] Dominga Felipe APRN [address] [place] [address] documented as of this encounter Visit Diagnoses Not on filedocumented in this encounter Additional Health Concerns Infection Onset Date Last Indicated Resolved Time MRSA 03/13/2022 05/18/2022 documented as of this encounter Care Teams Bulb Assembler Relationship Specialty Start Date End Date Dominga Felipe APRN [address] [place] [address] PCP - General Family Medicine 02/26/22 documented as of this encounter
--- OUTSIDE RECORDS SUMMARY | 2024-12-07 19:03 | XMS_ITS | Encounter Summary ---
[facility] Address [address] [place] [address] Care Team Providers Care Cloth Baler Name Role Phone Dominga Felipe LIGHTING TECHNICIAN Primary Care Provider [phone]- [phone] Reason for Visit * Reason Comments Med Refill Encounter Details Date Type Department Care Team (Late st Contact Info) Description 12/01/[address] [facility] [address] [place] [phone] Dominga Felipe, LIGHTING TECHNICIAN [address] [place], [place] [phone] Social History Tobacco Use Types Packs/Day Years [...] or training? Not on file Preferred Language Swazi 05/20/2022 PHQ-2 Answer Date Recorded Patient Health Questionnaire-2 Score 0 03/19/2024 Sex and Gender Information Value Date Recorded Sex Assigned at Not on file Legal Sex Male 1:07 PM EDT Gender Identity Not on file Sexual Orientation Not on file documented as of this encounter Miscellaneous Notes * Telephone Encounter - Michelle Oconnor MA - 12/01/2024 3:09 PM EDT Rx sent documented in this encounter Plan of Treatment Upcoming Encounters Date Type Department Care Team (Late st Contact Info) Description 03/03/2025 1:30 PM EST Office Visit [facility] [address] [place] [phone] Dominga Felipe APRN [address] [place] [address] documented as of this encounter Visit Diagnoses Not on filedocumented in this encounter Additional Health Concerns Infection Onset Date Last Indicated Resolved Time MRSA 03/13/2022 05/18/2022 documented as of this encounter Care Teams Cloth Baler Relationship Specialty Start Date End Date Dominga Felipe APRN [address] [place] [address] PCP - General Family Medicine 02/26/22 documented as of this encounter
--- OUTSIDE RECORDS SUMMARY | 2024-12-07 19:03 | XMS_ITS | Encounter Summary ---
Author Organization [facility] Address [address] [place] [address] Care Team Providers Care Batch Tank Controller Name Role Phone Dominga Felipe SURVEYOR HELPER ROD Primary Care Provider [phone]- [phone] Reason for Visit * Reason Onset Date Comments Hospital Follow Up Visit 11/24/2024 Encounter Details Date Type Department Care Team (Late st Contact Info) Description 11/24/2024 Telephone [facility] [address] [place] [phone] Dominga Felipe, SURVEYOR HELPER ROD [address] [place] [address] Hospital Follow Up Visit Social History Tobacco Use Types Packs/Day Years [...] or training? Not on file Preferred Language [place]inean 05/20/2022 PHQ-2 Answer Date Recorded Patient Health Questionnaire-2 Score 0 03/19/2024 Sex and Gender Information Value Date Recorded Sex Assigned at Not on file Legal Sex Male 1:07 PM EDT Gender Identity Not on file Sexual Orientation Not on file documented as of this encounter Miscellaneous Notes * Telephone Encounter - Yair Lal RegSched Rep - 11/24/2024 3:34 PM EDT Caller: Latoya Bee Relationship to patient: Self Best call back number: [phone] New or established patient? [] New [x] Established Date of discharge: 11/24/2024 Facility discharged from: [facility] Diagnosis/Symptoms: HEART CATH Length of stay (If applicable): 1 DAY documented in this encounter Plan of Treatment Upcoming Encounters Date Type Department Care Team (Late st Contact Info) Description 03/03/2025 1:30 PM EST Office Visit [facility] [address] [place] [address] [place] [phone] Dominga Felipe APRN [address] [place] [address] documented as of this encounter Visit Diagnoses Not on filedocumented in this encounter Additional Health Concerns Infection Onset Date Last Indicated Resolved Time MRSA 03/13/2022 05/18/2022 documented as of this encounter Care Teams Batch Tank Controller Relationship Specialty Start Date End Date Dominga Felipe APRN [address] [place] [phone] PCP - General Family Medicine 02/26/22 documented as of this encounter
--- OUTSIDE RECORDS SUMMARY | 2024-12-07 19:03 | XMS_ITS | Clinical Summary ---
Author Organization [facility] Address [address] [place] [address] Care Team Providers Care Supervisor Properties Name Role Phone Dominga Felipe Paul ZIMMERMAN Primary Care Provider [phone] Allergies Active Allergy Reactions Criticality Noted Date [...] VIA NEBULIZER FOUR TIMES DAILY 360 mL 12/07/19 25 Active ipratropium-albu terol (DUO-NEB) 0.5-2.5 mg/3 ml nebulizer INHALE CONTENTS OF 1 VIAL VIA NEBULIZER FOUR TIMES DAILY 360 mL 10/20/19 25 025 Discontinued ipratropium-albu terol (DUO-NEB) 0.5-2.5 mg/3 ml nebulizer INHALE CONTENTS OF 1 VIAL VIA NEBULIZER FOUR TIMES DAILY 360 mL 12/02/19 25 025 Discontinued Active Problems Problem Noted [...] (02/18/2023 4:55 PM EST): Patient treated at [facility] emergency department on February 05 for viral syndrome, followed by evaluation at [facility] where he was diagnosed with [...] time. Type 2 diabetes mellitus, [facility] long-term current use of insulin 12/03/2021 Assessment [...] function today -RTC 3 months Atherosclerosis of [place] co ronary artery of [place] heart without angina pectoris 12/03/2021 Assessment & Plan (03/25/2024 5:30 PM EST): admitted at [facility] November 12 at which time he suffered an FL, requiring cardiac cath and subsequent stenting of [...] Plan (12/20/2023 9:11 AM EST): admitted at [facility] November 12 at which time he suffered an FL, requiring cardiac cath and subsequent stenting of [...] and aspirin -Requesting notes from admission at [facility] as well as Dr. Lucio's notes. Assessment [...] Encounters Date Type Department Care Team Description 12/06/2024 Refill [facility] [address] [place] [address] [place] [phone] Dominga Felipe APRN 12/01/2024 1:30 PM EDT Office Visit [facility] [address] [place] [address] [place] [phone] Dominga Felipe, INSTRUCTOR WARPER Type 2 diabetes mellitus with hyperglycemia, without long-term current use of insulin (Primary Dx); Atherosclerosis of [place] coronary artery of [place] heart without angina pectoris; Lumbar spondylosis; Primary hypertension; Mixed hyperlipidemia; Chronic obstructive pulmonary disease, unspecified COPD type 12/01/2024 Refill [facility] [address] [place] [address] [place] [phone] Dominga Felipe APRN 12/01/2024 Travel 11/25/2024 Transitional Care Management Telephone Encounter [facility] NURSE CALL CENTER [facility] [address] [place] [address] Cassi Nunes, BELINDA 11/24/2024 Readmission Management [facility] NURSE CALL CENTER [address] [place] [address] Edith Gamboa RN 11/24/2024 Telephone [facility] [address] [place] [address] [place] [address] Dominga Felipe, INSTRUCTOR WARPER Hospital Follow Up Visit 10/19/2024 Refill [facility] [address] [place] [address] [place] [address] Dominga Felipe, INSTRUCTOR WARPER 10/18/2024 Telephone [facility] [address] [place] [address] [place] [address] Dominga Felipe, INSTRUCTOR WARPER MED CONCERN 09/20/2024 Refill [facility] [address] [place] [address] [place] [address] Dominga Felipe, INSTRUCTOR WARPER 09/20/2024 Refill [facility] [address] [place] [address] [place] [address] Dominga Felipe, INSTRUCTOR WARPER from Last 3 Months Immunizations Immunization Administration [...] or training? Not on file Preferred Language Dutch 05/20/2022 PHQ-2 Answer Date Recorded Patient Health [...] Mass Index 30.54 12/01/2024 1:37 PM EDT Plan of Treatment Upcoming Encounters Date Type Department Care Team (Late st Contact Info) Description 03/03/2025 1:30 PM EST Office Visit [facility] [address] [place] [address] [place] [address] Dominga Felipe APRN [address] [place] [address] Health Maintenance Due Date Last Done Comments URINE MICROALBUMIN-CREATININE RATIO (uACR) 07/31/1960 TDAP/TD VACCINES (1 - Tdap) 1968 COLOGUARD 1994 COLON CANCER SCREENING [address] COLONOGRAPHY 1994 FECAL OCCULT [...] 04/27/2024 RSV Vaccine - Adults (1 - 1-dose 75+ series) 2024 COVID-19 Vaccine ( season) 2024 06/23/2020, 05/24/2020, 05/12/2020, Additional history exists INFLUENZA VACCINE 05/30/2025 10/30/2018, 10/24/2016 Postponed from 09/10/2024 (Patient Refused) HEMOGLOBIN A1C 06/01/2025 12/01/2024, 02/0 08/2024, 12/18/2023, Additional history exists Pneumococcal Vaccine 50+ Completed [...] Recently Relevant to Health Maintenance Results * (ABNORMAL) POC Glycosylated Hemoglobin (Hb A1C) (12/01/2024 1:57 PM EDT) Pathologist [facility] Hemoglobin A1C 8.3(A) 4.5 - 5.7 % [facility] Lot Number [id number] [facility] Expiration Date [facility] Blood 12/01/2024 1:57 PM EDT us Dominga Felipe INSTRUCTOR WARPER POINT OF CARE TEST ORDERABL ES Final Result [facility]
[address] [place] [address], * Lipid Panel (11/19/2022 9:29 AM EDT) [...] 9:29 AM EDT 11/19/2022 Comment:Blood Release to [facility] Narrative [facility] ([facility]) - 11/20/2022 8:09 AM EDT Performed at: - [facility], [place] [id number] [employer] Designer: Joao Vergara PhD, Phone: [phone] us Dominga Felipe INSTRUCTOR WARPER LAB BLOOD ORDERABLES Final Result [facility] ([facility]) [address] [place] [address], [facility] [address] [place] [address], * CT Abdomen Pelvis Without Contrast (12/22/2021 [...] ve Non-Reacti ve 12/05/2018 2:40 AM EDT [facility] Hep A IgM Non-Reacti ve Non-Reacti ve 12/05/2018 2:40 AM EDT [facility] Hep B C IgM Non-Reacti ve Non-Reacti ve 12/05/2018 2:40 AM EDT [facility] Hepatitis C Ab Non-Reacti ve Non-Reacti ve 12/05/2018 2:40 AM EDT [facility] Blood Venipuncture / Unknown 12/04/2018 11:31 AM EDT 12/04/2018 11:31 AM EDT Bernardino Ron MD LAB BLOOD ORDERABLES Final Res ult [facility]
[address] [place] [address], * Colonoscopy (04/27/2014) [facility] SURGICAL HISTORY PROCEDURES F inal Result from Last 3 Months or Most Recently Relevant to Health Maintenance Additional Health Concerns Infection Onset Date Last Indicated MRSA 03/13/2022 05/18/2022 Insurance [facility] HMO Advance Directives * [...] or is breathing): Full Support Care Teams Supervisor Properties Relationship Specialty Start Date End Date Dominga Felipe APRN [address] [place] [address] PCP - General Family Medicine 02/26/22
--- OUTSIDE RECORDS SUMMARY | 2024-12-07 19:03 | XMS_ITS | Encounter Summary ---
[facility] Organization [facility] Address [address] [place] [address] Care Team Providers Care Banquet Director Name Role Phone Dominga Felipe PACKING AND SHIPPING CLERK Primary Care Provider [phone] Reason for Visit * Reason Comments Med Refill Encounter Details Date Type Department Care Team (Late st Contact Info) Description 12/06/2024 Refill [facility] [address] [place] [phone] Dominga Felipe, PACKING AND SHIPPING CLERK [address] [place], [place] [id number] Social History Tobacco Use Types Packs/Day Years [...] or training? Not on file Preferred Language Ecuadorean 05/20/2022 PHQ-2 Answer Date Recorded Patient Health Questionnaire-2 Score 0 03/19/2024 Sex and Gender Information Value Date Recorded Sex Assigned at Not on file Legal Sex Male 1:07 PM EDT Gender Identity Not on file Sexual Orientation Not on file documented as of this encounter Miscellaneous Notes * Telephone Encounter - Michelle Oconnor MA - 12/06/2024 3:45 PM EDT Rx sent documented in this encounter Plan of Treatment Upcoming Encounters Date Type Department Care Team (Late st Contact Info) Description 03/03/2025 1:30 PM EST Office Visit [facility] [address] [place] [phone] Dominga Felipe APRN [address] [place] [address] documented as of this encounter Visit Diagnoses Not on filedocumented in this encounter Additional Health Concerns Infection Onset Date Last Indicated Resolved Time MRSA 03/13/2022 05/18/2022 documented as of this encounter Care Teams Banquet Director Relationship Specialty Start Date End Date Dominga Felipe APRN [address] [place] [address] PCP - General Family Medicine 02/26/22 documented as of this encounter
--- OUTSIDE RECORDS SUMMARY | 2024-12-07 19:03 | XMS_ITS | Referral Summary ---
Author Organization [employer] ([place], [place], [place], [place]) Address [address] [place] [address] Care Team Providers Care Automatic Embroidery Machine Tender Name Role Phone Unavailable Primary Care Provider [...]
--- OUTSIDE RECORDS SUMMARY | 2024-12-07 19:03 | XMS_ITS | Encounter Summary ---
Author Organization [facility] Address [address] [place] [address] Care Team Providers Care Escrow Agent Name Role Phone Dominga Felipe NUCLEAR WASTE PROCESS OPERATOR Primary Care Provider Reason for Visit * Reason Onset Date Comments MED CONCERN 10/18/2024 Encounter Details Date Type Department Care Team (Late st Contact Info) Description 10/18/2024 Telephone [facility] [address] [place] [phone] Dominga Felipe, NUCLEAR WASTE PROCESS OPERATOR [address] [place] [address] MED CONCERN Social History Tobacco [...] MARISA WITH [employer] call back number: [phone] What is your medical concern? STATES PT SWO FORM WAS FAXED ON 09/28 AND WILL LIKE TO KNOW IF PT PCP HAS RECEIVED, IF SO PLEASE FILL OUT AND FAX BACK OVER documented in this encounter Plan of Treatment Upcoming Encounters Date Type Department Care Team (Late st Contact Info) Description 03/03/2025 1:30 PM EST Office Visit [facility] [address] [place] [phone] Dominga Felipe APRN [address] [place] [address] documented as of this encounter Visit Diagnoses Not on filedocumented in this encounter Additional Health Concerns Infection Onset Date Last Indicated Resolved Time MRSA 03/13/2022 05/18/2022 documented as of this encounter Care Teams Escrow Agent Relationship Specialty Start Date End Date Dominga Felipe APRN [address] [place] [phone] PCP - General Family Medicine 02/26/22 documented as of this encounter
--- OUTSIDE RECORDS SUMMARY | 2024-12-07 19:03 | XMS_ITS | Encounter Summary ---
[facility] Address [address] [place] [address] Care Team Providers Care Social Science Instructor Name Role Phone Dominga Felipe Paul ZIMMERMAN Primary Care Provider Encounter Details Date Type Department Care Team (Late st Contact Info) Description 11/25/2024 Transitional Care Management Telephone Encounter [facility] NURSE CALL CENTER [address] [place] [phone] Cassi Nunes, BELINDA Social History Tobacco Use Types Packs/Day Years [...] you are drinking? Patient does not drink 04/08/202 3 Q3: How often do you have si [...] or training? Not on file Preferred Language Palestinian 05/20/2022 PHQ-2 Answer Date Recorded Patient Health Questionnaire-2 Score 0 03/19/2024 Sex and Gender Information Value Date Recorded Sex Assigned at Not on file Legal Sex Male 1:07 PM EDT Gender Identity Not on file Sexual Orientation Not on file documented as of this encounter Miscellaneous Notes * Outreach Note - Cassi Nunes RN - 11/25/2024 10:18 AM EDT Images from the original note were not included. Call Center TCM Note Flowsheet Row Responses [facility] patient discharged from? [facility] [[facility]] Does the patient have one of the following disease processes/diagnoses(primary or secondary)? Other TCM attempt successful? Yes Call start time [phone] Call end time 1026 Discharge diagnosis HEART CATH Person spoke with today (if not patient) and relationship Patient Meds reviewed with patient/caregiver? Yes Is the patient having any side effects they believe may be caused by any medication additions or changes? No Does the patient have all medications ordered at discharge? N/A Prescription comments Patient reports no new medications added. His statin drug dosage was increased. No concerns or questions. Is the patient taking all medications as directed (includes completed medication regime)? Yes Comments PCP HOSPITAL f/u appt on 12/01/24 at 1:30 PM with Dominga Felipe APRN. Does the patient have an appointment with their PCP within 7-14 days of discharge? Yes Has home health visited the patient within 72 hours of discharge? N/A Psychosocial issues? No Comments Patient reports he is doing well. He states he had a cardiac cath and a stent placed. He states this is the 7th stent placed this year. He is up walking around and understands his restrictions. Did the patient receive a copy of their discharge instructions? Yes Nursing interventions Reviewed instructions with patient What is the patient's perception of their health status since discharge? Improving Is the patient/caregiver able to teach back signs and symptoms related to disease process for when to call PCP? Yes Is the patient/caregiver able to teach back signs and symptoms related to disease process for when to call 911? Yes Is the patient/caregiver able to teach back the hierarchy of who to call/visit for symptoms/problems? PCP, Specialist, Home health nurse, Urgent Care, ED, 911 Yes If the patient is a current smoker, are they able to teach back resources for cessation? Not a smoker TCM call completed? Yes Wrap up additional comments PCP HOSPITAL f/u appt on 12/01/24 at 1:30 PM with Dominga Felipe APRN. Verified with patient. Call end time 1026 Would this patient benefit from a Referral to [facility] Social Work? No Is the patient interested in additional calls from an ambulatory case specialist? No Cassi Ballard - Registered Nurse 11/25/2024, 10:28 EDT documented in this encounter Plan of Treatment Upcoming Encounters Date Type Department Care Team (Late st Contact Info) Description 03/03/2025 1:30 PM EST Office Visit [facility] [address] [place] [phone] Dominga Felipe APRN [address] [place] [address] documented as of this encounter Visit Diagnoses Not on filedocumented in this encounter Additional Health Concerns Infection Onset Date Last Indicated Resolved Time MRSA 03/13/2022 05/18/2022 documented as of this encounter Care Teams Social Science Instructor Relationship Specialty Start Date End Date Dominga Felipe APRN [address] [place] [id number] PCP - General Family Medicine 02/26/22 documented as of this encounter
--- NOTE | 2024-12-07 19:13 | PC.NURSE ---
spoke with respiratory regarding VBG
[2024-12-07 19:14] LABS: VBG HCO3 25.0 mmol/L (23-30); VBG PCO2 45.4 mmol/L (35-51); VBG PH 7.36 mmol/L (7.31-7.41); VBG PO2 76.6 mmol/L (28-40)
[2024-12-07 19:16] LABS: Lactate Venous 2.1 mmol/L (0.4-2.0)
--- NOTE | 2024-12-07 19:59 | XR_ITS ---
PROCEDURE INFORMATION: Exam: XR Chest Exam date and time: 12/07/2024 8:04 PM Age: 74 years old Clinical indication: Dyspnea TECHNIQUE: Imaging protocol: Radiologic exam of the chest. Views: 1 view. COMPARISON: CR XR CHEST PORTABLE 11/24/2024 9:18 AM FINDINGS: Lungs: Right basilar opacities partially silhouette the diaphragm are favored to represent combination of atelectasis/pleural effusion/consolidation. Pleural spaces: See Lungs finding. Heart/Mediastinum: Postsurgical changes compatible with CABG procedure. No cardiomegaly. Bones/joints: Unremarkable. IMPRESSION: Right basilar opacities partially silhouette the diaphragm are favored to represent combination of atelectasis/pleural effusion/consolidation.
--- NOTE | 2024-12-07 20:00 | [facility].EDCP ---
Discharge Plan Disposition Patient Disposition: Admitted Prescriptions Prescriptions: No Action pantoprazole [Protonix] 40 mg tablet,delayed release (DR/EC) 40 mg PO DAILY Qty: 30 5RF clopidogrel 75 mg tablet 75 mg PO DAILY Qty: 30 11RF famotidine [Pepcid] 20 mg tablet 20 mg PO DAILY Qty: 30 0RF rosuvastatin 40 mg tablet 80 mg PO HS Qty: 30 0RF furosemide 40 mg tablet 40 mg PO DAILY ipratropium-albuterol 0.5 mg-3 mg(2.5 mg base)/3 mL solution for nebulization 3 ml INHALATION QIDP PRN (Reason: Shortness Of Breath) glyburide 5 mg tablet 5 mg PO BID amlodipine 10 mg tablet 10 mg PO DAILY aspirin 81 mg Tablet,Delayed Release (Dr/Ec) 81 mg PO DAILY 30 Days Qty: 30 0RF metoprolol tartrate 100 mg tablet 100 mg PO BID metformin 1,000 mg tablet 1,000 mg PO BIDWMEAL Qty: 60 0RF Referrals Follow up/Referrals: Provider,Referral, [Primary Care Provider, Medical] - See instructions Clinical Impressions Clinical Impression: Non-ST elevation ID (NSTEMI) Print Language Print Language: [place] Zeal[place] Discharge ED Provider: Sandra Adamson HPI General Chief Complaint: Shortness of Breath/Dyspnea Stated Complaint: trouble breathing Time Seen by Provider: 12/07/24 19:45 Mode of Arrival: EMS Source of Information: Patient and EMS Description of Symptoms (Recalled from ER Triage Doc. by RN): pt reports sudden shortness of breath,chest pain and hypoxia. sat when EMS arrived was 68%. he was minimally responsive. pt currently alert and oriented. EMS had pt on 6lnc but is now on 2lnc. History of Present Illness HPI narrative: Patient is a 74-year-old with a history of known coronary artery disease recently in our hospital just a few weeks ago with multiple stents placed for unstable angina also has a history of heart failure COPD in 2 lobectomies on the right who presents today with hypoxic respiratory failure. Called EMS as he felt like he was about to as he could not breathe was noted to have oxygen saturations in the mid 60s per EMS and was placed on 6 L nasal cannula de-escalated and route. They gave him a breathing treatment as well as IV steroids according to the patient and he now feels much better he states. During this episode he states that he had some chest tightness and became extremely sweaty and told EMS that he felt like he was having a heart attack. Related Data Home Medications ?Medication ?Instructions ?Recorded ?Confirmed amlodipine 10 mg tablet 10 mg PO DAILY 11/13/23 12/02/24 furosemide 40 mg tablet 40 mg PO DAILY 11/13/23 12/02/24 glyburide 5 mg tablet 5 mg PO BID 11/13/23 12/02/24 ipratropium 0.5 mg-albuterol 3 mg 3 ml inhalation QIDP PRN Shortness 11/13/23 12/02/24 (2.5 mg base)/3 mL nebulization Of Breath soln metoprolol tartrate 100 mg tablet 100 mg PO BID 11/06/24 12/02/24 Previous Rx's ?Medication ?Instructions ?Recorded aspirin 81 mg tablet,delayed 81 mg PO DAILY 30 days #30 tabs 11/16/23 release famotidine 20 mg tablet (Pepcid) 20 mg PO DAILY #30 tabs 09/29/24 metformin 1,000 mg tablet 1,000 mg PO BIDWMEAL #60 tabs 11/07/24 rosuvastatin 40 mg tablet 80 mg (2 x 40 mg) PO HS #30 tabs 11/24/24 clopidogrel 75 mg tablet 75 mg PO DAILY #30 tabs 12/02/24 pantoprazole 40 mg tablet,delayed 40 mg PO DAILY #30 tabs 12/02/24 release (Protonix) Allergies Allergy/AdvReac Type Severity Reaction Status Date / Time lisinopril Allergy Headache Verified 12/02/24 13:00 [facility] Disclaimer: The information contained in this section may have been updated after the patient was seen, as this information can be updated by other users. Medical History (Updated 12/07/24 @ 22:24 by Sandra Adamson MD) Fever Hypervolemia Elevated d-dimer Leukocytosis Acute hypoxic respiratory failure Sepsis Pneumonia Chest pain Hyperlipidemia Elevated troponin Unstable angina Osteoarthritis History of gastroesophageal reflux (GERD) Diabetes mellitus, type 2 Heart failure Hypertension Asthma COPD (chronic obstructive pulmonary disease) Sciatic nerve injury Surgical History (Updated 12/02/24 @ 13:14 by Brenna Vincent RN) Hx of CABG H/O heart artery stent H/O cardiac catheterization H/O hernia repair S/P lobectomy of lung Social History Smoking Status: Never smoker alcohol intake: never current occupational status: previously employed Travel in the last 8 weeks?: Inside the [place] Have you lived/traveled outside [place] in past 30 days?: No Contact w/someone who lives/traveled outside US past 30 days?: No Exposure to someone with infectious disease in past 14 days?: No Do you have a fever (greater than 100.4 F or 38 C)?: No Have you tested positive for COVID-19?: No Exposed to someone with COVID-19 in past 14 days?: No Do you have a sore throat?: No Do you have a cough?: No Do you have any weakness?: No Do you have any diarrhea?: No Are you experiencing any unusual bleeding?: No Do you have any muscle aches/pain?: No Do you have any abdominal pain?: No Are you experiencing loss of taste or smell?: No Other Medical History Have you received the Flu Vaccine for this season: No Have you received the Pneumonia Vaccine: No ROS Obtained: Yes All systems reviewed & no additional complaints except as documented Physical Exam General General appearance: alert and in no apparent distress Respiratory Respiratory exam: Present wheezes (Right upper lobe wheezing otherwise nonfocal respiratory exam with no respiratory distress oxygen saturations in the mid 90s on 3 L nasal cannula); Absent respiratory distress Cardiovascular Cardiovascular exam: Present regular rate; Absent normal rhythm Neurological Exam Neurological exam: Present alert and oriented X3 HEART Score HEART Score HEART Score assessment performed?: Yes History (anamnesis): Moderately suspicious ECG: Non-specific disturbance Age: >65 years Risk factors: Atherosclerosis history Troponin: > 3x normal limit HEART Score: 8 Critical Care Critical Care Time Critical Care Time: Yes Attestation: On 12/07/24, the high probability of a clinically significant, sudden or life threatening deterioration of the following system(s) required my full and direct attention, intervention and personal management. The time I documented below is in addition to time spent performing reported procedures but includes the following listed in this critical care notation. Total Time Total Critical Care Time: 35 Medical Decision Making Jose Inquiry Pt receiving controlled substance: No Vital Signs Vital Signs: 12/07/24 19:00 12/07/24 19:00 12/07/24 19:00 Temperature 98.1 F Temperature Source Oral Pulse Rate 65 Pulse Rate [Right] 79 Respiratory Rate 22 Blood Pressure 113/65 Blood Pressure [Right Arm] 134/73 Blood Pressure Mean 77 Blood Pressure Mean [Right Arm] 93 02 Sat by Pulse Oximetry 87 L 96 Oxygen Delivery Method Room Air Oxygen Flow Rate (LPM) 12/07/24 19:10 12/07/24 19:15 12/07/24 19:30 Temperature Temperature Source Pulse Rate 80 76 Pulse Rate [Right] Respiratory Rate 20 17 Blood Pressure Blood Pressure [Right Arm] Blood Pressure Mean Blood Pressure Mean [Right Arm] 02 Sat by Pulse Oximetry 96 94 L 95 Oxygen Delivery Method Nasal Cannula Oxygen Flow Rate (LPM) 2 12/07/24 19:31 12/07/24 19:31 12/07/24 19:45 Temperature Temperature Source Pulse Rate 80 86 Pulse Rate [Right] Respiratory Rate 17 16 Blood Pressure 125/70 Blood Pressure [Right Arm] Blood Pressure Mean 87 Blood Pressure Mean [Right Arm] 02 Sat by Pulse Oximetry 97 97 Oxygen Delivery Method Oxygen Flow Rate (LPM) 12/07/24 20:00 12/07/24 20:01 12/07/24 20:01 Temperature Temperature Source Pulse Rate 83 82 Pulse Rate [Right] Respiratory Rate 12 15 Blood Pressure 121/78 Blood Pressure [Right Arm] Blood Pressure Mean 92 Blood Pressure Mean [Right Arm] 02 Sat by Pulse Oximetry 96 97 Oxygen Delivery Method Oxygen Flow Rate (LPM) 12/07/24 20:15 12/07/24 20:30 12/07/24 20:45 Temperature Temperature Source Pulse Rate 77 84 83 Pulse Rate [Right] Respiratory Rate 16 Blood Pressure Blood Pressure [Right Arm] Blood Pressure Mean Blood Pressure Mean [Right Arm] 02 Sat by Pulse Oximetry 94 L 96 95 Oxygen Delivery Method Oxygen Flow Rate (LPM) 12/07/24 20:53 12/07/24 21:00 12/07/24 21:15 Temperature Temperature Source Pulse Rate 83 77 Pulse Rate [Right] Respiratory Rate Blood Pressure Blood Pressure [Right Arm] Blood Pressure Mean Blood Pressure Mean [Right Arm] 02 Sat by Pulse Oximetry 95 91 L Oxygen Delivery Method Room Air Oxygen Flow Rate (LPM) 12/07/24 21:30 12/07/24 21:45 12/07/24 22:03 Temperature Temperature Source Pulse Rate 80 82 85 Pulse Rate [Right] Respiratory Rate Blood Pressure Blood Pressure [Right Arm] Blood Pressure Mean Blood Pressure Mean [Right Arm] 02 Sat by Pulse Oximetry 92 L 89 L 93 L Oxygen Delivery Method Oxygen Flow Rate (LPM) 12/07/24 22:16 12/07/24 22:21 Temperature Temperature Source Pulse Rate 78 Pulse Rate [Right] Respiratory Rate Blood Pressure Blood Pressure [Right Arm] Blood Pressure Mean Blood Pressure Mean [Right Arm] 02 Sat by Pulse Oximetry 91 L 85 L Oxygen Delivery Method Nasal Cannula Oxygen Flow Rate (LPM) 2 Lab Data Lab results reviewed: Yes I reviewed the patient's lab results. Labs: Lab Results 12/07/24 18:58: WBC 11.9 H, RBC 4.63, Hgb 13.9 L, Hct 41.1 L, MCV 88.8, MCH 30.0, MCHC 33.8, RDW 12.6, Plt Count 243, MPV 9.3, Neut % (Auto) 79.8, Lymph % (Auto) 12.8, [place] % (Auto) 6.2, Eos % (Auto) 0.6, Baso % (Auto) 0.2, Neut # (Auto) 9.5 H, Lymph # (Auto) 1.5, [place] # (Auto) 0.7, Eos # (Auto) 0.1, Baso # (Auto) 0.0, D-Dimer 4.32 H, VBG pH 7.36, VBG pCO2 45.4, VBG pO2 76.6 H, VBG HCO3 25.0, VBG Total CO2 26.4, VBG O2 Saturation 94.1 H, VBG Base Excess -0.5, VBG Lactic Acid 2.1 H, Sodium 137, Potassium 3.9, Chloride 102, Carbon Dioxide 24, Anion Gap 14.9, BUN 20, Creatinine 0.90, Estimated Creat Clear 79, Estimated GFR 82, Est GFR ( Amer) 100, Glucose 160 H, Calcium 8.8, Total Bilirubin 0.7, AST 37, ALT 30, Alkaline Phosphatase 93, Troponin I 0.12 H, NT-Pro-B Natriuret Pep 380, Total Protein 7.5, Albumin 3.5, Globulin 4.0 H, Albumin/Globulin Ratio 0.9 L, Lipase 77 12/07/24 18:58 12/07/24 18:58 Response Orders (Tests/Meds): ED MEDICATIONS Generic Name Dose Route Start Last Admin Trade Name Freq PRN Reason Stop Dose Admin Sodium Chloride 10 ml 12/07/24 22:00 12/07/24 22:03 Sodium Chloride 0.9% 10ml Syr (Rad Only) IV 01/06/25 21:59 10 ml NEEDED PRN Administration Maintain IV Site Discontinued Medications Generic Name Dose Route Start Last Admin Trade Name Freq PRN Reason Stop Dose Admin Iopamidol 70 ml 12/07/24 22:00 12/07/24 22:03 Iopamidol-370 (76%);100ml Bottle IV 12/07/24 22:01 70 ml ONCE ONE Administration Sodium Chloride 50 ml 12/07/24 22:00 12/07/24 22:03 0.9 % Sodium Chloride 50 Ml Vial IV 12/07/24 22:01 50 ml ONCE ONE Administration ORDERS Category Date Time Status CT angio chest PE protocol Stat Cat Scan 12/07/24 21:43 Completed CXR --portable [XR chest portable] Stat Exams 12/07/24 19:59 Completed BNP [NT Pro Brain Natriuretic Pep.] Stat Lab 12/07/24 18:58 Completed CBC w/Auto Diff [Complete Blood Count Auto Diff] Stat Lab 12/07/24 18:58 Completed CMP [Comprehensive Metabolic Panel] Stat Lab 12/07/24 18:58 Completed D-Dimer Stat Lab 12/07/24 18:58 Completed Lipase Stat Lab 12/07/24 18:58 Completed Trop I [Troponin I] Stat Lab 12/07/24 18:58 Completed Troponin I Q3H Lab 12/07/24 23:00 Ordered Troponin I Q3H Lab 12/08/24 02:00 Ordered VBG [Venous Blood Gas] Stat RT 12/07/24 18:58 Completed ECG Data Tracing #1: Attestation: I reviewed this ECG and interpreted as documented below: ECG Narrative: Ventricular rate of 86 sinus rhythm no acute ischemic changes noted there is right axis deviation and right bundle branch block no other significant duct abnormalities are noted MDM Narrative Medical Decision Narrative: 74-year-old with above history and physical differential is extensive including ID or acute coronary syndrome, pulmonary embolism, COPD exacerbation, pneumothorax etc. Broad workup including imaging and labs were initiated. Patient seems to be doing much better than what was reported by EMS after steroids and breathing treatment. We have not taken him off his oxygen but is supplemental at the moment but it was reported that he had severe hypoxic respiratory failure. Will reassess after his initial workup is complete. He will require multiple troponins to effectively rule out acute coronary syndrome but he has a very high heart score at baseline regardless. Reassessment 10:26 PM patient remains relatively asymptomatic is off oxygen oxygen saturations are in the mid 90s when he is awake falls into the 80s when sleeping we never saw the hypoxia that EMS described. Patient did have a significantly elevated D-dimer and CT PE was performed I personally interpreted which shows no pulmonary embolism or lung parenchymal abnormalities radiology read is consistent with this as well. However patient's first troponin is elevated at 0.12 which is significantly above the upper limits of normal. This is consistent with an NSTEMI. Anticoagulation and antiplatelet treatment will be managed by hospital medicine team who agreed to admit the patient for further evaluation and management.
--- OUTSIDE RECORDS SUMMARY | 2024-12-07 20:03 | XMS_ITS | CCD ---
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
[2024-12-07 20:05] LABS: Hematocrit 41.1 % (42.0-52.0); Hemoglobin 13.9 g/dL (14.1-18.0); Immature Granulocytes % 0.4 %; Mean Corpuscular HGB Conc 33.8 g/dL (31.8-35.4); Mean Corpuscular Hemoglobin 30.0 pg (27.0-31.2); Mean Corpuscular Volume 88.8 fl (80-94); Nucleated Red Blood Cells % 0 %; Platelet Count 243 K/mm3 (142-424); Red Blood Count 4.63 M/mm3 (4.60-6.20); Red Cell Distribution Width-SD 40.6 fL; White Blood Count 11.9 K/mm3 (4.8-10.8)
[2024-12-07 20:11] LABS: Alanine Aminotransferase 30 U/L (12-78); Albumin Level 3.5 g/dl (3.5-5.0); Albumin/Globulin Ratio 0.9 (1.1-1.8); Alkaline Phosphatase 93 U/L (38-126); Anion Gap 14.9 mEq/L (5-15); Aspartate Amino Transferase 37 U/L (17-59); Bilirubin,Total 0.7 mg/dl (0.2-1.3); Blood Urea Nitrogen 20 mg/dl (9-20); Calcium 8.8 mg/dl (8.4-10.2); Carbon Dioxide 24 mmol/L (22.0-30.0); Chloride 102 mmol/L (98-107); Creatinine Clearance Estimated 79 mL/min (50-200); Creatinine,Serum 0.90 mg/dl (0.66-1.25); Estimated Glomerular Filt Rate 82 ml/min (>60); GFR (African American) 100 ML/MIN (>60); Globulin 4.0 g/dL (1.3-3.2); Glucose 160 mg/dl (74-100); Lipase 77 U/L (23-300); Potassium 3.9 mmoL/L (3.5-5.1); Sodium 137 mmol/L (136-145); Total Protein,Serum 7.5 g/dl (6.3-8.2)
[2024-12-07 20:15] LABS: D-Dimer 4.32 ug/mL (0.0-0.5)
[2024-12-07 20:24] LABS: NT Pro Brain Natriuretic Pep. 380 pg/mL (0-450); Troponin I 0.12 ng/ml (0.00-0.034)
--- NOTE | 2024-12-07 21:43 | CT_ITS ---
PROCEDURE INFORMATION: Exam: CTA Chest With Contrast Exam date and time: 12/07/2024 10:00 PM Age: 74 years old Clinical indication: Dyspnea; Additional info: Dyspnea, elevated dimer TECHNIQUE: Imaging protocol: Computed tomographic angiography of the chest with contrast. Exam focused on the arteries. 3D rendering (Not supervised by radiologist): MIP and/or 3D reconstructed images were created by the technologist. Radiation optimization: All CT scans at this facility use at least one of these dose optimization techniques: automated exposure control; mA and/or kV adjustment per patient size (includes targeted exams where dose is matched to clinical indication); or iterative reconstruction. Contrast material: ISOVUE; Contrast volume: 70 ml; Contrast route: INTRAVENOUS (IV); COMPARISON: CR XR CHEST PORTABLE 12/07/2024 8:04 PM FINDINGS: Pulmonary arteries: No CT angiography evidence of pulmonary embolism. Aorta: There is moderate calcific atherosclerotic disease of the thoracic aorta without aneurysmal dilatation. Lungs: Unremarkable. No consolidation. No masses. Pleural spaces: Unremarkable. No pneumothorax. No pleural effusion. Heart: Unremarkable. No cardiomegaly. No pericardial effusion. Coronary arteries: Severe three-vessel calcific atherosclerotic disease of the coronary arteries. Postsurgical changes compatible with CABG procedure. Lymph nodes: Unremarkable. No enlarged lymph nodes. Bones/joints: Unremarkable. No acute fracture. Soft tissues: Unremarkable. IMPRESSION: No CT angiography evidence of pulmonary embolism.
[2024-12-07] MEDS: 0.9 % SODIUM CHLORIDE 50 ML VIAL IV (22:03)
[2024-12-07] MEDS: IOPAMIDOL-370 (76%);100ML BOTTLE 70 ML IV (22:03)
[2024-12-07] MEDS: SODIUM CHLORIDE 0.9% 10ML SYR (RAD ONLY) 10 ML IV (22:03)
--- NOTE | 2024-12-07 22:40 | PC.NURSE ---
Report given to Rosmery TREVINO on [facility]
--- NOTE | 2024-12-07 23:00 | PC.NURSE ---
Patient arrived to the floor via wheelchair @[id number]
[2024-12-07 23:15] LABS: Reflex Lactic Add Lactic Reflex
[2024-12-08] VITALS: BP 133/77; PULSE 75; PULSE 78; RESP 16; TEMP 36.6; O2SAT 96
--- NOTE | 2024-12-08 00:15 | P.HP_ITS ---
<Statement entered by Sean Butt MD - 12/12/24 15:36> Agree with plan of care as outlined by the G[employer] OPERATOR. History of Present Illness *Admission Date: 12/07/24 *Reason for visit:: NSTEMI *History of present illness: Patient is a 74-year-old male past medical history significant for NSTEMI, CABG, COPD-wears CPAP, hypertension, hyperlipidemia, chronic GERD, diabetes mellitus, CAD. Presents to [facility] secondary to a hypoxic event associated with chest tightness and diaphoresis. EMS notified, on their arrival they reported patient's oxygen saturations in the 60s. He was placed on 6 L nasal cannula and transferred to the emergency department. Recently underwent a left heart catheterization on (11/24) due to his unstable angina. Patient received 1 stent during heart cath. Insertion site right groin, site clean dry intact with minimal bruising. Patient reports doing well postprocedure until approximately 5 PM Friday when developed noted symptoms. Reports symptoms were similar to prior cardiac event. Elevated troponin level resulted while in the emergency department. Due to recent heart cath and acute symptoms will admit for further evaluation. Upon evaluation, patinet resting in bed without acute complaints. Currently denies any chest pain or shortness of breath. Patient denies fever, chills, nausea, vomiting. Initial ED workup included laboratory studies and imaging. Significant laboratory findings included WBC 11.9, D-dimer 4.32, glucose 160, initial troponin 0.12, repeat troponin 0.09, third troponin 0.08. Imaging study included CTA chest: No CT angiography evidence of pulmonary embolism. Patient is alert and oriented. Placed back on baseline 2 L nasal cannula while in the emergency department with adequate saturations, hemodynamically stable, transferred to [facility] telemetry. [facility] Disclaimer: The information contained in this section may have been updated after the patient was seen, as this information can be updated by other users. Medical History Fever Hypervolemia Elevated d-dimer Leukocytosis Acute hypoxic respiratory failure Sepsis Pneumonia Chest pain Hyperlipidemia Elevated troponin Unstable angina Osteoarthritis History of gastroesophageal reflux (GERD) Diabetes mellitus, type 2 Heart failure Hypertension Asthma COPD (chronic obstructive pulmonary disease) Sciatic nerve injury Surgical History Hx of CABG H/O heart artery stent H/O cardiac catheterization H/O hernia repair S/P lobectomy of lung Social History Smoking Status: Never smoker alcohol intake: never current occupational status: retired Travel in the last 8 weeks?: Inside the [place] Have you lived/traveled outside US in past 30 days?: No Contact w/someone who lives/traveled outside US past 30 days?: No Exposure to someone with infectious disease in past 14 days?: No Do you have a fever (greater than 100.4 F or 38 C)?: No Have you tested positive for COVID-19?: No Exposed to someone with COVID-19 in past 14 days?: No Do you have a sore throat?: No Do you have a cough?: No Do you have any weakness?: No Are you experiencing any nausea/vomitting?: No Do you have any diarrhea?: No Are you experiencing any unusual bleeding?: No Do you have any muscle aches/pain?: No Do you have any abdominal pain?: No Are you experiencing loss of taste or smell?: No Other Medical History Have you received the Flu Vaccine for this season: No Have you received the Pneumonia Vaccine: No Review of Systems Review of Systems Review of systems:: pertinent systems reviewed and negative unless documented below Constitutional Constitutional: Reports system reviewed and no additional complaints, except as documented Eyes Eyes: Reports system reviewed and no additional complaints, except as documented ENT Ears, Nose, Mouth, and Throat: Reports system reviewed and no additional complaints, except as documented *Cardiovascular Cardiovascular: Reports chest pain *Respiratory Respiratory: Reports system reviewed and no additional complaints, except as documented *Gastrointestinal Gastrointestinal: Reports system reviewed and no additional complaints, except as documented *Genitourinary Genitourinary: Reports system reviewed and no additional complaints, except as documented *Musculoskeletal Musculoskeletal: Reports system reviewed and no additional complaints, except as documented Integumentary/Breasts Skin/Breast: Reports system reviewed and no additional complaints, except as documented *Neurologic Neurologic: Reports system reviewed and no additional complaints, except as documented Psychiatric Psychiatric: Reports system reviewed and no additional complaints, except as documented Endocrine Endocrine: Reports system reviewed and no additional complaints, except as documented Hematologic/Lymphatic Hematologic/Lymphatic: Reports system reviewed and no additional complaints, except as documented Allergic/Immunologic Allergic/Immunologic: Reports system reviewed and no additional complaints, except as documented Meds Home Medications and Allergies Home Medications ?Medication ?Instructions ?Recorded ?Confirmed ?Type amlodipine 10 mg tablet 10 mg PO DAILY 11/13/2311/11 History furosemide 40 mg tablet 40 mg PO DAILY 11/13/2311/11 History glyburide 5 mg tablet 5 mg PO BID 11/13/23 5 History ipratropium 0.5 mg-albuterol 3 mg 3 ml inhalation QIDP PRN Shortness 11/13/23 12/07/24 History (2.5 mg base)/3 mL nebulization Of Breath soln aspirin 81 mg tablet,delayed 81 mg PO DAILY 30 days #3 0 tabs 11/16/23 12/07/24 Rx release famotidine 20 mg tablet (Pepcid) 20 mg PO DAILY #30 ta bs 09/29/24 12/07/24 Rx metoprolol tartrate 100 mg tablet 100 mg PO BID 12/07/24 History metformin 1,000 mg tablet 1,000 mg PO BIDWMEAL #60 tab s 11/07/24 12/07/24 Rx rosuvastatin 40 mg tablet 80 mg (2 x 40 mg) PO HS #30 tabs 11/24/24 12/07/24 Rx clopidogrel 75 mg tablet 75 mg PO DAILY #30 tabs 11/1112/07/24 Rx pantoprazole 40 mg tablet,delayed 40 mg PO DAILY #30 t abs 12/02/24 12/07/24 Rx release (Protonix) New Prescriptions to Start Prescriptions: Allergies Allergy/AdvReac Type Severity Reaction Status Date / Time lisinopril Allergy Headache Verified 12/02/24 13:00 Exam Data for Last 24 hours Vital signs and Labs for Last 24 Hours: Temp Pulse Resp BP Pulse Ox O2 Del Method O2 Flow Rate 98.1 F 83 16 121/78 97 Room Air 2 12/07/24 23:02 12/07/24 23:02 12/07/24 23:02 12/07/24 23:02 12/07/24 23:00 12/07/24 23:02 12/07/24 23:02 Laboratory Results - last 24 hr 12/07/24 18:58: WBC 11.9 H, RBC 4.63, Hgb 13.9 L, Hct 41.1 L, MCV 88.8, MCH 30.0, MCHC 33.8, RDW 12.6, Plt Count 243, MPV 9.3, Neut % (Auto) 79.8, Lymph % (Auto) 12.8, [place] % (Auto) 6.2, Eos % (Auto) 0.6, Baso % (Auto) 0.2, Neut # (Auto) 9.5 H, Lymph # (Auto) 1.5, [place] # (Auto) 0.7, Eos # (Auto) 0.1, Baso # (Auto) 0.0, D-Dimer 4.32 H, VBG pH 7.36, VBG pCO2 45.4, VBG pO2 76.6 H, VBG HCO3 25.0, VBG Total CO2 26.4, VBG O2 Saturation 94.1 H, VBG Base Excess -0.5, VBG Lactic Acid 2.1 H, Sodium 137, Potassium 3.9, Chloride 102, Carbon Dioxide 24, Anion Gap 14.9, BUN 20, Creatinine 0.90, Estimated Creat Clear 79, Estimated GFR 82, Est GFR ( Amer) 100, Glucose 160 H, Calcium 8.8, Total Bilirubin 0.7, AST 37, ALT 30, Alkaline Phosphatase 93, Troponin I 0.12 H, NT-Pro-B Natriuret Pep 380, Total Protein 7.5, Albumin 3.5, Globulin 4.0 H, Albumin/Globulin Ratio 0.9 L, Lipase 77 I & O for Last 24 hours: Intake & Output 12/05/24 12/06/24 12/07/24 12/08/24 23:59 23:59 23:59 23:59 Output Total 0 / 0 Balance 0 / 0 Weight 87.044 kg Constitutional Constitutional: mild distress *Routine HEENT Exam Head: Present normocephalic Eye: Present EOMI and PERRL ENT: Present mucous membranes moist *Routine Neck Exam Neck: Present supple and full ROM *Routine Respiratory Exam Respiratory: Present normal respiratory effort *Routine Cardiovascular Exam Cardiovascular: Present RRR, Normal S1 and Normal S2 *Routine Abdominal Exam Abdominal: Present soft and normoactive bowel sounds *Routine Rectal Exam Rectal:: deferred *Routine Genitalia Exam Genitalia:: deferred *Routine Extremities Exam Extremities: Present full ROM Routine Back/Spine/Pelvis Exam Back/Spine: Present full ROM *Routine Neurological Exam Neurological: Present alert, oriented X3 and CN II-XII intact Routine Psychiatric Exam Psychiatric: Present normal affect Assessment and Plan *Assessment and plan (1) Non-ST elevation SC (NSTEMI): Status: Acute Category: Medical Code(s): I21.4 - Non-ST elevation (NSTEMI) myocardial infarction (2) Acute and chronic respiratory failure with hypoxia: Status: Acute Category: Medical Code(s): J96.21 - Acute and chronic respiratory failure with hypoxia (3) COPD (chronic obstructive pulmonary disease): Status: Acute Qualifiers: COPD type: unspecified COPD Qualified Code(s): J44.9 - Chronic obstructive pulmonary disease, unspecified Category: Medical Code(s): J44.9 - Chronic obstructive pulmonary disease, unspecified (4) Hypertension: Status: Acute Qualifiers: Hypertension type: primary hypertension Qualified Code(s): I10 - Essential (primary) hypertension Category: Medical Code(s): I10 - Essential (primary) hypertension (5) Hyperlipidemia: Status: Acute Qualifiers: Hyperlipidemia type: mixed hyperlipidemia Qualified Code(s): E78.2 - Mixed hyperlipidemia Category: Medical Code(s): E78.5 - Hyperlipidemia, unspecified (6) Hx of CABG: Status: Acute Category: Surgical Code(s): Z95.1 - Presence of aortocoronary bypass graft (7) CAD (coronary artery disease): Status: Acute Qualifiers: Associated angina: with unstable angina Coronary Disease-Associated Artery/Lesion type: jena artery [place] vs. transplanted heart: jena heart Qualified Code(s): I25.110 - Atherosclerotic heart disease of [place] coronary artery with unstable angina pectoris Category: Medical Code(s): I25.10 - Atherosclerotic heart disease of j[place] coronary artery without angina pectoris (8) Diabetes mellitus: Status: Acute Qualifiers: Diabetes mellitus complication status: with hyperglycemia Diabetes mellitus fpc insulin use: without fpc use Diabetes mellitus type: type 2 Qualified Code(s): E11.65 - Type 2 diabetes mellitus with hyperglycemia Category: Medical Code(s): E11.9 - Type 2 diabetes mellitus without complications (9) Chronic GERD: Status: Acute Category: Medical Code(s): K21.9 - Gastro-esophageal reflux disease without esophagitis Plan 1. Non-ST elevation/Hypertension/hyperlipidemia/CAD/history of CABG: Significant cardiac history, presenting with complaint of shortness of breath, chest tightness. Elevated troponin resulted in the emergency department (0.12). Continue to monitor on telemetry, trend troponin, resume home medications, aspirin, Plavix, metoprolol, rosuvastatin. Therapeutic Lovenox. Defer any further changes to cardiology, Cardiology consult placed, appreciate input. 2. Acute on chronic respiratory failure with hypoxia: Patient was reported to have oxygen saturations in the 60s per EMS-patient reports shortness of breath with concurrent diaphoresis and chest tightness. Placed on 6 L per EMS and route to the hospital. Currently 2 L with adequate saturations will continue to monitor saturations. Keep saturations greater than or equal to 91%. Recent admission noting patient should wear 2 L nasal cannula as needed and at night time. Reports that he also uses CPAP at night. 3. COPD: Currently on 2 L nasal cannula with adequate saturations. Use of home CPAP-resume use nightly and while sleeping. DuoNebs as needed. 4. Diabetes mellitus 2: Glucose 160 on arrival, insulin sliding scale initiated with Accu-Cheks ACHS. 5. Chronic GERD: Resume PPI. 6. DVT prophylaxis: Therapeutic Lovenox Full code I personally discussed the management of this patient with the emergency department provider. Presented with complaint of shortness of breath, and chest tightness. Noted to be hypoxic per EMS,oxygen saturations reported to be in the 60s. Elevated troponin in the emergency department. Recent cardiac cath. Continue to monitor troponin level, hopper feeder, oxygen saturations. Cardiology consult, appreciate input.
[2024-12-08 00:24] LABS: Lactic Acid Follow Up (RFLX 1) 1.1 mmol/L (0.7-2.1)
[2024-12-08 00:37] LABS: Troponin I 0.09 ng/ml (0.00-0.034)
[2024-12-08 02:53] LABS: Troponin I 0.08 ng/ml (0.00-0.034)
[2024-12-08 04:00] VITALS: BP 115/62; PULSE 73; RESP 18; TEMP 36.6; O2SAT 95; BMI 30.6
[2024-12-08 06:00] VITALS: PULSE 70
[2024-12-08] MEDS: humaLOG 100 UNITS/ML 10ML VIAL (SSI) SUBCUT ×2 (06:14→11:29)
--- NOTE | 2024-12-08 07:46 | HMH.PHAINT1 ---
Pharmacy Intervention Comments: HOME MEDICATION LIST VERIFIED USING LIST FROM OUTPATIENT PHARMACY AND CARDIOLOGY CLINIC NOTES
[2024-12-08 08:00] VITALS: BP 124/62; PULSE 70; PULSE 71; RESP 17; TEMP 36.6; O2SAT 97
[2024-12-08] MEDS: AMLODIPINE 10MG TABLET 10 MG PO (08:21)
[2024-12-08] MEDS: ASPIRIN EC 81MG TABLET 81 MG PO (08:21)
[2024-12-08] MEDS: CLOPIDOGREL 75MG TAB 75 MG PO (08:21)
[2024-12-08] MEDS: FUROSEMIDE 40 MG TABLET PO (08:21)
[2024-12-08] MEDS: METOPROLOL TARTRATE 50MG TABLET 100 MG PO (08:22)
--- NOTE | 2024-12-08 09:14 | CA_ITS ---
APPROVED REPORT EXAM: Comprehensive 2D, Doppler, and color-flow Echocardiogram Banquet Captain: Hortencia Edmondson RT(R) Ht: 5 ft 6 in Wt: 193lbs BSA: 1.97 BP: 132/84 mmHg Indications: NSTEMI, hx CABG, recent heart cath 11/24/24 with cardiac stent placement Echo Enhancing Agent Indication: Endocardial border delineation Agent(s) / Amount(s) Used: Definity 2 cc M-Mode Dimensions RVDd 3.57 cm (0.9-2.6) LVDd 4.72 cm (3.5-5.7) LVDs 3.64 cm (3.5-5.7) IVSd 1.00 cm (0.6-1.1) PWd 1.00 cm (0.6-1.1) EF (Teich) 45.90% FS 22.90% EDV (Teich) 103.40 mL ESV (Teich) 55.90 mL LV Diastology E Decel Time 183 (160-240 msec) E/A Ratio 1.31 Mitral Valve MV A Velocity 69.0 (40-130 cm/s) E/A Ratio 1.31 Other Information Study Quality: Fair Conclusion This is a limited TTE to evaluate LV systolic function. Limited windows are obtained. Ultrasound enhancing agent is administered. The left ventricle is normal in size. There is increased LV wall thickness. There is normal global LV systolic function. No regional wall motion abnormalities are noted. LVEF is 55%. Ultrasound enhancing agent demonstrates no evidence of LV thrombus. Electronically signed by : More Ring MD 12/08/2024 12:46:25
[2024-12-08] MEDS: DEFINITY US ECHO CONTRAST 2ML INJ 2 MG IV (10:27)
--- NOTE | 2024-12-08 11:40 | EXP.CARD.CON ---
History of Present Illness History of Present Illness Consult date: 12/08/24 Consult reason: shortness of breath Chief complaint: SOA History of present illness: 74-year-old white male established patient of our office with history of CAD status post CABG 2005. New to us with NSTEMI and pneumonia last November. He had reduced EF of 45% at that time and had 4 vessels stented successfully. He also has COPD at baseline as well as GERD. Presented to the hospital again 2 weeks ago with another NSTEMI and received stenting of his left circumflex. Had preserved biventricular function. He was seen last week in the office in stable condition on GDMT. Patient states he has been more short of breath over the past few days. Last night became severely short of breath and EMS was called to his home where he was found to have O2 of 60%. He was diaphoretic and felt a sense of impending doom. On arrival here he was started on oxygen therapy and admitted overnight for observation. EKG shows SR without acute changes. Troponin initially 0.12 trended down to 0.09 and 0.08. proBNP 380, CTA chest without acute findings. This morning patient reports he is feeling significantly better and back to his baseline. He feels this was more of a respiratory event than cardiac. [facility] Disclaimer: The information contained in this section may have been updated after the patient was seen, as this information can be updated by other users. Medical History Fever Hypervolemia Elevated d-dimer Leukocytosis Acute hypoxic respiratory failure Sepsis Pneumonia Chest pain Hyperlipidemia Elevated troponin Unstable angina Osteoarthritis History of gastroesophageal reflux (GERD) Diabetes mellitus, type 2 Heart failure Hypertension Asthma COPD (chronic obstructive pulmonary disease) Sciatic nerve injury Surgical History Hx of CABG H/O heart artery stent H/O cardiac catheterization H/O hernia repair S/P lobectomy of lung Social History Smoking Status: Never smoker alcohol intake: never current occupational status: retired Travel in the last 8 weeks?: Inside the [place] Have you lived/traveled outside US in past 30 days?: No Contact w/someone who lives/traveled outside US past 30 days?: No Exposure to someone with infectious disease in past 14 days?: No Do you have a fever (greater than 100.4 F or 38 C)?: No Have you tested positive for COVID-19?: No Exposed to someone with COVID-19 in past 14 days?: No Do you have a sore throat?: No Do you have a cough?: No Do you have any weakness?: No Are you experiencing any nausea/vomitting?: No Do you have any diarrhea?: No Are you experiencing any unusual bleeding?: No Do you have any muscle aches/pain?: No Do you have any abdominal pain?: No Are you experiencing loss of taste or smell?: No Review of Systems Constitutional Constitutional: Denies fatigue and Denies weakness Eyes Eyes: Denies loss of vision ENT Ears, Nose, Mouth, and Throat: Denies hearing loss *Cardiovascular Cardiovascular: Denies chest pain and Reports dyspnea *Respiratory Respiratory: Denies cough and Reports dyspnea *Gastrointestinal Gastrointestinal: Denies change in stool character, Denies nausea and Denies vomiting *Genitourinary Genitourinary: Denies difficulty urinating *Musculoskeletal Musculoskeletal: Denies muscle weakness Integumentary/Breasts Skin/Breast: Denies changing lesions *Neurologic Neurologic: Reports system reviewed and no additional complaints, except as documented, Denies loss of vision and Denies weakness Endocrine Endocrine: Denies fatigue Exam Data for Last 24 hours Vital signs and Labs for Last 24 Hours: Temp Pulse Resp BP Pulse Ox O2 Del Method O2 Flow Rate 97.9 F 71 17 124/62 97 Nasal Cannula 2 12/08/24 08:00 12/08/24 08:00 12/08/24 08:00 12/08/24 08:00 12/08/24 08:00 12/08/24 10:42 12/08/24 10:42 Laboratory Results - last 24 hr 12/07/24 18:58: WBC 11.9 H, RBC 4.63, Hgb 13.9 L, Hct 41.1 L, MCV 88.8, MCH 30.0, MCHC 33.8, RDW 12.6, Plt Count 243, MPV 9.3, Neut % (Auto) 79.8, Lymph % (Auto) 12.8, [place] % (Auto) 6.2, Eos % (Auto) 0.6, Baso % (Auto) 0.2, Neut # (Auto) 9.5 H, Lymph # (Auto) 1.5, [place] # (Auto) 0.7, Eos # (Auto) 0.1, Baso # (Auto) 0.0, D-Dimer 4.32 H, VBG pH 7.36, VBG pCO2 45.4, VBG pO2 76.6 H, VBG HCO3 25.0, VBG Total CO2 26.4, VBG O2 Saturation 94.1 H, VBG Base Excess -0.5, VBG Lactic Acid 2.1 H, Sodium 137, Potassium 3.9, Chloride 102, Carbon Dioxide 24, Anion Gap 14.9, BUN 20, Creatinine 0.90, Estimated Creat Clear 79, Estimated GFR 82, Est GFR ( Amer) 100, Glucose 160 H, Calcium 8.8, Total Bilirubin 0.7, AST 37, ALT 30, Alkaline Phosphatase 93, Troponin I 0.12 H, NT-Pro-B Natriuret Pep 380, Total Protein 7.5, Albumin 3.5, Globulin 4.0 H, Albumin/Globulin Ratio 0.9 L, Lipase 77 12/07/24 23:33: Lactate 1.1, Troponin I 0.09 H 12/08/24 02:12: Troponin I 0.08 H I & O for Last 24 hours: Intake & Output 12/05/24 12/06/24 12/07/24 12/08/24 23:59 23:59 23:59 23:59 Intake Total 660 / 660 Output Total 0 / 0 0 / 0 Balance 0 / 300 660 / 660 Weight 191 lb 14.4 oz 190 lb 6.4 oz Constitutional Constitutional: no acute distress and cooperative *Routine HEENT Exam Eye: Present PERRL *Routine Respiratory Exam Respiratory: Present CTA bilaterally; Absent accessory muscle use, wheezes or crackles *Routine Cardiovascular Exam Cardiovascular: Present RRR, Normal S1 and Normal S2; Absent murmur, gallop or rubs *Routine Abdominal Exam Abdominal: Present soft; Absent tenderness *Routine Extremities Exam Extremities: Present pulses intact; Absent cyanosis or edema *Routine Skin Exam Skin: Present intact; Absent erythema or wounds *Routine Neurological Exam Neurological: Present alert and oriented X3 Routine Psychiatric Exam Psychiatric: Present cooperative Meds Home Medications and Allergies Home Medications ?Medication ?Instructions ?Recorded ?Confirmed ?Type amlodipine 10 mg tablet 10 mg PO DAILY 10/03/24 10/28/25 History furosemide 40 mg tablet 40 mg PO DAILY 11/13/23 12/07/24 History glyburide 5 mg tablet 5 mg PO BID 11/13/23 12/07/24 History ipratropium 0.5 mg-albuterol 3 mg 3 ml inhalation QIDP PRN Shortness 11/13/23 12/07/24 History (2.5 mg base)/3 mL nebulization Of Breath soln aspirin 81 mg tablet,delayed 81 mg PO DAILY 30 days #30 tabs 11/16/23 12/07/24 Rx release famotidine 20 mg tablet (Pepcid) 20 mg PO DAILY #30 tabs 09/29/24 12/07/24 Rx metoprolol tartrate 100 mg tablet 100 mg PO BID 11/06/24 12/07/24 History metformin 1,000 mg tablet 1,000 mg PO BIDWMEAL #60 tabs 11/07/24 12/07/24 Rx rosuvastatin 40 mg tablet 80 mg (2 x 40 mg) PO HS #30 tabs 11/24/24 12/07/24 Rx clopidogrel 75 mg tablet 75 mg PO DAILY #30 tabs 12/02/24 12/07/24 Rx pantoprazole 40 mg tablet,delayed 40 mg PO DAILY #30 tabs 12/02/24 12/07/24 Rx release (Protonix) New Prescriptions to Start Prescriptions: Allergies Allergy/AdvReac Type Severity Reaction Status Date / Time lisinopril Allergy Headache Verified 12/02/24 13:00 Assessment and Plan *Assessment and plan (1) Acute and chronic respiratory failure with hypoxia: Status: Acute Category: Medical Code(s): J96.21 - Acute and chronic respiratory failure with hypoxia Plan Multivessel CAD with elevated troponin - This appears to be hypoxic episode - Mild troponin elevation in setting of O2 60%, no acute EKG changes - Will check limited 2D echo for wall motion abnormalities - Patient's symptoms have resolved with O2 therapy - Continue home meds including DAPT statin and beta-[place] Acute on Chronic Hypoxic Resp Failure - improving - plans per Hospitalist/pulmonology ADDENDUM: Limited 2D echo shows normal BiV function with no wall motion abnormality. ACS unlikely. Patient states he is not interested in left heart cath this admission unless it was absolutely necessary. He can continue home meds and follow-up with us in the clinic in 2 weeks. Please advise if further CV concerns this admission
[2024-12-08 11:48] LABS: POC Glucose,Bedside 239 gm/dL (70-110)
[2024-12-08 12:00] VITALS: PULSE 60
--- NOTE | 2024-12-08 12:58 | P.DS_ITS ---
<Statement entered by Sean Butt MD - 12/12/24 15:37> Agree with plan of care as outlined by the SECURITY MESSENGER. General Admission date:: 12/07/24 Discharge date: 12/08/24 HPI HPI HPI: Patient is a 74-year-old male past medical history significant for NSTEMI, CABG, COPD-wears CPAP, hypertension, hyperlipidemia, chronic GERD, diabetes mellitus, CAD. Presents to [facility] secondary to a hypoxic event associated with chest tightness and diaphoresis. EMS notified, on their arrival they reported patient's oxygen saturations in the 60s. He was placed on 6 L nasal cannula and transferred to the emergency department. Recently underwent a left heart catheterization on (11/24) due to his unstable angina. Patient received 1 stent during heart cath. Insertion site right groin, site clean dry intact with minimal bruising. Patient reports doing well postprocedure until approximately 5 PM Friday when developed noted symptoms. Reports symptoms were similar to prior cardiac event. Elevated troponin level resulted while in the emergency department. Due to recent heart cath and acute symptoms will admit for further evaluation. Upon evaluation, patinet resting in bed without acute complaints. Currently denies any chest pain or shortness of breath. Patient denies fever, chills, nausea, vomiting. Initial ED workup included laboratory studies and imaging. Significant laboratory findings included WBC 11.9, D-dimer 4.32, glucose 160, initial troponin 0.12, repeat troponin 0.09, third troponin 0.08. Imaging study included CTA chest: No CT angiography evidence of pulmonary embolism. Patient is alert and oriented. Placed back on baseline 2 L nasal cannula while in the emergency department with adequate saturations, hemodynamically stable[facility] Hospital Course Hospital Course Hospital Course: Mr. Samayoa is a 74-year-old male who presented to the emergency department yesterday with shortness of breath and chest tightness. Patient was recently hospitalized for a NSTEMI and received ZOLTAN during admission. Patient has been well since discharge home but had acute episode of chest tightness and shortness of breath. He has a primary medical history of CABG, CAD, hypertension, hyperlipidemia, unstable angina, STEMI, right lower lobectomy, chronic GERD, type 2 diabetes. Patient currently wears O2 at 2 L at night and intermittently throughout the day. He uses a Trelegy inhaler daily along with nebulizer treatments 4 times a day as needed. Workup in the emergency room was significant for elevated D-dimer of 4.32, elevated troponin of 0.12. Hospital medicine at this time was consulted for admission and further cardiology workup. CTA of chest performed showed no significant abnormalities/no PE noted. Patient's troponin continue to trend downward from 0.12-0. 08. Other labs unremarkable, no leukocytosis, normal kidney function, no anemia, no electrolyte disturbances. Patient able to wean down to baseline O2 with 2 L nasal cannula as needed. Patient denies chest pain, shortness of breath, abdominal pain, fever, chills, nausea, vomiting. Cardiology was consulted on patient who ordered a limited 2D echo which showed normal BiV function with no wall abnormalities. Troponin likely elevated due to recent cardiac cath with stent placement, NSTEMI, type II. Pulmonology unavailable for consult during admission, will have patient follow- up with pulmonology for further recommendations. Patient should continue Trelegy inhaler daily with nebulizer treatments 4 times daily as needed. Patient's lungs clear to auscultation with no shortness of breath noted. Patient will continue home medication of DAPT, amlodipine 10 mg daily, Lasix 40 daily, metoprolol tartrate 100 mg twice daily, and rosuvastatin 80 mg at bedtime. Patient should also continue diabetic medication, metoprolol 1000 mg twice daily and glimepiride 5 mg twice daily. Continue Pepcid 20 mg daily and pantoprazole 40 mg daily for GERD. Total time spent on discharge 32 minutes in counseling, documentation, chart review, and direct care with patient. Exam Data for Last 24 hours Vital signs and Labs for Last 24 Hours: Temp Pulse Resp BP Pulse Ox O2 Del Method O2 Flow Rate 97.9 F 71 17 124/62 97 Nasal Cannula 2 12/08/24 08:00 12/08/24 08:00 12/08/24 08:00 12/08/24 08:00 12/08/24 08:00 12/08/24 10:42 12/08/24 10:42 Laboratory Results - last 24 hr 12/07/24 18:58: WBC 11.9 H, RBC 4.63, Hgb 13.9 L, Hct 41.1 L, MCV 88.8, MCH 30.0, MCHC 33.8, RDW 12.6, Plt Count 243, MPV 9.3, Neut % (Auto) 79.8, Lymph % (Auto) 12.8, [place] % (Auto) 6.2, Eos % (Auto) 0.6, Baso % (Auto) 0.2, Neut # (Auto) 9.5 H, Lymph # (Auto) 1.5, [place] # (Auto) 0.7, Eos # (Auto) 0.1, Baso # (Auto) 0.0, D-Dimer 4.32 H, VBG pH 7.36, VBG pCO2 45.4, VBG pO2 76.6 H, VBG HCO3 25.0, VBG Total CO2 26.4, VBG O2 Saturation 94.1 H, VBG Base Excess -0.5, VBG Lactic Acid 2.1 H, Sodium 137, Potassium 3.9, Chloride 102, Carbon Dioxide 24, Anion Gap 14.9, BUN 20, Creatinine 0.90, Estimated Creat Clear 79, Estimated GFR 82, Est GFR ( Amer) 100, Glucose 160 H, Calcium 8.8, Total Bilirubin 0.7, AST 37, ALT 30, Alkaline Phosphatase 93, Troponin I 0.12 H, NT-Pro-B Natriuret Pep 380, Total Protein 7.5, Albumin 3.5, Globulin 4.0 H, Albumin/Globulin Ratio 0.9 L, Lipase 77 12/07/24 23:33: Lactate 1.1, Troponin I 0.09 H 12/08/24 02:12: Troponin I 0.08 H 12/08/24 11:28: POC Glucose 239 H Temp Pulse Resp BP Pulse Ox O2 Del Method O2 Flow Rate 97.9 F 71 17 124/62 97 Nasal Cannula 2 12/08/24 08:00 12/08/24 08:00 12/08/24 08:00 12/08/24 08:00 12/08/24 08:00 12/08/24 10:42 12/08/24 10:42 Laboratory Results - last 24 hr 12/07/24 18:58: WBC 11.9 H, RBC 4.63, Hgb 13.9 L, Hct 41.1 L, MCV 88.8, MCH 30.0, MCHC 33.8, RDW 12.6, Plt Count 243, MPV 9.3, Neut % (Auto) 79.8, Lymph % (Auto) 12.8, [place] % (Auto) 6.2, Eos % (Auto) 0.6, Baso % (Auto) 0.2, Neut # ( Auto) 9.5 H, Lymph # (Auto) 1.5, [place] # (Auto) 0.7, Eos # (Auto) 0.1, Baso # (Auto) 0.0, D-Dimer 4.32 H, VBG pH 7.36, VBG pCO2 45.4, VBG pO2 76.6 H, VBG HCO3 25.0, VBG Total CO2 26.4, VBG O2 Saturation 94.1 H, VBG Base Excess -0.5, VBG Lactic Acid 2.1 H, Sodium 137, Potassium 3.9, Chloride 102, Carbon Dioxide 24, Anion Gap 14.9, BUN 20, Creatinine 0.90, Estimated Creat Clear 79, Estimated GFR 82, Est GFR ( Amer) 100, Glucose 160 H, Calcium 8.8, Total Bilirubin 0.7, AST 37, ALT 30, Alkaline Phosphatase 93, Troponin I 0.12 H, NT-Pro-B Natriuret Pep 380, Total Protein 7.5, Albumin 3.5, Globulin 4.0 H, Albumin/Globulin Ratio 0.9 L, Lipase 77 12/07/24 23:33: Lactate 1.1, Troponin I 0.09 H 12/08/24 02:12: Troponin I 0.08 H I & O for Last 24 hours: Intake & Output 12/05/24 12/06/24 12/07/24 12/08/24 23:59 23:59 23:59 23:59 Intake Total 660 / 660 Output Total 0 / 0 0 / 0 Balance 0 / 300 660 / 660 Weight 87.044 kg 86.364 kg Intake & Output 12/05/24 12/06/24 12/07/24 12/08/24 23:59 23:59 23:59 23:59 Intake Total 660 / 660 Output Total 0 / 0 0 / 0 Balance 0 / 300 660 / 660 Weight 191 lb 14.4 oz 190 lb 6.4 oz Constitutional Constitutional: no acute distress, obese and cooperative *Routine HEENT Exam Head: Present normocephalic Eye: Present PERRL *Routine Neck Exam Neck: Present supple; Absent lymphadenopathy *Routine Respiratory Exam Respiratory: Present CTA bilaterally and diminished air movement (Right lower lobe); Absent accessory muscle use, wheezes or crackles *Routine Cardiovascular Exam Cardiovascular: Present RRR, Normal S1 and Normal S2; Absent murmur, gallop or rubs *Routine Abdominal Exam Abdominal: Present soft, normoactive bowel sounds and obese; Absent tenderness or distended *Routine Rectal Exam Patient deferred: visual exam *Routine Exam Patient deferred: penile exam *Routine Extremities Exam Extremities: Present pulses intact; Absent cyanosis or edema *Routine Skin Exam Skin: Present intact and dry; Absent erythema or wounds *Routine Neurological Exam Neurological: Present alert and oriented X3 Routine Psychiatric Exam Psychiatric: Present cooperative Results Data Completed and Pending Labs on day of discharge: Labs from last 24 hours 12/08/24 12/08/24 12/07/24 11:28 02:12 23:33 WBC RBC Hgb Hct MCV MCH MCHC RDW Plt Count MPV Neut % (Auto) Lymph % (Auto) [place] % (Auto) Eos % (Auto) Baso % (Auto) Neut # (Auto) Lymph # (Auto) [place] # (Auto) Eos # (Auto) Baso # (Auto) D-Dimer VBG pH VBG pCO2 VBG pO2 VBG HCO3 VBG Total CO2 VBG O2 Saturation VBG Base Excess VBG Lactic Acid Sodium Potassium Chloride Carbon Dioxide Anion Gap BUN Creatinine Estimated Creat Clear Estimated GFR Est GFR ( Amer) Glucose POC Glucose 239 H Lactate 1.1 Calcium Total Bilirubin AST ALT Alkaline Phosphatase Troponin I 0.08 H 0.09 H NT-Pro-B Natriuret Pep Total Protein Albumin Globulin Albumin/Globulin Ratio Lipase 12/07/24 18:58 WBC 11.9 H RBC 4.63 Hgb 13.9 L Hct 41.1 L MCV 88.8 MCH 30.0 MCHC 33.8 RDW 12.6 Plt Count 243 MPV 9.3 Neut % (Auto) 79.8 Lymph % (Auto) 12.8 [place] % (Auto) 6.2 Eos % (Auto) 0.6 Baso % (Auto) 0.2 Neut # (Auto) 9.5 H Lymph # (Auto) 1.5 [place] # (Auto) 0.7 Eos # (Auto) 0.1 Baso # (Auto) 0.0 D-Dimer 4.32 H VBG pH 7.36 VBG pCO2 45.4 VBG pO2 76.6 H VBG HCO3 25.0 VBG Total CO2 26.4 VBG O2 Saturation 94.1 H VBG Base Excess -0.5 VBG Lactic Acid 2.1 H Sodium 137 Potassium 3.9 Chloride 102 Carbon Dioxide 24 Anion Gap 14.9 BUN 20 Creatinine 0.90 Estimated Creat Clear 79 Estimated GFR 82 Est GFR ( Amer) 100 Glucose 160 H POC Glucose Lactate Calcium 8.8 Total Bilirubin 0.7 AST 37 ALT 30 Alkaline Phosphatase 93 Troponin I 0.12 H NT-Pro-B Natriuret Pep 380 Total Protein 7.5 Albumin 3.5 Globulin 4.0 H Albumin/Globulin Ratio 0.9 L Lipase 77 DS: Diagnosis Discharge Diagnosis (1) Acute and chronic respiratory failure with hypoxia: Status: Acute Code(s): J96.21 - Acute and chronic respiratory failure with hypoxia (2) Non-ST elevation NV (NSTEMI): Status: Acute Code(s): I21.4 - Non-ST elevation (NSTEMI) myocardial infarction (3) Chronic GERD: Status: Acute Code(s): K21.9 - Gastro-esophageal reflux disease without esophagitis (4) Chronic hypoxic respiratory failure: Status: Acute Code(s): J96.11 - Chronic respiratory failure with hypoxia (5) Hx of CABG: Status: Acute Code(s): Z95.1 - Presence of aortocoronary bypass graft (6) CAD (coronary artery disease): Status: Acute Code(s): I25.10 - Atherosclerotic heart disease of [place] coronary artery without angina pectoris Qualifiers: Coronary Disease-Associated Artery/Lesion type: [place] artery [place] vs. transplanted heart: [place] heart Associated angina: with unstable angina Qualified Code(s): I25.110 - Atherosclerotic heart disease of [place] coronary artery with unstable angina pectoris (7) COPD (chronic obstructive pulmonary disease): Status: Acute Code(s): J44.9 - Chronic obstructive pulmonary disease, unspecified Qualifiers: COPD type: unspecified COPD Qualified Code(s): J44.9 - Chronic obstructive pulmonary disease, unspecified Meds Home Medications and Allergies Home Medications ?Medication ?Instructions ?Recorded ?Confirmed ?Type amlodipine 10 mg tablet 10 mg PO DAILY 11/13/2311/11 History furosemide 40 mg tablet 40 mg PO DAILY 11/13/2311/11 History glyburide 5 mg tablet 5 mg PO BID 11/13/23 5 History ipratropium 0.5 mg-albuterol 3 mg 3 ml inhalation QIDP PRN Shortness 11/13/23 12/07/24 History (2.5 mg base)/3 mL nebulization Of Breath soln aspirin 81 mg tablet,delayed 81 mg PO DAILY 30 days #3 0 tabs 11/16/23 12/07/24 Rx release famotidine 20 mg tablet (Pepcid) 20 mg PO DAILY #30 ta bs 09/29/24 12/07/24 Rx metoprolol tartrate 100 mg tablet 100 mg PO BID 12/07/24 History metformin 1,000 mg tablet 1,000 mg PO BIDWMEAL #60 tab s 11/07/24 12/07/24 Rx rosuvastatin 40 mg tablet 80 mg (2 x 40 mg) PO HS #30 tabs 11/24/24 12/07/24 Rx clopidogrel 75 mg tablet 75 mg PO DAILY #30 tabs 11/1112/07/24 Rx pantoprazole 40 mg tablet,delayed 40 mg PO DAILY #30 t abs 12/02/24 12/07/24 Rx release (Protonix) fluticasone fur. 100 mcg-umeclid 1 inh inhalation NADINE Y #60 ea 12/08/24 Rx 62.5 mcg-vilant 25 mcg inhalat.powder (Trelegy Ellipta) New Prescriptions to Start Prescriptions: [id number] [Trelegy Ellipta] Lauren Fournier Allergies Allergy/AdvReac Type Severity Reaction Status Date / Time lisinopril Allergy Headache Verified 12/02/24 13:00 Discharge Plan Disposition Patient Disposition: Home, Self-Care Condition: Good Follow up Plan Follow up with: Dominga Felipe APRN [Referring, Medical] - 12/13/24 11:30 am Hector Lucio MD [Staff Physician, Cardiology] - 12/23/24 10:15 am Khadijah Cano MD [Physician, Pulmonology] - 01/18/25 1:00 pm Prescriptions/Medication Reconciliation: New Trelegy Ellipta 100-62.5-25 mcg blister with device 1 inh inhalation DAILY Qty: 60 0RF Continued pantoprazole [Protonix] 40 mg tablet,delayed release (DR/EC) 40 mg PO DAILY Qty: 30 5RF clopidogrel 75 mg tablet 75 mg PO DAILY Qty: 30 11RF famotidine [Pepcid] 20 mg tablet 20 mg PO DAILY Qty: 30 0RF rosuvastatin 40 mg tablet 80 mg PO HS Qty: 30 0RF furosemide 40 mg tablet 40 mg PO DAILY ipratropium-albuterol 0.5 mg-3 mg(2.5 mg base)/3 mL solution for nebulization 3 ml INHALATION QIDP PRN (Reason: Shortness Of Breath) glyburide 5 mg tablet 5 mg PO BID amlodipine 10 mg tablet 10 mg PO DAILY aspirin 81 mg Tablet,Delayed Release (Dr/Ec) 81 mg PO DAILY 30 Days Qty: 30 0RF metoprolol tartrate 100 mg tablet 100 mg PO BID metformin 1,000 mg tablet 1,000 mg PO BIDWMEAL Qty: 60 0RF Problem Reconciliation Problems Reviewed?: Yes Patient Discharge Instructions ACTIVITY: Ambulate as tolerated DIET: continue same diet Patient Instructions: DI for Heart Attack, Heart-Healthy Diet, Carbohydrate- Counting Diet, Diabetes Diet Label Reading Tips, Stop Light COPD Print Language: Montenegrin Providers Primary Care Provider: Provider,Referral Admit Provider: Sean Butt Attending Provider: Sean Butt
[2024-12-08 13:09] VITALS: BMI 30.6
--- NOTE | 2024-12-10 10:32 | SW/DCPLANNER ---
Spoke with patient on the phone. Patient stated that he is doing very well. Patient stated that he is aware of his upcoming appointments. Patient stated that he was able to get his new medicine. Patient stated that he has no concerns or questions at this time. Marsha Alcala
== END 2024-12-08 16:18 | disposition home or self-care (01) ==
LOC: ER 22:24 → 2ND 22:25
PROVIDERS: Admitting Provider Student in an Organized Health Care Education/Training Program; Emergency Provider Student in an Organized Health Care Education/Training Program; Visit Provider Student in an Organized Health Care Education/Training Program
DX: I25.110 Atherosclerotic heart disease of native coronary artery with unstable angina pectoris (principal); I25.2 Old myocardial infarction; J96.21 Acute and chronic respiratory failure with hypoxia; E78.2 Mixed hyperlipidemia; I11.0 Hypertensive heart disease with heart failure; I50.9 Heart failure, unspecified; E11.65 Type 2 diabetes mellitus with hyperglycemia; J44.89 Other specified chronic obstructive pulmonary disease; K21.9 Gastro-esophageal reflux disease without esophagitis; I45.10 Unspecified right bundle-branch block; E66.9 Obesity, unspecified; Z95.1 Presence of aortocoronary bypass graft; Z68.30 Body mass index [BMI] 30.0-30.9, adult; Z88.8 Allergy status to other drugs, medicaments and biological substances; Z99.89 Dependence on other enabling machines and devices; Z90.2 Acquired absence of lung [part of]; Z95.5 Presence of coronary angioplasty implant and graft; Z98.890 Other specified postprocedural states; Z79.02 Long term (current) use of antithrombotics/antiplatelets; Z79.84 Long term (current) use of oral hypoglycemic drugs; Z79.82 Long term (current) use of aspirin; Z79.51 Long term (current) use of inhaled steroids; Z79.899 Other long term (current) drug therapy
CPT/HCPCS: 71045; 71275; 80053; 82803; 82962; 83605; 83690; 83880; 84484; 85025; 85378; 93005; 93308; 96372; 99285; G0378; J1650; Q9957; Q9967

== ENCOUNTER 2025-01-18 14:00 | Outpatient (CLI) | payer MEDICARE, SELFPAY ==
[2025-01-18 15:29] LABS: Anion Gap 15.2 mEq/L (5-15); Blood Urea Nitrogen 12 mg/dl (9-20); Calcium 9.8 mg/dl (8.4-10.2); Carbon Dioxide 30 mmol/L (22.0-30.0); Chloride 100 mmol/L (98-107); Creatinine,Serum 0.80 mg/dl (0.66-1.25); Estimated Glomerular Filt Rate 94 ml/min (>60); GFR (African American) 114 ML/MIN (>60); Glucose 166 mg/dl (74-100); Potassium 4.2 mmoL/L (3.5-5.1); Sodium 141 mmol/L (136-145)
[2025-01-18 18:01] LABS: Hematocrit 44.3 % (42.0-52.0); Hemoglobin 14.8 g/dL (14.1-18.0); Immature Granulocytes % 0.2 %; Mean Corpuscular HGB Conc 33.4 g/dL (31.8-35.4); Mean Corpuscular Hemoglobin 29.4 pg (27.0-31.2); Mean Corpuscular Volume 88.1 fl (80-94); Nucleated Red Blood Cells % 0 %; Platelet Count 248 K/mm3 (142-424); Red Blood Count 5.03 M/mm3 (4.60-6.20); Red Cell Distribution Width-SD 40.8 fL; White Blood Count 8.2 K/mm3 (4.8-10.8)
[2025-01-24 13:10] LABS: I006-IgE Cockroach, German <0.10 kU/L (Class 0); T006-IgE Cedar, Mountain <0.10 kU/L (Class 0); T007-IgE Oak, White <0.10 kU/L (Class 0); T008-IgE Elm, American <0.10 kU/L (Class 0); T015-IgE Ash, White <0.10 kU/L (Class 0); T022-IgE Pecan, Hickory <0.10 kU/L (Class 0); W001-IgE Ragweed, Short <0.10 kU/L (Class 0); W011-IgE Thistle, Russian <0.10 kU/L (Class 0); W014-IgE Pigweed, Common <0.10 kU/L (Class 0)
== END 2025-01-18 23:59 | disposition home or self-care (01) ==
LOC: LAB 14:03
PROVIDERS: Nurse Practitioner Family; PCP Nurse Practitioner; Visit Provider Internal Medicine Pulmonary Disease
DX: I21.4 Non-ST elevation (NSTEMI) myocardial infarction (principal); R06.02 Shortness of breath
CPT/HCPCS: 36415; 80048; 82785; 85025; 86003